=== PATIENT | female | born 1940 | race Caucasian/White ===

== ENCOUNTER 2020-09-06 11:46 | Inpatient (IN) | payer MEDICARE ==
[~2020-09-06] VITALS: Ht 165.1 cm; Wt 111.5 kg
[2020-09-06] MEDS ORDERED: diphenhydrAMINE 25 MG TAB (BENADRYL) PO PRN (12:00)
[2020-09-06] MEDS ORDERED: FLEET ENEMA ADULT 1 EA BTL PR PRN (12:00)
[2020-09-06] MEDS ORDERED: LOPERAMIDE 2 MG (IMODIUM) TABLET PO PRN (12:00)
[2020-09-06] MEDS ORDERED: ACETAMINOPHEN 325 MG TABLET PO PRN (12:00)
[2020-09-06] MEDS ORDERED: ALPRAZolam 0.25 MG (XANAX) TAB PO PRN (12:00)
[2020-09-06] MEDS ORDERED: LACTULOSE SYRUP 10GM/15ML (ENULOSE) 30ML UDC PO PRN (12:00)
[2020-09-06] MEDS ORDERED: guaiFENesin/CODEINE (ROBITUSSIN AC) 10ML UDC PO PRN (12:00)
[2020-09-06] MEDS ORDERED: BISACODYL 10 MG SUPP (DULCOLAX) PR PRN (12:00)
[2020-09-06] MEDS ORDERED: ONDANSETRON 4 MG (ZOFRAN) ORAL DISSOLVE TAB PO PRN (12:00)
[2020-09-06] MEDS ORDERED: DOCUSATE SODIUM 100 MG (COLACE) CAP PO PRN (12:00)
[2020-09-06 14:20] VITALS: BP 138/78
[2020-09-06] MEDS ORDERED: ACET-2267 PO (14:29)
[2020-09-06] MEDS ORDERED: FLEC100T PO (14:29)
[2020-09-06] MEDS ORDERED: WRF2.5T PO (14:29)
[2020-09-06] MEDS ORDERED: SPIR25TA5 PO (14:29)
[2020-09-06] MEDS ORDERED: LEVO125T6 PO (14:29)
[2020-09-06] MEDS ORDERED: PANT40TA52 PO (14:29)
[2020-09-06] MEDS ORDERED: TRAM50TA3 PO (14:29)
[2020-09-06] MEDS ORDERED: TR1C15 TP (14:29)
[2020-09-06] MEDS ORDERED: WARF-48 PO (14:29)
[2020-09-06] MEDS ORDERED: LETR2.5T6 PO (14:29)
[2020-09-06] MEDS ORDERED: OXYC-473 PO (14:29)
[2020-09-06] MEDS ORDERED: GABA300C PO (14:29)
[2020-09-06] MEDS ORDERED: LOSA50TA63 PO (14:29)
[2020-09-06] MEDS ORDERED: FURO40TA4 PO (14:29)
[2020-09-06] MEDS ORDERED: TRIAMCINOLONE 0.1% CR (KENALOG) 15 GM TUBE TP PRN (15:15)
--- NOTE | 2020-09-06 15:15 | Physical Therapy Evaluation ---
PT Evaluation-General Medical Diagnosis Admission Date Sep 06, 2020 at 14:15 Medical Diagnosis: left TKA Onset Date: Sep 04, 2020 Therapy Diagnosis Therapy Diagnosis: impaired mobility, strength, endurance, ROM Precautions Precautions/Isolations: Fall Prevention, Standard Precautions Weight Bear Status Left Lower Extremity: Left Weight Bearing/Tolerated Referral Physician: Marissa Roman DO Reason for Referral: Evaluation/Treatment Medical History Pertinent Medical History: Atrial Fib, GERD, HTN Additional Medical History CHF, HLD, DJD, obesity, sleep apnea, bilateral mastectomy, coronary stent, cardioversion x3 Reviewed History: Yes Social History Home: Single Level Current Living Status: Alone Entry Into Home: Stairs With Railing PT Steps Into Home: 3 Prior Prior Level of Function SCALE: Activities may be completed with or without assistive devices. 2-Tjvectiyyx-xvygutr completes the activity by him/herself with no assistance from a helper. 5-Set-up or Clean-up Assistance-helper sets up or cleans up; patient completes activity. [place] assists only prior to or following the activity. 4-Supervision or Touching Assistance-helper provides verbal cues and/or touching/steadying and/or contact guard assistance as patient completes activity. Assistance may be provided throughout the activity or intermittently. 3-Partial/Moderate Assistance-helper does LESS THAN HALF the effort. [place] lifts, holds or supports trunk or limbs, but provides less than half the effort. 2-Substantial/Maximal Assistance-helper does MORE THAN HALF the effort. [place] lifts or holds trunk or limbs and provides more than half the effort. 5-Gnfzfkhpl-jftwes does ALL the effort. Patient does none of the effort to complete the activity. Or, the assistance of 2 or more helpers is required for the patient to complete the activity. If activity was not attempted, code reason: 7-Patient Refused. 9-Not Applicable-not attempted and the patient did not perform the activity before the current illness, exacerbation or injury. 10-Not Attempted due to Environmental Limitations-(lack of equipment, weather restraints, etc.). 88-Not Attempted due to Medical Conditions or Safety Concerns. Bed Mobility: 6 Transfers (B,C,W/C): 6 Gait: 6 Stairs: 6 Indoor Mobility (Ambulation): Independent Stairs: Independent Prior Devices Use: Walker (4 wheeled) PT Evaluation-Current Subjective Patient in chair pre tx, agrees to PT, has 9/10 pain in left knee. Will be co- treating with OT due to poor patient mobility, strength, endurance, ROM, severe pain with activity, coordinate UE and LE with activity, safety and reduce risk of falls. Pt/Family Goals "to get my knee working better" Objective Patient Orientation: Person, Place, Situation Attachments: Polar Pack ROM/Strength ROM Lower Extremities left knee extension +10 degrees, flexion 60 degrees. Strength Lower Extremities RLE 4+/5 grossly Sensory Vision: Wears Glasses Hearing: Functional Sensation Right Lower Extremit: Intact Sensation Left Lower Extremity: Intact Transfers Roll Left & Right (QC): 3 Sit to Lying (QC): 3 Lying to Sitting/Side of Bed(Q: 3 Sit to Stand (QC): 3 Chair/Ato-lf-Lahhu Xfer(QC): 3 Toilet Transfer (QC): 3 Car Transfer (QC): 88 (Patient is not able to get her left leg into the car to complete the transfer) Patient performs bed mobility and supine <-> sit with min assist, sit <-> stand mod assist, transfers min assist. Patient is unable to complete a car transfer because she cannot bend her knee enough to get her leg in the car. Gait Does the Patient Walk?: Yes Mode of Locomotion: Walk Anticipated Mode of Locomotion: Walk Walk 10 feet (QC): 4 Walk 50 ft with 2 Turns(QC): 88 Walk 150 ft (QC): 88 Walking 10ft/uneven surface-QC: 4 Distance: 30'x2 Gait Assistive Device: FWW Comments/Gait Description Patient can ambulate 30' with a rolling walker with CGA (including 10' over an uneven surface). Gait is very antalgic, has a flexed left knee with little to no movement in the knee as she is taking steps. Wheelchair Training Does the Pt Use a Wheelchair?: Yes Distance: 30' Wheel 50 ft with 2 turns (QC): 88 Wheel 150 ft (QC): 88 Type of Wheelchair: Manual SBA Stairs #of Steps: 1 1 Step (curb) (QC): 4 4 Steps (QC): 88 12 Steps (QC): 88 Walking Assistive Device: Walker Patient can go up and down 1 step using a rolling walker with CGA and cues for foot placement. Balance Sitting Static: Normal Sitting Dynamic: Normal Standing Static: Fair Standing Dynamic: Fair Picking up an Object (QC): 88 Treatment LLE TKA protocol x15 (AP, QS, HS, SAQ, SLR). PT performed bed mobility and transfers, ambulation, stair training, LE exercise, standing and positioning during bathing and dressing, OT performed bathing, dressing, UE positioning and safety during activity. Assessment/Needs Patient has impaired mobility, strength, endurance, ROM. Rehab Potential: Fair PT Short Term Goals Short Term Goals Time Frame: Sep 13, 2020 Roll Left & Right: 6 Sit to lyin Lying to sitting on side of be: 4 Sit to stand: 3 Chair/due-qb-cjbdc transfer: 4 Walk 10 feet: 4 Walk 50 feet with two turns: 4 PT Residential Goals Residential Goals PT Residential Goals Time Frame: Sep 27, 2020 Roll Left & Right (QC): 6 Sit to Lying (QC): 6 Lying-Sitting on Side/Bed(QC): 6 Sit to Stand (QC): 4 (SBA) Chair/Vwc-nr-Qeadh Xfer(QC): 4 (SBA) Toilet Transfer (QC): 4 (SBA) Car Transfer (QC): 4 (CGA) Does the Patient Walk: Yes Walk 10 feet (QC): 4 (SA) Walk 50ft with 2 Turns (QC): 4 (SBA) Walk 150 ft (QC): 4 (BA) Walking 10ft on Uneven Surface: 4 (SBA) 1 Step (curb) (QC): 4 (SBA) 4 Steps (QC): 4 (SBA) 12 Steps (QC): 88 Picking up an Object (QC): 88 Wheel 50 feet with 2 turns (QC: 9 Wheel 150 feet: 9 PT Plan Problem List Problem List: Activity Tolerance, Functional Strength, Safety, Balance, Gait, Transfer, Bed Mobility, ROM Treatment/Plan Treatment Plan: Continue Plan of Care Treatment Plan: Bed Mobility, Education, Functional Activity Suzanne, Functional Strength, Group Therapy, Gait, Safety, Therapeutic Exercise, Transfers Treatment Duration: Sep 27, 2020 Frequency: At least 5 of 7 days/Wk (IRF) Estimated Hrs Per Day: 1.5 hours per day Patient and/or Family Agrees t: Yes Safety Risks/Education Patient Education: Gait Training, Transfer Techniques, Steps, Correct Positioning, W/C Management, Safety Issues Teaching Recipient: Patient Teaching Methods: Demonstration, Discussion Response to Teaching: Reinforcement Needed Discharge Recommendations Plan Patient will perform bed mobility and transfer training, balance and endurance training, functional strengthening, stair training, gait training, and education, to improve functional mobility and independence at home. Therapy Discharge Recommendati: Scheduled Assistance, Home & Family, Post Acute PT Time/GCodes Time In: 1420 Time Out: 1600 Total Billed Treatment Time: 90 Total Billed Treatment 1 visit EVM 10' FA 80' PT eval from [id number], OT eval from [id number], co-treat from [id number] DAYAMI UGARTE PT Sep 06, 2020 15:15
--- NOTE | 2020-09-06 15:17 | PM&R Post Admission Assessment ---
PM&R Date of Visit: Sep 06, 2020 Time of Visit: 18:30 History of Present Illness Chief complaint: Recovery from left total knee replacement HPI: This is a 79yoWF s/p left total knee replacement on 09/04/[address] Ramirez history of hypertension, AF, renal insufficiency and obesity at 227 lbs. Prior level of functioning was independent with walker and nocturnal oxygen at 2 liters and now she needs intensive recovery in order to return back home to independent living and living alone. Patient reports not using any oxygen at home or CPAP machine. She lives at home with her puppy which her friend is taking care of. 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 Cardiology will be consulted. INR will be monitored. Past Rrpgymm-Gbdtnn-Cxtbaa Hx Past Med/Social Hx: Reviewed Nursing Past Med/Soc Hx, Reviewed and Corrections made Patient Social History Marrital Status: single Employed/Student: retired Alcohol Use: Denies Use Smoking Status: Never a Smoker Recent Foreign Travel: No Contact w/other who traveled: No Past Medical History Cardiac: Atrial Fibrillation, High Cholesterol, Hypertension Neurological: Neuropathy Musculoskeletal: Chronic Back Pain Endocrine: Hypothyroidsim Cancer: Breast Did You Recieve Any Treatments: Yes What Type of Treatment Did You: Surgical Intervention PM&R Allergy/Meds/Data Review Allergies Coded Allergies: No Allergy Information Available (Unverified , 09/06/20) Home Medications Scheduled Acetaminophen (Tylenol Extra Strength), 1,000 MG PO Q8H, (Reported) Flecainide Acetate (Flecainide Acetate), 100 MG PO DAILY, (Reported) Furosemide (Furosemide), 40 MG PO THU,,FR, (Reported) Gabapentin (Neurontin), 300 MG PO HS, (Reported) Letrozole (Letrozole), 2.5 MG PO DAILY, (Reported) Levothyroxine Sodium (Levothyroxine Sodium), 125 MCG PO DAILY, (Reported) Losartan Potassium (Losartan Potassium), 50 MG PO DAILY, (Reported) Pantoprazole Sodium (Pantoprazole Sodium), 40 MG PO DAILY, (Reported) Spironolactone (Spironolactone), 25 MG PO DAILY, (Reported) Warfarin Sodium (Warfarin Sodium), 2.5 MG PO LAZARA SHEPPARD,ARNOLDO, (Reported) Warfarin Sodium (Warfarin Sodium), 5 MG PO MO,,TH,FR, (Reported) Scheduled PRN Oxycodone HCl (Roxicodone), 5-10 MG PO EVERY 2 HOURS PRN for PAIN-SEVERE (8-10), (Reported) Tramadol HCl (Tramadol HCl), 50-100 MG PO Q6H PRN for PAIN-MODERATE (5-7), (Reported) Triamcinolone Acet (Triamcinolone Acetonide 0.1% Cream), 1 APPLIC TP BID PRN for SKIN IRRITATION, (Reported) Current Medications Current Medications Reviewed Review of Systems Constitutional: see HPI, malaise, weakness EENTM: no symptoms reported Respiratory: no symptoms reported Cardiovascular: no symptoms reported Gastrointestinal: no symptoms reported Genitourinary: no symptoms reported Musculoskeletal: back pain, joint pain Skin: no symptoms reported Psychiatric/Neurological: No Symptoms Reported All Other Systems Reviewed Negative Unless Noted: Yes Physical Exam Physical Exam Vital Signs Vital Signs - First Documented 09/06/20 14:20 Temp 36.4 Pulse 97 Resp 16 B/P (MAP) 138/78 (98) Pulse Ox 92 O2 Delivery Room Air Capillary Refill : Height, Weight, BMI Height: '" Weight: lbs. oz. kg; BMI Method: General Appearance: No Apparent Distress, WD/WN, Chronically ill, Obese Eyes: Bilateral Eye Normal Inspection, Bilateral Eye PERRL HEENT: PERRL/EOMI, Normal ENT Inspection, Pharynx Normal Neck: Full Range of Motion, Normal Inspection, Non Tender, Supple, Carotid Bruit Respiratory: Chest Non Tender, Lungs Clear, Normal Breath Sounds, No Accessory Muscle Use, No Respiratory Distress Cardiovascular: No Edema, No Gallop, No JVD, No Murmur, Normal Peripheral Pulses, Irregularly Irregular Gastrointestinal: Normal Bowel Sounds, No Organomegaly, No Pulsatile Mass, Non Tender, Soft Back: Normal Inspection, No CVA Tenderness, No Vertebral Tenderness Extremity: Normal Capillary Refill, Normal Inspection, Normal Range of Motion (except left leg), Non Tender, No Calf Tenderness, No Pedal Edema Neurologic/Psychiatric: Alert, Oriented x3, No Motor/Sensory Deficits, Normal 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, 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 Norm as Tested, Motor Weakness (leg leg weakness) Skin: Normal Color, Warm/Dry Lymphatic: No Adenopathy PM&R Medical Assessment & Plan REHAB/MEDICAL ASSESSMENT AND PLAN: REHAB IMPAIRMENT GROUP: Debility ETIOLOGIC DIAGNOSIS: Debility The comorbidities that impact the patients function and/or functional outcome by: Obesity, atrial fibrillation, lives alone REHAB PLAN: The patient is being admitted to our comprehensive inpatient rehabilitation facility and can tolerate the intensity of service consisting of at least: 180 minutes of therapy a day, 5 out of 7 days a week Rehab treatment will consist of: PT and OT will focus on regaining function of left leg in order to ambulate and increase independence in ADLs in order to return home to live alone The patient/family has a good understanding of our discharge process and will benefit from an interdisciplinary inpatient rehabilitation program. The patient has potential to make improvement and is in need of at least two of the following multidisciplinary therapies including but not limited to physical, occupational, speech, and prosthetics and orthotics. Additionally the patient will need services from respiratory, nutritional services, wound care, psychology, etc. (Customize this to each patient). Given the patients complex condition and risk of further medical complications, rehabilitation services cannot be safely or effectively provided at a lower level of care such as a long-term facility. BARRIERS TO DISCHARGE: Lives alone ESTIMATED LOS: 7 days DISPOSITION: Home RELEVANT CHANGES SINCE PREADMISSION SCREENING: I have compared the patients medical and functional status at the time of the preadmission screening and there are: no changes PROGNOSIS: Good REHABILITATION GOALS: 1. PT and OT will focus on regaining function of left leg in order to ambulate and increase independence in ADLs in order to return home to live alone All the above goals were reviewed with the patient and he/she is in agreement. By signing this document, I acknowledge that I have personally performed a full physical examination on this patient within 24 hours of admission to this inpatient rehabilitation facility and have determined the patient to be able to tolerate the above course of treatment at an intensive level for a reasonable period of time. I will be completing a detailed individualized Plan of Care for this patient by day #4 of the patients stay based upon the Preadmission Screen, the Post-Admission Evaluation, and the therapy evaluations. 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
[2020-09-06] MEDS: ACETAMINOPHEN 500 MG TAB (TYLENOL) PO SCH ×2 (15:43→21:15)
--- NOTE | 2020-09-06 15:56 | Occupational Therapy Eval ---
OT Evaluation-General/PLF Medical Diagnosis Admission Date Sep 06, 2020 at 14:15 Medical Diagnosis: left TKA Onset Date: Sep 04, 2020 Therapy Diagnosis Therapy Diagnosis: decreased ADL status Precautions Precautions/Isolations: Fall Prevention, Standard Precautions Referral Physician: Marissa Roman DO Referral Reason: Evaluation/Treatment Medical History Pertinent Medical History: Atrial Fib, GERD, HTN Additional Medical History CHF, HLD, DJD, obesity, sleep apnea, bilateral mastectomy, coronary stent, cardioversion x3 Current History s/p L TKA 09/04, transferred to ARU 09/06/20 for continued medication management and skilled therapy. Social History Home: Single Level Current Living Status: Alone Entry Into Home: Stairs With Railing (bilateral) Steps Into Home: 3 ADL-Prior Level of Function SCALE: Activities may be completed with or without assistive devices. 7-Bmqnsosfdb-gzkwtzj completes the activity by him/herself with no assistance from a helper. 5-Set-up or Clean-up Assistance-helper sets up or cleans up; patient completes activity. [place] assists only prior to or following the activity. 4-Supervision or Touching Assistance-helper provides verbal cues and/or touching/steadying and/or contact guard assistance as patient completes activity. Assistance may be provided throughout the activity or intermittently. 3-Partial/Moderate Assistance-helper does LESS THAN HALF the effort. [place] lifts, holds or supports trunk or limbs, but provides less than half the effort. 2-Substantial/Maximal Assistance-helper does MORE THAN HALF the effort. [place] lifts or holds trunk or limbs and provides more than half the effort. 2-Xsmuvilff-hzproy does ALL the effort. Patient does none of the effort to complete the activity. Or, the assistance of 2 or more helpers is required for the patient to complete the activity. If activity was not attempted, code reason: 7-Patient Refused. 9-Not Applicable-not attempted and the patient did not perform the activity before the current illness, exacerbation or injury. 10-Not Attempted due to Environmental Limitations-(lack of equipment, weather restraints, etc.). 88-Not Attempted due to Medical Conditions or Safety Concerns. ADL PLOF Comments Pt IND with ADLs and functional mobility at PLOF, using 4WW. Self Care: Independent Functional Cognition: Independent DME/Equipment: Bath Chair, Grab Bars, Tub/Shower DME/Equipment Comments 4WW OT Current Status Subjective Pt agreeable to OT evaluation and OT/PT cotreat. Pt reports pain 9/10 in L knee with movement. Mental Status/Objective Patient Orientation: Person, Place, Time, Situation Attachments: Polar Pack Current Glasses/Contacts: Yes Hearing Aids: No Dentures/Partials: Yes (partial) Hand Dominance: Right Upper Extremity ROM WFL, BUE shoulder flexion to approx 150 degrees Upper Extremity Coordination WFL Upper Extremity Sensation WFL Upper Extremity Strength grossly 4/5 BUEs ADL-Treatment Eating (QC): 6 (Per pt report) Oral Hygiene (QC): 5 (based on clincial judgement) Shower/Bathe Self (QC): 3 (Pt able to wash BUEs, chest/abdomen, periarea, buttocks, RLE. Assist with LLE lower leg/foot for thoroughness. Mod A sit to/from stand to wash buttocks/periarea) Upper Body Dressing (QC): 5 (set up) Lower Body Dressing (QC): 3 (Pt able to doff pants/underwear. pt threaded BLEs into underwear, min A with pant hike. Mod A sit to/from stand) On/Off Footwear (QC): 2 (Max A, pt able to doff tennis shoes. Assist doffing tedhose, assist donning tedhose and gripper socks.) Toileting Hygiene (QC): 3 (Min A with pant hike, pt able to perform pericare. Mod A sit to/from stand) Increased time with ADLs and frequent rest breaks. Other Treatments OT evaluation complete. OT/PT cotreat due to skill of 2 clinicians required which a rehabilitation tech could not perform in order to coordinate UE/LEs, decrease fall risk, and due to pt's limitations in pain, strength, activity tolerance, transfers and mobility. OT focused on ADLs, UE placement, cues for sequencing and safety, PT focused on LE placement, gross overall movement, transfers and mobility. Pt performed functional mobility and transfers, walking with FWW, 1 step, and over uneven surface, then into her room. Pt took seated rest breaks as needed. Pt declined showering today, but agreeable to sponge bath. Pt completed sponge bath, dressing, and ADLs at [facility] [address] as outlined above. She then used FWW to transfer to bed supine. Post tx, pt laying in bed, call light in reach and all needs met. Bed mobility and supine <-> sit min A, sit <-> stand mod A, transfers min A. Functional mobility 30' with a rolling walker with CGA (including 10' on uneven surface) Education OT Patient Education: Correct positioning, Modified ADL techniques, Progress toward Goal/Update tx plan, Purpose of tx/functional activities, Rehab process Teaching Recipient: Patient Teaching Methods: Discussion Response to Teaching: Verbalize Understanding OT Short Term Goals Short Term Goals Time Frame: Sep 14, 2020 Toileting hygiene: 4 Shower/bathe self: 4 Lower body dressin Putting on/taking off footwear: 4 OT Mcc Goals Mcc Goals Time Frame: Oct 05, 2020 Eating (QC): 6 Oral Hygiene (QC): 6 Toileting Hygiene (QC): 6 Shower/Bathe Self (QC): 6 Upper Body Dressing (QC): 6 Lower Body Dressing (QC): 6 On/Off Footwear (QC): 6 Additional Goals: 1-Demonstrate ADL Tasks, 2-Verbalize Understanding, 3- ImproveStrength/Suzanne 1=Demonstrate adherence to instructed precautions during ADL tasks. 2=Patient will verbalize/demonstrate understanding of assistive devices/modifications for ADL. 3=Patient will improve strength/tolerance for activity to enable patient to perform ADL's. OT Education/Plan Problem List/Assessment Assessment: Decreased Activ Tolerance, Decreased UE Strength, Impaired Funct Balance, Impaired I ADL's, Impaired Self-Care Skills Discharge Recommendations Plan/Recommendations: Continue POC Treatment Plan/Plan of Care Patient would benefit from OT for education, treatment and training to promote independence in ADL's, mobility, safety and/or upper extremity function for ADL's. Plan of Care: ADL Retraining, Functional Mobility, Group Exercise/Act as Ind, UE Funct Exercise/Act Treatment Duration: Oct 05, 2020 Frequency: At least 5 of 7 days/Wk (IRF) Estimated Hrs Per Day: 1.5 hours per day Rehab Potential: Fair Time/GCodes Start Time: 14:30 Stop Time: 16:00 Total Time Billed (hr/min): 90 Billed Treatment Time OT eval from [id number], co-treat from [id number] 1, EVM (10'), FA (20'), ADL 4 (60') SHANNAN DE LA PAZ OT Sep 06, 2020 15:56
[2020-09-06 20:00] VITALS: BP 144/70
[2020-09-06] MEDS: DOCUSATE SODIUM 100 MG (COLACE) CAP PO SCH (20:39)
[2020-09-06] MEDS: GABAPENTIN 300 MG (NEURONTIN) CAP PO SCH (20:39)
[2020-09-06] MEDS: polyethylene glycoL POWDER 17 GM (MIRALAX) PACK PO SCH (20:51)
[2020-09-06] MEDS: SENNA W/DOCUSATE (SENOKOT S) TABLET PO SCH (20:52)
[2020-09-07 05:46] LABS: BASOPHILS % (AUTO) 0 % (0-10); EOSINOPHILS # (AUTO) 0.2 10^3/uL (0.0-0.3); EOSINOPHILS % (AUTO) 3 % (0-10); HEMATOCRIT 31 % (35-52); HEMOGLOBIN 10.1 g/dL (11.5-16.0); LYMPHOCYTES # (AUTO) 0.7 10^3/uL (1.0-4.0); LYMPHOCYTES % (AUTO) 10 % (12-44); MEAN CORPUSCULAR HEMOGLOBIN 32 pg (25-34); MEAN CORPUSCULAR HGB CONC 32 g/dL (32-36); MEAN CORPUSCULAR VOLUME 100 fL (80-99); MEAN PLATELET VOLUME 11.2 fL (9.0-12.2); MONOCYTES # (AUTO) 0.8 10^3/uL (0.0-1.0); MONOCYTES % (AUTO) 12 % (0-12); NEUTROPHILS % (AUTO) 74 % (42-75); PLATELET COUNT 157 10^3/uL (130-400); WHITE BLOOD COUNT 6.8 10^3/uL (4.3-11.0)
[2020-09-07 05:54] LABS: INR 1.5 (0.8-1.4); PROTHROMBIN TIME PATIENT 18.6 SEC (12.2-14.7)
[2020-09-07 05:56] LABS: ALBUMIN 3.4 GM/DL (3.2-4.5); POTASSIUM 4.4 MMOL/L (3.6-5.0)
[2020-09-07 05:57] LABS: CALCIUM 8.5 MG/DL (8.5-10.1)
[2020-09-07 05:59] LABS: TOTAL PROTEIN 6.3 GM/DL (6.4-8.2)
[2020-09-07 06:00] LABS: BILIRUBIN,TOTAL 0.5 MG/DL (0.1-1.0)
[2020-09-07 06:02] LABS: CREATININE SERUM 0.99 MG/DL (0.60-1.30)
--- NOTE | 2020-09-07 06:52 | Individualized Plan of Care ---
Individualized Plan of Care Rehab Nursing IPOC Order Admission Date Sep 06, 2020 at 14:15 Current Orders Orders Admission Order(Inpt,Obs,Sdc) (09/06/20 11:53) Vital Signs: Per Unit Policy ( ,00 (09/06/20 11:53) Car Duffy (09/06/20 11:53) Sequential Compression Device .admit (09/06/20 11:53) Sales Support Administrator-Inpt Rehab Con (09/06/20 11:53) Rehab Nursing Orders-Ipoc (09/06/20 11:53) Physical Therapy Rehab Orders (09/06/20 11:53) Occupational Therapy Rehab Ord (09/06/20 11:53) Speech Therapy Rehab Orders (09/06/20 11:53) Cbc With Automated Diff (09/07/20 06:00) Comprehensive Metabolic Panel (09/07/20 06:00) Precautions (Aru) (09/06/20 11:53) Weekly Weight WEEK (09/06/20 11:53) Rehab-Intensity Of Therapy (09/06/20 11:53) Initiate Admission Nursing Pro .admission (09/06/20 11:53) Acetaminophen Tablet/Caplet (Tylenol T (09/06/20 12:00) Alprazolam Tablet (Xanax Tablet) (09/06/20 12:00) Calcium Carbonate Chew Tablet (Antacid C (09/06/20 12:00) Diphenhydramine Tablet (Benadryl Tablet) (09/06/20 12:00) Docusate Sodium Capsule (Colace Capsule) (09/06/20 21:00) Docusate Sodium Capsule (Colace Capsule) (09/06/20 12:00) Bisacodyl Suppository (Dulcolax Supposit (09/06/20 12:00) Lactulose Oral Solution (Enulose Oral So (09/06/20 12:00) Na Phos/Na Biphos Enema (Fleet Enema Mikhail (09/06/20 12:00) Guaifenesin/Codeine Syrup (Robitussin Ac (09/06/20 12:00) Hydrocodone/Apap 5/325 Tablet (Lortab 5 (09/06/20 12:00) Loperamide Tablet (Imodium Tablet) (09/06/20 12:00) Melatonin Tablet (Melatonin Tablet) (09/06/20 12:00) Polyethylene Glycol Powder Pkt (Miralax (09/06/20 21:00) Ondansetron Oral Dissolve Tab (Zofran (09/06/20 12:00) Senna S Tablet (Senokot S Tablet) (09/06/20 21:00) Code/Resuscitation (09/06/20 11:53) Initiate Admission Nursing Pro .admission (09/06/20 11:53) Dressing Order (Intervention) UD (09/06/20 14:43) Follow-Up Appointment D/C (09/06/20 14:43) Acetaminophen Tablet (Tylenol Tablet) (09/06/20 15:15) Flecainide Tablet (Tambocor Tablet) (09/07/20 09:00) Gabapentin Capsule/Tablet (Neurontin Cap (09/06/20 21:00) Letrozole (Non-Formulary) (Femara (Non-F (09/07/20 09:00) Levothyroxine Tablet (Synthroid Tablet) (09/07/20 09:00) Losartan Tablet (Cozaar Tablet) (09/07/20 09:00) Oxycodone Immediate Rel Tablet (Oxyir Ta (09/06/20 15:15) Pantoprazole Tablet (Protonix Tablet) (09/07/20 09:00) Spironolactone Tablet (Aldactone Tablet) (09/07/20 09:00) Triamcinolone 0.1% Cream 15 Gm (Kenalog (09/06/20 15:15) Consult Cardiology (09/06/20 15:16) Protime With Inr (09/07/20 06:00) Tramadol Tablet (Ultram Tablet) (09/06/20 15:45) General/Regular (09/06/20 Dinner) Patient Visit (09/06/20 ) Pt Eval Moderate Complexity (09/06/20 ) Functional Activities, Ea 15 (09/06/20 ) Warfarin Tablet (Coumadin Tablet) (09/07/20 09:00) Furosemide Tablet (Lasix Tablet) (09/07/20 09:00) Warfarin Tablet (Coumadin Tablet) (09/08/20 09:00) Rt Request For Service (09/06/20 18:15) Patient Visit (09/07/20 ) Exercise Therap, Ea 15 Min (09/07/20 ) Gait Training, Ea 15 Min (09/07/20 ) Functional Activities, Ea 15 (09/07/20 ) Patient Visit (09/07/20 ) Speech Sound Lang Comp (09/07/20 ) Treat. Speech/Lang/Voice (09/07/20 ) Patient Visit (09/07/20 ) Ex Neuromuscular, Ea 15 Min (09/07/20 ) Functional Activities, Ea 15 (09/07/20 ) Rehab Nursing Orders: Ongoing Assess. of Function Status, Bladder Management, Bladder Scan, Bladder Training, Bowel Management, Bowel Training, Disease Management & Educaiton, DVT Prophylaxis, Fall Prevention, Fluid/Electrolyte/Nutrition Mgmt, Infection Prevention, Medication Management & Education, Management of Risks & Complications, Management of Skin Intergrity, Nutrition Management, Pain Management, Patient/Family Support, Safety Management Intensity of Therapy to be met Patient to be seen: Min.3h per day/5 of 7d PT IPOC Problem List: Activity Tolerance, Functional Strength, Safety, Balance, Gait, Transfer, Bed Mobility, ROM Treatment Plan: Continue Plan of Care Bed Mobility, Education, Functional Activity Suzanne, Functional Strength, Group Therapy, Gait, Safety, Therapeutic Exercise, Transfers Treatment Duration: Sep 27, 2020 Frequency: At least 5 of 7 days/Wk (IRF) Estimated Hrs Per Day: 1.5 hours per day OT IPOC Problems: Decreased Activ Tolerance, Decreased UE Strength, Impaired Funct Balance, Impaired I ADL's, Impaired Self-Care Skills OT Treatment, Training and Edu: Yes Plan of Care: ADL Retraining, Functional Mobility, Group Exercise/Act as Ind, UE Funct Exercise/Act Treatment Duration: Oct 05, 2020 Frequency: At least 5 of 7 days/Wk (IRF) Estimated Hrs Per Day: 1.[address] IPOC Speech Therapy Treatment Plan: Discontinue ST Treatment Duration: Sep 07, 2020 Frequency: Modified Program (IRF) Estimated Hrs Per Day: Other Sales Support Administrator/Case Mgmt Sales Support Administrator/Case Managemen: Discharge Planning Dietitian/Metal Sander [employer] Finisher Dietitian/Metal Sander And Finisher to monitor nutritional status and make changes and/or recommendations as needed and work with speech pathology on dietary upgrades as the occur. Physician IPOC Medical Issues being managed closely and that require the 24 hour availability o f a physician: Recent knee replacement with extensive cardiac issues with polycystic kidney disease and warfarin treatment will require close monitoring of decompensation Medical Issues: Bowel/Bladder Function, DVT Prophylaxis, Falls Precautions, Fluid/Electrolyte/Nutrition Balance, Infection Protection, Pain Management, Wound Care Brief Synthesis of Preadmission Screen, Post-Admission Evaluation, and Therapy Evaluations: PT OT will focus on regaining ambulation independence along with ADL independence with fall risk and use of AD in order to return home to live alone Medical Prognosis: Good Anticipated Length of Stay: 7 days STEFF TORRES DO Sep 07, 2020 06:52
--- NOTE | 2020-09-07 06:52 | PM&R Progress Note ---
Subjective HPI/CC On Admission Date Seen by Provider: Sep 07, 2020 Time Seen by Provider: 11:30 Subjective/Events-last exam 09/07/20: No major issues currently Pain is controlled INR 1.[address] Samson No dyspnea BM+ BP taken in leg due to bilateral mastectomies Review of Systems Musculoskeletal: leg pain Objective Exam Vital Signs Vital Signs Date Time Temp Pulse Resp B/P (MAP) Pulse Ox O2 Delivery O2 Flow Rate FiO2 09/07/20 21:18 Room Air 09/07/20 20:00 36.8 75 18 129/61 (83) 92 Capillary Refill : General Appearance: No Apparent Distress, WD/WN, Chronically ill, Obese HEENT: PERRL/EOMI, Normal ENT Inspection, Pharynx Normal Neck: Full Range of Motion, Normal Inspection, Non Tender, Supple, Carotid Bruit Respiratory: Chest Non Tender, Lungs Clear, Normal Breath Sounds, No Accessory Muscle Use, No Respiratory Distress Cardiovascular: No Edema, No Gallop, No JVD, No Murmur, Normal Peripheral Pulses, Irregularly Irregular Gastrointestinal: Normal Bowel Sounds, No Organomegaly, No Pulsatile Mass, Non Tender, Soft Back: Normal Inspection, No CVA Tenderness, No Vertebral Tenderness Extremity: Normal Capillary Refill, Normal Inspection, Normal Range of Motion (except left leg), Non Tender, No Calf Tenderness, No Pedal Edema Neurologic/Psychiatric: Alert, Oriented x3, No Motor/Sensory Deficits, Normal Mood/Affect, strategic planner II-XII Norm as Tested, Motor Weakness (leg leg weakness) Skin: Normal Color, Warm/Dry Lymphatic: No Adenopathy Results/Procedures Lab Patient resulted labs reviewed. FIM Transfers Therapy Code Descriptions/Definitions Functional [place] Measure: 0=Not Assessed/NA 4=Minimal Assistance 1=Total Assistance 5=Supervision or Setup 2=Maximal Assistance 6=Modified [place] 3=Moderate Assistance 7=Complete IndependenceSCALE: Activities may be completed with or without assistive devices. 9-Tjqtgiiqjf-cgorrbc completes the activity by him/herself with no assistance from a helper. 5-Set-up or Clean-up Assistance-helper sets up or cleans up; patient completes activity. [place] assists only prior to or following the activity. 4-Supervision or Touching Assistance-helper provides verbal cues and/or touching/steadying and/or contact guard assistance as patient completes activ ity. Assistance may be provided throughout the activity or intermittently. 3-Partial/Moderate Assistance-helper does LESS THAN HALF the effort. [place] lifts, holds or supports trunk or limbs, but provides less than half the effort. 2-Substantial/Maximal Assistance-helper does MORE THAN HALF the effort. [place] lifts or holds trunk or limbs and provides more than half the effort. 1-Rhlpcmmmt-mysvmx does ALL the effort. Patient does none of the effort to complete the activity. Or, the assistance of 2 or more helpers is required for the patient to complete the activity. If activity was not attempted, code reason: 7-Patient Refused. 9-Not Applicable-not attempted and the patient did not perform the activity before the current illness, exacerbation or injury. 10-Not Attempted due to Environmental Limitations-(lack of equipment, weather restraints, etc.). 88-Not Attempted due to Medical Conditions or Safety Concerns. Roll Left to Right (QC): 3 Sit to Lying (QC): 3 Sit to Stand (QC): 3 Chair/Qlr-vy-Cvfaq Xfer(QC): 3 Car Transfer (QC): 88 (Patient is not able to get her left leg into the car to complete the transfer) Gait Training Does the Patient Walk?: Yes Walk 10 feet (QC): 4 Walk 50 ft with 2 Turns(QC): 88 Walk 150 ft (QC): 88 Walking 10ft/uneven surface-QC: 4 Gait Assistive Device: FWW Wheelchair Training Does the Pt Use a Wheelchair?: Yes Distance: 30' Wheel 50 ft with 2 turns (QC): 88 Wheel 150 ft (QC): 88 Type of Wheelchair: Manual Stair Training #of Steps: 1 1 Step (curb) (QC): 4 4 Steps (QC): 88 12 Steps (QC): 88 Balance Picking up an Object (QC): 88 ADL-Treatment Eating (QC): 6 (Per pt report) Oral Hygiene (QC): 5 (based on clincial judgement) Shower/Bathe Self (QC): 3 (Pt able to wash BUEs, chest/abdomen, periarea, buttocks, RLE. Assist with LLE lower leg/foot for thoroughness. Mod A sit to/from stand to wash buttocks/periarea) Upper Body Dressing (QC): 5 (set up) Lower Body Dressing (QC): 3 (Pt able to doff pants/underwear. pt threaded BLEs into underwear, min A with pant hike. Mod A sit to/from stand) On/Off Footwear (QC): 2 (Max A, pt able to doff tennis shoes. Assist doffing tedhose, assist donning tedhose and gripper socks.) Toileting Hygiene (QC): 3 (Min A with pant hike, pt able to perform pericare. Mod A sit to/from stand) Assessment/Plan Assessment and Plan Assess & Plan/Chief Complaint Assessment: 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 Chronic atrial fibrillation Warfarin anticoagulation for stroke prophylaxis from atrial fibrillation Hypothyroidism History of breast cancer Chronic kidney disease Hypertension Hyperlipidemia Obesity Plan: Inpatient rehab protocol Pain control Monitor INR Cardiology consult appreciated 09/07/20: Cardiology consult Monitoring of INR (1) Total knee replacement status (2) HX: breast cancer (3) Obesity (4) Hypothyroidism (5) Atrial fibrillation (6) Warfarin anticoagulation (7) GERD (gastroesophageal reflux disease) STEFF TORRES DO Sep 07, 2020 06:52
[2020-09-07] MEDS: ACETAMINOPHEN 500 MG TAB (TYLENOL) PO SCH ×3 (06:58→23:23)
[2020-09-07 08:00] VITALS: BP 173/73
[2020-09-07] MEDS: SENNA W/DOCUSATE (SENOKOT S) TABLET PO SCH ×2 (08:50→21:15)
[2020-09-07] MEDS: PANTOPRAZOLE 40 MG (PROTONIX) TAB PO SCH (08:51)
[2020-09-07] MEDS: DOCUSATE SODIUM 100 MG (COLACE) CAP PO SCH ×2 (08:51→21:15)
[2020-09-07] MEDS: LETROZOLE 2.5 MG (FEMARA) TAB PO SCH (08:51)
[2020-09-07] MEDS: LOSARTAN 50 MG (COZAAR) TAB PO SCH (08:51)
[2020-09-07] MEDS: SPIRONOLACTONE 25 MG (ALDACTONE) TAB PO SCH (08:51)
[2020-09-07] MEDS: polyethylene glycoL POWDER 17 GM (MIRALAX) PACK PO SCH ×2 (08:52→21:15)
--- NOTE | 2020-09-07 08:53 | Physical Therapy Daily Note ---
PT Daily Note-Current Subjective Pt agreeable. She says she has had some tylenol for pain. States the knee just feels like it's not connected. There's no power to it when she tells it to move. Pain Numeric Pain Scale: 5-Moderate Pain Location: Left, Lateral Location Body Site: Knee Transfers SCALE: Activities may be completed with or without assistive devices. 4-Pgczsbwscj-wtkgmim completes the activity by him/herself with no assistance from a helper. 5-Set-up or Clean-up Assistance-helper sets up or cleans up; patient completes activity. [place] assists only prior to or following the activity. 4-Supervision or Touching Assistance-helper provides verbal cues and/or touching/steadying and/or contact guard assistance as patient completes activity. Assistance may be provided throughout the activity or intermittently. 3-Partial/Moderate Assistance-helper does LESS THAN HALF the effort. [place] lifts, holds or supports trunk or limbs, but provides less than half the effort. 2-Substantial/Maximal Assistance-helper does MORE THAN HALF the effort. [place] lifts or holds trunk or limbs and provides more than half the effort. 1-Hpliszdpn-oblyln does ALL the effort. Patient does none of the effort to complete the activity. Or, the assistance of 2 or more helpers is required for the patient to complete the activity. If activity was not attempted, code reason: 7-Patient Refused. 9-Not Applicable-not attempted and the patient did not perform the activity before the current illness, exacerbation or injury. 10-Not Attempted due to Environmental Limitations-(lack of equipment, weather restraints, etc.). 88-Not Attempted due to Medical Conditions or Safety Concerns. Roll Left & Right (QC): 4 Sit to Lying (QC): 4 Lying to Sitting/Side of Bed(Q: 3 Sit to Stand (QC): 4 Chair/Oro-si-Qxtic Xfer(QC): 3 Car Transfer (QC): 1 Weight Bearing Left Lower Extremity: Left Weight Bearing/Tolerated Gait Training Walk 50 ft with 2 Turns(QC): 3 Gait Persons Needed: 1 Gait Assistive Device: FWW Ambulated 50ft with FWW x 2 trials with education to swing through on the (L) vs circumduction and also to work on full knee extension during stance. Exercises Supine Ex: Ankle pumps, Quad Set, Glut sets, Heel Slides, Knee to chest, Short Arc Quads, Straight leg raise, Hip abd/add Supine Reps: 10 Seated Therapy Exercises: Long arc quads, Hamstring Curls Seated Reps: 10 Incorporated active assist exercise, isometric exercise, and Passive end range knee flexion/extension stretching Assessment Current Status: Good Progress Pt has poor quadriceps contraction. Quad will fire intermittently with active motion but patient is not able to perform an isometric contraction. She did show increased active control post treatment. Pt will benefit from continue PT for strength and mobility training PT Short Term Goals Short Term Goals Time Frame: Sep 13, 2020 Roll Left & Right: 6 Sit to lyin Lying to sitting on side of be: 4 Sit to stand: 3 Chair/fze-vo-hnmvu transfer: 4 Walk 10 feet: 4 Walk 50 feet with two turns: 4 PT Half-Way Goals Half-Way Goals PT Needle Straightener Goals Time Frame: Sep 27, 2020 Roll Left & Right (QC): 6 Sit to Lying (QC): 6 Lying-Sitting on Side/Bed(QC): 6 Sit to Stand (QC): 4 (SBA) Chair/Ehw-ze-Duact Xfer(QC): 4 (SBA) Toilet Transfer (QC): 4 (SBA) Car Transfer (QC): 4 (CGA) Does the Patient Walk: Yes Walk 10 feet (QC): 4 (SA) Walk 50ft with 2 Turns (QC): 4 (SBA) Walk 150 ft (QC): 4 (BA) Walking 10ft on Uneven Surface: 4 (SBA) 1 Step (curb) (QC): 4 (SBA) 4 Steps (QC): 4 (SBA) 12 Steps (QC): 88 Picking up an Object (QC): 88 Wheel 50 feet with 2 turns (QC: 9 Wheel 150 feet: 9 PT Plan Treatment/Plan Treatment Plan: Continue Plan of Care, Discontinue PT Treatment Plan: Bed Mobility, Education, Functional Activity Suzanne, Functional Strength, Group Therapy, Gait, Safety, Therapeutic Exercise, Transfers Treatment Duration: Sep 27, 2020 Frequency: At least 5 of 7 days/Wk (IRF) Estimated Hrs Per Day: 1.5 hours per day Patient and/or Family Agrees t: Yes Time/GCodes Time In: 745 Time Out: 845 Total Billed Treatment Time: 60 Total Billed Treatment visit, ex 30 min, gt 15 min, FA 15 min AMIE ALEJANDRA PT Sep 07, 2020 08:53
[2020-09-07] MEDS ORDERED: FUROSEMIDE 40 MG (LASIX) TAB PO SCH (09:00)
--- NOTE | 2020-09-07 09:00 | Consultation-Cardiology ---
HPI-Cardiology Cardiology Consultation Date of Consultation 09/07/20 Date of Admission Time Seen by Provider: 08:25 Indication: PAF HPI Patient is a 79 y/o female in inpatient rehab after undergoing left total knee arthroplasty with Dr. Ramirez. Patient has a history of PAF, HTN, HLP. Primary echocardiographer is Dr. Ndiaye. Denies any chest pain, dypsnea, dizziness or lightheadedness. Reports to me that her echocardiographer had recently decreased some medications d/t bradycardia and tells me she is planning on undergoing PPM implantation in near future. Home Medications & Allergies Allergies: Coded Allergies: adhesive tape (Verified Allergy, Intermediate, BLISTERS, 09/07/20) codeine (Verified Allergy, Intermediate, "MAKES ME FEEL WEIRD", 09/07/20) Uncoded Allergies: STATINS (Allergy, Mild, "MAKES MY LEGS HURT", 09/07/20) Home Medication List Reviewed: Yes QCF-Jaxdes-Hasnws Hx Patient Social History Marital Status: single Employed/Student: retired Smoking Status: Never a Smoker Have you traveled recently?: No Alcohol Use?: Yes Past Medical History PAF, HTN, HLP Review of Systems-General Review of Systems Constitutional: see HPI, malaise, weakness EENTM: see HPI, no symptoms reported; No blurred vision, No double vision Respiratory: no symptoms reported; No dyspnea on exertion Cardiovascular: no symptoms reported; No chest pain, No Hx of Intervention, No palpitations Gastrointestinal: no symptoms reported Genitourinary: no symptoms reported Musculoskeletal: back pain, joint pain Skin: no symptoms reported Psychiatric/Neurological: No Symptoms Reported All Other Systems Reviewed Negative Unless Noted: Yes Reviewed Test Results Reviewed Test Results Lab Laboratory Tests 09/07/20 05:20: White Blood Count 6.8, Red Blood Count 3.12L, Hemoglobin 10.1L, Hematocrit 31L, Mean Corpuscular Volume 100H, Mean Corpuscular Hemoglobin 32, Mean Corpuscular Hemoglobin Concent 32, Red Cell Distribution Width 13.1, Platelet Count 157, Mean Platelet Volume 11.2, Immature Granulocyte % (Auto) 0, Neutrophils (%) (Auto) 74, Lymphocytes (%) (Auto) 10L, Monocytes (%) (Auto) 12, Eosinophils (%) (Auto) 3, Basophils (%) (Auto) 0, Neutrophils # (Auto) 5.0, Lymphocytes # (Auto) 0.7L, Monocytes # (Auto) 0.8, Eosinophils # (Auto) 0.2, Basophils # (Auto) 0.0, Immature Granulocyte # (Auto) 0.0, Prothrombin Time 18.6H, INR Comment 1.5H, Sodium Level 136, Potassium Level 4.4, Chloride Level 102, Carbon Dioxide Level 24, Anion Gap 10, Blood Urea Nitrogen 22H, Creatinine 0.99, Estimat Glomerular Filtration Rate 54, BUN/Creatinine Ratio 22, Glucose Level 84, Calcium Level 8.5, Corrected Calcium 9.0, Total Bilirubin 0.5, Aspartate Amino Transf (AST/SGOT) 33, Alanine Aminotransferase (ALT/SGPT) 14, Alkaline Phosphatase 49, Total Protein 6.3L, Albumin 3.4 Physical Exam Physical Exam Vital Signs Vital Signs - First Documented 09/06/20 14:20 Temp 36.4 Pulse 97 Resp 16 B/P (MAP) 138/78 (98) Pulse Ox 92 O2 Delivery Room Air Capillary Refill : Height, Weight, BMI Height: '" Weight: lbs. oz. kg; 39.65 BMI Method: General Appearance: No Apparent Distress, WD/WN, Chronically ill, Obese Eyes: Bilateral Eye Normal Inspection, Bilateral Eye PERRL HEENT: PERRL/EOMI, Normal ENT Inspection, Pharynx Normal Neck: Full Range of Motion, Normal Inspection, Non Tender, Supple, Carotid Bruit Respiratory: Chest Non Tender, Lungs Clear, Normal Breath Sounds, No Accessory Muscle Use, No Respiratory Distress Cardiovascular: No Edema, No Gallop, No JVD, No Murmur, Normal Peripheral P ulses, Irregularly Irregular Gastrointestinal: Normal Bowel Sounds, No Organomegaly, No Pulsatile Mass, Non Tender, Soft Back: Normal Inspection, No CVA Tenderness, No Vertebral Tenderness Extremity: Normal Capillary Refill, Normal Inspection, Normal Range of Motion (except left leg), Non Tender, No Calf Tenderness, No Pedal Edema Neurologic/Psychiatric: Alert, Oriented x3, No Motor/Sensory Deficits, Normal Mood/Affect, software support specialist II-XII Norm as Tested, Motor Weakness (leg leg weakness) Skin: Normal Color, Warm/Dry Lymphatic: No Adenopathy A/P-Cardiology Admission Diagnosis L TKA PAF HTN HLP Assessment/Plan S/P left total knee arthroplasty with Dr. Ramirez, slowly recovering. Continue with PT/OT. SSS/PAF, maintained on Flecainide 100mg daily, Coumadin. Reports unknown medication recently d/c'd by primary echocardiographer d/t bradycardia and is planning for PPM in near future. Coumadin restarted today. Continue to monitor daily PT/INR. HTN- controlled, continue to monitor HLP, reports statin intolerance, continue to monitor as outpatient CRI, monitor renal function Obesity Thank you for allowing us to participate in the management of Ms. Hinkle. This is Violetta Pennington PA-C, as a scribe for Dr. Samson. Patient was seen and evaluated with Violetta, I interviewed the patient and performed physical examination, patient is a 79-year-old lady with history of paroxysmal atrial fibrillation, hypertension, hyperlipidemia, chronic renal insufficiency, underwent TKA. She is maintained on flecainide 100 mg 1 mg once daily per her primary echocardiographer recommendation, Dr. Owen,. I will continue on the current dose and monitor her closely History of sinus node dysfunction with episodes of bradycardia, patient was planning to get permanent pacemaker as an outpatient in the future. Currently not requiring a pacemaker History of hypertension, monitor blood pressure VIOLETTA SAUCEDO Sep 07, 2020 8:59 am ROWAN SAMSON MD Sep 07, 2020 1:34 pm
[2020-09-07] MEDS: LEVOTHYROXINE 125 MCG (LEVOTHROID) TABLET PO SCH (09:18)
[2020-09-07] MEDS: warFARin 5 MG (COUMADIN) TAB PO SCH (09:18)
[2020-09-07] MEDS: FLECAINIDE 100 MG (TAMBOCOR) TAB PO SCH (09:18)
--- NOTE | 2020-09-07 10:03 | Occupational Ther Daily Note ---
OT Current Status-Daily Note Subjective Pt laying in bed, agreeable to OT tx. Mental Status/Objective Patient Orientation: Normal For Age ADL-Treatment Therapy Code Descriptions/Definitions Functional [place] Measure: 0=Not Assessed/NA 4=Minimal Assistance 1=Total Assistance 5=Supervision or Setup 2=Maximal Assistance 6=Modified [place] 3=Moderate Assistance 7=Complete IndependenceSCALE: Activities may be completed with or without assistive devices. 9-Bqwbzkybpi-othnctn completes the activity by him/herself with no assistance from a helper. 5-Set-up or Clean-up Assistance-helper sets up or cleans up; patient completes activity. [place] assists only prior to or following the activity. 4-Supervision or Touching Assistance-helper provides verbal cues and/or touching/steadying and/or contact guard assistance as patient completes activity. Assistance may be provided throughout the activity or intermittently. 3-Partial/Moderate Assistance-helper does LESS THAN HALF the effort. [place] lifts, holds or supports trunk or limbs, but provides less than half the effort. 2-Substantial/Maximal Assistance-helper does MORE THAN HALF the effort. [place] lifts or holds trunk or limbs and provides more than half the effort. 2-Dlmcnlcnu-hxoeiy does ALL the effort. Patient does none of the effort to complete the activity. Or, the assistance of 2 or more helpers is required for the patient to complete the activity. If activity was not attempted, code reason: 7-Patient Refused. 9-Not Applicable-not attempted and the patient did not perform the activity before the current illness, exacerbation or injury. 10-Not Attempted due to Environmental Limitations-(lack of equipment, weather restraints, etc.). 88-Not Attempted due to Medical Conditions or Safety Concerns. Oral Hygiene (QC): 6 (IND seated at sink.) Shower/Bathe Self (QC): 3 (Min A with washing/drying L foot.) Upper Body Dressing (QC): 5 (set up assist) Lower Body Dressing (QC): 3 (Pt required assistance threding BLEs into pants, able to manage up to her knees and then pant hike.) On/Off Footwear: 2 (Pt required assistance doffing tedhose and gripper socks, assist donnig LLE tedhose and gripper sock. Pt able to don RLE gripper sock (declined tedhose)) Toileting Hygiene (QC): 4 (CGA, pt able to perform pant hike and hygiene.) Toilet Transfer (QC): 4 (CGA on/off BSC over toilet.) Other Treatment Pt laying in bed, transferred supine to sit EOB (assist LLE). Pt used FWW to ambulate into bathroom and onto toilet, CGA. Pt completed toileting, then transferred to w/c. Pt completed sponge bath, dressing, and oral care seated at sink, requiring frequent rest breaks. OT educated pt on using LH sponge to wash lower legs/feet, but still required assistance washing/drying L foot for thoroughness. Pt stood at FWW, CGA, and returned to bed. Pt required assist with LLE into bed to transfer supine. OT placed polar pack on LLE. Post tx, pt laying in bed, call light in reach and all needs met. Education OT Patient Education: Correct positioning, Energy conservation, Exercise program, Modified ADL techniques, Progress toward Goal/Update tx plan, Purpose of tx/functional activities, Rehab process, Use of adapted equipment Teaching Recipient: Patient Teaching Methods: Discussion Response to Teaching: Verbalize Understanding OT Short Term Goals Short Term Goals Time Frame: Sep 14, 2020 Toileting hygiene: 4 Shower/bathe self: 4 Lower body dressin Putting on/taking off footwear: 4 OT Assisted Goals Assisted Goals Time Frame: Oct 05, 2020 Eating (QC): 6 Oral Hygiene (QC): 6 Toileting Hygiene (QC): 6 Shower/Bathe Self (QC): 6 Upper Body Dressing (QC): 6 Lower Body Dressing (QC): 6 On/Off Footwear (QC): 6 Additional Goals: 1-Demonstrate ADL Tasks, 2-Verbalize Understanding, 3-ImproveStrength/Suzanne 1=Demonstrate adherence to instructed precautions during ADL tasks. 2=Patient will verbalize/demonstrate understanding of assistive devices/modifications for ADL. 3=Patient will improve strength/tolerance for activity to enable patient to perform ADL's. OT Education/Plan Problem List/Assessment Assessment: Decreased Activ Tolerance, Decreased UE Strength, Impaired Funct Balance, Impaired I ADL's, Impaired Self-Care Skills, Restricted Funct UE ROM Discharge Recommendations Plan/Recommendations: Continue POC Treatment Plan/Plan of Care Patient would benefit from OT for education, treatment and training to promote independence in ADL's, mobility, safety and/or upper extremity function for ADL's. Plan of Care: ADL Retraining, Functional Mobility, Group Exercise/Act as Ind, UE Funct Exercise/Act Treatment Duration: Oct 05, 2020 Frequency: At least 5 of 7 days/Wk (IRF) Estimated Hrs Per Day: 1.5 hours per day Rehab Potential: Fair Time/GCodes Start Time: 09:00 Stop Time: 10:00 Total Time Billed (hr/min): 60 Billed Treatment Time 1, ADL 4 SHANNAN DE LA PAZ OT Sep 07, 2020 10:03
--- NOTE | 2020-09-07 10:57 | ST Cognitive Linguistic Eval ---
Speech Evaluation-General Medical Diagnosis left TKA Onset Date: Sep 04, 2020 Therapy Diagnosis Therapy Diagnosis: Cognitive-communication Referral Referring Physician: Dr. Roman Medical History Pertinent Medical History: Atrial Fib, GERD, HTN Reviewed History: Yes Social History Current Living Status: Alone Speech PLF-Current Status Prior Level of Function Patient lives home alone where she is independent for her daily needs. Subjective Patient was pleasant and cooperative with the cognitive assessment. Language Eval: Auditory Comprehends Simple Yes/No Ques: Functional Indent/Objects Multiple Thomas: Functional Ident/Pics in Multiple Thomas: Functional Follows 1-Step Commands: Functional Follows Complex Directions: Functional Follows General Conversations: Functional Language Eval: Verbal Language Completes Spontaneous Greeting: Functional Produces Auto, Serial Info: Functional Imitates Simple Words/Phrases: Functional Word Finding: Functional Requests Basic Needs: Functional States Basic Personal Info: Functional Expresses Complex Ideas: Functional Objective Cognitive Domain Attention: WNL Memory: WNL Problem Solving: Functional Executive Functions: WNL Visuospatial Skills: WNL Composite Severity Rating: WNL Clock Drawing Severity Rating: WNL Objective Formal/Standardized Tests [facility] Status ([facility]) Results 28/30, within normal range of function Oral Motor/Speech Production Within Normal Limits Impression Patient is a 79 y/o female who was admitted to the ARU s/p left knee replacement. Patient was given the UMS at bedside with a score of 28/30 obtained. This score is within normal range of function. No further ST services are indicated at this time. Speech Patient Assess Expression of Ideas/Wants: Expression (4) Understanding Verbal Content: Understands (4) Brief Interview-Mental Status: Yes Repetition of Three Words: Three (3) Temporal Orientation: Year: Correct (3) Temporal Orientation: Month: Accurate within 5 days(2) Temporal Orientation: Day: Correct (1) Recall : Wear to say "Sock": Yes,after cueing (1) Recall : Color: Yes, no cue required (2) Recall : Bed: Yes,after cueing (1) Memory/Recall Ability: Current season, Location of own room, That he or she is in a hsp/hsp unit Speech-Plan Patient/Family Goals Patient/Family Goals: Patient plans on returning to her home with friends support for assist. Treatment Plan Speech Therapy Treatment Plan: Discontinue ST Treatment Duration: Sep 07, 2020 Frequency: 1 time per week Estimated Hrs Per Day: .5 hour per day Rehab Potential: Fair Barriers to Learning: Patient's age, recent health changes Pt/Family Agrees to Plan: Yes Safety Risks/Education Teaching Recipient: Patient Teaching Methods: Discussion Response to Teaching: Verbalize Understanding Education Topics Provided: Safety within her room, communication of wants/needs Time Speech Therapy Time In: 10:30 Speech Therapy Time Out: 11:00 Total Billed Time: 30 Billed Treatment Time 1, CASSANDRA PARRA [facility] ST Sep 07, 2020 10:57
--- NOTE | 2020-09-07 13:56 | Occupational Ther Daily Note ---
OT Current Status-Daily Note Subjective Pt laying in bed, agreeable to OT Tx. Mental Status/Objective Patient Orientation: Normal For Age Attachments: Polar Pack ADL-Treatment Therapy Code Descriptions/Definitions Functional [place] Measure: 0=Not Assessed/NA 4=Minimal Assistance 1=Total Assistance 5=Supervision or Setup 2=Maximal Assistance 6=Modified [place] 3=Moderate Assistance 7=Complete IndependenceSCALE: Activities may be completed with or without assistive devices. 7-Awsfnuuuom-pbkcxch completes the activity by him/herself with no assistance f rom a helper. 5-Set-up or Clean-up Assistance-helper sets up or cleans up; patient completes activity. [place] assists only prior to or following the activity. 4-Supervision or Touching Assistance-helper provides verbal cues and/or touching/steadying and/or contact guard assistance as patient completes activity. Assistance may be provided throughout the activity or intermittently. 3-Partial/Moderate Assistance-helper does LESS THAN HALF the effort. [place] lifts, holds or supports trunk or limbs, but provides less than half the effort. 2-Substantial/Maximal Assistance-helper does MORE THAN HALF the effort. [place] lifts or holds trunk or limbs and provides more than half the effort. 7-Hpaojhjyc-ybdixc does ALL the effort. Patient does none of the effort to complete the activity. Or, the assistance of 2 or more helpers is required for the patient to complete the activity. If activity was not attempted, code reason: 7-Patient Refused. 9-Not Applicable-not attempted and the patient did not perform the activity before the current illness, exacerbation or injury. 10-Not Attempted due to Environmental Limitations-(lack of equipment, weather restraints, etc.). 88-Not Attempted due to Medical Conditions or Safety Concerns. Other Treatment OT/PT cotreat due to skill of 2 clinicians required which a rehab consultant could not perform in order to coordinate UE/LEs, decrease fall risk and due to pt's limitations in pain, mobility, activity tolerance and transfers. OT focused on UE placement, cues for sequencing and safety, PT focused on LE placement, gross overall movement, and transfers/mobility. Pt laying in bed, transferred supine to sit EOB (assist LLE). Pt transferred to w/c, then taken into therapy gym. Pt stood in parallel bars, encouraged to weight bear through LLE. Pt completed UE reaching task x3 trials with rest break between. Pt able to let go of parallel bars with UEs in order to hit balloon back and forth with OT, PT assisted with balance as needed. Pt taken back to room, transferring back to bed (assist LLE). Post tx, pt laying in bed, call light in reach and all needs met. Education OT Patient Education: Correct positioning, Energy conservation, Exercise program, Modified ADL techniques, Progress toward Goal/Update tx plan, Purpose of tx/functional activities, Rehab process Teaching Recipient: Patient Teaching Methods: Discussion Response to Teaching: Verbalize Understanding OT Short Term Goals Short Term Goals Time Frame: Sep 14, 2020 Toileting hygiene: 4 Shower/bathe self: 4 Lower body dressin Putting on/taking off footwear: 4 OT Technical Operations Vice President Goals [facility] Goals Time Frame: Oct 05, 2020 Eating (QC): 6 Oral Hygiene (QC): 6 Toileting Hygiene (QC): 6 Shower/Bathe Self (QC): 6 Upper Body Dressing (QC): 6 Lower Body Dressing (QC): 6 On/Off Footwear (QC): 6 Additional Goals: 1-Demonstrate ADL Tasks, 2-Verbalize Understanding, 3- ImproveStrength/Suzanne 1=Demonstrate adherence to instructed precautions during ADL tasks. 2=Patient will verbalize/demonstrate understanding of assistive devices/modifications for ADL. 3=Patient will improve strength/tolerance for activity to enable patient to perform ADL's. OT Education/Plan Problem List/Assessment Assessment: Decreased Activ Tolerance, Decreased UE Strength, Impaired Funct Balance, Impaired I ADL's, Impaired Self-Care Skills Discharge Recommendations Plan/Recommendations: Continue POC Treatment Plan/Plan of Care Patient would benefit from OT for education, treatment and training to promote independence in ADL's, mobility, safety and/or upper extremity function for ADL's. Plan of Care: ADL Retraining, Functional Mobility, Group Exercise/Act as Ind, UE Funct Exercise/Act Treatment Duration: Oct 05, 2020 Frequency: At least 5 of 7 days/Wk (IRF) Estimated Hrs Per Day: 1.5 hours per day Rehab Potential: Fair Time/GCodes Start Time: 13:00 Stop Time: 13:30 Total Time Billed (hr/min): 30 Billed Treatment Time cotreat x30' 1, FA 2 SHANNAN DE LA PAZ OT Sep 07, 2020 13:56
--- NOTE | 2020-09-07 14:00 | Physical Therapy Daily Note ---
PT Daily Note-Current Subjective Patient in bed pre tx, agrees to PT, has 7-8/10 pain in left knee, will be co- treating with OT due to poor patient mobility, strength, endurance, severe pain with activity, coordinate UE and LE during activity, safety and reduce risk of falls. Appearance Patient in bed post tx with nurse call, phone, tray, all needs met. Mental Status Patient Orientation: Normal For Age Attachments: Polar Pack Transfers SCALE: Activities may be completed with or without assistive devices. 5-Pwggsgyfcg-djhulag completes the activity by him/herself with no assistance from a helper. 5-Set-up or Clean-up Assistance-helper sets up or cleans up; patient completes activity. [place] assists only prior to or following the activity. 4-Supervision or Touching Assistance-helper provides verbal cues and/or touching/steadying and/or contact guard assistance as patient completes activity. Assistance may be provided throughout the activity or intermittently. 3-Partial/Moderate Assistance-helper does LESS THAN HALF the effort. [place] lifts, holds or supports trunk or limbs, but provides less than half the effort. 2-Substantial/Maximal Assistance-helper does MORE THAN HALF the effort. [place] lifts or holds trunk or limbs and provides more than half the effort. 5-Nqskocvdz-giwbkc does ALL the effort. Patient does none of the effort to complete the activity. Or, the assistance of 2 or more helpers is required for the patient to complete the activity. If activity was not attempted, code reason: 7-Patient Refused. 9-Not Applicable-not attempted and the patient did not perform the activity before the current illness, exacerbation or injury. 10-Not Attempted due to Environmental Limitations-(lack of equipment, weather restraints, etc.). 88-Not Attempted due to Medical Conditions or Safety Concerns. Roll Left & Right (QC): 6 Sit to Lying (QC): 3 Lying to Sitting/Side of Bed(Q: 3 Sit to Stand (QC): 4 Chair/Dar-rq-Jlyhf Xfer(QC): 4 Weight Bearing Left Lower Extremity: Left Weight Bearing/Tolerated Wheelchair Training Does the Pt Use a Wheelchair?: Yes Wheel 50 ft with 2 turns (QC): 4 Type of Wheelchair: Manual 120'x2 Exercises standing in parallel bars x3 working on BUE reaching and hitting balloon to promote more weight bearing on left knee and for balance. Treatments PT performed bed mobility and transfers, WC mobility, standing during balance activity, OT worked on balance activity, UE positioning and safety during activity. Assessment Current Status: Poor Progress Patient is very reluctant to bend her left knee PT Short Term Goals Short Term Goals Time Frame: Sep 13, 2020 Roll Left & Right: 6 Sit to lyin Lying to sitting on side of be: 4 Sit to stand: 3 Chair/uyl-km-rcgkp transfer: 4 Walk 10 feet: 4 Walk 50 feet with two turns: 4 PT Prison Goals Oncology Radiation Physician Goals PT Oncology Radiation Physician Goals Time Frame: Sep 27, 2020 Roll Left & Right (QC): 6 Sit to Lying (QC): 6 Lying-Sitting on Side/Bed(QC): 6 Sit to Stand (QC): 4 (SBA) Chair/Tim-uf-Oxvxi Xfer(QC): 4 (SBA) Toilet Transfer (QC): 4 (SBA) Car Transfer (QC): 4 (CGA) Does the Patient Walk: Yes Walk 10 feet (QC): 4 (SA) Walk 50ft with 2 Turns (QC): 4 (SBA) Walk 150 ft (QC): 4 (BA) Walking 10ft on Uneven Surface: 4 (SBA) 1 Step (curb) (QC): 4 (SBA) 4 Steps (QC): 4 (SBA) 12 Steps (QC): 88 Picking up an Object (QC): 88 Wheel 50 feet with 2 turns (QC: 9 Wheel 150 feet: 9 PT Plan Problem List Problem List: Activity Tolerance, Functional Strength, Safety, Balance, Gait, Transfer, Bed Mobility, ROM Treatment/Plan Treatment Plan: Continue Plan of Care Treatment Plan: Bed Mobility, Education, Functional Activity Suzanne, Functional Strength, Group Therapy, Gait, Safety, Therapeutic Exercise, Transfers Treatment Duration: Sep 27, 2020 Frequency: At least 5 of 7 days/Wk (IRF) Estimated Hrs Per Day: 1.5 hours per day Patient and/or Family Agrees t: Yes Safety Risks/Education Patient Education: Transfer Techniques, Correct Positioning, W/C Management, Safety Issues Teaching Recipient: Patient Teaching Methods: Demonstration, Discussion Response to Teaching: Reinforcement Needed Time/GCodes Time In: 1300 Time Out: 1330 Total Billed Treatment Time: 30 Total Billed Treatment 1 visit NM 15' FA 15' co-treated for 30' KRTEK,DAYAMI PT Sep 07, 2020 14:00
[2020-09-07] MEDS: HYDROcodone/APAP 5 MG/325 MG (LORTAB) TAB PO PRN ×2 (15:46→20:50)
[2020-09-07 20:00] VITALS: BP 129/61
[2020-09-07] MEDS: MELATONIN 3 MG TABLET PO PRN (20:50)
[2020-09-07] MEDS: GABAPENTIN 300 MG (NEURONTIN) CAP PO SCH (20:50)
[2020-09-08] MEDS: HYDROcodone/APAP 5 MG/325 MG (LORTAB) TAB PO PRN ×3 (04:53→21:02)
[2020-09-08] MEDS: ACETAMINOPHEN 500 MG TAB (TYLENOL) PO SCH ×3 (07:10→23:15)
[2020-09-08 07:30] VITALS: BP 111/65
--- NOTE | 2020-09-08 08:59 | Physical Therapy Daily Note ---
PT Daily Note-Current Subjective States that her knee isn't working. Transfers SCALE: Activities may be completed with or without assistive devices. 4-Sppjbbmtij-ezcirym completes the activity by him/herself with no assistance from a helper. 5-Set-up or Clean-up Assistance-helper sets up or cleans up; patient completes activity. [place] assists only prior to or following the activity. 4-Supervision or Touching Assistance-helper provides verbal cues and/or touching/steadying and/or contact guard assistance as patient completes activity. Assistance may be provided throughout the activity or intermittently. 3-Partial/Moderate Assistance-helper does LESS THAN HALF the effort. [place] l ifts, holds or supports trunk or limbs, but provides less than half the effort. 2-Substantial/Maximal Assistance-helper does MORE THAN HALF the effort. [place] lifts or holds trunk or limbs and provides more than half the effort. 3-Myyxsclfc-ttloey does ALL the effort. Patient does none of the effort to complete the activity. Or, the assistance of 2 or more helpers is required for t he patient to complete the activity. If activity was not attempted, code reason: 7-Patient Refused. 9-Not Applicable-not attempted and the patient did not perform the activity before the current illness, exacerbation or injury. 10-Not Attempted due to Environmental Limitations-(lack of equipment, weather restraints, etc.). 88-Not Attempted due to Medical Conditions or Safety Concerns. Sit to Lying (QC): 4 Lying to Sitting/Side of Bed(Q: 4 Weight Bearing Left Lower Extremity: Left Weight Bearing/Tolerated Exercises Supine Ex: LE Protocol Supine Reps: 20 Seated Therapy Exercises: Long arc quads Seated Reps: 20 Assessment Current Status: Fair Progress Patient has very poor knee ROM and difficulty firing quad. PT Short Term Goals Short Term Goals Time Frame: Sep 13, 2020 Roll Left & Right: 6 Sit to lyin Lying to sitting on side of be: 4 Sit to stand: 3 Chair/irv-cd-qgzaf transfer: 4 Walk 10 feet: 4 Walk 50 feet with two turns: 4 PT Retirement Goals Retirement Goals PT Retirement Goals Time Frame: Sep 27, 2020 Roll Left & Right (QC): 6 Sit to Lying (QC): 6 Lying-Sitting on Side/Bed(QC): 6 Sit to Stand (QC): 4 (SBA) Chair/Rah-ku-Oipar Xfer(QC): 4 (SBA) Toilet Transfer (QC): 4 (SBA) Car Transfer (QC): 4 (CGA) Does the Patient Walk: Yes Walk 10 feet (QC): 4 (SA) Walk 50ft with 2 Turns (QC): 4 (SBA) Walk 150 ft (QC): 4 (BA) Walking 10ft on Uneven Surface: 4 (SBA) 1 Step (curb) (QC): 4 (SBA) 4 Steps (QC): 4 (SBA) 12 Steps (QC): 88 Picking up an Object (QC): 88 Wheel 50 feet with 2 turns (QC: 9 Wheel 150 feet: 9 PT Plan Treatment/Plan Treatment Plan: Continue Plan of Care Treatment Plan: Bed Mobility, Education, Functional Activity Suzanne, Functional Strength, Group Therapy, Gait, Safety, Therapeutic Exercise, Transfers Treatment Duration: Sep 27, 2020 Frequency: At least 5 of 7 days/Wk (IRF) Estimated Hrs Per Day: 1.5 hours per day Patient and/or Family Agrees t: Yes Time/GCodes Time In: 832 Time Out: 58 Total Billed Treatment Time: 25 Total Billed Treatment 1, EX x 25' LEONIDES LOJA PT Sep 08, 2020 08:59
[2020-09-08] MEDS: PANTOPRAZOLE 40 MG (PROTONIX) TAB PO SCH (09:59)
[2020-09-08] MEDS: LEVOTHYROXINE 125 MCG (LEVOTHROID) TABLET PO SCH (09:59)
[2020-09-08] MEDS: LOSARTAN 50 MG (COZAAR) TAB PO SCH (09:59)
[2020-09-08] MEDS: SPIRONOLACTONE 25 MG (ALDACTONE) TAB PO SCH (09:59)
[2020-09-08] MEDS: FLECAINIDE 100 MG (TAMBOCOR) TAB PO SCH (10:00)
[2020-09-08] MEDS: LETROZOLE 2.5 MG (FEMARA) TAB PO SCH (10:00)
[2020-09-08] MEDS: polyethylene glycoL POWDER 17 GM (MIRALAX) PACK PO SCH ×2 (10:24→21:03)
[2020-09-08] MEDS: DOCUSATE SODIUM 100 MG (COLACE) CAP PO SCH ×2 (10:24→21:03)
[2020-09-08] MEDS: SENNA W/DOCUSATE (SENOKOT S) TABLET PO SCH ×2 (10:24→21:02)
[2020-09-08] MEDS: warFARin 2.5 MG (COUMADIN) TAB PO SCH (10:40)
--- NOTE | 2020-09-08 12:22 | PM&R Progress Note ---
Subjective HPI/CC On Admission Date Seen by Provider: Sep 08, 2020 Time Seen by Provider: 12:00 Subjective/Events-last exam 09/08/2020: Patient feels pretty good Pain is well controlled Talked about dysphagia from esophageal spasms No concerns 09/07/20: No major issues currently Pain is controlled INR 1.[address] Samson No dyspnea BM+ BP taken in leg due to bilateral mastectomies Review of Systems General: Fatigue, Malaise HEENT: Dysphasia Musculoskeletal: leg pain Objective Exam Vital Signs Vital Signs Date Time Temp Pulse Resp B/P (MAP) Pulse Ox O2 Delivery O2 Flow Rate FiO2 09/08/20 19:45 36.6 86 18 130/70 (90) 96 09/08/20 08:52 Room Air Capillary Refill : General Appearance: No Apparent Distress, WD/WN, Chronically ill, Obese HEENT: PERRL/EOMI, Normal ENT Inspection, Pharynx Normal Neck: Full Range of Motion, Normal Inspection, Non Tender, Supple, Carotid Bruit Respiratory: Chest Non Tender, Lungs Clear, Normal Breath Sounds, No Accessory Muscle Use, No Respiratory Distress Cardiovascular: No Edema, No Gallop, No JVD, No Murmur, Normal Peripheral Pulses, Irregularly Irregular Gastrointestinal: Normal Bowel Sounds, No Organomegaly, No Pulsatile Mass, Non Tender, Soft Back: Normal Inspection, No CVA Tenderness, No Vertebral Tenderness Extremity: Normal Capillary Refill, Normal Inspection, Normal Range of Motion (except left leg), Non Tender, No Calf Tenderness, No Pedal Edema Neurologic/Psychiatric: Alert, Oriented x3, No Motor/Sensory Deficits, Normal Mood/Affect, crib pad maker II-XII Norm as Tested, Motor Weakness (leg leg weakness) Skin: Normal Color, Warm/Dry Lymphatic: No Adenopathy Results/Procedures Lab Patient resulted labs reviewed. FIM Transfers Therapy Code Descriptions/Definitions Functional [place] Measure: 0=Not Assessed/NA 4=Minimal Assistance 1=Total Assistance 5=Supervision or Setup 2=Maximal Assistance 6=Modified [place] 3=Moderate Assistance 7=Complete IndependenceSCALE: Activities may be completed with or without assistive devices. 8-Vogtfqxsve-ckudpep completes the activity by him/herself with no assistance from a helper. 5-Set-up or Clean-up Assistance-helper sets up or cleans up; patient completes activity. [place] assists only prior to or following the activity. 4-Supervision or Touching Assistance-helper provides verbal cues and/or touching/steadying and/or contact guard assistance as patient completes activity. Assistance may be provided throughout the activity or intermittently. 3-Partial/Moderate Assistance-helper does LESS THAN HALF the effort. [place] lifts, holds or supports trunk or limbs, but provides less than half the effort. 2-Substantial/Maximal Assistance-helper does MORE THAN HALF the effort. [place] lifts or holds trunk or limbs and provides more than half the effort. 6-Oadoltwwj-hflkct does ALL the effort. Patient does none of the effort to complete the activity. Or, the assistance of 2 or more helpers is required for the patient to complete the activity. If activity was not attempted, code reason: 7-Patient Refused. 9-Not Applicable-not attempted and the patient did not perform the activity before the current illness, exacerbation or injury. 10-Not Attempted due to Environmental Limitations-(lack of equipment, weather restraints, etc.). 88-Not Attempted due to Medical Conditions or Safety Concerns. Roll Left to Right (QC): 6 Sit to Lying (QC): 4 Sit to Stand (QC): 4 Chair/Joi-pe-Oneka Xfer(QC): 4 Car Transfer (QC): 1 Gait Training Does the Patient Walk?: Yes Walk 10 feet (QC): 4 Walk 50 ft with 2 Turns(QC): 3 Walk 150 ft (QC): 88 Walking 10ft/uneven surface-QC: 4 Gait Persons Needed: 1 Gait Assistive Device: FWW Wheelchair Training Does the Pt Use a Wheelchair?: Yes Distance: 30' Wheel 50 ft with 2 turns (QC): 4 Wheel 150 ft (QC): 88 Type of Wheelchair: Manual Stair Training #of Steps: 1 1 Step (curb) (QC): 4 4 Steps (QC): 88 12 Steps (QC): 88 Balance Picking up an Object (QC): 88 ADL-Treatment Eating (QC): 6 (Per pt report) Oral Hygiene (QC): 6 (IND seated at sink.) Shower/Bathe Self (QC): 3 (Min A with washing/drying L foot.) Upper Body Dressing (QC): 5 (set up assist) Lower Body Dressing (QC): 3 (Pt required assistance threding BLEs into pants, able to manage up to her knees and then pant hike.) On/Off Footwear (QC): 2 (Pt required assistance doffing tedhose and gripper so cks, assist donnig LLE tedhose and gripper sock. 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 Chronic atrial fibrillation Warfarin anticoagulation for stroke prophylaxis from atrial fibrillation Hypothyroidism History of breast cancer Chronic kidney disease Hypertension Hyperlipidemia Obesity Esophageal spasms chronic Plan: Inpatient rehab protocol Pain control Monitor INR Cardiology consult appreciated 09/07/20: Cardiology consult Monitoring of INR 09/08/2020: Monitor dysphagia Pain control (1) Total knee replacement status (2) HX: breast cancer (3) Obesity (4) Hypothyroidism (5) Atrial fibrillation (6) Warfarin anticoagulation (7) GERD (gastroesophageal reflux disease) STEFF TORRES DO Sep 08, 2020 12:22
--- NOTE | 2020-09-08 13:37 | Cardiology Progress Note ---
Subjective Date Seen by Provider: Sep 08, 2020 Time Seen by Provider: 13:36 Subjective/Events-last exam Patient was seen at bedside, laying down comfortably, reporting some shortness of breath and productive cough Review of Systems General: No Chills, No Night Sweats, No Fatigue, No Malaise, No Appetite, No Other HEENT: No Head Aches, No Visual Changes, No Eye Pain, No Ear Pain, No Dysphasia, No Sinus Congestion, No Post Nasal Drip, No Sore Throat, No Other Pulmonary: Dyspnea; No Cough, No Pleuritic Chest Pain, No Other Cardiovascular: No: Chest Pain, Palpitations, Orthopnea, Paroxysmal Noc. Dyspnea, Edema, Lt Headedness, Other Objective-Cardiology Exam Last Set of Vital Signs Vital Signs 09/08/20 07:30 Temp 37.0 Pulse 79 Resp 16 B/P (MAP) 111/65 (80) Pulse Ox 95 O2 Delivery Room Air General: Alert, Oriented X3, Cooperative HEENT: Atraumatic, PERRLA Neck: Supple, No JVD, No Thyromegaly Lungs: Clear to Auscultation, Normal Air Movement Heart: Regular Rate, Normal S1, Normal S2, No Murmurs Abdomen: Normal Bowel Sounds, Soft, No Tenderness, No Hepatosplenomegaly, No Masses Extremities: No Clubbing, No Cyanosis, No Edema, Normal Pulses, No Tenderness/Swelling Skin: No Rashes, No Breakdown, No Significant Lesion Neuro: Normal Gait, Normal Speech, Strength at 5/5 X4 Ext, Normal Tone, Sensation Intact Psych/Mental Status: Mental Status NL, Mood NL A/P-Cardiology Admission Diagnosis L TKA PAF HTN HLP Assessment/Plan S/P left total knee arthroplasty with Dr. Ramirez, slowly recovering. Continue with PT/OT. SSS/PAF, maintained on Flecainide 100mg daily, Coumadin. Reports unknown medication recently d/c'd by primary wash tank tender d/t bradycardia and is planning for PPM in near future. Coumadin was restarted on September 07, 2020, continue to monitor daily INR HTN- controlled, continue to monitor HLP, reports statin intolerance, continue to monitor as outpatient CRI, monitor renal function Obesity ROWAN HARDING MD Sep 08, 2020 13:37
[2020-09-08 19:45] VITALS: BP 130/70
[2020-09-08] MEDS: GABAPENTIN 300 MG (NEURONTIN) CAP PO SCH (21:01)
[2020-09-08] MEDS: MELATONIN 3 MG TABLET PO PRN (21:02)
[2020-09-09] MEDS: ACETAMINOPHEN 500 MG TAB (TYLENOL) PO SCH ×3 (06:51→21:25)
--- NOTE | 2020-09-09 07:01 | PM&R Progress Note ---
Subjective HPI/CC On Admission Date Seen by Provider: Sep 09, 2020 Time Seen by Provider: 11:45 Subjective/Events-last exam 09/09/2020: Patient doing pretty well No more dysphagia [birth year] 80th Oxygen had been unhooked from the wall that was noted after she complained of dyspnea Decreasing pain medication Ultram is handling the pain 09/08/2020: Patient feels pretty good Pain is well controlled Talked about dysphagia from esophageal spasms No concerns 09/07/20: No major issues currently Pain is controlled INR 1.[address] Samson No dyspnea BM+ BP taken in leg due to bilateral mastectomies Review of Systems General: Fatigue, Malaise Neurological: Weakness Objective Exam Vital Signs Vital Signs Date Time Temp Pulse Resp B/P (MAP) Pulse Ox O2 Delivery O2 Flow Rate FiO2 09/09/20 08:56 Room Air 09/09/20 07:30 36.9 72 20 165/73 (103) 99 Capillary Refill : General Appearance: No Apparent Distress, WD/WN, Chronically ill, Obese HEENT: PERRL/EOMI, Normal ENT Inspection, Pharynx Normal Neck: Full Range of Motion, Normal Inspection, Non Tender, Supple, Carotid Bruit Respiratory: Chest Non Tender, Lungs Clear, Normal Breath Sounds, No Accessory Muscle Use, No Respiratory Distress Cardiovascular: No Edema, No Gallop, No JVD, No Murmur, Normal Peripheral Pulses, Irregularly Irregular Gastrointestinal: Normal Bowel Sounds, No Organomegaly, No Pulsatile Mass, Non Tender, Soft Back: Normal Inspection, No CVA Tenderness, No Vertebral Tenderness Extremity: Normal Capillary Refill, Normal Inspection, Normal Range of Motion (except left leg), Non Tender, No Calf Tenderness, No Pedal Edema Neurologic/Psychiatric: Alert, Oriented x3, No Motor/Sensory Deficits, Normal Mood/Affect, medical assisting program director II-XII Norm as Tested, Motor Weakness (leg leg weakness) Skin: Normal Color, Warm/Dry Lymphatic: No Adenopathy Results/Procedures Lab Patient resulted labs reviewed. FIM Transfers Therapy Code Descriptions/Definitions Functional [place] Measure: 0=Not Assessed/NA 4=Minimal Assistance 1=Total Assistance 5=Supervision or Setup 2=Maximal Assistance 6=Modified [place] 3=Moderate Assistance 7=Complete IndependenceSCALE: Activities may be completed with or without assistive devices. 2-Lffgpbwkor-prgxucc completes the activity by him/herself with no assistance from a helper. 5-Set-up or Clean-up Assistance-helper sets up or cleans up; patient completes activity. [place] assists only prior to or following the activity. 4-Supervision or Touching Assistance-helper provides verbal cues and/or touching/steadying and/or contact guard assistance as patient completes activity. Assistance may be provided throughout the activity or intermittently. 3-Partial/Moderate Assistance-helper does LESS THAN HALF the effort. [place] lifts, holds or supports trunk or limbs, but provides less than half the effort. 2-Substantial/Maximal Assistance-helper does MORE THAN HALF the effort. [place] lifts or holds trunk or limbs and provides more than half the effort. 8-Cynblugmi-tgprhj does ALL the effort. Patient does none of the effort to complete the activity. Or, the assistance of 2 or more helpers is required for the patient to complete the activity. If activity was not attempted, code reason: 7-Patient Refused. 9-Not Applicable-not attempted and the patient did not perform the activity before the current illness, exacerbation or injury. 10-Not Attempted due to Environmental Limitations-(lack of equipment, weather restraints, etc.). 88-Not Attempted due to Medical Conditions or Safety Concerns. Roll Left to Right (QC): 6 Sit to Lying (QC): 4 Sit to Stand (QC): 4 Chair/Kyj-ng-Upxli Xfer(QC): 4 Car Transfer (QC): 1 Gait Training Does the Patient Walk?: Yes Walk 10 feet (QC): 4 Walk 50 ft with 2 Turns(QC): 3 Walk 150 ft (QC): 88 Walking 10ft/uneven surface-QC: 4 Gait Persons Needed: 1 Gait Assistive Device: FWW Wheelchair Training Does the Pt Use a Wheelchair?: Yes Distance: 30' Wheel 50 ft with 2 turns (QC): 4 Wheel 150 ft (QC): 88 Type of Wheelchair: Manual Stair Training #of Steps: 1 1 Step (curb) (QC): 4 4 Steps (QC): 88 12 Steps (QC): 88 Balance Picking up an Object (QC): 88 ADL-Treatment Eating (QC): 6 (Per pt report) Oral Hygiene (QC): 6 (IND seated at sink.) Shower/Bathe Self (QC): 3 (Min A with washing/drying L foot.) Upper Body Dressing (QC): 5 (set up assist) Lower Body Dressing (QC): 3 (Pt required assistance threding BLEs into pants, able to manage up to her knees and then pant hike.) On/Off Footwear (QC): 2 (Pt required assistance doffing tedhose and gripper socks, assist donnig LLE tedhose and gripper sock. 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 Chronic atrial fibrillation Warfarin anticoagulation for stroke prophylaxis from atrial fibrillation Hypothyroidism History of breast cancer Chronic kidney disease Hypertension Hyperlipidemia Obesity Esophageal spasms chronic Plan: Inpatient rehab protocol Pain control Monitor INR Cardiology consult appreciated 09/07/20: Cardiology consult Monitoring of INR 09/08/2020: Monitor dysphagia Pain control 09/09/2020: Maintain pain meds Aggressive therapy Monitor for dysphagia Monitor oxygen (1) Total knee replacement status (2) HX: breast cancer (3) Obesity (4) Hypothyroidism (5) Atrial fibrillation (6) Warfarin anticoagulation (7) GERD (gastroesophageal reflux disease) STEFF TORRES DO Sep 09, 2020 07:01
[2020-09-09 07:30] VITALS: BP 165/73
[2020-09-09] MEDS: LOSARTAN 50 MG (COZAAR) TAB PO SCH (09:06)
[2020-09-09] MEDS: FLECAINIDE 100 MG (TAMBOCOR) TAB PO SCH (09:07)
[2020-09-09] MEDS: SPIRONOLACTONE 25 MG (ALDACTONE) TAB PO SCH (09:07)
[2020-09-09] MEDS: PANTOPRAZOLE 40 MG (PROTONIX) TAB PO SCH (09:07)
[2020-09-09] MEDS: LEVOTHYROXINE 125 MCG (LEVOTHROID) TABLET PO SCH (09:07)
[2020-09-09] MEDS: DOCUSATE SODIUM 100 MG (COLACE) CAP PO SCH ×2 (09:12→21:07)
[2020-09-09] MEDS: polyethylene glycoL POWDER 17 GM (MIRALAX) PACK PO SCH ×2 (09:12→21:07)
[2020-09-09] MEDS: SENNA W/DOCUSATE (SENOKOT S) TABLET PO SCH ×2 (09:13→21:06)
[2020-09-09] MEDS: warFARin 2.5 MG (COUMADIN) TAB PO SCH (09:24)
[2020-09-09] MEDS: LETROZOLE 2.5 MG (FEMARA) TAB PO SCH (09:32)
--- NOTE | 2020-09-09 10:57 | Cardiology Progress Note ---
Subjective Date Seen by Provider: Sep 09, 2020 Time Seen by Provider: 10:56 Subjective/Events-last exam Patient was seen at bedside, sitting comfortably, no new complaint. Review of Systems General: No Chills, No Night Sweats, No Fatigue, No Malaise, No Appetite, No Other HEENT: No Head Aches, No Visual Changes, No Eye Pain, No Ear Pain, No Dysphasia, No Sinus Congestion, No Post Nasal Drip, No Sore Throat, No Other Pulmonary: No Dyspnea, No Cough, No Pleuritic Chest Pain, No Other Cardiovascular: No: Chest Pain, Palpitations, Orthopnea, Paroxysmal Noc. Dyspnea, Edema, Lt Headedness, Other Objective-Cardiology Exam Last Set of Vital Signs Vital Signs 09/09/20 07:30 Temp 36.9 Pulse 72 Resp 20 B/P (MAP) 165/73 (103) Pulse Ox 99 O2 Delivery Room Air General: Alert, Oriented X3, Cooperative HEENT: Atraumatic, PERRLA Neck: Supple, No JVD, No Thyromegaly Lungs: Clear to Auscultation, Normal Air Movement Heart: Regular Rate, Normal S1, Normal S2, No Murmurs Abdomen: Normal Bowel Sounds, Soft, No Tenderness, No Hepatosplenomegaly, No Masses Extremities: No Clubbing, No Cyanosis, No Edema, Normal Pulses, No Tendern ess/Swelling Skin: No Rashes, No Breakdown, No Significant Lesion Neuro: Normal Gait, Normal Speech, Strength at 5/5 X4 Ext, Normal Tone, Sensation Intact Psych/Mental Status: Mental Status NL, Mood NL A/P-Cardiology Admission Diagnosis L TKA PAF HTN HLP Assessment/Plan S/P left total knee arthroplasty with Dr. Ramirez, slowly recovering. Continue with PT/OT. SSS/PAF, maintained on Flecainide 100mg daily, Coumadin. Reports unknown medication recently d/c'd by primary geophysical computer d/t bradycardia and is planning for PPM in near future. Coumadin was restarted on September 07, 2020, continue to monitor daily INR Hypertension, poor control, increase losartan to 100 mg daily and monitor blood pressure HLP, reports statin intolerance, continue to monitor as outpatient CRI, monitor renal function Obesity ROWAN HARDING MD Sep 09, 2020 10:57
[2020-09-09] MEDS ORDERED: LOSARTAN 50 MG (COZAAR) TAB PO NR (11:00)
[2020-09-09 21:00] VITALS: BP 143/72
[2020-09-09] MEDS: GABAPENTIN 300 MG (NEURONTIN) CAP PO SCH (21:05)
[2020-09-09] MEDS: HYDROcodone/APAP 5 MG/325 MG (LORTAB) TAB PO PRN (21:08)
[2020-09-09] MEDS: MELATONIN 3 MG TABLET PO PRN (21:25)
[2020-09-10] MEDS: ACETAMINOPHEN 500 MG TAB (TYLENOL) PO SCH ×3 (06:23→23:35)
[2020-09-10 06:48] LABS: BASOPHILS # (AUTO) 0.1 10^3/uL (0.0-0.1); BASOPHILS % (AUTO) 1 % (0-10); EOSINOPHILS # (AUTO) 0.3 10^3/uL (0.0-0.3); EOSINOPHILS % (AUTO) 4 % (0-10); HEMATOCRIT 34 % (35-52); HEMOGLOBIN 10.7 g/dL (11.5-16.0); LYMPHOCYTES # (AUTO) 0.9 10^3/uL (1.0-4.0); LYMPHOCYTES % (AUTO) 14 % (12-44); MEAN CORPUSCULAR HEMOGLOBIN 32 pg (25-34); MEAN CORPUSCULAR HGB CONC 32 g/dL (32-36); MEAN CORPUSCULAR VOLUME 102 fL (80-99); MEAN PLATELET VOLUME 10.6 fL (9.0-12.2); MONOCYTES # (AUTO) 0.9 10^3/uL (0.0-1.0); MONOCYTES % (AUTO) 14 % (0-12); NEUTROPHILS # (AUTO) 4.5 10^3/uL (1.8-7.8); NEUTROPHILS % (AUTO) 67 % (42-75); PLATELET COUNT 241 10^3/uL (130-400); WHITE BLOOD COUNT 6.8 10^3/uL (4.3-11.0)
[2020-09-10 06:59] LABS: INR 1.7 (0.8-1.4); PROTHROMBIN TIME PATIENT 20.8 SEC (12.2-14.7)
[2020-09-10 07:10] LABS: ALBUMIN 3.3 GM/DL (3.2-4.5); BILIRUBIN,TOTAL 0.4 MG/DL (0.1-1.0); CALCIUM 8.6 MG/DL (8.5-10.1); CREATININE SERUM 1.12 MG/DL (0.60-1.30); POTASSIUM 4.5 MMOL/L (3.6-5.0); TOTAL PROTEIN 6.4 GM/DL (6.4-8.2)
[2020-09-10 07:40] VITALS: BP 145/71
--- NOTE | 2020-09-10 08:57 | Physical Therapy Daily Note ---
PT Daily Note-Current Subjective Patient in bed pre tx, agrees to PT, has unrated left knee pain. Patient needs dressed and needs assist getting her pants on her legs but she can pull it up herself after standing. Appearance Patient in bed post tx with nurse call, phone, tray, polar care on, all needs met. Mental Status Patient Orientation: Person, Place, Situation Attachments: Polar Pack Transfers SCALE: Activities may be completed with or without assistive devices. 4-Pibbvowtcq-rhiixbq completes the activity by him/herself with no assistance from a helper. 5-Set-up or Clean-up Assistance-helper sets up or cleans up; patient completes activity. [place] assists only prior to or following the activity. 4-Supervision or Touching Assistance-helper provides verbal cues and/or touching/steadying and/or contact guard assistance as patient completes activity. Assistance may be provided throughout the activity or intermittently. 3-Partial/Moderate Assistance-helper does LESS THAN HALF the effort. [place] lifts, holds or supports trunk or limbs, but provides less than half the effort. 2-Substantial/Maximal Assistance-helper does MORE THAN HALF the effort. [place] lifts or holds trunk or limbs and provides more than half the effort. 1-Pdhxpdkda-olpjlv does ALL the effort. Patient does none of the effort to complete the activity. Or, the assistance of 2 or more helpers is required for the patient to complete the activity. If activity was not attempted, code reason: 7-Patient Refused. 9-Not Applicable-not attempted and the patient did not perform the activity before the current illness, exacerbation or injury. 10-Not Attempted due to Environmental Limitations-(lack of equipment, weather restraints, etc.). 88-Not Attempted due to Medical Conditions or Safety Concerns. Roll Left & Right (QC): 6 Sit to Lying (QC): 3 Lying to Sitting/Side of Bed(Q: 4 Sit to Stand (QC): 4 Chair/Lvq-bg-Pamks Xfer(QC): 4 Weight Bearing Left Lower Extremity: Left Weight Bearing/Tolerated Gait Training Distance: 120'x2 Walk 10 feet (QC): 4 Walk 50 ft with 2 Turns(QC): 4 Gait Persons Needed: 1 Gait Assistive Device: FWW SBA, slow but steady ambulaiton, keeps an extended left knee. Exercises Standing: Heel/toe raises, Mini squats, Step-ups (10) Standing Reps: 15 NuStep Minutes: 15 NuStep Workload: 4 Treatments bed mobility and transfers, ambulation, knee ROM and strengthening Assessment Current Status: Poor Progress Patient's pain limits her improvement. Poor knee ROM. Patient educated to try to work through the pain. PT Short Term Goals Short Term Goals Time Frame: Sep 13, 2020 Roll Left & Right: 6 Sit to lyin Lying to sitting on side of be: 4 Sit to stand: 3 Chair/tkm-qs-bqexo transfer: 4 Walk 10 feet: 4 Walk 50 feet with two turns: 4 PT Spud Driller Goals Spud Driller Goals PT Shelter Goals Time Frame: Sep 27, 2020 Roll Left & Right (QC): 6 Sit to Lying (QC): 6 Lying-Sitting on Side/Bed(QC): 6 Sit to Stand (QC): 4 (SBA) Chair/Tcy-hc-Rfouk Xfer(QC): 4 (SBA) Toilet Transfer (QC): 4 (SBA) Car Transfer (QC): 4 (CGA) Does the Patient Walk: Yes Walk 10 feet (QC): 4 (SA) Walk 50ft with 2 Turns (QC): 4 (SBA) Walk 150 ft (QC): 4 (BA) Walking 10ft on Uneven Surface: 4 (SBA) 1 Step (curb) (QC): 4 (SBA) 4 Steps (QC): 4 (SBA) 12 Steps (QC): 88 Picking up an Object (QC): 88 Wheel 50 feet with 2 turns (QC: 9 Wheel 150 feet: 9 PT Plan Problem List Problem List: Activity Tolerance, Functional Strength, Safety, Balance, Gait, Transfer, Bed Mobility, ROM Treatment/Plan Treatment Plan: Continue Plan of Care Treatment Plan: Bed Mobility, Education, Functional Activity Suzanne, Functional Strength, Group Therapy, Gait, Safety, Therapeutic Exercise, Transfers Treatment Duration: Sep 27, 2020 Frequency: At least 5 of 7 days/Wk (IRF) Estimated Hrs Per Day: 1.5 hours per day Patient and/or Family Agrees t: Yes Safety Risks/Education Patient Education: Gait Training, Transfer Techniques, Correct Positioning, Safety Issues Teaching Recipient: Patient Teaching Methods: Demonstration, Discussion Response to Teaching: Reinforcement Needed Time/GCodes Time In: 0800 Time Out: 0900 Total Billed Treatment Time: 60 Total Billed Treatment 1 visit EX 45' FA 15' DAYAMI UGARTE PT Sep 10, 2020 08:57
--- NOTE | 2020-09-10 10:01 | Occupational Ther Daily Note ---
OT Current Status-Daily Note Subjective Pt laying in bed, agreeable to OT tx. Rates pain 5/10 in L knee during tx. Nurse notified of pt's request for "the strongest pain pill" Mental Status/Objective Patient Orientation: Normal For Age ADL-Treatment Therapy Code Descriptions/Definitions Functional [place] Measure: 0=Not Assessed/NA 4=Minimal Assistance 1=Total Assistance 5=Supervision or Setup 2=Maximal Assistance 6=Modified [place] 3=Moderate Assistance 7=Complete IndependenceSCALE: Activities may be completed with or without assistive devices. 9-Aaerrackis-lubrpuf completes the activity by him/herself with no assistance from a helper. 5-Set-up or Clean-up Assistance-helper sets up or cleans up; patient completes activity. [place] assists only prior to or following the activity. 4-Supervision or Touching Assistance-helper provides verbal cues and/or touching/steadying and/or contact guard assistance as patient completes activity. Assistance may be provided throughout the activity or intermittently. 3-Partial/Moderate Assistance-helper does LESS THAN HALF the effort. [place] lifts, holds or supports trunk or limbs, but provides less than half the effort. 2-Substantial/Maximal Assistance-helper does MORE THAN HALF the effort. [place] lifts or holds trunk or limbs and provides more than half the effort. 2-Gsmcqyhdh-snuril does ALL the effort. Patient does none of the effort to complete the activity. Or, the assistance of 2 or more helpers is required for the patient to complete the activity. If activity was not attempted, code reason: 7-Patient Refused. 9-Not Applicable-not attempted and the patient did not perform the activity before the current illness, exacerbation or injury. 10-Not Attempted due to Environmental Limitations-(lack of equipment, weather restraints, etc.). 88-Not Attempted due to Medical Conditions or Safety Concerns. Other Treatment Pt laying in bed, transferred supine to sit EOB with SBA. Pt able to use RLE to move LLE to EOB. Pt used FWW to transfer to w/c using FWW with CGA from elevated surface. Pt states increased pain in LLE, OT donned TEDhose on LLE for pt. Pt combed hair, min A with tangles in back of hair. Pt propelled w/c to therapy gym. In order to increase activity tolerance and BUE strength, pt completed arm bike x15 mins, minimal resistance (15-20 Linda). Pt able to complete 1-2 minutes at a time, then required a rest break. Pt taken back to room, sit to stand CGA, then transferred EOB and supine (Assist LLE). Polar pack placed on LLE. Post tx, pt laying in bed, call light in reach and all needs met. Education OT Patient Education: Correct positioning, Energy conservation, Exercise program, Modified ADL techniques, Progress toward Goal/Update tx plan, Purpose of tx/functional activities, Rehab process Teaching Recipient: Patient Teaching Methods: Discussion Response to Teaching: Verbalize Understanding OT Short Term Goals Short Term Goals Time Frame: Sep 14, 2020 Toileting hygiene: 4 Shower/bathe self: 4 Lower body dressin Putting on/taking off footwear: 4 OT Senior Care Goals Mechanics Handyman Goals Time Frame: Oct 05, 2020 Eating (QC): 6 Oral Hygiene (QC): 6 Toileting Hygiene (QC): 6 Shower/Bathe Self (QC): 6 Upper Body Dressing (QC): 6 Lower Body Dressing (QC): 6 On/Off Footwear (QC): 6 Additional Goals: 1-Demonstrate ADL Tasks, 2-Verbalize Understanding, 3- ImproveStrength/Suzanne 1=Demonstrate adherence to instructed precautions during ADL tasks. 2=Patient will verbalize/demonstrate understanding of assistive devices/modifications for ADL. 3=Patient will improve strength/tolerance for activity to enable patient to perform ADL's. OT Education/Plan Problem List/Assessment Assessment: Decreased Activ Tolerance, Decreased UE Strength, Impaired Funct Balance, Impaired I ADL's, Impaired Self-Care Skills Discharge Recommendations Plan/Recommendations: Continue POC Treatment Plan/Plan of Care Patient would benefit from OT for education, treatment and training to promote independence in ADL's, mobility, safety and/or upper extremity function for ADL's. Plan of Care: ADL Retraining, Functional Mobility, Group Exercise/Act as Ind, UE Funct Exercise/Act Treatment Duration: Oct 05, 2020 Frequency: At least 5 of 7 days/Wk (IRF) Estimated Hrs Per Day: 1.5 hours per day Rehab Potential: Fair Time/GCodes Start Time: 09:30 Stop Time: 10:30 Total Time Billed (hr/min): 60 Billed Treatment Time 1, ADL (15'), FA (20'), EX 2 (25') SHANNAN DE LA PAZ OT Sep 10, 2020 10:01
[2020-09-10] MEDS: HYDROcodone/APAP 5 MG/325 MG (LORTAB) TAB PO PRN ×2 (10:08→18:23)
[2020-09-10] MEDS: LEVOTHYROXINE 125 MCG (LEVOTHROID) TABLET PO SCH (10:09)
[2020-09-10] MEDS: FLECAINIDE 100 MG (TAMBOCOR) TAB PO SCH (10:09)
[2020-09-10] MEDS: warFARin 5 MG (COUMADIN) TAB PO SCH (10:09)
[2020-09-10] MEDS: SPIRONOLACTONE 25 MG (ALDACTONE) TAB PO SCH (10:09)
[2020-09-10] MEDS: PANTOPRAZOLE 40 MG (PROTONIX) TAB PO SCH (10:09)
[2020-09-10] MEDS: FUROSEMIDE 40 MG (LASIX) TAB PO SCH (10:10)
[2020-09-10] MEDS: LETROZOLE 2.5 MG (FEMARA) TAB PO SCH (10:10)
[2020-09-10] MEDS: LOSARTAN 100 MG (COZAAR) TABLET PO SCH (10:10)
[2020-09-10] MEDS: DOCUSATE SODIUM 100 MG (COLACE) CAP PO SCH ×2 (10:10→21:09)
[2020-09-10] MEDS: SENNA W/DOCUSATE (SENOKOT S) TABLET PO SCH ×2 (10:11→21:09)
[2020-09-10] MEDS: polyethylene glycoL POWDER 17 GM (MIRALAX) PACK PO SCH ×2 (10:11→21:10)
--- NOTE | 2020-09-10 10:59 | PM&R Progress Note ---
Subjective HPI/CC On Admission Date Seen by Provider: Sep 10, 2020 Time Seen by Provider: 11:15 Subjective/Events-last exam 09/10/2020: Patient feels good today INR 1.7 Hemoglobin 10.7 Bowels moved yesterday Continue aggressive therapy 09/09/2020: Patient doing pretty well No more dysphagia Tomorrow is her [birth year] 80th Oxygen had been unhooked from the wall that was noted after she complained of dyspnea Decreasing pain medication Ultram is handling the pain 09/08/2020: Patient feels pretty good Pain is well controlled Talked about dysphagia from esophageal spasms No concerns 09/07/20: No major issues currently Pain is controlled INR 1.[address] Samson No dyspnea BM+ BP taken in leg due to bilateral mastectomies Review of Systems General: Fatigue, Malaise Musculoskeletal: leg pain Objective Exam Vital Signs Vital Signs Date Time Temp Pulse Resp B/P (MAP) Pulse Ox O2 Delivery O2 Flow Rate FiO2 09/10/20 20:00 97 Nasal Cannula 2.00 09/10/20 19:59 36.4 67 14 143/63 (89) Capillary Refill : General Appearance: No Apparent Distress, WD/WN, Chronically ill, Obese HEENT: PERRL/EOMI, Normal ENT Inspection, Pharynx Normal Neck: Full Range of Motion, Normal Inspection, Non Tender, Supple, Carotid Bruit Respiratory: Chest Non Tender, Lungs Clear, Normal Breath Sounds, No Accessory Muscle Use, No Respiratory Distress Cardiovascular: No Edema, No Gallop, No JVD, No Murmur, Normal Peripheral Pulses, Irregularly Irregular Gastrointestinal: Normal Bowel Sounds, No Organomegaly, No Pulsatile Mass, Non Tender, Soft Back: Normal Inspection, No CVA Tenderness, No Vertebral Tenderness Extremity: Normal Capillary Refill, Normal Inspection, Normal Range of Motion (except left leg), Non Tender, No Calf Tenderness, No Pedal Edema Neurologic/Psychiatric: Alert, Oriented x3, No Motor/Sensory Deficits, Normal Mood/Affect, pbx repairer II-XII Norm as Tested, Motor Weakness (leg leg weakness) Skin: Normal Color, Warm/Dry Lymphatic: No Adenopathy Results/Procedures Lab Laboratory Tests 09/10/20 06:20 Patient resulted labs reviewed. FIM Transfers Therapy Code Descriptions/Definitions Functional [place] Measure: 0=Not Assessed/NA 4=Minimal Assistance 1=Total Assistance 5=Supervision or Setup 2=Maximal Assistance 6=Modified [place] 3=Moderate Assistance 7=Complete IndependenceSCALE: Activities may be completed with or without assistive devices. 7-Iejkgdmxwp-sodajbn completes the activity by him/herself with no assistance from a helper. 5-Set-up or Clean-up Assistance-helper sets up or cleans up; patient completes activity. [place] assists only prior to or following the activity. 4-Supervision or Touching Assistance-helper provides verbal cues and/or touching/steadying and/or contact guard assistance as patient completes activity. Assistance may be provided throughout the activity or intermittently. 3-Partial/Moderate Assistance-helper does LESS THAN HALF the effort. [place] lifts, holds or supports trunk or limbs, but provides less than half the effort. 2-Substantial/Maximal Assistance-helper does MORE THAN HALF the effort. [place] lifts or holds trunk or limbs and provides more than half the effort. 6-Vadymgolg-mkwalc does ALL the effort. Patient does none of the effort to complete the activity. Or, the assistance of 2 or more helpers is required for the patient to complete the activity. If activity was not attempted, code reason: 7-Patient Refused. 9-Not Applicable-not attempted and the patient did not perform the activity before the current illness, exacerbation or injury. 10-Not Attempted due to Environmental Limitations-(lack of equipment, weather restraints, etc.). 88-Not Attempted due to Medical Conditions or Safety Concerns. Roll Left to Right (QC): 6 Sit to Lying (QC): 3 Sit to Stand (QC): 4 Chair/Iia-ae-Cxpmq Xfer(QC): 4 Car Transfer (QC): 1 Gait Training Does the Patient Walk?: Yes Distance: 120'x2 Walk 10 feet (QC): 4 Walk 50 ft with 2 Turns(QC): 4 Walk 150 ft (QC): 88 Walking 10ft/uneven surface-QC: 4 Gait Persons Needed: 1 Gait Assistive Device: FWW Wheelchair Training Does the Pt Use a Wheelchair?: Yes Distance: 30' Wheel 50 ft with 2 turns (QC): 4 Wheel 150 ft (QC): 88 Type of Wheelchair: Manual Stair Training #of Steps: 1 1 Step (curb) (QC): 4 4 Steps (QC): 88 12 Steps (QC): 88 Balance Picking up an Object (QC): 88 ADL-Treatment Eating (QC): 6 (Per pt report) Oral Hygiene (QC): 6 (IND seated at sink.) Shower/Bathe Self (QC): 3 (Min A with washing/drying L foot.) Upper Body Dressing (QC): 5 (set up assist) Lower Body Dressing (QC): 3 (Pt required assistance threding BLEs into pants, able to manage up to her knees and then pant hike.) On/Off Footwear (QC): 2 (Pt required assistance doffing tedhose and gripper socks, assist donnig LLE tedhose and gripper sock. 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 Chronic atrial fibrillation Warfarin anticoagulation for stroke prophylaxis from atrial fibrillation Hypothyroidism History of breast cancer Chronic kidney disease Hypertension Hyperlipidemia Obesity Esophageal spasms chronic Plan: Inpatient rehab protocol Pain control Monitor INR Cardiology consult appreciated 09/07/20: Cardiology consult Monitoring of INR 09/08/2020: Monitor dysphagia Pain control 09/09/2020: Maintain pain meds Aggressive therapy Monitor for dysphagia Monitor oxygen 09/10/2020: Continue aggressive therapy Pain control Monitor INR (1) Total knee replacement status (2) HX: breast cancer (3) Obesity (4) Hypothyroidism (5) Atrial fibrillation (6) Warfarin anticoagulation (7) GERD (gastroesophageal reflux disease) STEFF TORRES DO Sep 10, 2020 10:59
--- NOTE | 2020-09-10 13:37 | Occupational Ther Daily Note ---
OT Current Status-Daily Note Subjective Pt laying in bed, agreeable to OT tx. 7/10 pain in L knee, nurse notified of pt's request for pain med ADL-Treatment Therapy Code Descriptions/Definitions Functional [place] Measure: 0=Not Assessed/NA 4=Minimal Assistance 1=Total Assistance 5=Supervision or Setup 2=Maximal Assistance 6=Modified [place] 3=Moderate Assistance 7=Complete IndependenceSCALE: Activities may be completed with or without assistive devices. 9-Aeyrjsrfvh-ehyxjua completes the activity by him/herself with no assistance from a helper. 5-Set-up or Clean-up Assistance-helper sets up or cleans up; patient completes activity. [place] assists only prior to or following the activity. 4-Supervision or Touching Assistance-helper provides verbal cues and/or touching/steadying and/or contact guard assistance as patient completes activity. Assistance may be provided throughout the activity or intermittently. 3-Partial/Moderate Assistance-helper does LESS THAN HALF the effort. [place] lifts, holds or supports trunk or limbs, but provides less than half the effort. 2-Substantial/Maximal Assistance-helper does MORE THAN HALF the effort. [place] lifts or holds trunk or limbs and provides more than half the effort. 8-Fmizxvjjo-retjja does ALL the effort. Patient does none of the effort to complete the activity. Or, the assistance of 2 or more helpers is required for the patient to complete the activity. If activity was not attempted, code reason: 7-Patient Refused. 9-Not Applicable-not attempted and the patient did not perform the activity before the current illness, exacerbation or injury. 10-Not Attempted due to Environmental Limitations-(lack of equipment, weather restraints, etc.). 88-Not Attempted due to Medical Conditions or Safety Concerns. Other Treatment OT/PT cotreat due to skill of 2 clinicians required which a director of pediatric rehabilitation could not perform in order to coordinate UE/LEs, decrease fall risk, and due to pt's limitations in strength, activity tolerance, pain level, and standing balance. OT focused on UE placement, reaching, and cues for sequencing/safety, PT focused on LE placement, gross overall movement, and dynamic standing balance. Pt transferred supine to sit EOB, then used FWW to perform functional mobility to therapy gym. Pt stood in parallel bars, hitting balloon back and forth with OT in all planes, PT focused on standing balance. Pt completed task x2 trials with seated rest break in between. This was complete in order to increase higher le dorothy dynamic standing balance and UE reaching in various planes. Pt returned to room using FWW, transferring to bed. Post tx, pt laying in bed, call light in reach and all needs met. Education OT Patient Education: Correct positioning, Modified ADL techniques, Progress toward Goal/Update tx plan, Purpose of tx/functional activities, Rehab process Teaching Recipient: Patient Teaching Methods: Discussion Response to Teaching: Verbalize Understanding OT Short Term Goals Short Term Goals Time Frame: Sep 14, 2020 Toileting hygiene: 4 Shower/bathe self: 4 Lower body dressin Putting on/taking off footwear: 4 OT Substation Operator Goals Substation Operator Goals Time Frame: Oct 05, 2020 Eating (QC): 6 Oral Hygiene (QC): 6 Toileting Hygiene (QC): 6 Shower/Bathe Self (QC): 6 Upper Body Dressing (QC): 6 Lower Body Dressing (QC): 6 On/Off Footwear (QC): 6 Additional Goals: 1-Demonstrate ADL Tasks, 2-Verbalize Understanding, 3- ImproveStrength/Suzanne 1=Demonstrate adherence to instructed precautions during ADL tasks. 2=Patient will verbalize/demonstrate understanding of assistive devices/modific ations for ADL. 3=Patient will improve strength/tolerance for activity to enable patient to perform ADL's. OT Education/Plan Problem List/Assessment Assessment: Decreased Activ Tolerance, Decreased UE Strength, Impaired Funct Balance, Impaired I ADL's, Impaired Self-Care Skills Discharge Recommendations Plan/Recommendations: Continue POC Treatment Plan/Plan of Care Patient would benefit from OT for education, treatment and training to promote independence in ADL's, mobility, safety and/or upper extremity function for ADL's. Plan of Care: ADL Retraining, Functional Mobility, Group Exercise/Act as Ind, UE Funct Exercise/Act Treatment Duration: Oct 05, 2020 Frequency: At least 5 of 7 days/Wk (IRF) Estimated Hrs Per Day: 1.5 hours per day Rehab Potential: Fair Time/GCodes Start Time: 13:00 Stop Time: 13:30 Total Time Billed (hr/min): 30 Billed Treatment Time cotreat x30' 1, FA 2 SHANNAN DE LA PAZ OT Sep 10, 2020 13:37
--- NOTE | 2020-09-10 13:53 | Physical Therapy Daily Note ---
PT Daily Note-Current Subjective Patient in bed pre tx, agrees to PT, has 7/10 left knee pain, nurse notified. Will be co-treating with OT due to poor patient mobility, strength, endurance, severe pain with activity, coordinate UE and LE during activity, safety and reduce risk of falls. Appearance Patient in bed post tx with nurse call, phone, tray, all needs met. Mental Status Patient Orientation: Person, Place, Situation Attachments: [place] Transfers SCALE: Activities may be completed with or without assistive devices. 1-Afjltuqawc-ejdgdcy completes the activity by him/herself with no assistance from a helper. 5-Set-up or Clean-up Assistance-helper sets up or cleans up; patient completes activity. [place] assists only prior to or following the activity. 4-Supervision or Touching Assistance-helper provides verbal cues and/or touching/steadying and/or contact guard assistance as patient completes activity. Assistance may be provided throughout the activity or intermittently. 3-Partial/Moderate Assistance-helper does LESS THAN HALF the effort. [place] lifts, holds or supports trunk or limbs, but provides less than half the effort. 2-Substantial/Maximal Assistance-helper does MORE THAN HALF the effort. [place] lifts or holds trunk or limbs and provides more than half the effort. 3-Yxkjzvqth-vmhcam does ALL the effort. Patient does none of the effort to com plete the activity. Or, the assistance of 2 or more helpers is required for the patient to complete the activity. If activity was not attempted, code reason: 7-Patient Refused. 9-Not Applicable-not attempted and the patient did not perform the activity before the current illness, exacerbation or injury. 10-Not Attempted due to Environmental Limitations-(lack of equipment, weather restraints, etc.). 88-Not Attempted due to Medical Conditions or Safety Concerns. Roll Left & Right (QC): 6 Sit to Lying (QC): 3 Lying to Sitting/Side of Bed(Q: 4 Sit to Stand (QC): 4 Chair/Hue-qu-Fzhvs Xfer(QC): 4 Weight Bearing Left Lower Extremity: Left Weight Bearing/Tolerated Gait Training Distance: 120'x2 Walk 10 feet (QC): 4 Walk 50 ft with 2 Turns(QC): 4 Gait Assistive Device: FWW slow, antalgic, good step through though Exercises Standing in parallel bars hitting balloon with both hands, for balance training and weight shifting Treatments PT performed bed mobility and transfer training, balance and endurance training, OT worked on UE positioning and safety during activity, balance training Assessment Current Status: Fair Progress Improving ambulation but patient has persistent pain and very poor ROM. At one point during ambulation her knee almost buckled and she said if felt like her knee hyperextended painfully for a moment. PT Short Term Goals Short Term Goals Time Frame: Sep 13, 2020 Roll Left & Right: 6 Sit to lyin Lying to sitting on side of be: 4 Sit to stand: 3 Chair/dlx-xk-qqnci transfer: 4 Walk 10 feet: 4 Walk 50 feet with two turns: 4 PT Art Display Maker Goals Art Display Maker Goals PT Art Display Maker Goals Time Frame: Sep 27, 2020 Roll Left & Right (QC): 6 Sit to Lying (QC): 6 Lying-Sitting on Side/Bed(QC): 6 Sit to Stand (QC): 4 (SBA) Chair/Lyj-ls-Vbxwr Xfer(QC): 4 (SBA) Toilet Transfer (QC): 4 (SBA) Car Transfer (QC): 4 (CGA) Does the Patient Walk: Yes Walk 10 feet (QC): 4 (SA) Walk 50ft with 2 Turns (QC): 4 (SBA) Walk 150 ft (QC): 4 (BA) Walking 10ft on Uneven Surface: 4 (SBA) 1 Step (curb) (QC): 4 (SBA) 4 Steps (QC): 4 (SBA) 12 Steps (QC): 88 Picking up an Object (QC): 88 Wheel 50 feet with 2 turns (QC: 9 Wheel 150 feet: 9 PT Plan Problem List Problem List: Activity Tolerance, Functional Strength, Safety, Balance, Gait, Transfer, Bed Mobility, ROM Treatment/Plan Treatment Plan: Continue Plan of Care Treatment Plan: Bed Mobility, Education, Functional Activity Suzanne, Functional Strength, Group Therapy, Gait, Safety, Therapeutic Exercise, Transfers Treatment Duration: Sep 27, 2020 Frequency: At least 5 of 7 days/Wk (IRF) Estimated Hrs Per Day: 1.5 hours per day Patient and/or Family Agrees t: Yes Safety Risks/Education Patient Education: Gait Training, Transfer Techniques, Correct Positioning, Safety Issues Teaching Recipient: Patient Teaching Methods: Demonstration, Discussion Response to Teaching: Reinforcement Needed Time/GCodes Time In: 1300 Time Out: 1330 Total Billed Treatment Time: 30 Total Billed Treatment 1 visit NM 15' GT 15' DAYAMI UGARTE PT Sep 10, 2020 13:52
--- NOTE | 2020-09-10 14:30 | Cardiology Progress Note ---
Subjective Date Seen by Provider: Sep 10, 2020 Time Seen by Provider: 14:29 Subjective/Events-last exam Patient was seen at bedside, laying down comfortably, having generalized body ache and leg pain Review of Systems General: No Chills, No Night Sweats, No Fatigue, No Malaise, No Appetite, No Other HEENT: No Head Aches, No Visual Changes, No Eye Pain, No Ear Pain, No Dysphasia, No Sinus Congestion, No Post Nasal Drip, No Sore Throat, No Other Pulmonary: No Dyspnea, No Cough, No Pleuritic Chest Pain, No Other Cardiovascular: No: Chest Pain, Palpitations, Orthopnea, Paroxysmal Noc. Dyspnea, Edema, Lt Headedness, Other Objective-Cardiology Exam Last Set of Vital Signs Vital Signs 09/10/20 09/10/20 07:40 09:00 Temp 36.3 Pulse 69 Resp 16 B/P (MAP) 145/71 (95) Pulse Ox 98 O2 Delivery Nasal Cannula O2 Flow Rate 2.00 General: Alert, Oriented X3, Cooperative HEENT: Atraumatic, PERRLA Neck: Supple, No JVD, No Thyromegaly Lungs: Clear to Auscultation, Normal Air Movement Heart: Regular Rate, Normal S1, Normal S2, No Murmurs Abdomen: Normal Bowel Sounds, Soft, No Tenderness, No Hepatosplenomegaly, No Masses Extremities: No Clubbing, No Cyanosis, No Edema, Normal Pulses, No Tenderness/Swelling Skin: No Rashes, No Breakdown, No Significant Lesion Neuro: Normal Gait, Normal Speech, Strength at 5/5 X4 Ext, Normal Tone, Sensation Intact Psych/Mental Status: Mental Status NL, Mood NL Results Lab Laboratory Tests 09/10/20 06:20 A/P-Cardiology Admission Diagnosis L TKA PAF HTN HLP Assessment/Plan S/P left total knee arthroplasty with Dr. Ramirez, slowly recovering. Continue with PT/OT. SSS/PAF, maintained on Flecainide 100mg daily, Coumadin. Reports unknown medication recently d/c'd by primary product promoter sales person d/t bradycardia and is planning for PPM in near future. Coumadin was restarted on September 07, 2020, continue to monitor daily INR Hypertension, poor control, increase losartan to 100 mg daily and monitor blood pressure HLP, reports statin intolerance, continue to monitor as outpatient CRI, monitor renal function Obesity ROWAN HARDING MD Sep 10, 2020 14:30
[2020-09-10 19:59] VITALS: BP 143/63
[2020-09-10] MEDS: GABAPENTIN 300 MG (NEURONTIN) CAP PO SCH (21:09)
[2020-09-10] MEDS: MELATONIN 3 MG TABLET PO PRN (21:09)
[2020-09-11] MEDS: ACETAMINOPHEN 500 MG TAB (TYLENOL) PO SCH ×5 (00:11→22:41)
[2020-09-11] MEDS: HYDROcodone/APAP 5 MG/325 MG (LORTAB) TAB PO PRN ×3 (05:58→18:18)
--- NOTE | 2020-09-11 06:34 | PM&R Progress Note ---
Subjective HPI/CC On Admission Date Seen by Provider: Sep 11, 2020 Time Seen by Provider: 09:30 Subjective/Events-last exam 09/11/2020: Patient doing really well No issues Pain is an issue but no major changes Bowels moved on 09/09/2020 09/10/2020: Patient feels good today INR 1.7 Hemoglobin 10.7 Bowels moved yesterday Continue aggressive therapy 09/09/2020: Patient doing pretty well No more dysphagia Tomorrow is her [birth year] 80th Oxygen had been unhooked from the wall that was noted after she complained of dyspnea Decreasing pain medication Ultram is handling the pain 09/08/2020: Patient feels pretty good Pain is well controlled Talked about dysphagia from esophageal spasms No concerns 09/07/20: No major issues currently Pain is controlled INR 1.[address] Samson No dyspnea BM+ BP taken in leg due to bilateral mastectomies Review of Systems Musculoskeletal: leg pain Objective Exam Vital Signs Vital Signs Date Time Temp Pulse Resp B/P (MAP) Pulse Ox O2 Delivery O2 Flow Rate FiO2 09/11/20 20:29 99 Nasal Cannula 2.00 09/11/20 20:28 36.6 66 18 138/74 (95) Capillary Refill : General Appearance: No Apparent Distress, WD/WN, Chronically ill, Obese HEENT: PERRL/EOMI, Normal ENT Inspection, Pharynx Normal Neck: Full Range of Motion, Normal Inspection, Non Tender, Supple, Carotid Bruit Respiratory: Chest Non Tender, Lungs Clear, Normal Breath Sounds, No Accessory Muscle Use, No Respiratory Distress Cardiovascular: No Edema, No Gallop, No JVD, No Murmur, Normal Peripheral Pu lses, Irregularly Irregular Gastrointestinal: Normal Bowel Sounds, No Organomegaly, No Pulsatile Mass, Non Tender, Soft Back: Normal Inspection, No CVA Tenderness, No Vertebral Tenderness Extremity: Normal Capillary Refill, Normal Inspection, Normal Range of Motion (except left leg), Non Tender, No Calf Tenderness, No Pedal Edema Neurologic/Psychiatric: Alert, Oriented x3, No Motor/Sensory Deficits, Normal Mood/Affect, slab polisher II-XII Norm as Tested, Motor Weakness (leg leg weakness) Skin: Normal Color, Warm/Dry Lymphatic: No Adenopathy Results/Procedures Lab Patient resulted labs reviewed. FIM Transfers Therapy Code Descriptions/Definitions Functional [place] Measure: 0=Not Assessed/NA 4=Minimal Assistance 1=Total Assistance 5=Supervision or Setup 2=Maximal Assistance 6=Modified [place] 3=Moderate Assistance 7=Complete IndependenceSCALE: Activities may be completed with or without assistive devices. 8-Xlorcgfmwz-mvscyym completes the activity by him/herself with no assistance from a helper. 5-Set-up or Clean-up Assistance-helper sets up or cleans up; patient completes activity. [place] assists only prior to or following the activity. 4-Supervision or Touching Assistance-helper provides verbal cues and/or touching/steadying and/or contact guard assistance as patient completes activity. Assistance may be provided throughout the activity or intermittently. 3-Partial/Moderate Assistance-helper does LESS THAN HALF the effort. [place] lifts, holds or supports trunk or limbs, but provides less than half the effort. 2-Substantial/Maximal Assistance-helper does MORE THAN HALF the effort. [place] lifts or holds trunk or limbs and provides more than half the effort. 5-Mltcxndcn-enizpm does ALL the effort. Patient does none of the effort to complete the activity. Or, the assistance of 2 or more helpers is required for the patient to complete the activity. If activity was not attempted, code reason: 7-Patient Refused. 9-Not Applicable-not attempted and the patient did not perform the activity before the current illness, exacerbation or injury. 10-Not Attempted due to Environmental Limitations-(lack of equipment, weather restraints, etc.). 88-Not Attempted due to Medical Conditions or Safety Concerns. Roll Left to Right (QC): 6 Sit to Lying (QC): 3 Sit to Stand (QC): 4 Chair/Gzt-yd-Jwjmc Xfer(QC): 4 Car Transfer (QC): 1 Gait Training Does the Patient Walk?: Yes Distance: 120'x2 Walk 10 feet (QC): 4 Walk 50 ft with 2 Turns(QC): 4 Walk 150 ft (QC): 88 Walking 10ft/uneven surface-QC: 4 Gait Persons Needed: 1 Gait Assistive Device: FWW Wheelchair Training Does the Pt Use a Wheelchair?: Yes Distance: 30' Wheel 50 ft with 2 turns (QC): 4 Wheel 150 ft (QC): 88 Type of Wheelchair: Manual Stair Training #of Steps: 1 1 Step (curb) (QC): 4 4 Steps (QC): 88 12 Steps (QC): 88 Balance Picking up an Object (QC): 88 ADL-Treatment Eating (QC): 6 (Per pt report) Oral Hygiene (QC): 6 (IND seated at sink.) Shower/Bathe Self (QC): 3 (Min A with washing/drying L foot.) Upper Body Dressing (QC): 5 (set up assist) Lower Body Dressing (QC): 3 (Pt required assistance threding BLEs into pants, able to manage up to her knees and then pant hike.) On/Off Footwear (QC): 2 (Pt required assistance doffing tedhose and gripper socks, assist donnig LLE tedhose and gripper sock. 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 Chronic atrial fibrillation Warfarin anticoagulation for stroke prophylaxis from atrial fibrillation Hypothyroidism History of breast cancer Chronic kidney disease Hypertension Hyperlipidemia Obesity Esophageal spasms chronic Plan: Inpatient rehab protocol Pain control Monitor INR Cardiology consult appreciated 09/07/20: Cardiology consult Monitoring of INR 09/08/2020: Monitor dysphagia Pain control 09/09/2020: Maintain pain meds Aggressive therapy Monitor for dysphagia Monitor oxygen 09/10/2020: Continue aggressive therapy Pain control Monitor INR 09/11/2020: Pain control Aggressive therapy (1) Total knee replacement status (2) HX: breast cancer (3) Obesity (4) Hypothyroidism (5) Atrial fibrillation (6) Warfarin anticoagulation (7) GERD (gastroesophageal reflux disease) STEFF TORRES DO Sep 11, 2020 06:34
[2020-09-11 07:18] VITALS: BP 148/72
[2020-09-11] MEDS: LOSARTAN 100 MG (COZAAR) TABLET PO SCH (07:56)
[2020-09-11] MEDS: LETROZOLE 2.5 MG (FEMARA) TAB PO SCH (07:56)
[2020-09-11] MEDS: SPIRONOLACTONE 25 MG (ALDACTONE) TAB PO SCH (07:56)
[2020-09-11] MEDS: DOCUSATE SODIUM 100 MG (COLACE) CAP PO SCH ×2 (07:56→20:09)
[2020-09-11] MEDS: SENNA W/DOCUSATE (SENOKOT S) TABLET PO SCH ×2 (07:56→20:09)
[2020-09-11] MEDS: FLECAINIDE 100 MG (TAMBOCOR) TAB PO SCH (07:56)
[2020-09-11] MEDS: PANTOPRAZOLE 40 MG (PROTONIX) TAB PO SCH (07:56)
[2020-09-11] MEDS: LEVOTHYROXINE 125 MCG (LEVOTHROID) TABLET PO SCH (07:56)
[2020-09-11] MEDS: polyethylene glycoL POWDER 17 GM (MIRALAX) PACK PO SCH ×2 (07:57→19:13)
[2020-09-11] MEDS: warFARin 2.5 MG (COUMADIN) TAB PO SCH (07:58)
--- NOTE | 2020-09-11 08:21 | Cardiology Progress Note ---
Subjective Date Seen by Provider: Sep 11, 2020 Time Seen by Provider: 08:18 Subjective/Events-last exam Sitting up at bedside with PT. Denies any chest pain or palpitations. Objective-Cardiology Exam Last Set of Vital Signs Vital Signs 09/11/20 09/11/20 07:18 08:32 Temp 36.4 Pulse 60 Resp 16 B/P (MAP) 148/72 (97) Pulse Ox 100 O2 Delivery Nasal Cannula O2 Flow Rate 2.00 General: Alert, Oriented X3, Cooperative HEENT: Atraumatic, PERRLA Neck: Supple, No JVD, No Thyromegaly Lungs: Clear to Auscultation, Normal Air Movement Heart: Regular Rate, Normal S1, Normal S2, No Murmurs Abdomen: Normal Bowel Sounds, Soft, No Tenderness, No Hepatosplenomegaly, No Masses Extremities: No Clubbing, No Cyanosis, No Edema, Normal Pulses, No Tenderness/Swelling Skin: No Rashes, No Breakdown, No Significant Lesion Neuro: Normal Gait, Normal Speech, Strength at 5/5 X4 Ext, Normal Tone, Sensation Intact Psych/Mental Status: Mental Status NL, Mood NL A/P-Cardiology Admission Diagnosis L TKA PAF HTN HLP Assessment/Plan S/P left total knee arthroplasty with Dr. Ramirez, slowly recovering. Continue with PT/OT. SSS/PAF, maintained on Flecainide 100mg daily, Coumadin. Reports unknown medication recently discontinued by primary test bore helper d/t bradycardia and is planning for PPM in near future. Coumadin was restarted on September 07, 2020, continue to monitor daily INR Hypertension, losartan increased to 100 mg daily. Continue to monitor blood pressure HLP, reports statin intolerance, continue to monitor as outpatient CRI, monitor renal function Obesity Patient was seen at bedside, laying down comfortably, seen and evaluated with Violetta Blood pressure is better controlled Heart rate is well controlled Continue to monitor blood pressure and lipids Supervisory-Addendum Brief Supervisory Addendum Participated in pt care: history, MDM, physical Personally performed: exam, history, MDM Care discussed with: VIOLETTA CHOUDHARY Sep 11, 2020 8:21 am ROWAN HARDING MD Sep 11, 2020 4:27 pm
--- NOTE | 2020-09-11 08:54 | Physical Therapy Daily Note ---
PT Daily Note-Current Subjective Patient in bed pre tx, agrees to PT after encouragement, has 7/10 pain in left knee. Appearance Patient in bed post tx with nurse call, phone, tray, all needs met, polar care on, O2 on. Mental Status Patient Orientation: Person, Place, Situation Attachments: Oxygen (patient wears O2 when in bed) Transfers SCALE: Activities may be completed with or without assistive devices. 9-Gmkwduvcrf-jpgepvo completes the activity by him/herself with no assistance from a helper. 5-Set-up or Clean-up Assistance-helper sets up or cleans up; patient completes activity. [place] assists only prior to or following the activity. 4-Supervision or Touching Assistance-helper provides verbal cues and/or touching/steadying and/or contact guard assistance as patient completes activity. Assistance may be provided throughout the activity or intermittently. 3-Partial/Moderate Assistance-helper does LESS THAN HALF the effort. [place] lifts, holds or supports trunk or limbs, but provides less than half the effort. 2-Substantial/Maximal Assistance-helper does MORE THAN HALF the effort. [place] lifts or holds trunk or limbs and provides more than half the effort. 2-Kxqdrdmqm-neodry does ALL the effort. Patient does none of the effort to complete the activity. Or, the assistance of 2 or more helpers is required for the patient to complete the activity. If activity was not attempted, code reason: 7-Patient Refused. 9-Not Applicable-not attempted and the patient did not perform the activity before the current illness, exacerbation or injury. 10-Not Attempted due to Environmental Limitations-(lack of equipment, weather restraints, etc.). 88-Not Attempted due to Medical Conditions or Safety Concerns. Roll Left & Right (QC): 6 Sit to Lying (QC): 6 Lying to Sitting/Side of Bed(Q: 4 Sit to Stand (QC): 4 Chair/Bfb-ue-Jgbku Xfer(QC): 4 Weight Bearing Left Lower Extremity: Left Weight Bearing/Tolerated Gait Training Distance: 120'x2 Walk 10 feet (QC): 4 Walk 50 ft with 2 Turns(QC): 4 Gait Persons Needed: 1 Gait Assistive Device: FWW SBA, slow, antalgic, good step through but patient keeps an extended left knee Exercises Supine Ex: Ankle pumps, Quad Set, Heel Slides, Short Arc Quads, Straight leg raise Patient's left knee extension is +5 degrees, flexion 75 degrees NuStep Minutes: 15 NuStep Workload: 4 Treatments bed mobility and transfers, ambulation, left knee strengthening and ROM. Patient also needed dressed at the beginning of tx, needed max assist to get her pants on but was able to get her shirt on herself. Assessment Current Status: Poor Progress Patient had pretty poor motivation today, tried to postpone therapy for several reasons, patient had a lot of issues with pain, explained she needs to work through the pain and she understands that but seems unable to deal with it. PT Short Term Goals Short Term Goals Time Frame: Sep 13, 2020 Roll Left & Right: 6 Sit to lyin Lying to sitting on side of be: 4 Sit to stand: 3 Chair/cnr-zy-gakvi transfer: 4 Walk 10 feet: 4 Walk 50 feet with two turns: 4 PT Expressive Art Therapist Goals Residential Goals PT Residential Goals Time Frame: Sep 27, 2020 Roll Left & Right (QC): 6 Sit to Lying (QC): 6 Lying-Sitting on Side/Bed(QC): 6 Sit to Stand (QC): 4 (SBA) Chair/Npw-hr-Kwpto Xfer(QC): 4 (SBA) Toilet Transfer (QC): 4 (SBA) Car Transfer (QC): 4 (CGA) Does the Patient Walk: Yes Walk 10 feet (QC): 4 (SA) Walk 50ft with 2 Turns (QC): 4 (SBA) Walk 150 ft (QC): 4 (BA) Walking 10ft on Uneven Surface: 4 (SBA) 1 Step (curb) (QC): 4 (SBA) 4 Steps (QC): 4 (SBA) 12 Steps (QC): 88 Picking up an Object (QC): 88 Wheel 50 feet with 2 turns (QC: 9 Wheel 150 feet: 9 PT Plan Problem List Problem List: Activity Tolerance, Functional Strength, Safety, Balance, Gait, Transfer, Bed Mobility, ROM Treatment/Plan Treatment Plan: Continue Plan of Care Treatment Plan: Bed Mobility, Education, Functional Activity Suzanne, Functional Strength, Group Therapy, Gait, Safety, Therapeutic Exercise, Transfers Treatment Duration: Sep 27, 2020 Frequency: At least 5 of 7 days/Wk (IRF) Estimated Hrs Per Day: 1.5 hours per day Patient and/or Family Agrees t: Yes Safety Risks/Education Patient Education: Gait Training, Transfer Techniques, Correct Positioning, Safety Issues Teaching Recipient: Patient Teaching Methods: Demonstration, Discussion Response to Teaching: Reinforcement Needed Time/GCodes Time In: 0800 Time Out: 0900 Total Billed Treatment Time: 60 Total Billed Treatment 1 visit EX 30' FA 30' DAYAMI UGARTE PT Sep 11, 2020 08:54
--- NOTE | 2020-09-11 11:00 | Occupational Ther Daily Note ---
OT Current Status-Daily Note Subjective Pt laying in bed, agreeable to OT tx. Mental Status/Objective Patient Orientation: Normal For Age Attachments: Polar Pack ADL-Treatment Therapy Code Descriptions/Definitions Functional [place] Measure: 0=Not Assessed/NA 4=Minimal Assistance 1=Total Assistance 5=Supervision or Setup 2=Maximal Assistance 6=Modified [place] 3=Moderate Assistance 7=Complete IndependenceSCALE: Activities may be completed with or without assistive devices. 6-Flvfmnhbtf-aaovzir completes the activity by him/herself with no assistance f rom a helper. 5-Set-up or Clean-up Assistance-helper sets up or cleans up; patient completes activity. [place] assists only prior to or following the activity. 4-Supervision or Touching Assistance-helper provides verbal cues and/or touching/steadying and/or contact guard assistance as patient completes activity. Assistance may be provided throughout the activity or intermittently. 3-Partial/Moderate Assistance-helper does LESS THAN HALF the effort. [place] lifts, holds or supports trunk or limbs, but provides less than half the effort. 2-Substantial/Maximal Assistance-helper does MORE THAN HALF the effort. [place] lifts or holds trunk or limbs and provides more than half the effort. 7-Pjalyrokv-ljuimz does ALL the effort. Patient does none of the effort to complete the activity. Or, the assistance of 2 or more helpers is required for the patient to complete the activity. If activity was not attempted, code reason: 7-Patient Refused. 9-Not Applicable-not attempted and the patient did not perform the activity before the current illness, exacerbation or injury. 10-Not Attempted due to Environmental Limitations-(lack of equipment, weather restraints, etc.). 88-Not Attempted due to Medical Conditions or Safety Concerns. Eating (QC): 6 Oral Hygiene (QC): 7 Shower/Bathe Self (QC): 4 (SBA, pt able to wash/dry all parts seated on SC, using LH sponge as needed.) Upper Body Dressing (QC): 5 (set up) Lower Body Dressing (QC): 4 (SBA) On/Off Footwear: 4 (SBA with gripper socks.) Toileting Hygiene (QC): 4 (SBA) Toilet Transfer (QC): 4 (SBA) Other Treatment Pt laying in bed, transferred supine to sit EOB with SBA. Pt then used FWW to ambulate into bathroom and onto [facility] over toilet. She completed toileting, doffed clothes, then transferred to WA. Pt completed shower, then transferred to w/c to get dressed. Pt reports increased pain in LLE, asking to perform functional mobility in order to decrease pain. Pt stood at FWW, then performed functional mobility around [facility] common area, taking seated rest breaks as needed. Pt completed functional kitchen task, opening/closing upper and lower cabinets, SBA. Pt also able to locate cup and get a drink of water. Pt returned to her room, transferring to bed. OT donned TEDhose for pt, and placed polar pack on LLE. Pt states her pain is better, but requests pain pill, nurse notified. Post tx, pt laying in bed, call light in reach and all needs met. Education OT Patient Education: Correct positioning, Energy conservation, Exercise program, Modified ADL techniques, Progress toward Goal/Update tx plan, Purpose of tx/functional activities, Rehab process Teaching Recipient: Patient Teaching Methods: Discussion Response to Teaching: Verbalize Understanding OT Short Term Goals Short Term Goals Time Frame: Sep 14, 2020 Toileting hygiene: 4 Shower/bathe self: 4 Lower body dressin Putting on/taking off footwear: 4 OT Usp Goals Programmer Or Analyst Goals Time Frame: Oct 05, 2020 Eating (QC): 6 Oral Hygiene (QC): 6 Toileting Hygiene (QC): 6 Shower/Bathe Self (QC): 6 Upper Body Dressing (QC): 6 Lower Body Dressing (QC): 6 On/Off Footwear (QC): 6 Additional Goals: 1-Demonstrate ADL Tasks, 2-Verbalize Understanding, 3- ImproveStrength/Suzanne 1=Demonstrate adherence to instructed precautions during ADL tasks. 2=Patient will verbalize/demonstrate understanding of assistive devices/modifications for ADL. 3=Patient will improve strength/tolerance for activity to enable patient to perform ADL's. OT Education/Plan Problem List/Assessment Assessment: Decreased Activ Tolerance, Decreased UE Strength, Impaired Funct Balance, Impaired I ADL's, Impaired Self-Care Skills, Restricted Funct UE ROM Discharge Recommendations Plan/Recommendations: Continue POC Treatment Plan/Plan of Care Patient would benefit from OT for education, treatment and training to promote independence in ADL's, mobility, safety and/or upper extremity function for ADL's. Plan of Care: ADL Retraining, Functional Mobility, Group Exercise/Act as Ind, UE Funct Exercise/Act Treatment Duration: Oct 05, 2020 Frequency: At least 5 of 7 days/Wk (IRF) Estimated Hrs Per Day: 1.5 hours per day Rehab Potential: Fair Time/GCodes Start Time: 09:30 Stop Time: 11:00 Total Time Billed (hr/min): 90 Billed Treatment Time 1, ADL 5 (75'), FA (15') SHANNAN DE LA PAZ OT Sep 11, 2020 11:00
--- NOTE | 2020-09-11 13:29 | Physical Therapy Daily Note ---
PT Daily Note-Current Subjective Patient in bed pre tx, agrees to PT, has unrated left knee pain. Appearance Patient in bed post tx with nurse call, phone, tray, all needs met. Mental Status Patient Orientation: Person, Place, Situation Attachments: Polar Pack Transfers SCALE: Activities may be completed with or without assistive devices. 7-Kzbpfwlibx-rrmywrc completes the activity by him/herself with no assistance from a helper. 5-Set-up or Clean-up Assistance-helper sets up or cleans up; patient completes activity. [place] assists only prior to or following the activity. 4-Supervision or Touching Assistance-helper provides verbal cues and/or touching/steadying and/or contact guard assistance as patient completes activity. Assistance may be provided throughout the activity or intermittently. 3-Partial/Moderate Assistance-helper does LESS THAN HALF the effort. [place] lifts, holds or supports trunk or limbs, but provides less than half the effort. 2-Substantial/Maximal Assistance-helper does MORE THAN HALF the effort. [place] lifts or holds trunk or limbs and provides more than half the effort. 7-Jvwyrmzto-zrdcry does ALL the effort. Patient does none of the effort to complete the activity. Or, the assistance of 2 or more helpers is required for the patient to complete the activity. If activity was not attempted, code reason: 7-Patient Refused. 9-Not Applicable-not attempted and the patient did not perform the activity before the current illness, exacerbation or injury. 10-Not Attempted due to Environmental Limitations-(lack of equipment, weather restraints, etc.). 88-Not Attempted due to Medical Conditions or Safety Concerns. Roll Left & Right (QC): 6 Sit to Lying (QC): 3 Lying to Sitting/Side of Bed(Q: 4 Sit to Stand (QC): 4 Chair/Kom-de-Hllat Xfer(QC): 4 Patient still needs assist getting her left leg into bed (Tommy) Weight Bearing Left Lower Extremity: Left Weight Bearing/Tolerated Gait Training Distance: 150', 120' Walk 10 feet (QC): 4 Walk 50 ft with 2 Turns(QC): 4 Walk 150 ft (QC): 4 Gait Persons Needed: 1 Gait Assistive Device: FWW slow, antalgic, keeps an extended left knee, patient complaints of arm fatigue, encouraged her to bear more weight on her legs and less through her arms Exercises sit to stand 3 sets of 5, patient has a tendency to slide her left leg forward after sitting to relieve the flexion stretch, also performed seated knee extension/flexion with AAROM x20 Treatments bed mobility and transfers, ambulation, LE ROM and strengthening Assessment Current Status: Fair Progress slow progress with functional mobility, still poor ROM PT Short Term Goals Short Term Goals Time Frame: Sep 13, 2020 Roll Left & Right: 6 Sit to lyin Lying to sitting on side of be: 4 Sit to stand: 3 Chair/qsq-yg-asxkh transfer: 4 Walk 10 feet: 4 Walk 50 feet with two turns: 4 PT Medical Office Receptionist Assistant Goals Skilled Nursing Goals PT Medical Office Receptionist Assistant Goals Time Frame: Sep 27, 2020 Roll Left & Right (QC): 6 Sit to Lying (QC): 6 Lying-Sitting on Side/Bed(QC): 6 Sit to Stand (QC): 4 (SBA) Chair/Chf-qo-Khrvg Xfer(QC): 4 (SBA) Toilet Transfer (QC): 4 (SBA) Car Transfer (QC): 4 (CGA) Does the Patient Walk: Yes Walk 10 feet (QC): 4 (SA) Walk 50ft with 2 Turns (QC): 4 (SBA) Walk 150 ft (QC): 4 (BA) Walking 10ft on Uneven Surface: 4 (SBA) 1 Step (curb) (QC): 4 (SBA) 4 Steps (QC): 4 (SBA) 12 Steps (QC): 88 Picking up an Object (QC): 88 Wheel 50 feet with 2 turns (QC: 9 Wheel 150 feet: 9 PT Plan Problem List Problem List: Activity Tolerance, Functional Strength, Safety, Balance, Gait, Transfer, Bed Mobility, ROM Treatment/Plan Treatment Plan: Continue Plan of Care Treatment Plan: Bed Mobility, Education, Functional Activity Suzanne, Functional Strength, Group Therapy, Gait, Safety, Therapeutic Exercise, Transfers Treatment Duration: Sep 27, 2020 Frequency: At least 5 of 7 days/Wk (IRF) Estimated Hrs Per Day: 1.5 hours per day Patient and/or Family Agrees t: Yes Safety Risks/Education Patient Education: Gait Training, Transfer Techniques, Correct Positioning, Safety Issues Teaching Recipient: Patient Teaching Methods: Demonstration, Discussion Response to Teaching: Reinforcement Needed Time/GCodes Time In: 1300 Time Out: 1330 Total Billed Treatment Time: 30 Total Billed Treatment 1 visit EX 15' GT 15' DAYAMI UGARTE PT Sep 11, 2020 13:29
[2020-09-11] MEDS: GABAPENTIN 300 MG (NEURONTIN) CAP PO SCH (20:09)
[2020-09-11 20:28] VITALS: BP 138/74
[2020-09-12 08:05] VITALS: BP 148/67
[2020-09-12] MEDS: LEVOTHYROXINE 125 MCG (LEVOTHROID) TABLET PO SCH (08:24)
[2020-09-12] MEDS: LOSARTAN 100 MG (COZAAR) TABLET PO SCH (08:24)
[2020-09-12] MEDS: polyethylene glycoL POWDER 17 GM (MIRALAX) PACK PO SCH ×2 (08:29→21:01)
[2020-09-12] MEDS: SENNA W/DOCUSATE (SENOKOT S) TABLET PO SCH ×2 (09:34→21:01)
[2020-09-12] MEDS: SPIRONOLACTONE 25 MG (ALDACTONE) TAB PO SCH (09:35)
[2020-09-12] MEDS: DOCUSATE SODIUM 100 MG (COLACE) CAP PO SCH ×2 (09:35→21:01)
[2020-09-12] MEDS: FLECAINIDE 100 MG (TAMBOCOR) TAB PO SCH (09:35)
[2020-09-12] MEDS: LETROZOLE 2.5 MG (FEMARA) TAB PO SCH (09:35)
[2020-09-12] MEDS: PANTOPRAZOLE 40 MG (PROTONIX) TAB PO SCH (09:35)
[2020-09-12] MEDS: ACETAMINOPHEN 500 MG TAB (TYLENOL) PO SCH ×2 (09:39→23:52)
--- NOTE | 2020-09-12 09:49 | Occupational Ther Daily Note ---
OT Current Status-Daily Note Subjective Pt agreeable to OT tx, rates pain 7/10 after shower. Nurse notified and pain medicine provided. Mental Status/Objective Patient Orientation: Normal For Age ADL-Treatment Therapy Code Descriptions/Definitions Functional [place] Measure: 0=Not Assessed/NA 4=Minimal Assistance 1=Total Assistance 5=Supervision or Setup 2=Maximal Assistance 6=Modified [place] 3=Moderate Assistance 7=Complete IndependenceSCALE: Activities may be completed with or without assistive devices. 9-Bnmpesgjep-mpepgyo completes the activity by him/herself with no assistance from a helper. 5-Set-up or Clean-up Assistance-helper sets up or cleans up; patient completes activity. [place] assists only prior to or following the activity. 4-Supervision or Touching Assistance-helper provides verbal cues and/or touchin g/steadying and/or contact guard assistance as patient completes activity. Assistance may be provided throughout the activity or intermittently. 3-Partial/Moderate Assistance-helper does LESS THAN HALF the effort. [place] lifts, holds or supports trunk or limbs, but provides less than half the effort. 2-Substantial/Maximal Assistance-helper does MORE THAN HALF the effort. [place] lifts or holds trunk or limbs and provides more than half the effort. 6-Zidwqupoa-ujdicg does ALL the effort. Patient does none of the effort to complete the activity. Or, the assistance of 2 or more helpers is required for the patient to complete the activity. If activity was not attempted, code reason: 7-Patient Refused. 9-Not Applicable-not attempted and the patient did not perform the activity before the current illness, exacerbation or injury. 10-Not Attempted due to Environmental Limitations-(lack of equipment, weather restraints, etc.). 88-Not Attempted due to Medical Conditions or Safety Concerns. Eating (QC): 6 Oral Hygiene (QC): 7 Shower/Bathe Self (QC): 5 (set up assist) Upper Body Dressing (QC): 6 (IND, pt able to doff/don focus puller shirt.) Lower Body Dressing (QC): 4 (SBA, pt able to thread LEs and perform pant hike.) On/Off Footwear: 6 (IND donning/doffing gripper socks) Other Treatment Pt laying in bed, agreeable to OT tx.Pt transferred supine to sit EOB, SBA, then used FWW to ambulate into bathroom and onto SC. Pt doffed clothes, completed shower, then transferred to w/c in order to get dressed. Pt used FWW to perform functional mobility to therapy gym. Pt completed arm bike 2:30 mins, 1 rest break. Pt stopped arm bike stating her LLE hurt too bad and she had to get up and walk on it. Pt used FWW to perform functional mobility to kitchen area. Pt completed functional kitchen task, locating x10 cones throughout cabinets and drawers, SBA. She then used remote encoding operations supervisor to parts picker perdomo bags from floor, SBA. Pt returned to her room, transferring to bed, assist with LLE. OT placed polar pack onto LLE and assisted pt with positioning to comfort. Post tx, pt laying in bed, call light in reach and all needs met. Education OT Patient Education: Correct positioning, Modified ADL techniques, Progress toward Goal/Update tx plan, Purpose of tx/functional activities, Rehab process Teaching Recipient: Patient Teaching Methods: Discussion Response to Teaching: Verbalize Understanding OT Short Term Goals Short Term Goals Time Frame: Sep 14, 2020 Toileting hygiene: 4 Shower/bathe self: 4 Lower body dressin Putting on/taking off footwear: 4 OT Milieu Therapist Goals Snf Goals Time Frame: Oct 05, 2020 Eating (QC): 6 Oral Hygiene (QC): 6 Toileting Hygiene (QC): 6 Shower/Bathe Self (QC): 6 Upper Body Dressing (QC): 6 Lower Body Dressing (QC): 6 On/Off Footwear (QC): 6 Additional Goals: 1-Demonstrate ADL Tasks, 2-Verbalize Understanding, 3- ImproveStrength/Suzanne 1=Demonstrate adherence to instructed precautions during ADL tasks. 2=Patient will verbalize/demonstrate understanding of assistive devices/modifications for ADL. 3=Patient will improve strength/tolerance for activity to enable patient to perform ADL's. OT Education/Plan Problem List/Assessment Assessment: Decreased Activ Tolerance, Decreased UE Strength, Impaired Funct Balance, Impaired I ADL's, Impaired Self-Care Skills Discharge Recommendations Plan/Recommendations: Continue POC Treatment Plan/Plan of Care Patient would benefit from OT for education, treatment and training to promote independence in ADL's, mobility, safety and/or upper extremity function for ADL's. Plan of Care: ADL Retraining, Functional Mobility, Group Exercise/Act as Ind, UE Funct Exercise/Act Treatment Duration: Oct 05, 2020 Frequency: At least 5 of 7 days/Wk (IRF) Estimated Hrs Per Day: 1.5 hours per day Rehab Potential: Fair Time/GCodes Start Time: 09:00 Stop Time: 10:30 Total Time Billed (hr/min): 90 Billed Treatment Time 1, ADL 4 (60'), FA 2 (30') SHANNAN DE LA PAZ OT Sep 12, 2020 09:49
--- NOTE | 2020-09-12 10:00 | Physical Therapy Daily Note ---
PT Daily Note-Current Subjective Pt is laying in bed upon arrival. Pt agrees to PT but asks for pain med and to get dressed first. Pain Numeric Pain Scale: 8 Location: Left Location Body Site: Knee Pain Description: Ache, Tightness Mental Status Patient Orientation: Person, Place, Time, Situation Attachments: Polar Pack Transfers SCALE: Activities may be completed with or without assistive devices. 9-Kqhdvqawxc-gsatkvf completes the activity by him/herself with no assistance from a helper. 5-Set-up or Clean-up Assistance-helper sets up or cleans up; patient completes activity. [place] assists only prior to or following the activity. 4-Supervision or Touching Assistance-helper provides verbal cues and/or touching/steadying and/or contact guard assistance as patient completes activity. Assistance may be provided throughout the activity or intermittently. 3-Partial/Moderate Assistance-helper does LESS THAN HALF the effort. [place] lifts, holds or supports trunk or limbs, but provides less than half the effort. 2-Substantial/Maximal Assistance-helper does MORE THAN HALF the effort. [place] lifts or holds trunk or limbs and provides more than half the effort. 9-Tpgibqnyz-xlimnm does ALL the effort. Patient does none of the effort to complete the activity. Or, the assistance of 2 or more helpers is required for the patient to complete the activity. If activity was not attempted, code reason: 7-Patient Refused. 9-Not Applicable-not attempted and the patient did not perform the activity before the current illness, exacerbation or injury. 10-Not Attempted due to Environmental Limitations-(lack of equipment, weather restraints, etc.). 88-Not Attempted due to Medical Conditions or Safety Concerns. Sit to Lying (QC): 5 Lying to Sitting/Side of Bed(Q: 5 Sit to Stand (QC): 5 Toilet Transfer (QC): 5 Weight Bearing Left Lower Extremity: Left Weight Bearing/Tolerated Gait Training Does the Patient Walk?: Yes Distance: 150' x2 Walk 10 feet (QC): 5 Walk 50 ft with 2 Turns(QC): 5 Walk 150 ft (QC): 5 Gait Persons Needed: 1 Gait Assistive Device: FWW Pt needs RB during amb. due to fatigue. Wheelchair Training Does the Pt Use a Wheelchair?: No Exercises Supine Ex: Quad Set, Heel Slides, Straight leg raise, Hip abd/add Supine Reps: 15 NuStep Minutes: 10 NuStep Workload: 4 Treatments 800-900: Pt sits at EOB to dress. Pt then uses BR before amb. in hallway. Pt uses NuStep before completing Supine EX on therapy mat. Pt takes short RB before amb. in hallway. Pt returns to room to rest in bed before OT arrives. All needs met, call light in hand. [id number]: Pt transfers to standing and uses BR. Pt amb. in hallway, taking RB as needed. Pt returns to room to rest at EOB and visit with company. All needs met, call light in hand. Assessment Current Status: Fair Progress Pt self limits due to fatigue and pain in L knee. PT Short Term Goals Short Term Goals Time Frame: Sep 13, 2020 Roll Left & Right: 6 Sit to lyin Lying to sitting on side of be: 4 Sit to stand: 3 Chair/wtb-pg-bztfl transfer: 4 Walk 10 feet: 4 Walk 50 feet with two turns: 4 PT Retail Merchandising Specialist Goals Prison Goals PT Prison Goals Time Frame: Sep 27, 2020 Roll Left & Right (QC): 6 Sit to Lying (QC): 6 Lying-Sitting on Side/Bed(QC): 6 Sit to Stand (QC): 4 (SBA) Chair/Brh-sg-Uzmgc Xfer(QC): 4 (SBA) Toilet Transfer (QC): 4 (SBA) Car Transfer (QC): 4 (CGA) Does the Patient Walk: Yes Walk 10 feet (QC): 4 (SA) Walk 50ft with 2 Turns (QC): 4 (SBA) Walk 150 ft (QC): 4 (BA) Walking 10ft on Uneven Surface: 4 (SBA) 1 Step (curb) (QC): 4 (SBA) 4 Steps (QC): 4 (SBA) 12 Steps (QC): 88 Picking up an Object (QC): 88 Wheel 50 feet with 2 turns (QC: 9 Wheel 150 feet: 9 PT Plan Problem List Problem List: Activity Tolerance, Functional Strength, ROM Treatment/Plan Treatment Plan: Continue Plan of Care Treatment Plan: Bed Mobility, Education, Functional Activity Suzanne, Functional Strength, Group Therapy, Gait, Safety, Therapeutic Exercise, Transfers Treatment Duration: Sep 27, 2020 Frequency: At least 5 of 7 days/Wk (IRF) Estimated Hrs Per Day: 1.5 hours per day Patient and/or Family Agrees t: Yes Safety Risks/Education Patient Education: Gait Training, Correct Positioning Teaching Recipient: Patient Teaching Methods: Discussion Response to Teaching: Verbalize Understanding Time/GCodes Time In: 800 Time Out: 900 Total Billed Treatment Time: 60 Total Billed Treatment 800-900: 1, FA (15m), GT (15m) & EX x2 (30m) 2883-8662: 1, FA (10m) & GT (20m) FRIDA BOLDEN MANAGER TRADE MARKETING Sep 12, 2020 10:00
[2020-09-12 10:34] LABS: INR 2.3 (0.8-1.4); PROTHROMBIN TIME PATIENT 25.8 SEC (12.2-14.7)
--- NOTE | 2020-09-12 10:37 | Cardiology Progress Note ---
Subjective Date Seen by Provider: Sep 12, 2020 Time Seen by Provider: 10:30 Subjective/Events-last exam Patient is sitting up at bedside, no new complaints. Review of Systems General: No Chills, No Night Sweats, No Fatigue, No Malaise, No Appetite, No Other HEENT: No Head Aches, No Visual Changes, No Eye Pain, No Ear Pain, No Dysphasia, No Sinus Congestion, No Post Nasal Drip, No Sore Throat, No Other Pulmonary: No Dyspnea, No Cough, No Pleuritic Chest Pain, No Other Cardiovascular: No: Chest Pain, Palpitations, Orthopnea, Paroxysmal Noc. Dyspnea, Edema, Lt Headedness, Other Objective-Cardiology Exam Last Set of Vital Signs Vital Signs 09/12/20 09/12/20 08:05 09:00 Temp 36.6 Pulse 72 Resp 16 B/P (MAP) 148/67 (94) Pulse Ox 96 O2 Delivery Nasal Cannula O2 Flow Rate 2.00 General: Alert, Oriented X3, Cooperative HEENT: Atraumatic, PERRLA Neck: Supple, No JVD, No Thyromegaly Lungs: Clear to Auscultation, Normal Air Movement Heart: Regular Rate, Normal S1, Normal S2, No Murmurs Abdomen: Normal Bowel Sounds, Soft, No Tenderness, No Hepatosplenomegaly, No Masses Extremities: No Clubbing, No Cyanosis, No Edema, Normal Pulses, No Tenderness/Swelling Skin: No Rashes, No Breakdown, No Significant Lesion Neuro: Normal Gait, Normal Speech, Strength at 5/5 X4 Ext, Normal Tone, Sensation Intact Psych/Mental Status: Mental Status NL, Mood NL A/P-Cardiology Admission Diagnosis L TKA PAF HTN HLP Assessment/Plan S/P left total knee arthroplasty with Dr. Ramirez, slowly recovering. Continue with PT/OT. SSS/PAF, maintained on Flecainide 100mg daily, Coumadin. Reports unknown medication recently discontinued by primary peoplesoft functional analyst d/t bradycardia and is planning for PPM in near future. Coumadin was restarted on September 07, 2020, continue to monitor daily INR Hypertension, losartan was increased to 100 mg daily. Continue to monitor blood pressure HLP, reports statin intolerance, continue to monitor as outpatient CRI, monitor renal function Obesity Patient was seen in bed, no new complaint BP is well controlled, in Sinus rhythm continue to monitor blood pressure no changes recommended Supervisory-Addendum Brief Supervisory Addendum Participated in pt care: history, MDM, physical Personally performed: exam, history, MDM Care discussed with: PA Results interpretation: Verified all documentation SUSAN SAUCEDO Sep 12, 2020 10:37 ROWAN HARDING MD Sep 12, 2020 18:25
[2020-09-12] MEDS: FUROSEMIDE 40 MG (LASIX) TAB PO SCH (10:38)
[2020-09-12] MEDS: warFARin 5 MG (COUMADIN) TAB PO SCH (10:51)
[2020-09-12 20:00] VITALS: BP 162/78
[2020-09-12] MEDS: GABAPENTIN 300 MG (NEURONTIN) CAP PO SCH (20:45)
[2020-09-13] MEDS: ACETAMINOPHEN 500 MG TAB (TYLENOL) PO SCH ×3 (06:29→23:17)
[2020-09-13 07:42] VITALS: BP 144/83
--- NOTE | 2020-09-13 08:33 | Cardiology Progress Note ---
Subjective Date Seen by Provider: Sep 13, 2020 Time Seen by Provider: 08:33 Subjective/Events-last exam Patient is sitting up in chair, c/o left knee pain, denies any chest pain Review of Systems General: No Chills, No Night Sweats, No Fatigue, No Malaise, No Appetite, No Ot her HEENT: No Head Aches, No Visual Changes, No Eye Pain, No Ear Pain, No Dysphasia, No Sinus Congestion, No Post Nasal Drip, No Sore Throat, No Other Pulmonary: No Dyspnea, No Cough, No Pleuritic Chest Pain, No Other Cardiovascular: No: Chest Pain, Palpitations, Orthopnea, Paroxysmal Noc. Dyspnea, Edema, Lt Headedness, Other Objective-Cardiology Exam Last Set of Vital Signs Vital Signs 09/15/20 09/15/20 07:30 09:21 Temp 36.4 Pulse 70 Resp 22 B/P (MAP) 133/63 (86) Pulse Ox 98 O2 Delivery Nasal Cannula O2 Flow Rate 2.00 General: Alert, Oriented X3, Cooperative HEENT: Atraumatic, PERRLA Neck: Supple, No JVD, No Thyromegaly Lungs: Clear to Auscultation, Normal Air Movement Heart: Regular Rate, Normal S1, Normal S2, No Murmurs Abdomen: Normal Bowel Sounds, Soft, No Tenderness, No Hepatosplenomegaly, No Masses Extremities: No Clubbing, No Cyanosis, No Edema, Normal Pulses, No Tenderness/Swelling Skin: No Rashes, No Breakdown, No Significant Lesion Neuro: Normal Gait, Normal Speech, Strength at 5/5 X4 Ext, Normal Tone, Sensation Intact Psych/Mental Status: Mental Status NL, Mood NL A/P-Cardiology Admission Diagnosis L TKA PAF HTN HLP Assessment/Plan S/P left total knee arthroplasty with Dr. Ramirez, slowly recovering. Continue with PT/OT. SSS/PAF, maintained on Flecainide 100mg daily, Coumadin. Reports unknown medication recently discontinued by primary watch and clock maker and repairer d/t bradycardia and is planning for PPM in near future. Coumadin was restarted on September 07, 2020, jaz nue to monitor daily INR Hypertension, losartan was increased to 100 mg daily. Continue to monitor blood pressure HLP, reports statin intolerance, continue to monitor as outpatient CRI, monitor renal function Obesity This is a late entry, patient was seen and evaluated, having no new complaint Continue on current medication, no changes were recommended Monitor heart rate and blood pressure Supervisory-Addendum Brief Supervisory Addendum Participated in pt care: history, MDM, physical Personally performed: exam, history, MDM Care discussed with: PA Results interpretation: Verified all documentation SUSAN SAUCEDO Sep 13, 2020 8:33 am ROWAN HARDING MD Sep 15, 2020 11:23 am
--- NOTE | 2020-09-13 08:59 | Occupational Ther Daily Note ---
OT Current Status-Daily Note Subjective Pt laying in bed, states she got some sleep last night and feels pretty well. Rates pain 5/10 in LLE during PM tx. Mental Status/Objective Patient Orientation: Normal For Age Attachments: Oxygen (2L supine in bed), Polar Pack ADL-Treatment Therapy Code Descriptions/Definitions Functional [place] Measure: 0=Not Assessed/NA 4=Minimal Assistance 1=Total Assistance 5=Supervision or Setup 2=Maximal Assistance 6=Modified Runnels 3=Moderate Assistance 7=Complete IndependenceSCALE: Activities may be completed with or without assistive devices. 4-Polpxymsse-caooldf completes the activity by him/herself with no assistance from a helper. 5-Set-up or Clean-up Assistance-helper sets up or cleans up; patient completes activity. [place] assists only prior to or following the activity. 4-Supervision or Touching Assistance-helper provides verbal cues and/or touching/steadying and/or contact guard assistance as patient completes activity. Assistance may be provided throughout the activity or intermittently. 3-Partial/Moderate Assistance-helper does LESS THAN HALF the effort. [place] lifts, holds or supports trunk or limbs, but provides less than half the effort. 2-Substantial/Maximal Assistance-helper does MORE THAN HALF the effort. [place] lifts or holds trunk or limbs and provides more than half the effort. 6-Apgkxbosn-vvoxvg does ALL the effort. Patient does none of the effort to complete the activity. Or, the assistance of 2 or more helpers is required for the patient to complete the activity. If activity was not attempted, code reason: 7-Patient Refused. 9-Not Applicable-not attempted and the patient did not perform the activity before the current illness, exacerbation or injury. 10-Not Attempted due to Environmental Limitations-(lack of equipment, weather restraints, etc.). 88-Not Attempted due to Medical Conditions or Safety Concerns. Eating (QC): 6 Oral Hygiene (QC): 6 (standing at sink.) Shower/Bathe Self (QC): 7 Upper Body Dressing (QC): 5 (set up) Lower Body Dressing (QC): 5 (set up) On/Off Footwear: 5 (set up) Toileting Hygiene (QC): 6 (IND with clothing management and hygiene.) Toilet Transfer (QC): 6 (IND on/off BSC over toilet.) Other Treatment [id number] Pt laying in bed, transferred supine to sit EOB, SBA. Pt used FWW to ambulate into bathroom where she completed toileting, then returned to recliner. Pt donned clothes at recliner with set up assistance, then used FWW to stand at sink to complete oral care and hair brushing IND. Pt used FWW to head towards the gym, SBA with functional mobility. 1 seated rest break on the way. OT tx with focus on increasing BUE Strength and activity tolerance, pt placed x100 pegs into foam pegboard, alternating hands, with 1lb wrist cuff BUEs. Pt used FWW to return to room, SBA, then transferred from EOB to supine SBA. OT placed polar pack on pt's L knee. Pt placed 2L O2 NC while laying in bed. Post tx, pt laying in bed, call light in reach and all needs met. [id number] Pt laying in bed, transferred supine to sit EOB IND. Pt used FWW to perform functional mobility to therapy gym, SBA. In order to increase BUE strength and activity tolerance, pt completed arm bike x15 mins, rest breaks as needed. With task, pt transferred between sitting and standing to complete task, as sitting for extended periods of time increases knee pain. Pt used FWW to return to her room, requests to return to bed. Pt transferred supine with SBA, encouragement to complete task herself as she wanted this therapist to assist with LLE. Post tx, pt laying in bed, call light in reach and all needs met, 2L O2 NC on while supine, polar pack on. Education OT Patient Education: Correct positioning, Modified ADL techniques, Progress toward Goal/Update tx plan, Purpose of tx/functional activities, Rehab process Teaching Recipient: Patient Teaching Methods: Discussion Response to Teaching: Verbalize Understanding OT Short Term Goals Short Term Goals Time Frame: Sep 14, 2020 Toileting hygiene: 4 Shower/bathe self: 4 Lower body dressin Putting on/taking off footwear: 4 OT Fuel Cell Technician Goals Senior Care Goals Time Frame: Oct 05, 2020 Eating (QC): 6 Oral Hygiene (QC): 6 Toileting Hygiene (QC): 6 Shower/Bathe Self (QC): 6 Upper Body Dressing (QC): 6 Lower Body Dressing (QC): 6 On/Off Footwear (QC): 6 Additional Goals: 1-Demonstrate ADL Tasks, 2-Verbalize Understanding, 3- ImproveStrength/Suzanne 1=Demonstrate adherence to instructed precautions during ADL tasks. 2=Patient will verbalize/demonstrate understanding of assistive devices/modifications for ADL. 3=Patient will improve strength/tolerance for activity to enable patient to perform ADL's. OT Education/Plan Problem List/Assessment Assessment: Decreased Activ Tolerance, Decreased UE Strength, Impaired I ADL's, Impaired Self-Care Skills Discharge Recommendations Plan/Recommendations: Continue POC Treatment Plan/Plan of Care Patient would benefit from OT for education, treatment and training to promote independence in ADL's, mobility, safety and/or upper extremity function for ADL's. Plan of Care: ADL Retraining, Functional Mobility, Group Exercise/Act as Ind, UE Funct Exercise/Act Treatment Duration: Oct 05, 2020 Frequency: At least 5 of 7 days/Wk (IRF) Estimated Hrs Per Day: 1.5 hours per day Rehab Potential: Fair Time/GCodes Start Time: 08:00 ([id number]) Stop Time: 13:30 ([id number]) Total Time Billed (hr/min): 90 Billed Treatment Time 8418-1917 1, ADL 2 (35'), FA 2 (25') 5214-3945 1, EX (15'), FA (15') SHANNAN DE LA PAZ OT Sep 13, 2020 08:59
[2020-09-13] MEDS: PANTOPRAZOLE 40 MG (PROTONIX) TAB PO SCH ×2 (09:12→20:27)
[2020-09-13] MEDS: SPIRONOLACTONE 25 MG (ALDACTONE) TAB PO SCH (09:12)
[2020-09-13] MEDS: LETROZOLE 2.5 MG (FEMARA) TAB PO SCH (09:12)
[2020-09-13] MEDS: LOSARTAN 100 MG (COZAAR) TABLET PO SCH (09:12)
[2020-09-13] MEDS: LEVOTHYROXINE 125 MCG (LEVOTHROID) TABLET PO SCH (09:12)
[2020-09-13] MEDS: FLECAINIDE 100 MG (TAMBOCOR) TAB PO SCH (09:12)
[2020-09-13] MEDS: polyethylene glycoL POWDER 17 GM (MIRALAX) PACK PO SCH ×2 (09:14→21:15)
[2020-09-13] MEDS: SENNA W/DOCUSATE (SENOKOT S) TABLET PO SCH ×2 (09:16→20:27)
[2020-09-13] MEDS: warFARin 5 MG (COUMADIN) TAB PO SCH (09:17)
[2020-09-13] MEDS: DOCUSATE SODIUM 100 MG (COLACE) CAP PO SCH ×2 (09:17→20:26)
--- NOTE | 2020-09-13 12:02 | Physical Therapy Daily Note ---
PT Daily Note-Current Subjective Pt laying in bed upon arrival. Pt agrees to PT. Pain Numeric Pain Scale: 6 Location: Left Location Body Site: Knee Pain Description: Ache, Tightness Mental Status Patient Orientation: Person, Place, Time, Situation Attachments: Polar Pack Transfers SCALE: Activities may be completed with or without assistive devices. 8-Llnkqubkjy-sufifno completes the activity by him/herself with no assistance from a helper. 5-Set-up or Clean-up Assistance-helper sets up or cleans up; patient completes activity. [place] assists only prior to or following the activity. 4-Supervision or Touching Assistance-helper provides verbal cues and/or touching/steadying and/or contact guard assistance as patient completes activity. Assistance may be provided throughout the activity or intermittently. 3-Partial/Moderate Assistance-helper does LESS THAN HALF the effort. [place] li fts, holds or supports trunk or limbs, but provides less than half the effort. 2-Substantial/Maximal Assistance-helper does MORE THAN HALF the effort. [place] lifts or holds trunk or limbs and provides more than half the effort. 4-Xncrwccmq-hethnd does ALL the effort. Patient does none of the effort to complete the activity. Or, the assistance of 2 or more helpers is required for the patient to complete the activity. If activity was not attempted, code reason: 7-Patient Refused. 9-Not Applicable-not attempted and the patient did not perform the activity before the current illness, exacerbation or injury. 10-Not Attempted due to Environmental Limitations-(lack of equipment, weather restraints, etc.). 88-Not Attempted due to Medical Conditions or Safety Concerns. Lying to Sitting/Side of Bed(Q: 5 Sit to Stand (QC): 5 Toilet Transfer (QC): 5 Weight Bearing Left Lower Extremity: Left Weight Bearing/Tolerated Gait Training Does the Patient Walk?: Yes Distance: 75' x2, 150' Walk 10 feet (QC): 5 Walk 50 ft with 2 Turns(QC): 5 Walk 150 ft (QC): 5 Gait Persons Needed: 1 Gait Assistive Device: FWW Wheelchair Training Does the Pt Use a Wheelchair?: No Exercises Supine Ex: Ankle pumps, Quad Set, Glut sets, Heel Slides, Hip abd/add Supine Reps: 15 NuStep Minutes: 15 NuStep Workload: 4 Treatments [id number]: TF to standing and uses BR. Pt amb. in hallway. Pt uses NuStep for 15m at WL 4 followed by Supine EX. Pt amb. in hallway and returns to room to rest. Pt sitting in recliner at end of tx, all needs met & call light in hand. [id number]: Pt reports nausea and reported to Nurse. Pt declines trying bed m obility including transferring to L side of bed due to nausea. CAPTAIN FISHING VESSEL advises need to continue to wor with Therapy for improved ROM and strength. Pt and CAPTAIN FISHING VESSEL discussed possible need for bed cane and FWW vs 4WW. SW is notified. Pt resting at end of tx. All needs met, call light in hand. Assessment Current Status: Fair Progress Pt self limits at times due to pain and fatigue. PT Short Term Goals Short Term Goals Time Frame: Sep 13, 2020 Roll Left & Right: 6 Sit to lyin Lying to sitting on side of be: 4 Sit to stand: 3 Chair/wkt-nm-ioegq transfer: 4 Walk 10 feet: 4 Walk 50 feet with two turns: 4 PT Crude Oil Driver Goals Crude Oil Driver Goals PT Crude Oil Driver Goals Time Frame: Sep 27, 2020 Roll Left & Right (QC): 6 Sit to Lying (QC): 6 Lying-Sitting on Side/Bed(QC): 6 Sit to Stand (QC): 4 (SBA) Chair/Nmy-az-Nmufw Xfer(QC): 4 (SBA) Toilet Transfer (QC): 4 (SBA) Car Transfer (QC): 4 (CGA) Does the Patient Walk: Yes Walk 10 feet (QC): 4 (SA) Walk 50ft with 2 Turns (QC): 4 (SBA) Walk 150 ft (QC): 4 (BA) Walking 10ft on Uneven Surface: 4 (SBA) 1 Step (curb) (QC): 4 (SBA) 4 Steps (QC): 4 (SBA) 12 Steps (QC): 88 Picking up an Object (QC): 88 Wheel 50 feet with 2 turns (QC: 9 Wheel 150 feet: 9 PT Plan Problem List Problem List: Activity Tolerance Treatment/Plan Treatment Plan: Continue Plan of Care Treatment Plan: Bed Mobility, Education, Functional Activity Suzanne, Functional Strength, Group Therapy, Gait, Safety, Therapeutic Exercise, Transfers Treatment Duration: Sep 27, 2020 Frequency: At least 5 of 7 days/Wk (IRF) Estimated Hrs Per Day: 1.5 hours per day Patient and/or Family Agrees t: Yes Safety Risks/Education Patient Education: Gait Training, Transfer Techniques, Correct Positioning, Safety Issues Teaching Recipient: Patient Teaching Methods: Discussion Response to Teaching: Verbalize Understanding Time/GCodes Time In: 1100 Time Out: 1200 Total Billed Treatment Time: 60 Total Billed Treatment 6031-9133: 1, GT (20m), EX x2 (25m) & FA (15m) 6716-2945: 1, FA x2 (30m) FRIDA BOLDEN CAPTAIN FISHING VESSEL Sep 13, 2020 12:02
[2020-09-13] MEDS: CALCIUM CARBONATE 500 MG (TUMS) TAB.CHEW PO PRN ×2 (13:33→17:42)
[2020-09-13] MEDS: SUCRALFATE 1 GM (CARAFATE) TAB PO SCH ×3 (15:02→20:26)
[2020-09-13] MEDS ORDERED: LOSA100T57 PO (15:41)
[2020-09-13] MEDS ORDERED: NABU500T8 PO (15:41)
[2020-09-13] MEDS ORDERED: DICL100G27 TP (15:41)
[2020-09-13] MEDS ORDERED: CITA40TA19 PO (15:41)
--- NOTE | 2020-09-13 18:26 | PM&R Progress Note ---
Subjective HPI/CC On Admission Date Seen by Provider: Sep 13, 2020 Time Seen by Provider: 15:00 Subjective/Events-last exam 09/13/2020: This visit is via video chat due to Covid related restriction for this provider Patient having a pretty good day Having a lot of GERD symptoms Proton pump inhibitor started at [facility] once daily so changed that to twice daily and added Carafate Discharge is planned for 09/1709/11/2020: Patient doing really well No issues Pain is an issue but no major changes Bowels moved on 09/09/2020 09/10/2020: Patient feels good today INR 1.7 Hemoglobin 10.7 Bowels moved yesterday Continue aggressive therapy 09/09/2020: Patient doing pretty well No more dysphagia Tomorrow [birth year] her birthday 80 Oxygen had been unhooked from the wall that was noted after she complained of dyspnea Decreasing pain medication Ultram is handling the pain 09/08/2020: Patient feels pretty good Pain is well controlled Talked about dysphagia from esophageal spasms No concerns 09/07/20: No major issues currently Pain is controlled INR 1.[address] Samson No dyspnea BM+ BP taken in leg due to bilateral mastectomies Review of Systems Gastrointestinal: Nausea Objective Exam Vital Signs Vital Signs Date Time Temp Pulse Resp B/P (MAP) Pulse Ox O2 Delivery O2 Flow Rate FiO2 09/13/20 09:18 Nasal Cannula 2.00 09/13/20 07:42 36.6 71 16 144/83 (103) 97 Capillary Refill : General Appearance: No Apparent Distress, WD/WN, Chronically ill, Obese HEENT: PERRL/EOMI, Normal ENT Inspection, Pharynx Normal Neck: Full Range of Motion, Normal Inspection, Non Tender, Supple, Carotid Bruit Respiratory: Chest Non Tender, Lungs Clear, Normal Breath Sounds, No Accessory Muscle Use, No Respiratory Distress Cardiovascular: No Edema, No Gallop, No JVD, No Murmur, Normal Peripheral Pulses, Irregularly Irregular Gastrointestinal: Normal Bowel Sounds, No Organomegaly, No Pulsatile Mass, Non Tender, Soft Back: Normal Inspection, No CVA Tenderness, No Vertebral Tenderness Extremity: Normal Capillary Refill, Normal Inspection, Normal Range of Motion (except left leg), Non Tender, No Calf Tenderness, No Pedal Edema Neurologic/Psychiatric: Alert, Oriented x3, No Motor/Sensory Deficits, Normal 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 FIM Transfers Therapy Code Descriptions/Definitions Functional [place] Measure: 0=Not Assessed/NA 4=Minimal Assistance 1=Total Assistance 5=Supervision or Setup 2=Maximal Assistance 6=Modified [place] 3=Moderate Assistance 7=Complete IndependenceSCALE: Activities may be completed with or without assistive devices. 7-Anyikenlzo-qbqwlyr completes the activity by him/herself with no assistance from a helper. 5-Set-up or Clean-up Assistance-helper sets up or cleans up; patient completes activity. [place] assists only prior to or following the activity. 4-Supervision or Touching Assistance-helper provides verbal cues and/or touching/steadying and/or contact guard assistance as patient completes activity. Assistance may be provided throughout the activity or intermittently. 3-Partial/Moderate Assistance-helper does LESS THAN HALF the effort. [place] lifts, holds or supports trunk or limbs, but provides less than half the effort. 2-Substantial/Maximal Assistance-helper does MORE THAN HALF the effort. [place] lifts or holds trunk or limbs and provides more than half the effort. 4-Cfkgutwjn-ippwqw does ALL the effort. Patient does none of the effort to complete the activity. Or, the assistance of 2 or more helpers is required for the patient to complete the activity. If activity was not attempted, code reason: 7-Patient Refused. 9-Not Applicable-not attempted and the patient did not perform the activity before the current illness, exacerbation or injury. 10-Not Attempted due to Environmental Limitations-(lack of equipment, weather restraints, etc.). 88-Not Attempted due to Medical Conditions or Safety Concerns. Roll Left to Right (QC): 6 Sit to Lying (QC): 5 Sit to Stand (QC): 5 Chair/Kla-rz-Jbhty Xfer(QC): 4 Car Transfer (QC): 1 Gait Training Does the Patient Walk?: Yes Distance: 75' x2, 150' Walk 10 feet (QC): 5 Walk 50 ft with 2 Turns(QC): 5 Walk 150 ft (QC): 5 Walking 10ft/uneven surface-QC: 4 Gait Persons Needed: 1 Gait Assistive Device: FWW Wheelchair Training Does the Pt Use a Wheelchair?: No Distance: 30' Wheel 50 ft with 2 turns (QC): 4 Wheel 150 ft (QC): 88 Type of Wheelchair: Manual Stair Training #of Steps: 1 1 Step (curb) (QC): 4 4 Steps (QC): 88 12 Steps (QC): 88 Balance Picking up an Object (QC): 88 ADL-Treatment Eating (QC): 6 Oral Hygiene (QC): 6 (standing at sink.) Shower/Bathe Self (QC): 7 Upper Body Dressing (QC): 5 (set up) Lower Body Dressing (QC): 5 (set up) On/Off Footwear (QC): 5 (set up) Toileting Hygiene (QC): 6 (IND with clothing management and hygiene.) Toilet Transfer (QC): 6 (IND on/off BSC over toilet.) Assessment/Plan Assessment and Plan Assess & Plan/Chief Complaint Assessment: 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 Chronic atrial fibrillation Warfarin anticoagulation for stroke prophylaxis from atrial fibrillation Hypothyroidism History of breast cancer Chronic kidney disease Hypertension Hyperlipidemia Obesity Esophageal spasms chronic GERD Plan: Inpatient rehab protocol Pain control Monitor INR Cardiology consult appreciated 09/07/20: Cardiology consult Monitoring of INR 09/08/2020: Monitor dysphagia Pain control 09/09/2020: Maintain pain meds Aggressive therapy Monitor for dysphagia Monitor oxygen 09/10/2020: Continue aggressive therapy Pain control Monitor INR 09/11/2020: Pain control Aggressive therapy 09/13/2020: GERD treatment Pain control (1) Total knee replacement status (2) HX: breast cancer (3) Obesity (4) Hypothyroidism (5) Atrial fibrillation (6) Warfarin anticoagulation (7) GERD (gastroesophageal reflux disease) STEFF TORRES DO Sep 13, 2020 18:26
[2020-09-13 20:15] VITALS: BP 141/59
[2020-09-13] MEDS: GABAPENTIN 300 MG (NEURONTIN) CAP PO SCH (20:26)
[2020-09-13] MEDS: MELATONIN 3 MG TABLET PO PRN (20:27)
[2020-09-14] MEDS: SUCRALFATE 1 GM (CARAFATE) TAB PO SCH ×4 (06:51→21:16)
[2020-09-14] MEDS: CALCIUM CARBONATE 500 MG (TUMS) TAB.CHEW PO PRN (07:36)
[2020-09-14] MEDS: SENNA W/DOCUSATE (SENOKOT S) TABLET PO SCH ×2 (07:37→19:36)
[2020-09-14] MEDS: FLECAINIDE 100 MG (TAMBOCOR) TAB PO SCH (07:37)
[2020-09-14] MEDS: DOCUSATE SODIUM 100 MG (COLACE) CAP PO SCH ×2 (07:37→19:36)
[2020-09-14] MEDS: LOSARTAN 100 MG (COZAAR) TABLET PO SCH (07:37)
[2020-09-14] MEDS: SPIRONOLACTONE 25 MG (ALDACTONE) TAB PO SCH (07:37)
[2020-09-14] MEDS: PANTOPRAZOLE 40 MG (PROTONIX) TAB PO SCH ×2 (07:37→21:16)
[2020-09-14] MEDS: LETROZOLE 2.5 MG (FEMARA) TAB PO SCH (07:38)
[2020-09-14] MEDS: LEVOTHYROXINE 125 MCG (LEVOTHROID) TABLET PO SCH (07:43)
[2020-09-14] MEDS: FUROSEMIDE 40 MG (LASIX) TAB PO SCH (07:44)
[2020-09-14] MEDS: warFARin 5 MG (COUMADIN) TAB PO SCH (07:44)
[2020-09-14] MEDS: polyethylene glycoL POWDER 17 GM (MIRALAX) PACK PO SCH ×2 (07:45→19:36)
--- NOTE | 2020-09-14 07:48 | PM&R Progress Note ---
Subjective HPI/CC On Admission Date Seen by Provider: Sep 14, 2020 Time Seen by Provider: 12:45 Subjective/Events-last exam 09/14/2020: This visit is via video chat due to Covid related restriction for this provider Patient doing very well Oxygen on all the time so we will begin to wean since she does not wear oxygen during the day only at night at home Dietary consult for stomach issues denied already change the Protonix to twice daily and added Carafate so we talked some more and she is now willing to see someone for an EGD Bowels moved yesterday Updated Dr. Richardson and he will see her 09/13/2020: This visit is via video chat due to Covid related restriction for this provider Patient having a pretty good day Having a lot of GERD symptoms Proton pump inhibitor started at [facility] once daily so changed that to twice daily and added Carafate Discharge is planned for 09/1709/11/2020: Patient doing really well No issues Pain is an issue but no major changes Bowels moved on 09/09/2020 09/10/2020: Patient feels good today INR 1.7 Hemoglobin 10.7 Bowels moved yesterday Continue aggressive therapy 09/09/2020: Patient doing pretty well No more dysphagia Tomorrow is her [birth year] 80th Oxygen had been unhooked from the wall that was noted after she complained of dyspnea Decreasing pain medication Ultram is handling the pain 09/08/2020: Patient feels pretty good Pain is well controlled Talked about dysphagia from esophageal spasms No concerns 09/07/20: No major issues currently Pain is controlled INR 1.[address] Samson No dyspnea BM+ BP taken in leg due to bilateral mastectomies Review of Systems General: Fatigue, Malaise Objective Exam Vital Signs Vital Signs Date Time Temp Pulse Resp B/P (MAP) Pulse Ox O2 Delivery O2 Flow Rate FiO2 09/14/20 09:00 Nasal Cannula 2.00 09/14/20 07:55 36.4 72 14 146/66 (92) 93 Capillary Refill : General Appearance: No Apparent Distress, WD/WN, Chronically ill, Obese HEENT: PERRL/EOMI, Normal ENT Inspection, Pharynx Normal Neck: Full Range of Motion, Normal Inspection, Non Tender, Supple, Carotid Bruit Respiratory: Chest Non Tender, Lungs Clear, Normal Breath Sounds, No Accessory Muscle Use, No Respiratory Distress Cardiovascular: No Edema, No Gallop, No JVD, No Murmur, Normal Peripheral Pulses, Irregularly Irregular Gastrointestinal: Normal Bowel Sounds, No Organomegaly, No Pulsatile Mass, Non Tender, Soft Back: Normal Inspection, No CVA Tenderness, No Vertebral Tenderness Extremity: Normal Capillary Refill, Normal Inspection, Normal Range of Motion (except left leg), Non Tender, No Calf Tenderness, No Pedal Edema Neurologic/Psychiatric: Alert, Oriented x3, No Motor/Sensory Deficits, Normal 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 FIM Transfers Therapy Code Descriptions/Definitions Functional [place] Measure: 0=Not Assessed/NA 4=Minimal Assistance 1=Total Assistance 5=Supervision or Setup 2=Maximal Assistance 6=Modified [place] 3=Moderate Assistance 7=Complete IndependenceSCALE: Activities may be completed with or without assistive devices. 4-Uujnggwobg-gojfwxb completes the activity by him/herself with no assistance from a helper. 5-Set-up or Clean-up Assistance-helper sets up or cleans up; patient completes activity. [place] assists only prior to or following the activity. 4-Supervision or Touching Assistance-helper provides verbal cues and/or touching/steadying and/or contact guard assistance as patient completes activity. Assistance may be provided throughout the activity or intermittently. 3-Partial/Moderate Assistance-helper does LESS THAN HALF the effort. [place] lifts, holds or supports trunk or limbs, but provides less than half the effort. 2-Substantial/Maximal Assistance-helper does MORE THAN HALF the effort. [place] lifts or holds trunk or limbs and provides more than half the effort. 2-Kagztdyfv-aljzrx does ALL the effort. Patient does none of the effort to complete the activity. Or, the assistance of 2 or more helpers is required for the patient to complete the activity. If activity was not attempted, code reason: 7-Patient Refused. 9-Not Applicable-not attempted and the patient did not perform the activity before the current illness, exacerbation or injury. 10-Not Attempted due to Environmental Limitations-(lack of equipment, weather restraints, etc.). 88-Not Attempted due to Medical Conditions or Safety Concerns. Roll Left to Right (QC): 6 Sit to Lying (QC): 5 Sit to Stand (QC): 5 Chair/Opv-ot-Cyoqy Xfer(QC): 4 Car Transfer (QC): 1 Gait Training Does the Patient Walk?: Yes Distance: 75' x2, 150' Walk 10 feet (QC): 5 Walk 50 ft with 2 Turns(QC): 5 Walk 150 ft (QC): 5 Walking 10ft/uneven surface-QC: 4 Gait Persons Needed: 1 Gait Assistive Device: FWW Wheelchair Training Does the Pt Use a Wheelchair?: No Distance: 30' Wheel 50 ft with 2 turns (QC): 4 Wheel 150 ft (QC): 88 Type of Wheelchair: Manual Stair Training #of Steps: 1 1 Step (curb) (QC): 4 4 Steps (QC): 88 12 Steps (QC): 88 Balance Picking up an Object (QC): 88 ADL-Treatment Eating (QC): 6 Oral Hygiene (QC): 6 (standing at sink.) Shower/Bathe Self (QC): 7 Upper Body Dressing (QC): 5 (set up) Lower Body Dressing (QC): 5 (set up) On/Off Footwear (QC): 5 (set up) Toileting Hygiene (QC): 6 (IND with clothing management and hygiene.) Toilet Transfer (QC): 6 (IND on/off BSC over toilet.) Assessment/Plan Assessment and Plan Assess & Plan/Chief Complaint Assessment: 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 Chronic atrial fibrillation Warfarin anticoagulation for stroke prophylaxis from atrial fibrillation Hypothyroidism History of breast cancer Chronic kidney disease Hypertension Hyperlipidemia Obesity Esophageal spasms chronic GERD Plan: Inpatient rehab protocol Pain control Monitor INR Cardiology consult appreciated 09/07/20: Cardiology consult Monitoring of INR 09/08/2020: Monitor dysphagia Pain control 09/09/2020: Maintain pain meds Aggressive therapy Monitor for dysphagia Monitor oxygen 09/10/2020: Continue aggressive therapy Pain control Monitor INR 09/11/2020: Pain control Aggressive therapy 09/13/2020: GERD treatment Pain control 09/14/2020: Oxygen weaning Dr. Richardson for EGD (1) Total knee replacement status (2) HX: breast cancer (3) Obesity (4) Hypothyroidism (5) Atrial fibrillation (6) Warfarin anticoagulation (7) GERD (gastroesophageal reflux disease) STEFF TORRES 9, 2021 07:48
[2020-09-14 07:55] VITALS: BP 146/66
[2020-09-14] MEDS: ACETAMINOPHEN 500 MG TAB (TYLENOL) PO SCH ×3 (08:41→19:37)
--- NOTE | 2020-09-14 08:51 | Occupational Ther Daily Note ---
OT Current Status-Daily Note Subjective Pt laying in bed, agreeable to OT tx with focus on ADLs. Mental Status/Objective Patient Orientation: Normal For Age Attachments: Oxygen (2L in supine post tx), Polar Pack ADL-Treatment Therapy Code Descriptions/Definitions Functional [place] Measure: 0=Not Assessed/NA 4=Minimal Assistance 1=Total Assistance 5=Supervision or Setup 2=Maximal Assistance 6=Modified [place] 3=Moderate Assistance 7=Complete IndependenceSCALE: Activities may be completed with or without assistive devices. 3-Qiadenfpzm-ibttygg completes the activity by him/herself with no assistance from a helper. 5-Set-up or Clean-up Assistance-helper sets up or cleans up; patient completes activity. [place] assists only prior to or following the activity. 4-Supervision or Touching Assistance-helper provides verbal cues and/or touching/steadying and/or contact guard assistance as patient completes activity. Assistance may be provided throughout the activity or intermittently. 3-Partial/Moderate Assistance-helper does LESS THAN HALF the effort. [place] lifts, holds or supports trunk or limbs, but provides less than half the effort. 2-Substantial/Maximal Assistance-helper does MORE THAN HALF the effort. [place] lifts or holds trunk or limbs and provides more than half the effort. 7-Jcocuwnjf-mvndwe does ALL the effort. Patient does none of the effort to complete the activity. Or, the assistance of 2 or more helpers is required for the patient to complete the activity. If activity was not attempted, code reason: 7-Patient Refused. 9-Not Applicable-not attempted and the patient did not perform the activity before the current illness, exacerbation or injury. 10-Not Attempted due to Environmental Limitations-(lack of equipment, weather restraints, etc.). 88-Not Attempted due to Medical Conditions or Safety Concerns. Eating (QC): 6 Oral Hygiene (QC): 7 Shower/Bathe Self (QC): 5 Upper Body Dressing (QC): 6 Lower Body Dressing (QC): 6 On/Off Footwear: 6 Other Treatment Pt laying in bed, transferred supine to sit EOB IND. Pt used FWW to perform functional mobility around room, gathering clothing items. She went into bathroom, transferring to FL. Pt completed shower, then transferred to chair with arm rests to don clothes. Pt took seated rest break, states she would like to lay down. OT educated pt on purpose and benefit of OT, encouraging pt to complete laundry task, or go to therapy gym to focus on UEs. Pt states she would like to work on her legs. OT again educated pt on purpose of OT, she agreed to completing functional mobility and functional laundry task. Pt used FWW to perform functional mobility around room, locating dirty clothes and placing into laundry basket. Pt used FWW to ambulate to laundry room, OT assisted pt with carrying laundry basket. Pt able to place clothing into washer, and start washer with instruction due to pt being unfamiliar with machine. Pt returned to her room, transferring to bed. Post tx, pt laying in bed, call light in reach and all needs met. Polar pack on LLE Education OT Patient Education: Correct positioning, Exercise program, Modified ADL techniques, Progress toward Goal/Update tx plan, Purpose of tx/functional activities, Safety issues, Transfer techniques Teaching Recipient: Patient Teaching Methods: Discussion Response to Teaching: Verbalize Understanding OT Short Term Goals Short Term Goals Time Frame: Sep 14, 2020 Toileting hygiene: 4 Shower/bathe self: 4 Lower body dressin Putting on/taking off footwear: 4 OT Custodial Goals Asw/Asuw Tactical Air Controller Goals Time Frame: Oct 05, 2020 Eating (QC): 6 Oral Hygiene (QC): 6 Toileting Hygiene (QC): 6 Shower/Bathe Self (QC): 6 Upper Body Dressing (QC): 6 Lower Body Dressing (QC): 6 On/Off Footwear (QC): 6 Additional Goals: 1-Demonstrate ADL Tasks, 2-Verbalize Understanding, 3- ImproveStrength/Suzanne 1=Demonstrate adherence to instructed precautions during ADL tasks. 2=Patient will verbalize/demonstrate understanding of assistive devices/modifications for ADL. 3=Patient will improve strength/tolerance for activity to enable patient to perform ADL's. OT Education/Plan Problem List/Assessment Assessment: Decreased Activ Tolerance, Decreased UE Strength, Impaired I ADL's Discharge Recommendations Plan/Recommendations: Continue POC Treatment Plan/Plan of Care Patient would benefit from OT for education, treatment and training to promote independence in ADL's, mobility, safety and/or upper extremity function for ADL's. Plan of Care: ADL Retraining, Functional Mobility, Group Exercise/Act as Ind, UE Funct Exercise/Act Treatment Duration: Oct 05, 2020 Frequency: At least 5 of 7 days/Wk (IRF) Estimated Hrs Per Day: 1.5 hours per day Rehab Potential: Fair Time/GCodes Start Time: 07:50 Stop Time: 08:50 Total Time Billed (hr/min): 60 Billed Treatment Time 1, ADL 4 SHANNAN DE LA PAZ OT Sep 14, 2020 08:51
--- NOTE | 2020-09-14 09:53 | Physical Therapy Daily Note ---
PT Daily Note-Current Subjective Patient in restroom pre tx, agrees to PT, has no complaints of pain. Appearance Patient in bed post tx with nurse call, phone, tray, all needs met, [facility] on. Mental Status Patient Orientation: Person, Place, Situation Attachments: Polar Pack Transfers SCALE: Activities may be completed with or without assistive devices. 1-Rejbrcvoiz-uvmixtl completes the activity by him/herself with no assistance from a helper. 5-Set-up or Clean-up Assistance-helper sets up or cleans up; patient completes activity. [place] assists only prior to or following the activity. 4-Supervision or Touching Assistance-helper provides verbal cues and/or touching/steadying and/or contact guard assistance as patient completes act ivity. Assistance may be provided throughout the activity or intermittently. 3-Partial/Moderate Assistance-helper does LESS THAN HALF the effort. [place] lifts, holds or supports trunk or limbs, but provides less than half the effort. 2-Substantial/Maximal Assistance-helper does MORE THAN HALF the effort. [place] lifts or holds trunk or limbs and provides more than half the effort. 9-Mtqxxamkp-nclscv does ALL the effort. Patient does none of the effort to complete the activity. Or, the assistance of 2 or more helpers is required for the patient to complete the activity. If activity was not attempted, code reason: 7-Patient Refused. 9-Not Applicable-not attempted and the patient did not perform the activity before the current illness, exacerbation or injury. 10-Not Attempted due to Environmental Limitations-(lack of equipment, weather restraints, etc.). 88-Not Attempted due to Medical Conditions or Safety Concerns. Roll Left & Right (QC): 6 Sit to Lying (QC): 5 Lying to Sitting/Side of Bed(Q: 3 Sit to Stand (QC): 4 Chair/Jmx-sy-Nncew Xfer(QC): 4 Patient needs min assist for supine to sit, SBA for sit to stand and transfers. Patient has to go back to her room 3 times to have a BM Weight Bearing Left Lower Extremity: Left Weight Bearing/Tolerated Gait Training Distance: 150'x3 Walk 10 feet (QC): 4 Walk 50 ft with 2 Turns(QC): 4 Walk 150 ft (QC): 4 Gait Persons Needed: 1 Gait Assistive Device: FWW SBA, occasional unsteadiness but no LOB Exercises Supine Ex: Ankle pumps, Quad Set, Heel Slides, Short Arc Quads, Straight leg raise Supine Reps: 20 Treatments bed mobility and transfers, ambulation, LE strengthening, toileting Assessment Current Status: Fair Progress Left knee extension is +4 degrees, flexion 80 degrees. She has made some impr ovement with knee ROM and in turn has improved with sitting from a standing position. Patient also seems to struggle with motivation, she tried to stop physical therapy 3 times during this treatment and has several times in the past also. She continued with encouragement, she seems to not understand the required time of therapy on rehab even with explanation. PT Short Term Goals Short Term Goals Time Frame: Sep 13, 2020 Roll Left & Right: 6 Sit to lyin Lying to sitting on side of be: 4 Sit to stand: 3 Chair/wjf-ry-kahjw transfer: 4 Walk 10 feet: 4 Walk 50 feet with two turns: 4 PT Subway Guard Goals Alf Goals PT Subway Guard Goals Time Frame: Sep 27, 2020 Roll Left & Right (QC): 6 Sit to Lying (QC): 6 Lying-Sitting on Side/Bed(QC): 6 Sit to Stand (QC): 4 (SBA) Chair/Pbv-wx-Cczyp Xfer(QC): 4 (SBA) Toilet Transfer (QC): 4 (SBA) Car Transfer (QC): 4 (CGA) Does the Patient Walk: Yes Walk 10 feet (QC): 4 (SA) Walk 50ft with 2 Turns (QC): 4 (SBA) Walk 150 ft (QC): 4 (BA) Walking 10ft on Uneven Surface: 4 (SBA) 1 Step (curb) (QC): 4 (SBA) 4 Steps (QC): 4 (SBA) 12 Steps (QC): 88 Picking up an Object (QC): 88 Wheel 50 feet with 2 turns (QC: 9 Wheel 150 feet: 9 PT Plan Problem List Problem List: Activity Tolerance, Functional Strength, Safety, Balance, Gait, Transfer, Bed Mobility, ROM Treatment/Plan Treatment Plan: Continue Plan of Care Treatment Plan: Bed Mobility, Education, Functional Activity Suzanne, Functional Strength, Group Therapy, Gait, Safety, Therapeutic Exercise, Transfers Treatment Duration: Sep 27, 2020 Frequency: At least 5 of 7 days/Wk (IRF) Estimated Hrs Per Day: 1.5 hours per day Patient and/or Family Agrees t: Yes Safety Risks/Education Patient Education: Gait Training, Transfer Techniques, Correct Positioning, Safety Issues Teaching Recipient: Patient Teaching Methods: Demonstration, Discussion Response to Teaching: Reinforcement Needed Time/GCodes Time In: 0900 Time Out: 1000 Total Billed Treatment Time: 60 Total Billed Treatment 1 visit GT 20' EX 15' FA 25' DAYAMI UGARTE PT Sep 14, 2020 09:53
--- NOTE | 2020-09-14 13:10 | Cardiology Progress Note ---
Subjective Date Seen by Provider: Sep 14, 2020 Time Seen by Provider: 13:10 Subjective/Events-last exam Patient was seen at bedside, having mild dysphagia. No chest pain was reported Review of Systems General: No Chills, No Night Sweats, No Fatigue, No Malaise, No Appetite, No Other HEENT: No Head Aches, No Visual Changes, No Eye Pain, No Ear Pain, No Dysphasia, No Sinus Congestion, No Post Nasal Drip, No Sore Throat, No Other Pulmonary: No Dyspnea, No Cough, No Pleuritic Chest Pain, No Other Cardiovascular: No: Chest Pain, Palpitations, Orthopnea, Paroxysmal Noc. Dyspnea, Edema, Lt Headedness, Other Objective-Cardiology Exam Last Set of Vital Signs Vital Signs 09/14/20 07:55 Temp 36.4 Pulse 72 Resp 14 B/P (MAP) 146/66 (92) Pulse Ox 93 O2 Delivery Room Air General: Alert, Oriented X3, Cooperative HEENT: Atraumatic, PERRLA Neck: Supple, No JVD, No Thyromegaly Lungs: Clear to Auscultation, Normal Air Movement Heart: Regular Rate, Normal S1, Normal S2, No Murmurs Abdomen: Normal Bowel Sounds, Soft, No Tenderness, No Hepatosplenomegaly, No Masses Extremities: No Clubbing, No Cyanosis, No Edema, Normal Pulses, No Tenderness/Swelling Skin: No Rashes, No Breakdown, No Significant Lesion Neuro: Normal Gait, Normal Speech, Strength at 5/5 X4 Ext, Normal Tone, Sensation Intact Psych/Mental Status: Mental Status NL, Mood NL A/P-Cardiology Admission Diagnosis L TKA PAF HTN HLP Assessment/Plan S/P left total knee arthroplasty with Dr. Ramirez, slowly recovering. Continue with PT/OT. Mild dysphagia, gastroesophageal reflux disease, request speech eval and starting PPI SSS/PAF, maintained on Flecainide 100mg daily, Coumadin. Reports unknown medication recently discontinued by primary dicer operator d/t bradycardia and is planning for PPM in near future. Coumadin was restarted on September 07, 2020, continue to monitor daily INR Hypertension, losartan was increased to 100 mg daily. Continue to monitor blood pressure HLP, reports statin intolerance, continue to monitor as outpatient CRI, monitor renal function Obesity ROWAN HARDING MD Sep 14, 2020 1:10 pm
--- NOTE | 2020-09-14 14:14 | CONSULTATION REPORT ---
DATE OF SERVICE: ADMITTING PHYSICIAN: Marissa Roman DO HISTORY OF PRESENT ILLNESS: The patient is a 79-year-old female who is in the inpatient rehabilitation status post slow recovery from a left total knee replacement on 09/04/2020. She also does have a history of hypertension, atrial fibrillation, renal insufficiency as well as obesity. She also does have a history of gastroesophageal reflux disease and her reflux symptoms have worsened since her surgery and being admitted to the hospital. She is currently on Protonix 40 mg daily. She also is on anticoagulation with Coumadin for her atrial fibrillation. PAST MEDICAL HISTORY: Hypertension, peripheral neuropathy, gastroesophageal reflux disease and degenerative joint disease. PAST SURGICAL HISTORY: Left total knee arthroplasty 09/04/2020. ALLERGIES: No known drug allergies. MEDICATIONS: Flecainide 100 mg daily, furosemide 40 mg 3 days a week, gabapentin 300 mg daily, letrozole 2.5 mg daily, levothyroxine 125 mcg daily, losartan 50 mg daily, Protonix 40 mg daily, spironolactone 25 mg daily, Coumadin 2.5 mg 3 days a week, 5 mg 4 days a week. SOCIAL HISTORY: Negative smoke, negative alcohol. FAMILY HISTORY: Noncontributory. VITAL SIGNS: Temperature 36.4, blood pressure 146/66, pulse 72, respirations 14, pulse ox 93% on room air. REVIEW OF SYSTEMS: Well-nourished female currently in no acute distress. She is not experiencing any shortness of breath or difficulty breathing. No chest pain, palpitations, diaphoresis. She does have epigastric burning sensation that may occur while fasting as well as after meals. No nausea, vomiting. No hematemesis or coffee-ground emesis. No diarrhea, constipation, no red blood per rectum, no dark tarry stools. No fever, chills, no recent inadvertent weight loss. All other review of systems negative. PHYSICAL EXAMINATION: CHEST: A few scattered rales bilaterally. HEART: Regular, no murmurs. EXTREMITIES: No lower extremity edema, negative Homans sign. HEENT: No scleral icterus. NECK: No cervical lymphadenopathy. ABDOMEN: Soft, nondistended. There is mild discomfort in the epigastric region upon deep palpation. LABORATORY DATA: WBC is 6.8, hemoglobin 10.7, hematocrit 34, platelets 241. BUN 24, creatinine 1.12. INR 2.3. ASSESSMENT AND PLAN: An 80-year-old female with worsening gastroesophageal reflux disease. We will have her continue with medical therapy with Protonix; however, we will also proceed with an EGD as well as biopsies as appropriate on this admission. Job ID: [id number] DocumentID: [id number] Dictated Date: 09/14/2020 14:00:45 Neighborhood Worker Date: 09/14/2020 14:12:42 Dictated By: TRINA STANLEY MD
--- NOTE | 2020-09-14 14:18 | Therapy Group Daily Note ---
Therapy Daily Group Note Patient Education Topic Home Safety, Fall Prevention, Exercises Exercises LE Seated Exercise, ROM, Stretching, UE Exercise Session Ratio (pt:therapist): 4:1 Goal of Session: Education on ARU Expectations, Home Safety Strategies, Memory Strategies, UE/LE Strengthing Goal Met for this Session: Yes Pt Benefit of Group: Contributions to Others, F/U Use of Strategies @Home, Increased Functional Safety, Increased Functional Strength, Improved Cognition, Recognition of Peers, Socialization Other/Notes Patient ambulated to the common area of rehab and participated in group therapy with other patients. Each patient had to introduce themselves and answer a question that involved memory and critical thinking. Each patient then participated in home safety bingo and were educated on different home safety topics. Intermittently patients participated in UE and LE exercise and worked on a word finding sheet. Patient ambulated back to her room and into bed with nurse call, phone, tray, [facility] on, all needs met. Start Time: 13:00 Stop Time: 14:00 Total Billed Treatment Time: 60 Total Billed Treatment 1 visit GRP 60DAYAMI BURGOS PT Sep 14, 2020 14:18
[2020-09-14] MEDS ORDERED: SUCR1TAB PO (15:09)
[2020-09-14] MEDS ORDERED: PANT40TA52 PO (15:09)
[2020-09-14] MEDS ORDERED: TRAM50TA3 PO (15:09)
[2020-09-14] MEDS ORDERED: ACHD5005 PO (15:09)
[2020-09-14] MEDS ORDERED: OXC5T PO (15:09)
[2020-09-14] MEDS ORDERED: SENN1TAB76 PO (15:09)
--- NOTE | 2020-09-14 15:11 | D/C HH Face to Face Order ---
D/C Face to Face Orders Reconcile Patient Problems Problems Reviewed?: Yes Instructions for Patient [facility] Patient Instructions/FollowUp: PCP 1 week Physician to follow Patient: [facility] Discharge Diet for Home: No Restrictions Patient Problems: s/p knee replacement Patient Data-Allergies,Ht & Wt Patient Allergies: Coded Allergies: adhesive tape (Verified Allergy, Intermediate, BLISTERS, 09/07/20) codeine (Verified Allergy, Intermediate, "MAKES ME FEEL WEIRD", 09/07/20) Uncoded Allergies: STATINS (Allergy, Mild, "MAKES MY LEGS HURT", 09/07/20) Home Health Need/Face to Face Date of Face to Face: Sep 14, 2020 Clinical Findings: Instability, Muscle weakness, Pain with ambulation, Unsteady gait I have seen Pt [id number]: Yes Discharged To: Home Diagnosis/Conditions: knee replacement Patient is Homebound due to: Laura fall risk due to instabilty, Muscle weaknes s, Pain w/ambulation Homebound Status Due to the above stated illness, injury or surgical procedure (medical condition or diagnosis) and associated clinical findings, the patient is homebound because of his/her inability to leave home except with aid of a supportive device and/or person AND leaving the home requires a considerable and taxing effort or is medically contraindicated. Pt req the following assistanc: [facility] Nursing Orders Home Health Services Order: Nursing Services, Business Continuity Strategy Director-Evaluate & Treat, Physical Therapy-Evaluate & Treat Certify Stmt I certify that this patient is under my care and that I, a nurse practitioner or a physician; a assistant winemaker working with me, had a face to face encounter that - meets the physician face to face encounter requirements with this patient as dated. STEFF TORRES DO Sep 14, 2020 15:11
[2020-09-14 20:00] VITALS: BP 138/72
[2020-09-14] MEDS: MELATONIN 3 MG TABLET PO PRN (21:16)
[2020-09-14] MEDS: GABAPENTIN 300 MG (NEURONTIN) CAP PO SCH (21:16)
[2020-09-15] MEDS: CALCIUM CARBONATE 500 MG (TUMS) TAB.CHEW PO PRN (01:49)
[2020-09-15] MEDS: SUCRALFATE 1 GM (CARAFATE) TAB PO SCH ×4 (05:41→20:45)
[2020-09-15] MEDS: ACETAMINOPHEN 500 MG TAB (TYLENOL) PO SCH ×3 (07:15→23:15)
[2020-09-15 07:30] VITALS: BP 133/63
[2020-09-15] MEDS: LOSARTAN 100 MG (COZAAR) TABLET PO SCH (08:02)
[2020-09-15] MEDS: FLECAINIDE 100 MG (TAMBOCOR) TAB PO SCH (08:02)
[2020-09-15] MEDS: PANTOPRAZOLE 40 MG (PROTONIX) TAB PO SCH ×2 (08:02→20:13)
[2020-09-15] MEDS: LEVOTHYROXINE 125 MCG (LEVOTHROID) TABLET PO SCH (08:02)
[2020-09-15] MEDS: SPIRONOLACTONE 25 MG (ALDACTONE) TAB PO SCH (08:02)
--- NOTE | 2020-09-15 08:02 | PM&R Progress Note ---
Subjective HPI/CC On Admission Date Seen by Provider: Sep 15, 2020 Time Seen by Provider: 12:45 Subjective/Events-last exam 09/15/2020: This visit is via video chat due to Covid related restriction for this provider Patient doing pretty well No more stomach issues Checking labs in the morning with INR Refused EGD by Dr. Richardson after originally approving Bowels are moving a little bit too loosely Oxycodone is used 09/14/2020: This visit is via video chat due to Covid related restriction for this provider Patient doing very well Oxygen on all the time so we will begin to wean since she does not wear oxygen during the day only at night at home Dietary consult for stomach issues denied already change the Protonix to twice daily and added Carafate so we talked some more and she is now willing to see someone for an EGD Bowels moved yesterday Updated Dr. Richardson and he will see her 09/13/2020: This visit is via video chat due to Covid related restriction for this provider Patient having a pretty good day Having a lot of GERD symptoms Proton pump inhibitor started at [place] once daily so changed that to twice daily and added Carafate Discharge is planned for 09/1709/11/2020: Patient doing really well No issues Pain is an issue but no major changes Bowels moved on 09/09/2020 09/10/2020: Patient feels good today INR 1.7 Hemoglobin 10.7 Bowels moved yesterday Continue aggressive therapy 09/09/2020: Patient doing pretty well No more dysphagia Tomorrow is her [birth year] 80th Oxygen had been unhooked from the wall that was noted after she complained of dyspnea Decreasing pain medication Ultram is handling the pain 09/08/2020: Patient feels pretty good Pain is well controlled Talked about dysphagia from esophageal spasms No concerns 09/07/20: No major issues currently Pain is controlled INR 1.[address] Samson No dyspnea BM+ BP taken in leg due to bilateral mastectomies Review of Systems Musculoskeletal: leg pain Objective Exam Vital Signs Vital Signs Date Time Temp Pulse Resp B/P (MAP) Pulse Ox O2 Delivery O2 Flow Rate FiO2 09/15/20 09:21 Nasal Cannula 2.00 09/15/20 07:30 36.4 70 22 133/63 (86) 98 Capillary Refill : General Appearance: No Apparent Distress, WD/WN, Chronically ill, Obese HEENT: PERRL/EOMI, Normal ENT Inspection, Pharynx Normal Neck: Full Range of Motion, Normal Inspection, Non Tender, Supple, Carotid Bruit Respiratory: Chest Non Tender, Lungs Clear, Normal Breath Sounds, No Accessory Muscle Use, No Respiratory Distress Cardiovascular: No Edema, No Gallop, No JVD, No Murmur, Normal Peripheral Pulses, Irregularly Irregular Gastrointestinal: Normal Bowel Sounds, No Organomegaly, No Pulsatile Mass, Non Tender, Soft Back: Normal Inspection, No CVA Tenderness, No Vertebral Tenderness Extremity: Normal Capillary Refill, Normal Inspection, Normal Range of Motion (except left leg), Non Tender, No Calf Tenderness, No Pedal Edema Neurologic/Psychiatric: Alert, Oriented x3, No Motor/Sensory Deficits, Normal Mood/Affect, outlet manager II-XII Norm as Tested, Motor Weakness (leg leg weakness) Skin: Normal Color, Warm/Dry Lymphatic: No Adenopathy Results/Procedures Lab Patient resulted labs reviewed. FIM Transfers Therapy Code Descriptions/Definitions Functional [place] Measure: 0=Not Assessed/NA 4=Minimal Assistance 1=Total Assistance 5=Supervision or Setup 2=Maximal Assistance 6=Modified [place] 3=Moderate Assistance 7=Complete IndependenceSCALE: Activities may be completed with or without assistive devices. 3-Jffenvxkjs-smvfvwh completes the activity by him/herself with no assistance from a helper. 5-Set-up or Clean-up Assistance-helper sets up or cleans up; patient completes activity. Freeman assists only prior to or following the activity. 4-Supervision or Touching Assistance-helper provides verbal cues and/or touching/steadying and/or contact guard assistance as patient completes activity. Assistance may be provided throughout the activity or intermittently. 3-Partial/Moderate Assistance-helper does LESS THAN HALF the effort. Freeman lifts, holds or supports trunk or limbs, but provides less than half the effort. 2-Substantial/Maximal Assistance-helper does MORE THAN HALF the effort. Freeman lifts or holds trunk or limbs and provides more than half the effort. 3-Pufeyhayj-nqlimk does ALL the effort. Patient does none of the effort to complete the activity. Or, the assistance of 2 or more helpers is required for the patient to complete the activity. If activity was not attempted, code reason: 7-Patient Refused. 9-Not Applicable-not attempted and the patient did not perform the activity before the current illness, exacerbation or injury. 10-Not Attempted due to Environmental Limitations-(lack of equipment, weather restraints, etc.). 88-Not Attempted due to Medical Conditions or Safety Concerns. Roll Left to Right (QC): 6 Sit to Lying (QC): 5 Sit to Stand (QC): 4 Chair/Uyi-xw-Fbifu Xfer(QC): 4 Car Transfer (QC): 1 Gait Training Does the Patient Walk?: Yes Distance: 150'x3 Walk 10 feet (QC): 4 Walk 50 ft with 2 Turns(QC): 4 Walk 150 ft (QC): 4 Walking 10ft/uneven surface-QC: 4 Gait Persons Needed: 1 Gait Assistive Device: FWW Wheelchair Training Does the Pt Use a Wheelchair?: No Distance: 30' Wheel 50 ft with 2 turns (QC): 4 Wheel 150 ft (QC): 88 Type of Wheelchair: Manual Stair Training #of Steps: 1 1 Step (curb) (QC): 4 4 Steps (QC): 88 12 Steps (QC): 88 Balance Picking up an Object (QC): 88 ADL-Treatment Eating (QC): 6 Oral Hygiene (QC): 7 Shower/Bathe Self (QC): 5 Upper Body Dressing (QC): 6 Lower Body Dressing (QC): 6 On/Off Footwear (QC): 6 Toileting Hygiene (QC): 6 (IND with clothing management and hygiene.) Toilet Transfer (QC): 6 (IND on/off BSC over toilet.) Assessment/Plan Assessment and Plan Assess & Plan/Chief Complaint Assessment: 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 Chronic atrial fibrillation Warfarin anticoagulation for stroke prophylaxis from atrial fibrillation Hypothyroidism History of breast cancer Chronic kidney disease Hypertension Hyperlipidemia Obesity Esophageal spasms chronic GERD Plan: Inpatient rehab protocol Pain control Monitor INR Cardiology consult appreciated 09/07/20: Cardiology consult Monitoring of INR 09/08/2020: Monitor dysphagia Pain control 09/09/2020: Maintain pain meds Aggressive therapy Monitor for dysphagia Monitor oxygen 09/10/2020: Continue aggressive therapy Pain control Monitor INR 09/11/2020: Pain control Aggressive therapy 09/13/2020: GERD treatment Pain control 09/14/2020: Oxygen weaning Dr. Kido for EGD 09/15/2020: Refuses EGD as planned tomorrow Check labs in the morning (1) Total knee replacement status (2) HX: breast cancer (3) Obesity (4) Hypothyroidism (5) Atrial fibrillation (6) Warfarin anticoagulation (7) GERD (gastroesophageal reflux disease) STEFF TORRES DO Sep 15, 2020 08:02
[2020-09-15] MEDS: warFARin 2.5 MG (COUMADIN) TAB PO SCH (08:11)
[2020-09-15] MEDS: LETROZOLE 2.5 MG (FEMARA) TAB PO SCH (08:11)
[2020-09-15] MEDS: DOCUSATE SODIUM 100 MG (COLACE) CAP PO SCH ×2 (08:16→20:45)
[2020-09-15] MEDS: polyethylene glycoL POWDER 17 GM (MIRALAX) PACK PO SCH ×2 (08:17→20:45)
[2020-09-15] MEDS: SENNA W/DOCUSATE (SENOKOT S) TABLET PO SCH ×2 (08:17→20:46)
--- NOTE | 2020-09-15 10:30 | Progress Note ---
Subjective Date Seen by a Provider: Sep 15, 2020 Time Seen by a Provider: 10:00 Subjective/Events-last exam Patient seen with Dr. Richardson. Patient lying in bed sleeping upon entering room. Patient awakens and reports that she is doing well and tolerated her breakfast without issues. Denies any heartburn or N/V. Denies any abdominal pain. Objective Exam Vital Signs Date Time Temp Pulse Resp B/P (MAP) Pulse Ox O2 Delivery O2 Flow Rate FiO2 09/15/20 09:21 Nasal Cannula 2.00 09/15/20 07:30 36.4 70 22 133/63 (86) 98 Nasal Cannula 2.00 09/14/20 22:22 Nasal Cannula 2.00 09/14/20 20:10 Nasal Cannula 2.00 09/14/20 20:00 36.2 67 20 138/72 (94) 96 Nasal Cannula 2.00 Capillary Refill : General Appearance: No Apparent Distress, WD/WN Neck: Normal Inspection, Supple Respiratory: No Accessory Muscle Use, No Respiratory Distress Cardiovascular: Regular Rate, Rhythm, No Edema Gastrointestinal: normal bowel sounds, non tender, soft Extremity: Normal Inspection, Normal Range of Motion Neurologic/Psychiatric: Alert, Oriented x3 Skin: Normal Color, Warm/Dry Assessment/Plan Assessment/Plan Assess & Plan/Chief Complaint An 80 year old female with GERD VSS Continue with medical management with Protonix daily Patient wishes to proceed with EGD once she is discharged as an outpatient She is instructed to avoid any spicy, greasy, acidic, caffeine, alcohol, tobacco products and call our office once she is ready to proceed with upper endoscopy. ULICES HEALY APRN Sep 15, 2020 10:30
--- NOTE | 2020-09-15 11:24 | Cardiology Progress Note ---
Subjective Date Seen by Provider: Sep 15, 2020 Time Seen by Provider: 11:24 Subjective/Events-last exam Patient was seen and evaluated at bedside, sitting comfortably, feeling better today. Review of Systems General: No Chills, No Night Sweats, No Fatigue, No Malaise, No Appetite, No Other HEENT: No Head Aches, No Visual Changes, No Eye Pain, No Ear Pain, No Dysphasia, No Sinus Congestion, No Post Nasal Drip, No Sore Throat, No Other Pulmonary: No Dyspnea, No Cough, No Pleuritic Chest Pain, No Other Cardiovascular: No: Chest Pain, Palpitations, Orthopnea, Paroxysmal Noc. Dyspnea, Edema, Lt Headedness, Other Objective-Cardiology Exam Last Set of Vital Signs Vital Signs 09/15/20 09/15/20 07:30 09:21 Temp 36.4 Pulse 70 Resp 22 B/P (MAP) 133/63 (86) Pulse Ox 98 O2 Delivery Nasal Cannula O2 Flow Rate 2.00 General: Alert, Oriented X3, Cooperative HEENT: Atraumatic, PERRLA Neck: Supple, No JVD, No Thyromegaly Lungs: Clear to Auscultation, Normal Air Movement Heart: Regular Rate, Normal S1, Normal S2, No Murmurs Abdomen: Normal Bowel Sounds, Soft, No Tenderness, No Hepatosplenomegaly, No Masses Extremities: No Clubbing, No Cyanosis, No Edema, Normal Pulses, No Tenderness/Swelling Skin: No Rashes, No Breakdown, No Significant Lesion Neuro: Normal Gait, Normal Speech, Strength at 5/5 X4 Ext, Normal Tone, Sensation Intact Psych/Mental Status: Mental Status NL, Mood NL A/P-Cardiology Admission Diagnosis L TKA PAF HTN HLP Assessment/Plan S/P left total knee arthroplasty with Dr. Ramirez, slowly recovering. Continue with PT/OT. SSS/PAF, maintained on Flecainide 100mg daily, Coumadin. Reports unknown medication recently discontinued by primary color matcher d/t bradycardia and is planning for PPM in near future. Coumadin was restarted on September 07, 2020, continue to monitor daily INR Hypertension, losartan was increased to 100 mg daily. Continue to monitor blood pressure HLP, reports statin intolerance, continue to monitor as outpatient CRI, monitor renal function Obesity ROWAN HARDING MD Sep 15, 2020 11:24 am
--- NOTE | 2020-09-15 12:38 | Physical Therapy Daily Note ---
PT Daily Note-Current Subjective Pt laying Supine in bed upon arrival. Pt agrees to PT. Mental Status Patient Orientation: Person, Place, Time, Situation Attachments: Polar Pack Transfers SCALE: Activities may be completed with or without assistive devices. 0-Hbidhcuijd-vctfhlr completes the activity by him/herself with no assistance from a helper. 5-Set-up or Clean-up Assistance-helper sets up or cleans up; patient completes activity. Marlow assists only prior to or following the activity. 4-Supervision or Touching Assistance-helper provides verbal cues and/or touching/steadying and/or contact guard assistance as patient completes activity. Assistance may be provided throughout the activity or intermittently. 3-Partial/Moderate Assistance-helper does LESS THAN HALF the effort. Marlow lifts, holds or supports trunk or limbs, but provides less than half the effort. 2-Substantial/Maximal Assistance-helper does MORE THAN HALF the effort. Marlow lifts or holds trunk or limbs and provides more than half the effort. 5-Jfgdbjakt-gdmhcy does ALL the effort. Patient does none of the effort to complete the activity. Or, the assistance of 2 or more helpers is required for the patient to complete the activity. If activity was not attempted, code reason: 7-Patient Refused. 9-Not Applicable-not attempted and the patient did not perform the activity before the current illness, exacerbation or injury. 10-Not Attempted due to Environmental Limitations-(lack of equipment, weather restraints, etc.). 88-Not Attempted due to Medical Conditions or Safety Concerns. Lying to Sitting/Side of Bed(Q: 5 Sit to Stand (QC): 5 Toilet Transfer (QC): 5 Weight Bearing Left Lower Extremity: Left Weight Bearing/Tolerated Gait Training Does the Patient Walk?: Yes Distance: 30' Walk 10 feet (QC): 5 Gait Persons Needed: 1 Gait Assistive Device: FWW Wheelchair Training Does the Pt Use a Wheelchair?: No Exercises Supine Ex: Ankle pumps, Quad Set, Heel Slides, Hip abd/add Supine Reps: 15 Treatments Pt completes Supine EX then TF to EOB and stands before amb. to BR. Pt returns to recliner to rest with all needs met, call light in hand. Assessment Current Status: Good Progress Pt has improved with mobility and transfers. PT Short Term Goals Short Term Goals Time Frame: Sep 13, 2020 Roll Left & Right: 6 Sit to lyin Lying to sitting on side of be: 4 Sit to stand: 3 Chair/koi-oz-hhexz transfer: 4 Walk 10 feet: 4 Walk 50 feet with two turns: 4 PT Payroll And Benefits Specialist Goals Senior Care Goals PT Senior Care Goals Time Frame: Sep 27, 2020 Roll Left & Right (QC): 6 Sit to Lying (QC): 6 Lying-Sitting on Side/Bed(QC): 6 Sit to Stand (QC): 4 (SBA) Chair/Aye-oa-Aehcd Xfer(QC): 4 (SBA) Toilet Transfer (QC): 4 (SBA) Car Transfer (QC): 4 (CGA) Does the Patient Walk: Yes Walk 10 feet (QC): 4 (SA) Walk 50ft with 2 Turns (QC): 4 (SBA) Walk 150 ft (QC): 4 (BA) Walking 10ft on Uneven Surface: 4 (SBA) 1 Step (curb) (QC): 4 (SBA) 4 Steps (QC): 4 (SBA) 12 Steps (QC): 88 Picking up an Object (QC): 88 Wheel 50 feet with 2 turns (QC: 9 Wheel 150 feet: 9 PT Plan Problem List Problem List: Activity Tolerance Treatment/Plan Treatment Plan: Continue Plan of Care Treatment Plan: Bed Mobility, Education, Functional Activity Suzanne, Functional Strength, Group Therapy, Gait, Safety, Therapeutic Exercise, Transfers Treatment Duration: Sep 27, 2020 Frequency: At least 5 of 7 days/Wk (IRF) Estimated Hrs Per Day: 1.5 hours per day Patient and/or Family Agrees t: Yes Time/GCodes Time In: 1055 Time Out: 1110 Total Billed Treatment Time: 15 Total Billed Treatment 1, FA (15m) FRIDA BOLDEN FOREIGN EXCHANGE STUDENT COORDINATOR Sep 15, 2020 12:38
[2020-09-15 20:00] VITALS: BP 147/67
[2020-09-15] MEDS: MELATONIN 3 MG TABLET PO PRN (20:13)
[2020-09-15] MEDS: GABAPENTIN 300 MG (NEURONTIN) CAP PO SCH (20:13)
[2020-09-16] MEDS: SUCRALFATE 1 GM (CARAFATE) TAB PO SCH ×4 (06:14→21:00)
[2020-09-16 06:16] LABS: BASOPHILS % (AUTO) 1 % (0-10); EOSINOPHILS # (AUTO) 0.2 10^3/uL (0.0-0.3); EOSINOPHILS % (AUTO) 3 % (0-10); HEMATOCRIT 33 % (35-52); HEMOGLOBIN 10.6 g/dL (11.5-16.0); LYMPHOCYTES # (AUTO) 0.9 10^3/uL (1.0-4.0); LYMPHOCYTES % (AUTO) 13 % (12-44); MEAN CORPUSCULAR HEMOGLOBIN 33 pg (25-34); MEAN CORPUSCULAR HGB CONC 32 g/dL (32-36); MEAN CORPUSCULAR VOLUME 103 fL (80-99); MEAN PLATELET VOLUME 10.5 fL (9.0-12.2); MONOCYTES # (AUTO) 0.7 10^3/uL (0.0-1.0); MONOCYTES % (AUTO) 10 % (0-12); NEUTROPHILS % (AUTO) 74 % (42-75); PLATELET COUNT 344 10^3/uL (130-400); WHITE BLOOD COUNT 6.8 10^3/uL (4.3-11.0)
[2020-09-16 06:23] LABS: INR 3.2 (0.8-1.4); PROTHROMBIN TIME PATIENT 32.7 SEC (12.2-14.7)
[2020-09-16 06:25] LABS: ALBUMIN 3.4 GM/DL (3.2-4.5); POTASSIUM 5.1 MMOL/L (3.6-5.0)
[2020-09-16 06:27] LABS: CALCIUM 8.8 MG/DL (8.5-10.1)
[2020-09-16 06:28] LABS: TOTAL PROTEIN 6.7 GM/DL (6.4-8.2)
[2020-09-16 06:30] LABS: BILIRUBIN,TOTAL 0.4 MG/DL (0.1-1.0)
[2020-09-16 06:31] LABS: CREATININE SERUM 1.32 MG/DL (0.60-1.30)
[2020-09-16] MEDS: ACETAMINOPHEN 500 MG TAB (TYLENOL) PO SCH ×2 (06:36→15:40)
[2020-09-16 07:30] VITALS: BP 127/58
--- NOTE | 2020-09-16 07:44 | PM&R Progress Note ---
Subjective HPI/CC On Admission Date Seen by Provider: Sep 16, 2020 Time Seen by Provider: 12:45 Subjective/Events-last exam 09/16/2020: This visit is via video chat due to Covid related restriction for this provider Patient doing pretty well Chest had some stomach spasms Refuses to have EGD here Discontinue the scheduled Tylenol Ready for discharge tomorrow 09/15/2020: This visit is via video chat due to Covid related restriction for this provider Patient doing pretty well No more stomach issues Checking labs in the morning with INR Refused EGD by Dr. Richardson after originally approving Bowels are moving a little bit too loosely Oxycodone is used 09/14/2020: This visit is via video chat due to Covid related restriction for this provider Patient doing very well Oxygen on all the time so we will begin to wean since she does not wear oxygen during the day only at night at home Dietary consult for stomach issues denied already change the Protonix to twice daily and added Carafate so we talked some more and she is now willing to see someone for an EGD Bowels moved yesterday Updated Dr. Richardson and he will see her 09/13/2020: This visit is via video chat due to Covid related restriction for this provider Patient having a pretty good day Having a lot of GERD symptoms Proton pump inhibitor started at [facility] once daily so changed that to twice daily and added Carafate Discharge is planned for 09/1709/11/2020: Patient doing really well No issues Pain is an issue but no major changes Bowels moved on 09/09/2020 09/10/2020: Patient feels good today INR 1.7 Hemoglobin 10.7 Bowels moved yesterday Continue aggressive therapy 09/09/2020: Patient doing pretty well No more dysphagia Tomorrow is her [birth year] 80th Oxygen had been unhooked from the wall that was noted after she complained of dyspnea Decreasing pain medication Ultram is handling the pain 09/08/2020: Patient feels pretty good Pain is well controlled Talked about dysphagia from esophageal spasms No concerns 09/07/20: No major issues currently Pain is controlled INR 1.[address] Samson No dyspnea BM+ BP taken in leg due to bilateral mastectomies Review of Systems General: Fatigue, Malaise Musculoskeletal: leg pain Neurological: Weakness Objective Exam Vital Signs Vital Signs Date Time Temp Pulse Resp B/P (MAP) Pulse Ox O2 Delivery O2 Flow Rate FiO2 09/16/20 09:35 Room Air 09/16/20 07:30 36.6 69 18 127/58 (81) 96 2.00 Capillary Refill : General Appearance: No Apparent Distress, WD/WN, Chronically ill, Obese HEENT: PERRL/EOMI, Normal ENT Inspection, Pharynx Normal Neck: Full Range of Motion, Normal Inspection, Non Tender, Supple, Carotid Bruit Respiratory: Chest Non Tender, Lungs Clear, Normal Breath Sounds, No Accessory Muscle Use, No Respiratory Distress Cardiovascular: No Edema, No Gallop, No JVD, No Murmur, Normal Peripheral Pulses, Irregularly Irregular Gastrointestinal: Normal Bowel Sounds, No Organomegaly, No Pulsatile Mass, Non Tender, Soft Back: Normal Inspection, No CVA Tenderness, No Vertebral Tenderness Extremity: Normal Capillary Refill, Normal Inspection, Normal Range of Motion ( except left leg), Non Tender, No Calf Tenderness, No Pedal Edema Neurologic/Psychiatric: Alert, Oriented x3, No Motor/Sensory Deficits, Normal Mood/Affect, joint creaser II-XII Norm as Tested, Motor Weakness (leg leg weakness) Skin: Normal Color, Warm/Dry Lymphatic: No Adenopathy Results/Procedures Lab Laboratory Tests 09/16/20 05:25 Patient resulted labs reviewed. FIM Transfers Therapy Code Descriptions/Definitions Functional [place] Measure: 0=Not Assessed/NA 4=Minimal Assistance 1=Total Assistance 5=Supervision or Setup 2=Maximal Assistance 6=Modified [place] 3=Moderate Assistance 7=Complete IndependenceSCALE: Activities may be completed with or without assistive devices. 9-Fgphyuizfl-tmnogbk completes the activity by him/herself with no assistance from a helper. 5-Set-up or Clean-up Assistance-helper sets up or cleans up; patient completes activity. [place] assists only prior to or following the activity. 4-Supervision or Touching Assistance-helper provides verbal cues and/or touching/steadying and/or contact guard assistance as patient completes ac tivity. Assistance may be provided throughout the activity or intermittently. 3-Partial/Moderate Assistance-helper does LESS THAN HALF the effort. [place] lifts, holds or supports trunk or limbs, but provides less than half the effort. 2-Substantial/Maximal Assistance-helper does MORE THAN HALF the effort. [place] lifts or holds trunk or limbs and provides more than half the effort. 9-Nsrjedefk-iqvdyl does ALL the effort. Patient does none of the effort to complete the activity. Or, the assistance of 2 or more helpers is required for the patient to complete the activity. If activity was not attempted, code reason: 7-Patient Refused. 9-Not Applicable-not attempted and the patient did not perform the activity before the current illness, exacerbation or injury. 10-Not Attempted due to Environmental Limitations-(lack of equipment, weather restraints, etc.). 88-Not Attempted due to Medical Conditions or Safety Concerns. Roll Left to Right (QC): 6 Sit to Lying (QC): 5 Sit to Stand (QC): 5 Chair/Stv-he-Kgqcm Xfer(QC): 4 Car Transfer (QC): 1 Gait Training Does the Patient Walk?: Yes Distance: 30' Walk 10 feet (QC): 5 Walk 50 ft with 2 Turns(QC): 4 Walk 150 ft (QC): 4 Walking 10ft/uneven surface-QC: 4 Gait Persons Needed: 1 Gait Assistive Device: FWW Wheelchair Training Does the Pt Use a Wheelchair?: No Distance: 30' Wheel 50 ft with 2 turns (QC): 4 Wheel 150 ft (QC): 88 Type of Wheelchair: Manual Stair Training #of Steps: 1 1 Step (curb) (QC): 4 4 Steps (QC): 88 12 Steps (QC): 88 Balance Picking up an Object (QC): 88 ADL-Treatment Eating (QC): 6 Oral Hygiene (QC): 7 Shower/Bathe Self (QC): 5 Upper Body Dressing (QC): 6 Lower Body Dressing (QC): 6 On/Off Footwear (QC): 6 Toileting Hygiene (QC): 6 (IND with clothing management and hygiene.) Toilet Transfer (QC): 6 (IND on/off BSC over toilet.) Assessment/Plan Assessment and Plan Assess & Plan/Chief Complaint Assessment: 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 Chronic atrial fibrillation Warfarin anticoagulation for stroke prophylaxis from atrial fibrillation Hypothyroidism History of breast cancer Chronic kidney disease Hypertension Hyperlipidemia Obesity Esophageal spasms chronic GERD Plan: Inpatient rehab protocol Pain control Monitor INR Cardiology consult appreciated 09/07/20: Cardiology consult Monitoring of INR 09/08/2020: Monitor dysphagia Pain control 09/09/2020: Maintain pain meds Aggressive therapy Monitor for dysphagia Monitor oxygen 09/10/2020: Continue aggressive therapy Pain control Monitor INR 09/11/2020: Pain control Aggressive therapy 09/13/2020: GERD treatment Pain control 09/14/2020: Oxygen weaning Dr. Richardson for EGD 09/15/2020: Refuses EGD as planned tomorrow Check labs in the morning 09/16/2020: Discharge plan for tomorrow Home physical therapy set up (1) Total knee replacement status (2) HX: breast cancer (3) Obesity (4) Hypothyroidism (5) Atrial fibrillation (6) Warfarin anticoagulation (7) GERD (gastroesophageal reflux disease) STEFF TORRES DO Sep 16, 2020 07:44
[2020-09-16] MEDS: LOSARTAN 100 MG (COZAAR) TABLET PO SCH (08:12)
[2020-09-16] MEDS: FLECAINIDE 100 MG (TAMBOCOR) TAB PO SCH (08:12)
[2020-09-16] MEDS: LEVOTHYROXINE 125 MCG (LEVOTHROID) TABLET PO SCH (08:12)
[2020-09-16] MEDS: SPIRONOLACTONE 25 MG (ALDACTONE) TAB PO SCH (08:12)
[2020-09-16] MEDS: PANTOPRAZOLE 40 MG (PROTONIX) TAB PO SCH ×2 (08:12→20:51)
[2020-09-16] MEDS: LETROZOLE 2.5 MG (FEMARA) TAB PO SCH (08:13)
[2020-09-16] MEDS: DOCUSATE SODIUM 100 MG (COLACE) CAP PO SCH ×2 (09:33→21:00)
[2020-09-16] MEDS: SENNA W/DOCUSATE (SENOKOT S) TABLET PO SCH ×2 (09:34→21:00)
[2020-09-16] MEDS: polyethylene glycoL POWDER 17 GM (MIRALAX) PACK PO SCH ×2 (09:34→21:00)
--- NOTE | 2020-09-16 11:44 | Cardiology Progress Note ---
Subjective Date Seen by Provider: Sep 16, 2020 Time Seen by Provider: 11:39 Subjective/Events-last exam Patient was seen at bedside, laying down comfortably, no new complaint Review of Systems General: No Chills, No Night Sweats, No Fatigue, No Malaise, No Appetite, No Other HEENT: No Head Aches, No Visual Changes, No Eye Pain, No Ear Pain, No Dysphasia, No Sinus Congestion, No Post Nasal Drip, No Sore Throat, No Other Pulmonary: No Dyspnea, No Cough, No Pleuritic Chest Pain, No Other Cardiovascular: No: Chest Pain, Palpitations, Orthopnea, Paroxysmal Noc. Dyspnea, Edema, Lt Headedness, Other Objective-Cardiology Exam Last Set of Vital Signs Vital Signs 09/16/20 09/16/20 07:30 09:35 Temp 36.6 Pulse 69 Resp 18 B/P (MAP) 127/58 (81) Pulse Ox 96 O2 Delivery Room Air O2 Flow Rate 2.00 General: Alert, Oriented X3, Cooperative HEENT: Atraumatic, PERRLA Neck: Supple, No JVD, No Thyromegaly Lungs: Clear to Auscultation, Normal Air Movement Heart: Regular Rate, Normal S1, Normal S2, No Murmurs Abdomen: Normal Bowel Sounds, Soft, No Tenderness, No Hepatosplenomegaly, No Masses Extremities: No Clubbing, No Cyanosis, No Edema, Normal Pulses, No Tenderness/Swelling Skin: No Rashes, No Breakdown, No Significant Lesion Neuro: Normal Gait, Normal Speech, Strength at 5/5 X4 Ext, Normal Tone, Sensation Intact Psych/Mental Status: Mental Status NL, Mood NL Results Lab Laboratory Tests 09/16/20 05:25 A/P-Cardiology Admission Diagnosis L TKA PAF HTN HLP Assessment/Plan S/P left total knee arthroplasty with Dr. Ramirez, slowly recovering. Continue with PT/OT. Hyperkalemia, I will discontinue spironolactone and continue to monitor electrolytes INR 3.2, Coumadin was changed to 2.5 mg 4 days a week and 5 mg 3 days a week, continue to monitor INR SSS/PAF, maintained on Flecainide 100mg daily, Coumadin. 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 Coumadin was restarted on September 07, 2020, continue to monitor daily INR Hypertension, well controlled on current medication, continue to monitor HLP, reports statin intolerance, continue to monitor as outpatient CRI, monitor renal function Obesity ROWAN HARDING MD Sep 16, 2020 11:44
[2020-09-16] MEDS ORDERED: warFARin 2.5 MG (COUMADIN) TAB PO SCH (18:00)
[2020-09-16 20:00] VITALS: BP 148/69
[2020-09-16] MEDS: GABAPENTIN 300 MG (NEURONTIN) CAP PO SCH (20:51)
[2020-09-17] MEDS: HYDROcodone/APAP 5 MG/325 MG (LORTAB) TAB PO PRN (04:15)
[2020-09-17] MEDS: SUCRALFATE 1 GM (CARAFATE) TAB PO SCH ×3 (05:40→15:35)
--- NOTE | 2020-09-17 07:00 | Discharge Summary ---
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 Chronic atrial fibrillation Warfarin anticoagulation for stroke prophylaxis from atrial fibrillation Hypothyroidism History of breast cancer Chronic kidney disease Hypertension Hyperlipidemia Obesity Esophageal spasms chronic GERD Plan: Inpatient rehab protocol Pain control Monitor INR Cardiology consult appreciated 09/07/20: Cardiology consult Monitoring of INR 09/08/2020: Monitor dysphagia Pain control 09/09/2020: Maintain pain meds Aggressive therapy Monitor for dysphagia Monitor oxygen 09/10/2020: Continue aggressive therapy Pain control Monitor INR 09/11/2020: Pain control Aggressive therapy 09/13/2020: GERD treatment Pain control 09/14/2020: Oxygen weaning Dr. Richardson for EGD 09/15/2020: Refuses EGD as planned tomorrow Check labs in the morning 09/16/2020: Discharge plan for tomorrow Home physical therapy set up (1) Total knee replacement status (2) HX: breast cancer (3) Obesity (4) Hypothyroidism (5) Atrial fibrillation (6) Warfarin anticoagulation (7) GERD (gastroesophageal reflux disease) Discharge Summary Discharge Physical Examination Allergies: Coded Allergies: adhesive tape (Verified Allergy, Intermediate, BLISTERS, 09/07/20) codeine (Verified Allergy, Intermediate, "MAKES ME FEEL WEIRD", 09/07/20) Uncoded Allergies: STATINS (Allergy, Mild, "MAKES MY LEGS HURT", 09/07/20) Vitals & I&Os Vital Signs Date Time Temp Pulse Resp B/P (MAP) Pulse Ox O2 Delivery O2 Flow Rate FiO2 09/17/20 19:56 36.8 62 20 138/68 Room Air 09/17/20 07:50 98 2.00 General Appearance: Alert, Oriented X3, Cooperative Respiratory: Clear to Auscultation Cardiovascular: Regular Rate, Other (Irregular irregular) Neuro: Normal Gait, Normal Speech, Strength at 5/5 X4 Ext Psych/Mental Status: Mental Status NL Hospital Course Was the Problem List Reviewed?: Yes Patient had an uneventful hospital course after she was admitted from [facility] Dr. Ramirez uncomplicated knee replacement with slow recovery. INR was monitored by cardiology. EKG showed chronic atrial fibrillation. Labs remained stable. Patient did have esophageal spasms and some mild dysphagia and EGD was arranged but then she canceled. Home care was all set up she wanted all her medications sent to her family doctor at the [facility] and he will manage refills. Labs (last 24 hrs) Laboratory Tests 09/07/20 05:20: White Blood Count 6.8, Red Blood Count 3.12L, Hemoglobin 10.1L, Hematocrit 31L, Mean Corpuscular Volume 100H, Mean Corpuscular Hemoglobin 32, Mean Corpuscular Hemoglobin Concent 32, Red Cell Distribution Width 13.1, Platelet Count 157, Mean Platelet Volume 11.2, Immature Granulocyte % (Auto) 0, Neutrophils (%) (Auto) 74, Lymphocytes (%) (Auto) 10L, Monocytes (%) (Auto) 12, Eosinophils (%) (Auto) 3, Basophils (%) (Auto) 0, Neutrophils # (Auto) 5.0, Lymphocytes # (Auto) 0.7L, Monocytes # (Auto) 0.8, Eosinophils # (Auto) 0.2, Basophils # (Auto) 0.0, Immature Granulocyte # (Auto) 0.0, Prothrombin Time 18.6H, INR Comment 1.5H, Sodium Level 136, Potassium Level 4.4, Chloride Level 102, Carbon Dioxide Level 24, Anion Gap 10, Blood Urea Nitrogen 22H, Creatinine 0.99, Estimat Glomerular Filtration Rate 54, BUN/Creatinine Ratio 22, Glucose Level 84, Calcium Level 8.5 , Corrected Calcium 9.0, Total Bilirubin 0.5, Aspartate Amino Transf (AST/SGOT) 33, Alanine Aminotransferase (ALT/SGPT) 14, Alkaline Phosphatase 49, Total Protein 6.3L, Albumin 3.4 09/10/20 06:20: White Blood Count 6.8, Red Blood Count 3.32L, Hemoglobin 10.7L, Hematocrit 34L, Mean Corpuscular Volume 102H, Mean Corpuscular Hemoglobin 32, Mean Corpuscular Hemoglobin Concent 32, Red Cell Distribution Width 13.4, Platelet Count 241, Mean Platelet Volume 10.6, Immature Granulocyte % (Auto) 1, Neutrophils (%) (Auto) 67, Lymphocytes (%) (Auto) 14, Monocytes (%) (Auto) 14H, Eosinophils (%) (Auto) 4, Basophils (%) (Auto) 1, Neutrophils # (Auto) 4.5, Lymphocytes # (Auto) 0.9L, Monocytes # (Auto) 0.9, Eosinophils # (Auto) 0.3, Basophils # (Auto) 0.1, Immature Granulocyte # (Auto) 0.0, Prothrombin Time 20.8H, INR Comment 1.7H, Sodium Level 138, Potassium Level 4.5, Chloride Level 103, Carbon Dioxide Level 26, Anion Gap 9, Blood Urea Nitrogen 24H, Creatinine 1.12, Estimat Glomerular Filtration Rate 47, BUN/Creatinine Ratio 21, Glucose Level 98, Calcium Level 8.6, Corrected Calcium 9.2, Total Bilirubin 0.4, Aspartate Amino Transf (AST/SGOT) 22, Alanine Aminotransferase (ALT/SGPT) 18, Alkaline Phosphatase 51, Total Protein 6.4, Albumin 3.3 09/12/20 10:05: Prothrombin Time 25.8H, INR Comment 2.3H 09/16/20 05:25: White Blood Count 6.8, Red Blood Count 3.25L, Hemoglobin 10.6L, Hematocrit 33L, Mean Corpuscular Volume 103H, Mean Corpuscular Hemoglobin 33, Mean Corpuscular Hemoglobin Concent 32, Red Cell Distribution Width 13.5, Platelet Count 344, Mean Platelet Volume 10.5, Immature Granulocyte % (Auto) 0, Neutrophils (%) (Auto) 74, Lymphocytes (%) (Auto) 13, Monocytes (%) (Auto) 10, Eosinophils (%) (Auto) 3, Basophils (%) (Auto) 1, Neutrophils # (Auto) 5.0, Lymphocytes # (Auto) 0.9L, Monocytes # (Auto) 0.7, Eosinophils # (Auto) 0.2, Basophils # (Auto) 0.0, Immature Granulocyte # (Auto) 0.0, Prothrombin Time 32.7H, INR Comment 3.2H, Sodium Level 136, Potassium Level 5.1H, Chloride Level 101, Carbon Dioxide Level 24, Anion Gap 11, Blood Urea Nitrogen 26H, Creatinine 1.32H, Estimat Glomerular Filtration Rate 39, BUN/Creatinine Ratio 20, Glucose Level 95, Calcium Level 8.8, Corrected Calcium 9.3, Total Bilirubin 0.4, Aspartate Amino Transf (AST/SGOT) 24, Alanine Aminotransferase (ALT/SGPT) 18, Alkaline Phosphatase 52, Total Protein 6.7, Albumin 3.4 Pending Labs Laboratory Tests 09/07/20 05:20: White Blood Count 6.8, Red Blood Count 3.12, Hemoglobin 10.1, Hematocrit 31, Mean Corpuscular Volume 100, Mean Corpuscular Hemoglobin 32, Mean Corpuscular Hemoglobin Concent 32, Red Cell Distribution Width 13.1, Platelet Count 157, Mean Platelet Volume 11.2, Immature Granulocyte % (Auto) 0, Neutrophils (%) (Auto) 74, Lymphocytes (%) (Auto) 10, Monocytes (%) (Auto) 12, Eosinophils (%) (Auto) 3, Basophils (%) (Auto) 0, Neutrophils # (Auto) 5.0, Lymphocytes # (Auto) 0.7, Monocytes # (Auto) 0.8, Eosinophils # (Auto) 0.2, Basophils # (Auto) 0.0, Immature Granulocyte # (Auto) 0.0, Prothrombin Time 18.6, INR Comment 1.5, Sodium Level 136, Potassium Level 4.4, Chloride Level 102, Carbon Dioxide Level 24, Anion Gap 10, Blood Urea Nitrogen 22, Creatinine 0.99, Estimat Glomerular Filtration Rate 54, BUN/Creatinine Ratio 22, Glucose Level 84, Calcium Level 8.5, Corrected Calcium 9.0, Total Bilirubin 0.5, Aspartate Amino Transf (AST/SGOT) 33, Alanine Aminotransferase (ALT/SGPT) 14, Alkaline Phosphatase 49, Total Protein 6.3, Albumin 3.4 09/10/20 06:20: White Blood Count 6.8, Red Blood Count 3.32, Hemoglobin 10.7, Hematocrit 34, Mean Corpuscular Volume 102, Mean Corpuscular Hemoglobin 32, Mean Corpuscular Hemoglobin Concent 32, Red Cell Distribution Width 13.4, Platelet Count 241, Mean Platelet Volume 10.6, Immature Granulocyte % (Auto) 1, Neutrophils (%) (Auto) 67, Lymphocytes (%) (Auto) 14, Monocytes (%) (Auto) 14, Eosinophils (%) (Auto) 4, Basophils (%) (Auto) 1, Neutrophils # (Auto) 4.5, Lymphocytes # (Auto) 0.9, Monocytes # (Auto) 0.9, Eosinophils # (Auto) 0.3, Basophils # (Auto) 0.1, Immature Granulocyte # (Auto) 0.0, Prothrombin Time 20.8, INR Comment 1.7, Sodium Level 138, Potassium Level 4.5, Chloride Level 103, Carbon Dioxide Level 26, Anion Gap 9, Blood Urea Nitrogen 24, Creatinine 1.12, Estimat Glomerular Filtration Rate 47, BUN/Creatinine Ratio 21, Glucose Level 98, Calcium Level 8.6, Corrected Calcium 9.2, Total Bilirubin 0.4, Aspartate Amino Transf (AST/SGOT) 22, Alanine Aminotransferase (ALT/SGPT) 18, Alkaline Phosphatase 51, Total Protein 6.4, Albumin 3.3 09/12/20 10:05: Prothrombin Time 25.8, INR Comment 2.3 09/16/20 05:25: White Blood Count 6.8, Red Blood Count 3.25, Hemoglobin 10.6, Hematocrit 33, Mean Corpuscular Volume 103, Mean Corpuscular Hemoglobin 33, Mean Corpuscular Hemoglobin Concent 32, Red Cell Distribution Width 13.5, Platelet Count 344, Mean Platelet Volume 10.5, Immature Granulocyte % (Auto) 0, Neutrophils (%) (Auto) 74, Lymphocytes (%) (Auto) 13, Monocytes (%) (Auto) 10, Eosinophils (%) (Auto) 3, Basophils (%) (Auto) 1, Neutrophils # (Auto) 5.0, Lymphocytes # (Auto) 0.9, Monocytes # (Auto) 0.7, Eosinophils # (Auto) 0.2, Basophils # (Auto) 0.0, Immature Granulocyte # (Auto) 0.0, Prothrombin Time 32.7, INR Comment 3.2, Sodium Level 136, Potassium Level 5.1, Chloride Level 101, Carbon Dioxide Level 24, Anion Gap 11, Blood Urea Nitrogen 26, Creatinine 1.32, Estimat Glomerular Filtration Rate 39, BUN/Creatinine Ratio 20, Glucose Level 95, Calcium Level 8.8, Corrected Calcium 9.3, Total Bilirubin 0.4, Aspartate Amino Transf (AST/SGOT) 24, Alanine Aminotransferase (ALT/SGPT) 18, Alkaline Phosphatase 52, Total Protein 6.7, Albumin 3.4 Discharge Home Medications: Active Scripts Active Pantoprazole Sodium 40 Mg Tablet.dr 40 Mg PO BID Sucralfate 1 Gm Tablet 1 Gm PO ACHS Stool Softener-Laxative Tablet (Sennosides/Docusate Sodium) 1 Each Tablet 1 Ea PO BID Oxyir Tablet (Oxycodone HCl) 5 Mg Tab 5-10 Mg PO Q2HR PRN HYDROcodone/APAP 5 MG/325 MG TAB (Acetaminophen/Hydrocodone Bitart) 1 Tab Tab 1 Ea PO Q4H PRN Tramadol HCl 50 Mg Tablet 50 Mg PO Q8H PRN Reported Celexa (Citalopram Hydrobromide) 40 Mg Tablet 40 Mg PO DAILY Diclofenac Sodium 100 Gm Gel..gram. 1 Applic TP QID PRN APPLY TO ONE OR BOTH KNEES NEEDED Losartan Potassium 100 Mg Tablet 100 Mg PO DAILY Warfarin Sodium 5 Mg Tablet 5 Mg PO ,,,FR Levothyroxine Sodium 125 Mcg Tablet 125 Mcg PO DAILY Triamcinolone Acetonide 0.1% Cream (Triamcinolone Acet) 15 Gm Cr 1 Applic TP BID PRN Warfarin Sodium 2.5 Mg Tablet 2.5 Mg PO THU,THU,THU Flecainide Acetate 100 Mg Tablet 100 Mg PO DAILY Letrozole 2.5 Mg Tablet 2.5 Mg PO DAILY Furosemide 40 Mg Tablet 40 Mg PO THU,,FR Spironolactone 25 Mg Tablet 25 Mg PO DAILY Neurontin (Gabapentin) 300 Mg Capsule 300 Mg PO HS Instructions to patient/family Please see electronic discharge instructions given to patient. Diagnosis/Problems Diagnosis/Problems (1) Total knee replacement status (2) HX: breast cancer (3) Obesity (4) Hypothyroidism (5) Atrial fibrillation (6) Warfarin anticoagulation (7) GERD (gastroesophageal reflux disease) STEFF TORRES DO Sep 17, 2020 07:00
[2020-09-17 07:50] VITALS: BP 149/70
--- NOTE | 2020-09-17 08:26 | Occupational Ther Daily Note ---
OT Current Status-Daily Note Subjective Pt laying in bed, agreeable to OT tx. Pt reports knee pain while showering, requests pain pill. OT notified pt's nurse. Pt did not verbalize pain rating. Mental Status/Objective Patient Orientation: Person, Place, Time, Situation Attachments: Oxygen (2L supine in bed.) ADL-Treatment Therapy Code Descriptions/Definitions Functional [place] Measure: 0=Not Assessed/NA 4=Minimal Assistance 1=Total Assistance 5=Supervision or Setup 2=Maximal Assistance 6=Modified [place] 3=Moderate Assistance 7=Complete IndependenceSCALE: Activities may be completed with or without assistive devices. 4-Hsldwlideq-obzatdd completes the activity by him/herself with no assistance from a helper. 5-Set-up or Clean-up Assistance-helper sets up or cleans up; patient completes activity. [place] assists only prior to or following the activity. 4-Supervision or Touching Assistance-helper provides verbal cues and/or touching/steadying and/or contact guard assistance as patient completes activity. Assistance may be provided throughout the activity or intermittently. 3-Partial/Moderate Assistance-helper does LESS THAN HALF the effort. [place] lifts, holds or supports trunk or limbs, but provides less than half the effort. 2-Substantial/Maximal Assistance-helper does MORE THAN HALF the effort. [place] lifts or holds trunk or limbs and provides more than half the effort. 8-Mjgepwpwc-wxuyus does ALL the effort. Patient does none of the effort to complete the activity. Or, the assistance of 2 or more helpers is required for the patient to complete the activity. If activity was not attempted, code reason: 7-Patient Refused. 9-Not Applicable-not attempted and the patient did not perform the activity before the current illness, exacerbation or injury. 10-Not Attempted due to Environmental Limitations-(lack of equipment, weather restraints, etc.). 88-Not Attempted due to Medical Conditions or Safety Concerns. Eating (QC): 6 (IND with breakfast.) Oral Hygiene (QC): 6 (IND standing at sink.) Shower/Bathe Self (QC): 6 (Pt able to wash/dry all parts.) Upper Body Dressing (QC): 6 (IND with breast puller shirt.) Lower Body Dressing (QC): 6 (IND with underwear and pants.) On/Off Footwear: 6 (IND with gripper socks.) Toileting Hygiene (QC): 6 (IND with clothing management and hygiene.) Toilet Transfer (QC): 6 (IND on/off BSC over toilet.) Other Treatment Pt laying in bed, transferred supine to sit EOB IND. Pt used FWW to perform functional mobility around room, gathering clothing items, then into bathroom. Pt completed toileting, stood at sink for oral care, then transferred to [place]. Pt completed showering, then transferred to chair with arm rests to don clothes. Pt used FWW to return to bed, transferring supine IND. Post tx, pt laying in bed, call light in reach and all needs met, O2 on 2L in supine. Education OT Patient Education: Correct positioning, Modified ADL techniques, Progress toward Goal/Update tx plan, Purpose of tx/functional activities, Rehab process Teaching Recipient: Patient Teaching Methods: Discussion Response to Teaching: Verbalize Understanding OT Short Term Goals Short Term Goals Time Frame: Sep 14, 2020 Toileting hygiene: 4 Shower/bathe self: 4 Lower body dressin Putting on/taking off footwear: 4 OT Fpc Goals Fpc Goals Time Frame: Oct 05, 2020 Eating (QC): 6 (met) Oral Hygiene (QC): 6 (met) Toileting Hygiene (QC): 6 (met) Shower/Bathe Self (QC): 6 (met) Upper Body Dressing (QC): 6 (met) Lower Body Dressing (QC): 6 (met) On/Off Footwear (QC): 6 (met) Additional Goals: 1-Demonstrate ADL Tasks, 2-Verbalize Understanding, 3- ImproveStrength/Suzanne 1=Demonstrate adherence to instructed precautions during ADL tasks. 2=Patient will verbalize/demonstrate understanding of assistive devices/modifications for ADL. 3=Patient will improve strength/tolerance for activity to enable patient to perform ADL's. OT Education/Plan Problem List/Assessment Assessment: Decreased Activ Tolerance, Impaired I ADL's Discharge Recommendations Plan/Recommendations: Continue POC Treatment Plan/Plan of Care Patient would benefit from OT for education, treatment and training to promote independence in ADL's, mobility, safety and/or upper extremity function for ADL's. Plan of Care: ADL Retraining, Functional Mobility, Group Exercise/Act as Ind, UE Funct Exercise/Act Treatment Duration: Oct 05, 2020 Frequency: At least 5 of 7 days/Wk (IRF) Estimated Hrs Per Day: 1.5 hours per day Rehab Potential: Fair Time/GCodes Start Time: 07:50 Stop Time: 08:20 Total Time Billed (hr/min): 30 Billed Treatment Time 1, ADL 2 SHANNAN DE LA PAZ OT Sep 17, 2020 08:26
--- NOTE | 2020-09-17 08:29 | Therapy Team Discharge Summary ---
Therapy Discharge Summary Discharge Recommendations Date of Discharge Occupational Therapy Pt admitted to ARU, s/p L TKA. At OF, pt was IND with all ADLS and functional mobility using 4WW. Upon initial evaluation, pt was independent with eating, required set up assist oral care, mod A showering, set up upper body dressing, min A lower body dressing, max A footwear and min A toileting. OT tx focused on increasing safety and independence with ADLs and functional mobility, education on AE, and increasing BUE Strength and activity tolerance. At discharge, pt was independent with all ADLs, meeting all LTGs. OT recommends a instrument technologist for pt. Pt to discharge from facility, d/c from OT at this time. Decreased Activ Tolerance, Impaired I ADL's PT Longterm Goals Logging Shovel Operator Goals PT Longterm Goals Time Frame: Sep 27, 2020 Roll Left to Right (QC): 6 Sit to Lying (QC): 6 Lying-Sitting on Side/Bed(QC): 6 Sit to Stand (QC): 4 (SBA) Chair/Llv-nk-Zagkw Xfer(QC): 4 (SBA) Car Transfer (QC): 4 (CGA) Does the Patient Walk: Yes Walk 10 feet (QC): 4 (SA) Walk 10ft-Uneven Surface(QC): 4 (SBA) Walk 50ft with 2 Turns (QC): 4 (SBA) Walk 150 ft (QC): 4 (BA) Wheel 50 feet with 2 turns (QC: 9 1 Step (curb) (QC): 4 (SBA) 4 Steps (QC): 4 (SBA) 12 Steps (QC): 88 Picking up an Object (QC): 88 OT Longterm Goals Longterm Goals Time Frame: Oct 05, 2020 Eating (QC): 6 (met) Oral Hygiene (QC): 6 (met) Shower/Bathe Self (QC): 6 (met) Upper Body Dressing (QC): 6 (met) Lower Body Dressing (QC): 6 (met) On/Off Footwear (QC): 6 (met) Toileting Hygiene (QC): 6 (met) Toilet/Commode Transfer (QC): 4 (SBA) Additional Goals: 1-Demonstrate ADL Tasks, 2-Verbalize Understanding, 3- ImproveStrength/Suzanne 1=Demonstrate adherence to instructed precautions during ADL tasks. 2=Patient will verbalize/demonstrate understanding of assistive devices/modifications for ADL. 3=Patient will improve strength/tolerance for activity to enable patient to perform ADL's. SHANNAN DE LA PAZ OT Sep 17, 2020 08:29
--- NOTE | 2020-09-17 08:42 | Cardiology Progress Note ---
Subjective Date Seen by Provider: Sep 17, 2020 Time Seen by Provider: 08:15 Subjective/Events-last exam Patient is sitting up in bed, denies any chest pain or dyspnea. Review of Systems General: No Chills, No Night Sweats, No Fatigue, No Malaise, No Appetite, No Other HEENT: No Head Aches, No Visual Changes, No Eye Pain, No Ear Pain, No Dysphasia, No Sinus Congestion, No Post Nasal Drip, No Sore Throat, No Other Pulmonary: No Dyspnea, No Cough, No Pleuritic Chest Pain, No Other Cardiovascular: No: Chest Pain, Palpitations, Orthopnea, Paroxysmal Noc. Dyspnea, Edema, Lt Headedness, Other Objective-Cardiology Exam Last Set of Vital Signs Vital Signs 09/17/20 07:50 Temp 36.6 Pulse 67 Resp 18 B/P (MAP) 149/70 (96) Pulse Ox 98 O2 Delivery Nasal Cannula O2 Flow Rate 2.00 General: Alert, Oriented X3, Cooperative HEENT: Atraumatic, PERRLA Neck: Supple, No JVD, No Thyromegaly Lungs: Clear to Auscultation, Normal Air Movement Heart: Normal S1, Normal S2, No Murmurs, Other (atrial fibrillation) Abdomen: Normal Bowel Sounds, Soft, No Tenderness, No Hepatosplenomegaly, No Masses Extremities: No Clubbing, No Cyanosis, No Edema, Normal Pulses, No Tenderness/Swelling Skin: No Rashes, No Breakdown, No Significant Lesion Neuro: Normal Gait, Normal Speech, Strength at 5/5 X4 Ext, Normal Tone, Sensation Intact Psych/Mental Status: Mental Status NL, Mood NL A/P-Cardiology Admission Diagnosis L TKA PAF HTN HLP Assessment/Plan S/P left total knee arthroplasty with Dr. Ramirez, slowly recovering. Continue with PT/OT. Hyperkalemia, I discontinued spironolactone and continue to monitor electrolytes INR 3.2, Coumadin was changed to 2.5 mg 4 days a week and 5 mg 3 days a week, continue to monitor INR SSS/PAF, maintained on Flecainide 100mg daily, Coumadin. EKG today showing rate controlled Afib. Recommended increasing Flecainide to 100mg BID, patient refused, would like to discuss with her primary centrifuge separator tender as outpatient. Reports unknown medication recently discontinued by primary centrifuge separator tender d/t bradycardia and is planning for PPM in near future. Coumadin was restarted on September 07, 2020, INR therapeutic. Patient appears to be in atrial fibrillation today, twelve-lead EKG was done which showed atrial fibrillation, I recommended increasing flecainide 200 mg twice daily, patient has refused and expressed that she is going to discuss it with her own centrifuge separator tender after she leaves today. She is scheduled to follow-up with her centrifuge separator tender. Hypertension, well controlled on current medication, continue to monitor HLP, reports statin intolerance, continue to monitor as outpatient CRI, monitor renal function Obesity Patient was seen and evaluated with Violetta, examination performed, management plan was discussed, agree with the current scribed note, I made few changes to the note using Italic font Supervisory-Addendum Brief Supervisory Addendum Participated in pt care: history, MDM, physical Personally performed: exam, history, MDM Care discussed with: RUSH Results interpretation: Verified all documentation VIOLETTA SAUCEDO Sep 17, 2020 8:42 am ROWAN HARDING MD Sep 17, 2020 10:08 am
[2020-09-17] MEDS: LETROZOLE 2.5 MG (FEMARA) TAB PO SCH (08:46)
[2020-09-17] MEDS: FLECAINIDE 100 MG (TAMBOCOR) TAB PO SCH (08:46)
[2020-09-17] MEDS: LOSARTAN 100 MG (COZAAR) TABLET PO SCH (08:46)
[2020-09-17] MEDS: PANTOPRAZOLE 40 MG (PROTONIX) TAB PO SCH (08:46)
[2020-09-17] MEDS: LEVOTHYROXINE 125 MCG (LEVOTHROID) TABLET PO SCH (08:46)
[2020-09-17] MEDS: FUROSEMIDE 40 MG (LASIX) TAB PO SCH (08:50)
[2020-09-17] MEDS: DOCUSATE SODIUM 100 MG (COLACE) CAP PO SCH (08:52)
[2020-09-17] MEDS: SENNA W/DOCUSATE (SENOKOT S) TABLET PO SCH (08:52)
[2020-09-17] MEDS: polyethylene glycoL POWDER 17 GM (MIRALAX) PACK PO SCH (08:52)
--- NOTE | 2020-09-17 10:44 | Physical Therapy Daily Note ---
PT Daily Note-Current Subjective Pt leaving restroom upon arrival. Pt agrees to PT. Pain Numeric Pain Scale: 5-Moderate Pain Location: Left Location Body Site: Knee Pain Description: Ache Mental Status Patient Orientation: Person, Place, Time, Situation Attachments: Polar Pack Transfers SCALE: Activities may be completed with or without assistive devices. 4-Grleoetmay-nygzpjj completes the activity by him/herself with no assistance from a helper. 5-Set-up or Clean-up Assistance-helper sets up or cleans up; patient completes activity. [place] assists only prior to or following the activity. 4-Supervision or Touching Assistance-helper provides verbal cues and/or touching/steadying and/or contact guard assistance as patient completes activity. Assistance may be provided throughout the activity or intermittently. 3-Partial/Moderate Assistance-helper does LESS THAN HALF the effort. [place] lifts, holds or supports trunk or limbs, but provides less than half the effort. 2-Substantial/Maximal Assistance-helper does MORE THAN HALF the effort. [place] lifts or holds trunk or limbs and provides more than half the effort. 0-Rectseofu-nblxyx does ALL the effort. Patient does none of the effort to complete the activity. Or, the assistance of 2 or more helpers is required for the patient to complete the activity. If activity was not attempted, code reason: 7-Patient Refused. 9-Not Applicable-not attempted and the patient did not perform the activity before the current illness, exacerbation or injury. 10-Not Attempted due to Environmental Limitations-(lack of equipment, weather restraints, etc.). 88-Not Attempted due to Medical Conditions or Safety Concerns. Roll Left & Right (QC): 6 Sit to Lying (QC): 6 Lying to Sitting/Side of Bed(Q: 6 Sit to Stand (QC): 6 Chair/Szo-ob-Knood Xfer(QC): 6 Toilet Transfer (QC): 6 Car Transfer (QC): 6 Weight Bearing Left Lower Extremity: Left Weight Bearing/Tolerated Gait Training Does the Patient Walk?: Yes Distance: 150' Walk 10 feet (QC): 6 Walk 50 ft with 2 Turns(QC): 6 Walk 150 ft (QC): 6 Walking 10ft/uneven surface-QC: 6 Gait Persons Needed: 0 Gait Assistive Device: FWW Wheelchair Training Does the Pt Use a Wheelchair?: No Stair Training Stair Training: Handrails/: 2 handrails #of Steps: 4 1 Step (curb) (QC): 5 4 Steps (QC): 5 12 Steps (QC): 7 Stairs: Pattern: Step to Balance Picking up an Object (QC): 7 Special Test Comments Pt will have a computer lab assistant at home. Treatments Pt completes QC scoring items listed above. Pt returns to room to rest in bed with all needs met, call light in hand. Assessment Current Status: Good Progress Pt has gained strength and mobility during ARU session. PT Short Term Goals Short Term Goals Time Frame: Sep 13, 2020 Roll Left & Right: 6 Sit to lyin Lying to sitting on side of be: 4 Sit to stand: 3 Chair/qrj-ie-rpyru transfer: 4 Walk 10 feet: 4 Walk 50 feet with two turns: 4 PT Able Bodied Watchman Goals Able Bodied Watchman Goals PT Mcfp Goals Time Frame: Sep 27, 2020 Roll Left & Right (QC): 6 Sit to Lying (QC): 6 Lying-Sitting on Side/Bed(QC): 6 Sit to Stand (QC): 4 (SBA) Chair/Sjw-dl-Ukxbw Xfer(QC): 4 (SBA) Toilet Transfer (QC): 4 (SBA) Car Transfer (QC): 4 (CGA) Does the Patient Walk: Yes Walk 10 feet (QC): 4 (SA) Walk 50ft with 2 Turns (QC): 4 (SBA) Walk 150 ft (QC): 4 (BA) Walking 10ft on Uneven Surface: 4 (SBA) 1 Step (curb) (QC): 4 (SBA) 4 Steps (QC): 4 (SBA) 12 Steps (QC): 88 Picking up an Object (QC): 88 Wheel 50 feet with 2 turns (QC: 9 Wheel 150 feet: 9 PT Plan Treatment/Plan Treatment Plan: Continue Plan of Care Treatment Plan: Bed Mobility, Education, Functional Activity Suzanne, Functional Strength, Group Therapy, Gait, Safety, Therapeutic Exercise, Transfers Treatment Duration: Sep 27, 2020 Frequency: At least 5 of 7 days/Wk (IRF) Estimated Hrs Per Day: 1.5 hours per day Patient and/or Family Agrees t: Yes Time/GCodes Time In: 1025 Time Out: 1040 Total Billed Treatment Time: 15 Total Billed Treatment 1, FA (15m) TREIBER,FRIDA TRANSPORTATION SECURITY SCREENER Sep 17, 2020 10:44
--- NOTE | 2020-09-17 14:39 | Therapy Team Discharge Summary ---
Therapy Discharge Summary Discharge Recommendations Date of Discharge 09/17/2020 Therapy D/C Recommendations: Physical Therapy Home Care Physical Therapy This patient admitted to ARU post elective left TKR. Prior to surgery, she was indep with all mobility. Upon admission to this unit, she was min assist with bed mobility and transfers and able to to walk 30 ft with difficulty with FWW with CGA. Treatment has focused on functional strength, ROM , functional activity tolerance progression all to improve indep gait and transfers. She has made excellent progress and is mod indep with all mobility at this time. She has achieved all goals. she is to discharge home with follow up [facility] PT to follow. DC PT from this facility at this time. Occupational Therapy Decreased Activ Tolerance, Impaired I ADL's PT Mcfp Goals Manager Action Goals PT Manager Action Goals Time Frame: Sep 27, 2020 Roll Left to Right (QC): 6 (met) Sit to Lying (QC): 6 (met) Lying-Sitting on Side/Bed(QC): 6 (met) Sit to Stand (QC): 4 (SBA) Chair/Six-rt-Uvbqj Xfer(QC): 4 (SBA) Car Transfer (QC): 4 (CGA) Does the Patient Walk: Yes Walk 10 feet (QC): 4 (SA) Walk 10ft-Uneven Surface(QC): 4 (SBA) Walk 50ft with 2 Turns (QC): 4 (SBA) Walk 150 ft (QC): 4 (BA) Wheel 50 feet with 2 turns (QC: 9 1 Step (curb) (QC): 4 (SBA) 4 Steps (QC): 4 (SBA) 12 Steps (QC): 88 Picking up an Object (QC): 88 OT Manager Action Goals Manager Action Goals Time Frame: Oct 05, 2020 Eating (QC): 6 (met) Oral Hygiene (QC): 6 (met) Shower/Bathe Self (QC): 6 (met) Upper Body Dressing (QC): 6 (met) Lower Body Dressing (QC): 6 (met) On/Off Footwear (QC): 6 (met) Toileting Hygiene (QC): 6 (met) Toilet/Commode Transfer (QC): 4 (SBA) Additional Goals: 1-Demonstrate ADL Tasks, 2-Verbalize Understanding, 3- ImproveStrength/Suzanne 1=Demonstrate adherence to instructed precautions during ADL tasks. 2=Patient will verbalize/demonstrate understanding of assistive devices/modifications for ADL. 3=Patient will improve strength/tolerance for activity to enable patient to perform ADL's. MICHELLE HEARN PT Sep 17, 2020 14:39
[2020-09-17] MEDS ORDERED: warFARin 5 MG (COUMADIN) TAB PO SCH (18:00)
[2020-09-17 19:56] VITALS: BP 138/68
--- NOTE | 2020-09-19 11:17 | Physician Query Clarification ---
PQ-Intro New Diagnosis Admission/Discharge Admission Date: Sep 06, 2020 at 14:15 Discharge Date: Sep 17, 2020 at 15:50 Dr. Roman, The medical record reflects the following clinical scenario: History/Risk Factors: DJD, HTN, CKD, PAF, SSS. OBESITY Clinical Findings: S/P LT TKR Treatment: IP Rehab Question: What condition best reflects the above clinical scenario? Please document a response in the Progress Noter or Discharge Summary. 1. DJD LT KNEE 2. Condition for which Lt TKR unknown 3. Other, with explanation of the clinical findings. 4. Clinically undetermined, no explanation for the clinical findings. PHYSICIAN RESPONSE What condition reflects above: 1 Please remember a lack of response to the above will prompt a phone page by CDI/ Coding staff. In responding to this query, please exercise your independent professional judgment. The purpose of this communication is to more accurately reflect the complexity of your patients condition. The fact that a question is asked does not imply that any particular answer is desired or expected. Thank you for your timely response to this clarification. Requestors name: Rodolfo THIS PHYSICIAN QUERY FORM IS A PERMANENT PART OF THE MEDICAL RECORD RODOLFO ALEJANDRA Sep 19, 2020 11:17 STEFF ROMAN DO Sep 19, 2020 20:26
== END 2020-09-17 15:50 | disposition home health service (06) | DRG 560 ==
PROVIDERS: ADMIT Internal Medicine; ATTEND Internal Medicine
DX: Z47.1 Aftercare following joint replacement surgery (principal); Z68.41 Body mass index [BMI] 40.0-44.9, adult; Z96.652 Presence of left artificial knee joint; I12.9 Hypertensive chronic kidney disease with stage 1 through stage 4 chronic kidney disease, or unspecified chronic kidney disease; N18.9 Chronic kidney disease, unspecified; I48.0 Paroxysmal atrial fibrillation; I49.5 Sick sinus syndrome; E66.9 Obesity, unspecified; E78.00 Pure hypercholesterolemia, unspecified; E78.5 Hyperlipidemia, unspecified; G62.9 Polyneuropathy, unspecified; M54.9 Dorsalgia, unspecified; E03.9 Hypothyroidism, unspecified; K21.9 Gastro-esophageal reflux disease without esophagitis; K22.4 Dyskinesia of esophagus; R13.10 Dysphagia, unspecified; E87.5 Hyperkalemia; Z85.3 Personal history of malignant neoplasm of breast; Z90.13 Acquired absence of bilateral breasts and nipples; Z79.01 Long term (current) use of anticoagulants
CPT/HCPCS: 36415; 80053; 85025; 85610; 93005; 94760

== ENCOUNTER 2021-04-17 11:47 | Inpatient (IN) | payer MEDICARE ==
[~2021-04-17] VITALS: Ht 165.1 cm; Wt 106.3 kg
[~2021-04-17 11:47] MED LIST: ACET-2267 PO; ACHD5005 PO; CITA40TA19 PO; DICL100G27 TP; FLEC100T PO; FURO40TA4 PO; GABA300C PO; LETR2.5T6 PO; LEVO125T6 PO; LOSA100T57 PO; LOSA50TA63 PO; NABU500T8 PO; OXC5T PO; OXYC-473 PO; PANT40TA52 PO; SENN1TAB76 PO; SPIR25TA5 PO; SUCR1TAB PO; TR1C15 TP; TRAM50TA3 PO; WARF-48 PO; WRF2.5T PO
[2021-04-17] MEDS ORDERED: ACETAMINOPHEN 325 MG TABLET PO PRN (12:00)
[2021-04-17] MEDS ORDERED: BISACODYL 10 MG SUPP (DULCOLAX) PR PRN (12:00)
[2021-04-17] MEDS ORDERED: LOPERAMIDE 2 MG (IMODIUM) TABLET PO PRN (12:00)
[2021-04-17] MEDS ORDERED: FLEET ENEMA ADULT 1 EA BTL PR PRN (12:00)
[2021-04-17] MEDS ORDERED: DOCUSATE SODIUM 100 MG (COLACE) CAP PO PRN (12:00)
[2021-04-17] MEDS ORDERED: ONDANSETRON 4 MG (ZOFRAN) ORAL DISSOLVE TAB PO PRN (12:00)
[2021-04-17] MEDS ORDERED: guaiFENesin/CODEINE (ROBITUSSIN AC) 10ML UDC PO PRN (12:00)
[2021-04-17] MEDS ORDERED: diphenhydrAMINE 25 MG TAB (BENADRYL) PO PRN (12:00)
[2021-04-17] MEDS ORDERED: LACTULOSE SYRUP 10GM/15ML (ENULOSE) 30ML UDC PO PRN (12:00)
[2021-04-17] MEDS ORDERED: OXC5T PO (13:53)
[2021-04-17] MEDS ORDERED: LOSA50TA63 PO (13:53)
[2021-04-17] MEDS ORDERED: TRAM50TA3 PO (13:53)
[2021-04-17] MEDS ORDERED: ACET-2267 PO (13:53)
[2021-04-17] MEDS ORDERED: PANT40TA52 PO (13:53)
[2021-04-17] MEDS ORDERED: CARV12.52 PO (13:53)
[2021-04-17] MEDS ORDERED: DICY10CA12 PO (13:53)
--- NOTE | 2021-04-17 14:40 | PM&R Post Admission Assessment ---
PM&R Date of Visit: Apr 17, 2021 Time of Visit: 16:00 History of Present Illness CC: Right total knee arthroplasty HPI: 80 yr old WF who presents to inpatient rehab following right total knee replacement at [facility]. She came to in-patient rehab with us last summer for the left total knee replacement. She lives at home alone and is currently needing a short term stay for in-patient rehab in order to go home and regain independent function. Past Baokzta-Qzskfn-Ugqyas Hx Past Med/Social Hx: Reviewed Nursing Past Med/Soc Hx, Reviewed and Corrections made Patient Social History Marrital Status: single Employed/Student: retired Alcohol Use: Denies Use Smoking Status: Never a Smoker Past Medical History Cardiac: Atrial Fibrillation, High Cholesterol, Hypertension Neurological: Neuropathy Musculoskeletal: Chronic Back Pain Endocrine: Hypothyroidsim Cancer: Breast Did You Recieve Any Treatments: Yes What Type of Treatment Did You: Surgical Intervention PM&R Allergy/Meds/Data Review Allergies Coded Allergies: adhesive tape (Verified Allergy, Intermediate, BLISTERS, 09/07/20) codeine (Verified Allergy, Intermediate, "MAKES ME FEEL WEIRD", 09/07/20) Uncoded Allergies: STATINS (Allergy, Mild, "MAKES MY LEGS HURT", 09/07/20) Home Medications Scheduled Acetaminophen (Tylenol Extra Strength), 1,000 MG PO Q8H, (Reported) Carvedilol (Coreg), 12.5 MG PO BID, (Reported) Furosemide (Furosemide), 40 MG PO THU,,, (Reported) Gabapentin (Neurontin), 300 MG PO HS, (Reported) Letrozole (Letrozole), 2.5 MG PO DAILY, (Reported) Levothyroxine Sodium (Levothyroxine Sodium), 125 MCG PO DAILY, (Reported) Losartan Potassium (Losartan Potassium), 50 MG PO BID, (Reported) Pantoprazole Sodium (Pantoprazole Sodium), 40 MG PO DAILY, (Reported) Spironolactone (Spironolactone), 25 MG PO DAILY, (Reported) Warfarin Sodium (Warfarin Sodium), 2.5 MG PO THU,E,SAT, (Reported) Warfarin Sodium (Warfarin Sodium), 5 MG PO ,,,FR, (Reported) Scheduled PRN Dicyclomine HCl (Dicyclomine HCl), 10 MG PO QID PRN for STOMACH CRAMPS, (Reported) Oxycodone Hcl (Oxyir Tablet), 5-10 MG PO EVERY 2 HOURS PRN for PAIN-SEVERE (8- 10), (Reported) Tramadol HCl (Tramadol HCl), 50-100 MG PO Q6H PRN for PAIN-MODERATE (5-7), (Reported) Discontinued Medications Citalopram Hydrobromide (Celexa), 40 MG PO DAILY, (Reported) Discontinued Reason: No Longer Taking Diclofenac Sodium (Diclofenac Sodium), 1 APPLIC TP QID PRN for PAIN- BREAKTHROUGH, (Reported) Discontinued Reason: No Longer Taking Flecainide Acetate (Flecainide Acetate), 100 MG PO DAILY, (Reported) Discontinued Reason: No Longer Taking Hydrocodone Bit/Acetaminophen (HYDROcodone/APAP 5 MG/325 MG TAB), 1 EA PO Q4H PRN for PAIN-SEVERE (8-10) Discontinued Reason: No Longer Taking Losartan Potassium (Losartan Potassium), 100 MG PO DAILY, (Reported) Discontinued Reason: No Longer Taking Oxycodone Hcl (Oxyir Tablet), 5-10 MG PO Q2HR PRN for PAIN-SEVERE (8-10) Discontinued Reason: No Longer Taking Pantoprazole Sodium (Pantoprazole Sodium), 40 MG PO BID Discontinued Reason: No Longer Taking Sennosides/Docusate Sodium (Stool Softener-Laxative Tablet), 1 EA PO BID Discontinued Reason: No Longer Taking Sucralfate (Sucralfate), 1 GM PO ACHS Discontinued Reason: No Longer Taking Tramadol HCl (Tramadol HCl), 50 MG PO Q8H PRN for PAIN-MODERATE (5-7) Discontinued Reason: No Longer Taking Triamcinolone Acet (Triamcinolone Acetonide 0.1% Cream), 1 APPLIC TP BID PRN for SKIN IRRITATION, (Reported) Discontinued Reason: No Longer Taking Current Medications Current Medications Reviewed Review of Systems Constitutional: see HPI, malaise, weakness EENTM: no symptoms reported Respiratory: no symptoms reported Cardiovascular: no symptoms reported Gastrointestinal: constipation Genitourinary: no symptoms reported Musculoskeletal: joint pain Skin: no symptoms reported Psychiatric/Neurological: No Symptoms Reported All Other Systems Reviewed Negative Unless Noted: Yes Physical Exam Physical Exam Vital Signs Capillary Refill : Height, Weight, BMI Height: '" Weight: lbs. oz. kg; 39.65 BMI Method: General Appearance: No Apparent Distress, WD/WN, Chronically ill Eyes: Bilateral Eye Normal Inspection, Bilateral Eye PERRL HEENT: PERRL/EOMI, Normal ENT Inspection, Pharynx Normal Neck: Full Range of Motion, Normal Inspection, Non Tender, Supple, Carotid Bruit Respiratory: Chest Non Tender, Lungs Clear, Normal Breath Sounds, No Accessory Muscle Use, No Respiratory Distress Cardiovascular: Regular Rate, Rhythm, No Edema, No Gallop, No JVD, No Murmur, Normal Peripheral Pulses Gastrointestinal: Normal Bowel Sounds, No Organomegaly, No Pulsatile Mass, Non Tender, Soft Back: Normal Inspection, No CVA Tenderness, No Vertebral Tenderness Extremity: Normal Capillary Refill, Normal Inspection, Normal Range of Motion (except right leg), Non Tender, No Calf Tenderness, No Pedal Edema Neurologic/Psychiatric: Alert, Oriented x3, No Motor/Sensory Deficits, Normal Mood/Affect Skin: Normal Color, Warm/Dry Lymphatic: No Adenopathy PM&R Medical Assessment & Plan REHAB/MEDICAL ASSESSMENT AND PLAN: REHAB IMPAIRMENT GROUP: Right knee replacement ETIOLOGIC DIAGNOSIS: Right knee replacement The comorbidities that impact the patients function and/or functional outcome by: Obesity, lives alone REHAB PLAN: The patient is being admitted to our comprehensive inpatient rehabilitation facility and can tolerate the intensity of service consisting of at least: 180 minutes of therapy a day, 5 out of 7 days a week Rehab treatment will consist of: PT and OT will focus on regaining function with use of assistive devices in order to regain function to live independently alone The patient/family has a good understanding of our discharge process and will benefit from an interdisciplinary inpatient rehabilitation program. The patient has potential to make improvement and is in need of at least two of the following multidisciplinary therapies including but not limited to physical, occupational, speech, and prosthetics and orthotics. Additionally the patient will need services from respiratory, nutritional services, wound care, psychology, etc. (Customize this to each patient). Given the patients complex condition and risk of further medical complications, rehabilitation services cannot be safely or effectively provided at a lower level of care such as a group home facility. BARRIERS TO DISCHARGE: Lives alone ESTIMATED LOS: 5 days DISPOSITION: Home RELEVANT CHANGES SINCE PREADMISSION SCREENING: I have compared the patients medical and functional status at the time of the preadmission screening and there are: No changes PROGNOSIS: Good REHABILITATION GOALS: 1. PT and OT will focus on regaining function with use of assistive devices in order to regain function to live independently alone All the above goals were reviewed with the patient and he/she is in agreement. By signing this document, I acknowledge that I have personally performed a full physical examination on this patient within 24 hours of admission to this inpatient rehabilitation facility and have determined the patient to be able to tolerate the above course of treatment at an intensive level for a reasonable period of time. I will be completing a detailed individualized Plan of Care for this patient by day #4 of the patients stay based upon the Preadmission Screen, the Post-Admission Evaluation, and the therapy evaluations. Admission Dx/Comorbidities: (1) Total knee replacement status ICD Codes: Z96.659 - Presence of unspecified artificial knee joint (2) Obesity ICD Codes: E66.9 - Obesity, unspecified (3) GERD (gastroesophageal reflux disease) ICD Codes: K21.9 - Gastro-esophageal reflux disease without esophagitis (4) Hypothyroidism ICD Codes: E03.9 - Hypothyroidism, unspecified (5) Atrial fibrillation ICD Codes: I48.91 - Unspecified atrial fibrillation (6) HX: breast cancer ICD Codes: Z85.3 - Personal history of malignant neoplasm of breast (7) Warfarin anticoagulation ICD Codes: Z79.01 - educational resource coordinator (current) use of anticoagulants Assessment/Plan Assessment and Plan Assess & Plan/Chief Complaint Assessment: 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 Chronic atrial fibrillation Warfarin anticoagulation for stroke prophylaxis from atrial fibrillation Hypothyroidism History of breast cancer Chronic kidney disease Hypertension Hyperlipidemia Obesity Esophageal spasms chronic GERD Postop constipation Plan: Aggressive rehab Supportive care Pain control Bowel regimen STEFF TORRES DO Apr 17, 2021 14:40
--- NOTE | 2021-04-17 15:11 | Progress Note ---
ASHLEYALEX 04/17/21 1511: Progress Note CC: Inpatient Rehab s/p R TKA by Dr. Ramirez at [facility] in [place], [place] on 04/15/21 HPI: Colleen Hinkle is an 80yoF with PMHx of AFib, CKD, LINETTE, hypothyroidism, and history of breast cancer who presents to inpatient rehab s/p right TKA by Dr. Ramirez at [facility] in [place], [place] on 04/15/21. Colleen has been a patient in inpatient rehab before following her prior left TKA approximately one year ago. Upon arrival to the unit, her only complaint is right knee pain. Patient endorses the use of home oxygen at night and while lying supine (2 L via NC). Endorses LINETTE but states she cannot tolerate a CPAP mask. She is currently being evaluated and treated by physical therapy during the interview. She is pleasant and looking forward to working to get dismissed from inpatient rehab. She would like to discharge to home by herself to [place], [place], following completion of inpatient rehab. I discussed the goals of inpatient rehab with the patient and illicit and answered all questions. Patient was in agreement with overall plan. PMHx: Paroxysmal Atrial Fibrillation Chronic Kidney Disease Obstructive Sleep Apnea Hypothyroidism Hypertension Hyperlipidemia Obesity Hx of Breast CA PSHx: Bilateral mastectomy 2/2 breast CA Orthopedic - L4/5 Orthopedic - L TKA Cholecystectomy Appendectomy MEDS: Acetaminophen 1,000mg PO Q8H Oxycodone 5-10mg PO Q2H PRN Tramadol 50-100mg PO Q6H PRN Gabapentin 300mg PO QHS Pantoprazole 40mg PO daily HOME MEDS: Nabumetone 500mg PO PRN Spironolactone 25mg PO daily Furosemide 40mg PO MWF Losartan 50mg PO BID Letrozole 2.5mg PO daily Levothyroxine 125mcg PO daily Dicyclomine 10mg PO QID PRN Tramadol 50mg PO TID PRN Carvedilol 12.5mg PO BID Warfarin PO 2.5mg T/SAT/SUN 5mg MWTHF ALL: Statins Codeine Adhesive Tape FH: Non-contributory SH: Lives at home by herself in [place], [place] States she has some support from family in the area as well as the local [place] Endorses one glass of wine approximately every month Endorses a prior history of smoking for "40 years" and "quit about 40 years ago" Wears 2L oxygen via NC at night and while supine ROS: General: denies fevers, chills, body aches HEENT: no symptoms reported, no headaches or changes in vision CARD: no symptoms reported, no palpitations, no chest pain PULM: no symptoms reported, no wheezing, no shortness of breath ABD: no symptoms reported, no nausea, no vomiting, no diarrhea, no constipation NEURO: no symptoms reported, no numbness, no tingling EXT: right knee pain s/p TKA SKIN: no symptoms reported EXAM: General: obese, well-appearing female in no acute distress, seated in wheelchair with BOOM compressive hose over right knee HEENT: PERRL/EOMI NECK: normal inspection, normal ROM, supple CARD: RRR, no murmur, rub, or gallop, normal S1/S2 PULM: clear to auscultation bilaterally, normal breath sounds, no accessory muscle use ABD: soft, non-tender, non-distended, no palpable masses NEURO: AOx3, CN II-XII intact upon exam PSYCH: appropriate mood and affect, pleasant EXT: BOOM hose covering right knee, no pedal edema, appropriate ROM in all extremities, limited ROM in R leg s/p surgery SKIN: warm, dry, no bruises or skin breakdown, no rashes Asessment: R TKA by Dr. Ramirez on 04/15/21 Paroxysmal Atrial Fibrillation Chronic Kidney Disease Obstructive Sleep Apnea Hypothyroidism Hypertension Hyperlipidemia Obesity Hx of Breast Cancer Plan: Inpatient rehabilitation with PT/OT/Speech/SS Continue home meds Pain regimen Bowel regimen CBC/CMP/TSH/VIT D MARISSA TORRES DO 04/18/21 0546: Supervisory-Addendum Brief Verification & Attestation Participated in pt care: history, MDM, physical Personally performed: exam, history, MDM, supervision of care Care discussed with: Medical Student Procedures: n/a Results interpretation: Verified all documentation Verification and Attestation of Medical Student E/M Service A medical student performed and documented this service in my presence. I reviewed and verified all information documented by the medical student and made modifications to such information, when appropriate. I personally performed the physical exam and medical decision making. Marissa Torres, Apr 18, 2021,05:46 ALEX RAMIREZ Apr 17, 2021 15:11 MARISSA TORRES DO Apr 18, 2021 05:46
--- NOTE | 2021-04-17 15:18 | Physical Therapy Evaluation ---
PT Evaluation-General Medical Diagnosis Admission Date Medical Diagnosis: right TKA Onset Date: Apr 15, 2021 Therapy Diagnosis Therapy Diagnosis: impaired mobility, strength, endurance Precautions Precautions/Isolations: Fall Prevention, Standard Precautions Weight Bear Status Right Lower Extremity: Right Weight Bearing/Tolerated Referral Physician: Marissa Roman DO Reason for Referral: Evaluation/Treatment Medical History Pertinent Medical History: Atrial Fib, GERD, HTN Additional Medical History Past Medical History Cardiac: Atrial Fibrillation, High Cholesterol, Hypertension Neurological: Neuropathy Musculoskeletal: Chronic Back Pain Endocrine: Hypothyroidsim Cancer: Breast Reviewed History: Yes Social History Home: Single Level Current Living Status: Alone Entry Into Home: Stairs With Railing PT Steps Into Home: 7 Prior Prior Level of Function SCALE: Activities may be completed with or without assistive devices. 0-Atdoktsyue-aazfonw completes the activity by him/herself with no assistance from a helper. 5-Set-up or Clean-up Assistance-helper sets up or cleans up; patient completes activity. [place] assists only prior to or following the activity. 4-Supervision or Touching Assistance-helper provides verbal cues and/or touching/steadying and/or contact guard assistance as patient completes activity. Assistance may be provided throughout the activity or intermittently. 3-Partial/Moderate Assistance-helper does LESS THAN HALF the effort. [place] [facility] lifts, holds or supports trunk or limbs, but provides less than half the effort. 2-Substantial/Maximal Assistance-helper does MORE THAN HALF the effort. [facility] [place] lifts or holds trunk or limbs and provides more than half the effort. 1-Uhlprzhks-ctciql does ALL the effort. Patient does none of the effort to complete the activity. Or, the assistance of 2 or more helpers is required for the patient to complete the activity. If activity was not attempted, code reason: 7-Patient Refused. 9-Not Applicable-not attempted and the patient did not perform the activity before the current illness, exacerbation or injury. 10-Not Attempted due to Environmental Limitations-(lack of equipment, weather restraints, etc.). 88-Not Attempted due to Medical Conditions or Safety Concerns. Bed Mobility: 6 Transfers (B,C,W/C): 6 Gait: 6 Stairs: 6 Indoor Mobility (Ambulation): Independent Stairs: Independent Patient had been using a rolling walker after her last TKA during the summer but says just before this surgery she was walking without an assistive device PT Evaluation-Current Subjective Patient in WC pre tx, agrees to PT, has 10/10 pain in right knee, nurse notified. Will be co-treating with OT for part of tx due to poor patient mobility, strength, endurance, severe pain with activity, coordinate UE and LE during activity, safety and reduce risk of falls. Pt/Family Goals to be independent at home Objective Patient Orientation: Person, Place, Situation ROM/Strength ROM Lower Extremities right knee flexion 70 degrees, extension +30 degrees Strength Lower Extremities RLE (hip flexion 2/5, dorsiflexion 5/5, knee not tested due to pain), LLE (hip flexion 3+/5, knee flexion 4+/5, knee extension 4+/5, dorsiflexion 5/5) Sensory Vision: Wears Glasses Hearing: Functional Sensation Right Lower Extremit: Intact Sensation Left Lower Extremity: Intact Transfers Roll Left & Right (QC): 6 Sit to Lying (QC): 3 Lying to Sitting/Side of Bed(Q: 3 Sit to Stand (QC): 3 Chair/Gmp-qj-Zyetp Xfer(QC): 4 Toilet Transfer (QC): 4 Car Transfer (QC): 88 Patient performs rolling independently, supine to sit mod assist, sit to supine min assist, sit <-> stand min assist, transfers CGA, patient was not able to complete a car transfer due to right knee pain. Patient needs occasional cues for positioning and safety. Patient also stood in the parallel bars x2 working on weight shifting and bearing more weight on right leg, stood for about 1 min each time. Gait Does the Patient Walk?: Yes Mode of Locomotion: Walk Anticipated Mode of Locomotion: Walk Walk 10 feet (QC): 88 Walk 50 ft with 2 Turns(QC): 88 Walk 150 ft (QC): 88 Walking 10ft/uneven surface-QC: 88 Distance: 2' Gait Assistive Device: FWW Comments/Gait Description Patient can ambulate 2' with a rolling walker with CGA, patient has a lot of pa in right now and cannot bear weight on her right leg Wheelchair Training Does the Pt Use a Wheelchair?: Yes Distance: 120'x3 Wheel 50 ft with 2 turns (QC): 4 Wheel 150 ft (QC): 88 Type of Wheelchair: Manual Patient can propel a manual WC 120' with SBA, slow but no rest breaks Stairs 1 Step (curb) (QC): 88 4 Steps (QC): 88 12 Steps (QC): 88 Balance Sitting Static: Normal Sitting Dynamic: Normal Standing Static: Fair Standing Dynamic: Fair Picking up an Object (QC): 4 (using redipper) Treatment PT performed bed mobility and transfers, ambulation, WC mobility, standing in parallel bars and during transfers for dressing and bathing, OT performed dressing, bathing, UE positioning and safety during activity Assessment/Needs Patient has impaired mobility, strength, endurance. She has very limited right knee ROM. Patient in bed post tx with nurse call, phone, tray, all needs met. Rehab Potential: Fair PT Short Term Goals Short Term Goals Time Frame: Apr 24, 2021 Roll Left & Right: 6 Sit to lyin Lying to sitting on side of be: 3 Sit to stand: 4 Chair/ktn-nj-geixn transfer: 4 Walk 10 feet: 4 Walk 50 feet with two turns: 4 PT Senior Care Goals Senior Care Goals PT Senior Care Goals Time Frame: May 08, 2021 Roll Left & Right (QC): 6 Sit to Lying (QC): 6 Lying-Sitting on Side/Bed(QC): 6 Sit to Stand (QC): 5 Chair/Jdb-xa-Wqlbx Xfer(QC): 5 Toilet Transfer (QC): 5 Car Transfer (QC): 5 Does the Patient Walk: Yes Walk 10 feet (QC): 5 Walk 50ft with 2 Turns (QC): 5 Walk 150 ft (QC): 5 Walking 10ft on Uneven Surface: 4 1 Step (curb) (QC): 4 4 Steps (QC): 4 12 Steps (QC): 88 Picking up an Object (QC): 5 Wheel 50 feet with 2 turns (QC: 6 Wheel 150 feet: 6 PT Plan Problem List Problem List: Activity Tolerance, Functional Strength, Safety, Balance, Gait, Transfer, Bed Mobility, ROM Treatment/Plan Treatment Plan: Continue Plan of Care Treatment Plan: Bed Mobility, Education, Functional Activity Suzanne, Functional Strength, Group Therapy, Gait, Safety, Therapeutic Exercise, Transfers Treatment Duration: May 08, 2021 Frequency: At least 5 of 7 days/Wk (IRF) Estimated Hrs Per Day: 1.5 hours per day Patient and/or Family Agrees t: Yes Safety Risks/Education Patient Education: Gait Training, Transfer Techniques, Correct Positioning, W/C Management, Safety Issues Teaching Recipient: Patient Teaching Methods: Demonstration, Discussion Response to Teaching: Reinforcement Needed Discharge Recommendations Plan Patient will perform bed mobility and transfer training, balance and endurance training, functional strengthening, stair training, gait training, and education, to improve functional mobility and independence at home. Therapy Discharge Recommendati: Home & Family, Post Acute PT Time/GCodes Time In: 1425 Time Out: 1605 Total Billed Treatment Time: 90 Total Billed Treatment 1 visit EVM 10' FA 80' PT eval from [id number], OT eval from [id number], co-treat from [id number] DAYAMI UGARTE PT Apr 17, 2021 15:18
[2021-04-17 15:59] VITALS: BP 151/71
--- NOTE | 2021-04-17 15:59 | Occupational Therapy Eval ---
OT Evaluation-General/PLF Medical Diagnosis Admission Date Apr 17, 2021 at 14:25 Medical Diagnosis: right TKA Onset Date: Apr 15, 2021 Therapy Diagnosis Therapy Diagnosis: Reduced adl status, impaired balance Precautions Precautions/Isolations: Fall Prevention, Standard Precautions Weight Bear Status Weight Bearing Restriction: Weight Bearing/Tolerated Location Restriction: R LE Referral Physician: Marissa Roman DO Referral Reason: Evaluation/Treatment Medical History Pertinent Medical History: Atrial Fib, GERD, HTN Current History POD #2, R TKA Pt reports living alone in a single story home. Indep with adls and iadls (except cleaning which she has corrugator helper ~3-4/month). Pt was not using any AD prior to admission. Still drives. Social History Home: Single Level Current Living Status: Alone Entry Into Home: Stairs With Railing Steps Into Home: 7 ADL-Prior Level of Function SCALE: Activities may be completed with or without assistive devices. 3-Pghqxlrmag-rlihwre completes the activity by him/herself with no assistance from a helper. 5-Set-up or Clean-up Assistance-helper sets up or cleans up; patient completes activity. [place] assists only prior to or following the activity. 4-Supervision or Touching Assistance-helper provides verbal cues and/or touching/steadying and/or contact guard assistance as patient completes activity. Assistance may be provided throughout the activity or intermittently. 3-Partial/Moderate Assistance-helper does LESS THAN HALF the effort. [place] lifts, holds or supports trunk or limbs, but provides less than half the effort. 2-Substantial/Maximal Assistance-helper does MORE THAN HALF the effort. [place] lifts or holds trunk or limbs and provides more than half the effort. 1-Qzlynamjl-kypfaq does ALL the effort. Patient does none of the effort to complete the activity. Or, the assistance of 2 or more helpers is required for the patient to complete the activity. If activity was not attempted, code reason: 7-Patient Refused. 9-Not Applicable-not attempted and the patient did not perform the activity before the current illness, exacerbation or injury. 10-Not Attempted due to Environmental Limitations-(lack of equipment, weather restraints, etc.). 88-Not Attempted due to Medical Conditions or Safety Concerns. Self Care: Independent Functional Cognition: Independent DME/Equipment: Bath Chair, Grab Bars, Tall Toilet, Tub/Shower Drive Self: Yes OT Current Status Subjective Pt reports greater than 10/10 pain in R knee. She states she had not received pain meds since early in the morning. RN notified and meds given during session. Co-treat with PT for part of session ([id number])due to severe pain, high fall risk, and poor activity tolerance. Appearance Pt left supine in bed, all needs within reach, RN notified at therapy departure. Mental Status/Objective Patient Orientation: Person, Place, Situation Current Glasses/Contacts: Yes Hearing Aids: No Dentures/Partials: No Hand Dominance: Right Upper Extremity ROM WNL Upper Extremity Strength 3+/5 throughout. Good etl developer strength ADL-Treatment Eating (QC): 6 Oral Hygiene (QC): 3 Shower/Bathe Self (QC): 3 Upper Body Dressing (QC): 3 Lower Body Dressing (QC): 3 On/Off Footwear (QC): 1 Toileting Hygiene (QC): 3 Pt transferring back to w/c from toilet at therapy arrival. She reports that she "hurt" her knee when she was transferring to the toilet. Shower performed; 100% completed in sitting. Pt able to perform lateral pelvic leans in order to reach/wash buttocks. She declined standing for more thorough cleaning. Pt able to wash upper body and down to ankles. Assistance needed to wash feet due to increased pain in R knee when bending. Stand pivot from shower bench to w/c with mod a. Cues to ensure surface is behind her before attempting to sit. Pt sat to thread BLE's into underwear. Extra time but no assistance required. She stood at grab bar, min a for balance and min a to manage fully over hips. Dependent to don socks due to increased pain. She sat in w/c to complete grooming tasks, anticipate steadying assist will be needed if performed in standing. New gown donned with min a. Other Treatments Pt participated in standing activity in parallel bars. Goal to increased weight bearing on RLE through weight shifting and functional reaching. Min A for balance once upright. Education OT Patient Education: Correct positioning, Energy conservation, Modified ADL techniques, Progress toward Goal/Update tx plan, Purpose of tx/functional activities, Reviewed precautions, Rehab process, Safety issues, Transfer techniques, W/C management Teaching Recipient: Patient Teaching Methods: Discussion Response to Teaching: Verbalize Understanding, Return Demonstration, Reinforcement Needed OT Short Term Goals Short Term Goals Time Frame: Apr 24, 2021 Eatin Oral hygiene: 5 Toileting hygiene: 4 Shower/bathe self: 4 Upper body dressin Lower body dressin Putting on/taking off footwear: 4 OT Alf Goals Order Processing Specialist Goals Time Frame: May 01, 2021 Eating (QC): 6 Oral Hygiene (QC): 6 Toileting Hygiene (QC): 6 Shower/Bathe Self (QC): 5 Upper Body Dressing (QC): 6 Lower Body Dressing (QC): 6 On/Off Footwear (QC): 5 1=Demonstrate adherence to instructed precautions during ADL tasks. 2=Patient will verbalize/demonstrate understanding of assistive devices/modifications for ADL. 3=Patient will improve strength/tolerance for activity to enable patient to perform ADL's. OT Education/Plan Problem List/Assessment Assessment: Decreased Activ Tolerance, Decreased UE Strength, Impaired Bed Mobility, Impaired Funct Balance, Impaired I ADL's, Impaired Self-Care Skills Discharge Recommendations Plan/Recommendations: Continue POC Therapy Discharge Recommendati: Homemaker Support, Home & Family, Post Acute OT (home health) Target Placement home with home health Treatment Plan/Plan of Care Treatment,Training & Education: Yes Patient would benefit from OT for education, treatment and training to promote independence in ADL's, mobility, safety and/or upper extremity function for ADL's. Plan of Care: ADL Retraining, Functional Mobility, Group Exercise/Act as Ind, UE Funct Exercise/Act, W/C Management Training Treatment Duration: May 01, 2021 Frequency: At least 5 of 7 days/Wk (IRF) Estimated Hrs Per Day: 1.5 hours per day Agreement: Yes Rehab Potential: Fair Time/GCodes Start Time: 14:35 Stop Time: 16:05 Total Time Billed (hr/min): 90 Billed Treatment Time 1 visit EVM (10 min) ADL x4 (60 min) FA (20 min) Heavenly Rcie OT Apr 17, 2021 15:59
[2021-04-17] MEDS: warFARin 5 MG (COUMADIN) TAB PO SCH (17:18)
[2021-04-17] MEDS ORDERED: FLU QUAD HIGH DOSE 240 MCG/0.7 ML 2021-22 (FLUZONE) IM ONE (19:00)
[2021-04-17] MEDS: GABAPENTIN 300 MG (NEURONTIN) CAP PO SCH (19:04)
[2021-04-17 20:00] VITALS: BP 153/68
[2021-04-17] MEDS ORDERED: GABAPENTIN 300 MG (NEURONTIN) CAP PO SCH (21:00)
[2021-04-17] MEDS: SENNA W/DOCUSATE (SENOKOT S) TABLET PO SCH (21:12)
[2021-04-17] MEDS: DOCUSATE SODIUM 100 MG (COLACE) CAP PO SCH (21:12)
[2021-04-17] MEDS: LOSARTAN 50 MG (COZAAR) TAB PO SCH (21:20)
[2021-04-17] MEDS: polyethylene glycoL POWDER 17 GM (MIRALAX) PACK PO SCH (21:20)
[2021-04-18] MEDS: CALCIUM CARBONATE 500 MG (TUMS) TAB.CHEW PO PRN ×3 (02:49→12:24)
[2021-04-18 05:47] LABS: BASOPHILS % (AUTO) 1 % (0-10); EOSINOPHILS # (AUTO) 0.1 10^3/uL (0.0-0.3); EOSINOPHILS % (AUTO) 2 % (0-10); HEMATOCRIT 30 % (35-52); LYMPHOCYTES # (AUTO) 0.9 10^3/uL (1.0-4.0); LYMPHOCYTES % (AUTO) 12 % (12-44); MEAN CORPUSCULAR HEMOGLOBIN 32 pg (25-34); MEAN CORPUSCULAR HGB CONC 33 g/dL (32-36); MEAN CORPUSCULAR VOLUME 98 fL (80-99); MEAN PLATELET VOLUME 11.3 fL (9.0-12.2); MONOCYTES # (AUTO) 0.9 10^3/uL (0.0-1.0); MONOCYTES % (AUTO) 12 % (0-12); NEUTROPHILS # (AUTO) 5.5 10^3/uL (1.8-7.8); NEUTROPHILS % (AUTO) 73 % (42-75); PLATELET COUNT 158 10^3/uL (130-400); WHITE BLOOD COUNT 7.5 10^3/uL (4.3-11.0)
[2021-04-18 05:55] LABS: INR 1.4 (0.8-1.4)
[2021-04-18 05:56] LABS: ALBUMIN 3.6 GM/DL (3.2-4.5); CHLORIDE 100 MMOL/L (98-107); POTASSIUM 4.6 MMOL/L (3.6-5.0); SODIUM 133 MMOL/L (135-145)
[2021-04-18 05:57] LABS: CALCIUM 8.6 MG/DL (8.5-10.1)
[2021-04-18 05:58] LABS: GLUCOSE 111 MG/DL (70-105); TOTAL PROTEIN 6.6 GM/DL (6.4-8.2)
[2021-04-18 05:59] LABS: CARBON DIOXIDE 21 MMOL/L (21-32)
[2021-04-18 06:00] LABS: BILIRUBIN,TOTAL 0.5 MG/DL (0.1-1.0)
[2021-04-18 06:02] LABS: ALKALINE PHOSPHATASE 51 U/L (40-136); CREATININE SERUM 1.37 MG/DL (0.60-1.30); GFR ESTIMATED 39
[2021-04-18 06:03] LABS: BUN/CREATININE RATIO 23
[2021-04-18 06:05] LABS: ALANINE AMINOTRANSFERASE < 6 U/L (0-55)
[2021-04-18] MEDS: LEVOTHYROXINE 125 MCG (LEVOTHROID) TABLET PO SCH (06:44)
[2021-04-18 07:12] VITALS: BP 138/65
[2021-04-18] MEDS: SENNA W/DOCUSATE (SENOKOT S) TABLET PO SCH ×2 (07:54→20:09)
[2021-04-18] MEDS: PANTOPRAZOLE 40 MG (PROTONIX) TAB PO SCH (07:54)
[2021-04-18] MEDS: DOCUSATE SODIUM 100 MG (COLACE) CAP PO SCH ×2 (07:54→20:09)
[2021-04-18] MEDS: LETROZOLE 2.5 MG (FEMARA) TAB PO SCH (07:54)
[2021-04-18] MEDS: SPIRONOLACTONE 25 MG (ALDACTONE) TAB PO SCH (07:54)
[2021-04-18] MEDS: polyethylene glycoL POWDER 17 GM (MIRALAX) PACK PO SCH ×2 (07:54→20:10)
--- NOTE | 2021-04-18 08:09 | Occupational Ther Daily Note ---
OT Current Status-Daily Note Subjective Pt denies pain at rest. Slight increase after initial mobility/transfer. RN in to give meds towards end of session. Appearance Pt left sitting in recliner, all needs within reach, RN in room. Mental Status/Objective Patient Orientation: Person, Place, Time, Situation Attachments: Oxygen Pt on 2L oxygen. She reports this is baseline when she sleeps. Oxygen removed when awake. ADL-Treatment Therapy Code Descriptions/Definitions Functional [place] Measure: 0=Not Assessed/NA 4=Minimal Assistance 1=Total Assistance 5=Supervision or Setup 2=Maximal Assistance 6=Modified [place] 3=Moderate Assistance 7=Complete IndependenceSCALE: Activities may be completed with or without assistive devices. 8-Hyslbmslth-hkycjyo completes the activity by him/herself with no assistance from a helper. 5-Set-up or Clean-up Assistance-helper sets up or cleans up; patient completes activity. [place] assists only prior to or following the activity. 4-Supervision or Touching Assistance-helper provides verbal cues and/or touching/steadying and/or contact guard assistance as patient completes activity. Assistance may be provided throughout the activity or intermittently. 3-Partial/Moderate Assistance-helper does LESS THAN HALF the effort. [place] lifts, holds or supports trunk or limbs, but provides less than half the effort. 2-Substantial/Maximal Assistance-helper does MORE THAN HALF the effort. [place] lifts or holds trunk or limbs and provides more than half the effort. 5-Dvjmyauhs-emqjzx does ALL the effort. Patient does none of the effort to complete the activity. Or, the assistance of 2 or more helpers is required for the patient to complete the activity. If activity was not attempted, code reason: 7-Patient Refused. 9-Not Applicable-not attempted and the patient did not perform the activity before the current illness, exacerbation or injury. 10-Not Attempted due to Environmental Limitations-(lack of equipment, weather restraints, etc.). 88-Not Attempted due to Medical Conditions or Safety Concerns. Eating (QC): 5 Upper Body Dressing (QC): 5 Lower Body Dressing (QC): 4 Toileting Hygiene (QC): 4 Toilet Transfer (QC): 4 Supine>sit: Min a to transition RLE. Dressing tasks performed sitting EOB, good sitting balance. Extra time to thread RLE into pants, but no physical assistance required. Min-mod a for initial boost to stand. Once standing, pt able to manage clothing up to waist with steadying assist. Due to urgency, pt requests to use commode vs walking to toilet. Sharmaine care and clothing management performed in standing with CGA for safety. She ambulated ~5 feet to recliner, difficulty lifting RLE. Cues to extend leg when lowering to sit. Pt left sitting in recliner, breakfast tray and grooming supplies (hair brush) set up by OT. Education OT Patient Education: Correct positioning, Modified ADL techniques, Purpose of tx/functional activities, Safety issues, Transfer techniques Teaching Recipient: Patient Teaching Methods: Discussion Response to Teaching: Verbalize Understanding, Reinforcement Needed OT Short Term Goals Short Term Goals Time Frame: Apr 24, 2021 Eatin Oral hygiene: 5 Toileting hygiene: 4 Shower/bathe self: 4 Upper body dressin Lower body dressin Putting on/taking off footwear: 4 OT Senior Living Goals Corsage Maker Goals Time Frame: May 01, 2021 Eating (QC): 6 Oral Hygiene (QC): 6 Toileting Hygiene (QC): 6 Shower/Bathe Self (QC): 5 Upper Body Dressing (QC): 6 Lower Body Dressing (QC): 6 On/Off Footwear (QC): 5 1=Demonstrate adherence to instructed precautions during ADL tasks. 2=Patient will verbalize/demonstrate understanding of assistive devices/modifications for ADL. 3=Patient will improve strength/tolerance for activity to enable patient to perform ADL's. OT Education/Plan Problem List/Assessment Assessment: Decreased Activ Tolerance, Decreased UE Strength, Impaired Funct Balance, Impaired I ADL's, Impaired Self-Care Skills Discharge Recommendations Plan/Recommendations: Continue POC Treatment Plan/Plan of Care Treatment,Training & Education: Yes Patient would benefit from OT for education, treatment and training to promote independence in ADL's, mobility, safety and/or upper extremity function for ADL's. Plan of Care: ADL Retraining, Functional Mobility, Group Exercise/Act as Ind, UE Funct Exercise/Act, W/C Management Training Treatment Duration: May 01, 2021 Frequency: At least 5 of 7 days/Wk (IRF) Estimated Hrs Per Day: 1.5 hours per day Agreement: Yes Rehab Potential: Fair Time/GCodes Start Time: 07:37 Stop Time: 08:00 Total Time Billed (hr/min): 23 Billed Treatment Time 1 visit ADL x2 Heavenly Rice OT Apr 18, 2021 08:09
[2021-04-18] MEDS: LOSARTAN 50 MG (COZAAR) TAB PO SCH (08:42)
--- NOTE | 2021-04-18 09:04 | Physical Therapy Daily Note ---
PT Daily Note-Current Subjective Pt. sitting up for brkfst. C/o wheezing and worried about her kidneys etc. Pt. c/o pain in rigt knee at 9/10 during TRFs and some ex but no pain with rest and states it all begins to feel better as she moves more. Pain Numeric Pain Scale: 9 Location: Right Location Body Site: Knee Pain Description: Burning Mental Status Patient Orientation: Normal For Age Transfers SCALE: Activities may be completed with or without assistive devices. 0-Ejlfinqmib-chjhlok completes the activity by him/herself with no assistance from a helper. 5-Set-up or Clean-up Assistance-helper sets up or cleans up; patient completes activity. [place] assists only prior to or following the activity. 4-Supervision or Touching Assistance-helper provides verbal cues and/or touching/steadying and/or contact guard assistance as patient completes activity. Assistance may be provided throughout the activity or intermittently. 3-Partial/Moderate Assistance-helper does LESS THAN HALF the effort. [place] lifts, holds or supports trunk or limbs, but provides less than half the effort. 2-Substantial/Maximal Assistance-helper does MORE THAN HALF the effort. [place] lifts or holds trunk or limbs and provides more than half the effort. 3-Yoiwydnbf-bfotob does ALL the effort. Patient does none of the effort to complete the activity. Or, the assistance of 2 or more helpers is required for the patient to complete the activity. If activity was not attempted, code reason: 7-Patient Refused. 9-Not Applicable-not attempted and the patient did not perform the activity before the current illness, exacerbation or injury. 10-Not Attempted due to Environmental Limitations-(lack of equipment, weather restraints, etc.). 88-Not Attempted due to Medical Conditions or Safety Concerns. Roll Left & Right (QC): 6 Sit to Lying (QC): 3 Lying to Sitting/Side of Bed(Q: 4 Sit to Stand (QC): 5 Chair/Pby-wa-Uchsj Xfer(QC): 5 emphasis on sit to sup and sup to sit, pt. requires assist to left RLE but improved with Tx and instruction Weight Bearing Right Lower Extremity: Right Weight Bearing/Tolerated Gait Training Does the Patient Walk?: Yes Walk 10 feet (QC): 4 Walk 50 ft with 2 Turns(QC): 4 Gait Persons Needed: 1 Gait Assistive Device: FWW 50ft x 2 100ft x 1, 30 ft x 1 FWW slow, heavy wt bearing on FWW, flexed at right knee and PWB Exercises Supine Ex: Ankle pumps, Quad Set, Heel Slides, Short Arc Quads, Scooting, Straight leg raise Supine Reps: 15 Seated Therapy Exercises: Ankle pumps, Sit to stand, Long arc quads Seated Reps: 15 Treatments TRFs, gait, therex, ROM , in bed afer Tx with polar pack insitu as well as O2 Assessment Current Status: Fair Progress audible wheezing during Tx, nursing to assess. PT Short Term Goals Short Term Goals Time Frame: Apr 24, 2021 Roll Left & Right: 6 Sit to lyin Lying to sitting on side of be: 3 Sit to stand: 4 Chair/oeq-ba-xlwbb transfer: 4 Walk 10 feet: 4 Walk 50 feet with two turns: 4 PT Jail Goals Jail Goals PT Reservations Agent Goals Time Frame: May 08, 2021 Roll Left & Right (QC): 6 Sit to Lying (QC): 6 Lying-Sitting on Side/Bed(QC): 6 Sit to Stand (QC): 5 Chair/Fci-qq-Dzybk Xfer(QC): 5 Toilet Transfer (QC): 5 Car Transfer (QC): 5 Does the Patient Walk: Yes Walk 10 feet (QC): 5 Walk 50ft with 2 Turns (QC): 5 Walk 150 ft (QC): 5 Walking 10ft on Uneven Surface: 4 1 Step (curb) (QC): 4 4 Steps (QC): 4 12 Steps (QC): 88 Picking up an Object (QC): 5 Wheel 50 feet with 2 turns (QC: 6 Wheel 150 feet: 6 PT Plan Treatment/Plan Treatment Plan: Continue Plan of Care Treatment Plan: Bed Mobility, Education, Functional Activity Suzanne, Functional Strength, Group Therapy, Gait, Safety, Therapeutic Exercise, Transfers Treatment Duration: May 08, 2021 Frequency: At least 5 of 7 days/Wk (IRF) Estimated Hrs Per Day: 1.5 hours per day Patient and/or Family Agrees t: Yes Safety Risks/Education Patient Education: Gait Training, Transfer Techniques, Correct Positioning, Disease Process, Safety Issues Teaching Recipient: Patient Teaching Methods: Demonstration, Discussion Response to Teaching: Verbalize Understanding, Return Demonstration, Reinforcement Needed Time/GCodes Time In: 800 Time Out: 900 Total Billed Treatment Time: 60 Total Billed Treatment 1,FA15m,GT15m,EX30m ELENA BRYAN MOLD OPERATOR Apr 18, 2021 09:04
--- NOTE | 2021-04-18 10:18 | Individualized Plan of Care ---
Individualized Plan of Care Rehab Nursing IPOC Order Admission Date Apr 17, 2021 at 14:25 Current Orders Orders Admission Order(Inpt,Obs,Sdc) (04/17/21 12:00) Vital Signs: Per Unit Policy ( 08,16,00 (04/17/21 12:00) Car Duffy (04/17/21 12:00) Sequential Compression Device (04/17/21 12:00) Petrophysical Engineer-Inpt Rehab Con (04/17/21 12:00) Rehab Nursing Orders-Ipoc (04/17/21 12:00) Physical Therapy Rehab Orders (04/17/21 12:00) Occupational Therapy Rehab Ord (04/17/21 12:00) Speech Therapy Rehab Orders (04/17/21 12:00) Cbc With Automated Diff (04/18/21 06:00) Comprehensive Metabolic Panel (04/18/21 06:00) Precautions (Aru) (04/17/21 12:00) Weekly Weight WEEK (04/17/21 12:00) Rehab-Intensity Of Therapy (04/17/21 12:00) Initiate Admission Nursing Pro .admission (04/17/21 12:00) Alprazolam Tablet (Xanax Tablet) (04/17/21 12:00) Calcium Carbonate Chew Tablet (Antacid C (04/17/21 12:00) Diphenhydramine Tablet (Benadryl Tablet) (04/17/21 12:00) Docusate Sodium Capsule (Colace Capsule) (04/17/21 21:00) Docusate Sodium Capsule (Colace Capsule) (04/17/21 12:00) Bisacodyl Suppository (Dulcolax Supposit (04/17/21 12:00) Lactulose Oral Solution (Enulose Oral So (04/17/21 12:00) Na Phos/Na Biphos Enema (Fleet Enema Mikhail (04/17/21 12:00) Guaifenesin/Codeine Syrup (Robitussin Ac (04/17/21 12:00) Loperamide Tablet (Imodium Tablet) (04/17/21 12:00) Melatonin Tablet (Melatonin Tablet) (04/17/21 12:00) Polyethylene Glycol Powder Pkt (Miralax (04/17/21 21:00) Ondansetron Oral Dissolve Tab (Zofran (04/17/21 12:00) Senna S Tablet (Senokot S Tablet) (04/17/21 21:00) Acetaminophen Tablet/Caplet (Tylenol T (04/17/21 12:00) Code/Resuscitation (04/17/21 12:00) Sequential Compression Device ONCE (04/17/21 12:00) Initiate Admission Nursing Pro .admission (04/17/21 12:00) Nursing Communication (Order) (04/17/21 13:10) Follow-Up Appointment (04/17/21 13:16) Fluid Restriction (04/17/21 14:25) Carvedilol Tablet (Coreg Tablet) (04/17/21 21:00) Dicyclomine Capsule (Bentyl Capsule) (04/17/21 14:45) Gabapentin Capsule/Tablet (Neurontin Cap (04/17/21 21:00) Letrozole Tablet (Femara Tablet) (04/18/21 09:00) Levothyroxine Tablet (Synthroid Tablet) (04/18/21 06:30) Losartan Tablet (Cozaar Tablet) (04/17/21 21:00) Oxycodone Immediate Rel Tablet (Oxyir Ta (04/17/21 14:45) Pantoprazole Tablet (Protonix Tablet) (04/18/21 09:00) Spironolactone Tablet (Aldactone Tablet) (04/18/21 09:00) Warfarin Tablet (Coumadin Tablet) (04/17/21 18:00) Protime With Inr (04/18/21 06:00) Admission Arrival Bed Request (04/17/21 14:45) Tramadol Tablet (Ultram Tablet) (04/17/21 15:45) Furosemide Tablet (Lasix Tablet) (04/19/21 09:00) Warfarin Tablet (Coumadin Tablet) (04/20/21 18:00) General/Regular (04/17/21 Dinner) Flu Quad High Dose [id number] (Fluzone Hi (04/17/21 19:00) Gabapentin Capsule/Tablet (Neurontin Cap (04/17/21 19:00) Patient Visit (04/17/21 ) Pt Eval Moderate Complexity (04/17/21 ) Functional Activities, Ea 15 (04/17/21 ) Famotidine Tablet (Pepcid Tablet) (04/18/21 10:15) Albuterol Pre-Mix Nebs (Rt) (Proventil (04/18/21 10:15) Svn Small Volume Nebulizer (04/18/21 10:15) Patient Visit (04/18/21 ) Functional Activities, Ea 15 (04/18/21 ) Exercise Therap, Ea 15 Min (04/18/21 ) Gait Training, Ea 15 Min (04/18/21 ) Rehab Nursing Orders: Ongoing Assess. of Cognitive Status, Ongoing Assess. of Function Status, Bladder Management, Bladder Scan, Bladder Training, Bowel Management, Bowel Training, Disease Management & Educaiton, DVT Prophylaxis, Fall Prevention, Fluid/Electrolyte/Nutrition Mgmt, Infection Prevention, Medication Management & Education, Management of Risks & Complications, Management of Skin Intergrity, Nutrition Management, Pain Management, Patient/Family Support, Safety Management Intensity of Therapy to be met Patient to be seen: Min.3h per day/5 of 7d PT IPOC Problem List: Activity Tolerance, Functional Strength, Safety, Balance, Gait, Transfer, Bed Mobility, ROM Treatment Plan: Continue Plan of Care Bed Mobility, Education, Functional Activity Suzanne, Functional Strength, Group Therapy, Gait, Safety, Therapeutic Exercise, Transfers Treatment Duration: May 08, 2021 Frequency: At least 5 of 7 days/Wk (IRF) Estimated Hrs Per Day: 1.5 hours per day OT IPOC Problems: Decreased Activ Tolerance, Decreased UE Strength, Impaired Funct Balance, Impaired I ADL's, Impaired Self-Care Skills OT Treatment, Training and Edu: Yes Plan of Care: ADL Retraining, Functional Mobility, Group Exercise/Act as Ind, UE Funct Exercise/Act, W/C Management Training Treatment Duration: May 01, 2021 Frequency: At least 5 of 7 days/Wk (IRF) Estimated Hrs Per Day: 1.[address] IPOC Speech Therapy Treatment Plan: Discontinue ST Treatment Duration: Apr 18, 2021 Frequency: Modified Program (IRF) Estimated Hrs Per Day: Other Petrophysical Engineer/Case Mgmt Petrophysical Engineer/Case Managemen: Discharge Planning Dietitian/Estate Conservator Dietitian/Estate Conservator to monitor nutritional status and make changes and/or recommendations as needed and work with speech pathology on dietary upgrades as the occur. Physician IPOC Medical Issues being managed closely and that require the 24 hour availability of a physician: Recent knee replacement with history of pacemaker, atrial fibrillation, Coumadin anticoagulation who lives alone will require close monitoring for any decompensation Medical Issues: Bowel/Bladder Function, DVT Prophylaxis, Falls Precautions, Fluid/Electrolyte/Nutrition Balance, Infection Protection, Pain Management, Wound Care Brief Synthesis of Preadmission Screen, Post-Admission Evaluation, and Therapy Evaluations: PT and OT will focus on use of assistive devices in order to regain enough function to return back to independent living Medical Prognosis: Good Anticipated Length of Stay: 6 days STEFF TORRES DO Apr 18, 2021 10:18
--- NOTE | 2021-04-18 10:18 | PM&R Progress Note ---
Subjective HPI/CC On Admission Date Seen by Provider: Apr 18, 2021 Time Seen by Provider: 10:00 Subjective/Events-last exam 04/18/2021: Pt is doing pretty well Feels like she is wheezing so she would like breathing treatments. I didn't see that on her home medication list so I will restart those Took Tramadol then Percocet for the pain Has a lot of acid indigestion so I did order a Pepcid QID Discontinue the Losartan since she doesn't take that Review of Systems General: Fatigue, Malaise Pulmonary: Dyspnea Objective Exam Vital Signs Vital Signs Date Time Temp Pulse Resp B/P (MAP) Pulse Ox O2 Delivery O2 Flow Rate FiO2 04/18/21 20:25 98 Nasal Cannula 2.00 04/18/21 20:00 36.9 63 16 127/58 (81) Capillary Refill : General Appearance: No Apparent Distress, WD/WN, Chronically ill HEENT: PERRL/EOMI, Normal ENT Inspection, Pharynx Normal Neck: Full Range of Motion, Normal Inspection, Non Tender, Supple, Carotid Bruit Respiratory: Chest Non Tender, Lungs Clear, Normal Breath Sounds, No Accessory Muscle Use, No Respiratory Distress Cardiovascular: Regular Rate, Rhythm, No Edema, No Gallop, No JVD, No Murmur, Normal Peripheral Pulses Gastrointestinal: Normal Bowel Sounds, No Organomegaly, No Pulsatile Mass, Non Tender, Soft Back: Normal Inspection, No CVA Tenderness, No Vertebral Tenderness Extremity: Normal Capillary Refill, Normal Inspection, Normal Range of Motion (except right leg), Non Tender, No Calf Tenderness, No Pedal Edema Neurologic/Psychiatric: Alert, Oriented x3, No Motor/Sensory Deficits, Normal Mood/Affect Skin: Normal Color, Warm/Dry Lymphatic: No Adenopathy Results/Procedures Lab Laboratory Tests 04/18/21 05:32 Patient resulted labs reviewed. FIM Transfers Therapy Code Descriptions/Definitions Functional [place] Measure: 0=Not Assessed/NA 4=Minimal Assistance 1=Total Assistance 5=Supervision or Setup 2=Maximal Assistance 6=Modified [place] 3=Moderate Assistance 7=Complete IndependenceSCALE: Activities may be completed with or without assistive devices. 5-Nsyvopqcqd-pgibchw completes the activity by him/herself with no assistance from a helper. 5-Set-up or Clean-up Assistance-helper sets up or cleans up; patient completes activity. [place] assists only prior to or following the activity. 4-Supervision or Touching Assistance-helper provides verbal cues and/or touching/steadying and/or contact guard assistance as patient completes activity. Assistance may be provided throughout the activity or intermittently. 3-Partial/Moderate Assistance-helper does LESS THAN HALF the effort. [place] lifts, holds or supports trunk or limbs, but provides less than half the effort. 2-Substantial/Maximal Assistance-helper does MORE THAN HALF the effort. [place] lifts or holds trunk or limbs and provides more than half the effort. 9-Cojdqckkt-xvvdzj does ALL the effort. Patient does none of the effort to complete the activity. Or, the assistance of 2 or more helpers is required for the patient to complete the activity. If activity was not attempted, code reason: 7-Patient Refused. 9-Not Applicable-not attempted and the patient did not perform the activity before the current illness, exacerbation or injury. 10-Not Attempted due to Environmental Limitations-(lack of equipment, weather restraints, etc.). 88-Not Attempted due to Medical Conditions or Safety Concerns. Roll Left to Right (QC): 6 Sit to Lying (QC): 3 Sit to Stand (QC): 5 Chair/Ypq-ap-Gcbfj Xfer(QC): 5 Car Transfer (QC): 88 Gait Training Does the Patient Walk?: Yes Walk 10 feet (QC): 4 Walk 50 ft with 2 Turns(QC): 4 Walk 150 ft (QC): 88 Walking 10ft/uneven surface-QC: 88 Gait Persons Needed: 1 Gait Assistive Device: FWW Wheelchair Training Does the Pt Use a Wheelchair?: Yes Distance: 120'x3 Wheel 50 ft with 2 turns (QC): 4 Wheel 150 ft (QC): 88 Type of Wheelchair: Manual Stair Training 1 Step (curb) (QC): 88 4 Steps (QC): 88 12 Steps (QC): 88 Balance Picking up an Object (QC): 4 (using screening nurse) ADL-Treatment Eating (QC): 5 Oral Hygiene (QC): 3 Shower/Bathe Self (QC): 3 Upper Body Dressing (QC): 5 Lower Body Dressing (QC): 4 On/Off Footwear (QC): 1 Toileting Hygiene (QC): 4 Toilet Transfer (QC): 4 Assessment/Plan Assessment and Plan Assess & Plan/Chief Complaint Assessment: 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 Chronic atrial fibrillation Warfarin anticoagulation for stroke prophylaxis from atrial fibrillation Hypothyroidism History of breast cancer History of pacemaker Chronic kidney disease Hypertension Hyperlipidemia Obesity Esophageal spasms chronic GERD Postop constipation Wheezing Plan: Aggressive rehab Supportive care Pain control Bowel regimen 04/18/2021: Nebulizer treatments Supportive care (1) Total knee replacement status (2) Obesity (3) GERD (gastroesophageal reflux disease) (4) Hypothyroidism (5) Atrial fibrillation (6) HX: breast cancer (7) Warfarin anticoagulation STEFF TORRES DO Apr 18, 2021 10:18
[2021-04-18] MEDS: FAMOTIDINE 20 MG (PEPCID) TABLET PO SCH (10:34)
--- NOTE | 2021-04-18 11:00 | Occupational Ther Daily Note ---
OT Current Status-Daily Note Subjective Pt reports R knee pain as 6/10. RN aware, pain meds given earlier in morning. Ice applied at end of treatment. Pt wheezing throughout, especially with exertion. RN and physician notified. Appearance Pt requested to return to bed, all needs within reach, ice applied, RN informed. ADL-Treatment Therapy Code Descriptions/Definitions Functional [place] Measure: 0=Not Assessed/NA 4=Minimal Assistance 1=Total Assistance 5=Supervision or Setup 2=Maximal Assistance 6=Modified [place] 3=Moderate Assistance 7=Complete IndependenceSCALE: Activities may be completed with or without assistive devices. 4-Bnnyogmeus-ekrtrhc completes the activity by him/herself with no assistance from a helper. 5-Set-up or Clean-up Assistance-helper sets up or cleans up; patient completes activity. [place] assists only prior to or following the activity. 4-Supervision or Touching Assistance-helper provides verbal cues and/or touching/steadying and/or contact guard assistance as patient completes activity. Assistance may be provided throughout the activity or intermittently. 3-Partial/Moderate Assistance-helper does LESS THAN HALF the effort. [place] lifts, holds or supports trunk or limbs, but provides less than half the effort. 2-Substantial/Maximal Assistance-helper does MORE THAN HALF the effort. [place] lifts or holds trunk or limbs and provides more than half the effort. 1-Dqheflaul-xhmggq does ALL the effort. Patient does none of the effort to complete the activity. Or, the assistance of 2 or more helpers is required for the patient to complete the activity. If activity was not attempted, code reason: 7-Patient Refused. 9-Not Applicable-not attempted and the patient did not perform the activity before the current illness, exacerbation or injury. 10-Not Attempted due to Environmental Limitations-(lack of equipment, weather restraints, etc.). 88-Not Attempted due to Medical Conditions or Safety Concerns. Toileting Hygiene (QC): 4 Toilet Transfer (QC): 3 (mod a for initial boost from low toilet) Other Treatment Pt ambulated ~20 feet x3 with use of walker and min A. Extra time to transition RLE. Does not appear to extend fully. Post demonstration and instruction, pt completed tub transfer x4. Due to impaired RLE ROM and strength, pt unable to stand and step over tub at this time. Pt does have a shower chair at home. OT instructed her on sit method with chair. Pt initially required mod-max a but improves to min-mod a. At this time, Pt is unable to lift RLE with use of UE's or assist of LLE, thus assist to lift RLE over side of tub is required. Pt able to stand/sit from chair with use of grab bars and CGA for safety. Continued p ractice will be needed Education OT Patient Education: Correct positioning, Energy conservation, Modified ADL techniques, Progress toward Goal/Update tx plan, Purpose of tx/functional activities, Reviewed precautions, Safety issues, Transfer techniques Teaching Recipient: Patient Teaching Methods: Demonstration, Discussion Response to Teaching: Verbalize Understanding, Return Demonstration, Reinforcement Needed OT Short Term Goals Short Term Goals Time Frame: Apr 24, 2021 Eatin Oral hygiene: 5 Toileting hygiene: 4 Shower/bathe self: 4 Upper body dressin Lower body dressin Putting on/taking off footwear: 4 OT [place]ble Mechanic Helper Goals [place] Mechanic Helper Goals Time Frame: May 01, 2021 Eating (QC): 6 Oral Hygiene (QC): 6 Toileting Hygiene (QC): 6 Shower/Bathe Self (QC): 5 Upper Body Dressing (QC): 6 Lower Body Dressing (QC): 6 On/Off Footwear (QC): 5 1=Demonstrate adherence to instructed precautions during ADL tasks. 2=Patient will verbalize/demonstrate understanding of assistive devices/modifications for ADL. 3=Patient will improve strength/tolerance for activity to enable patient to perform ADL's. OT Education/Plan Problem List/Assessment Assessment: Decreased Activ Tolerance, Decreased UE Strength, Impaired Bed Mobility, Impaired Funct Balance, Impaired I ADL's, Impaired Self-Care Skills Discharge Recommendations Plan/Recommendations: Continue POC Treatment Plan/Plan of Care Treatment,Training & Education: Yes Patient would benefit from OT for education, treatment and training to promote independence in ADL's, mobility, safety and/or upper extremity function for ADL's. Plan of Care: ADL Retraining, Functional Mobility, Group Exercise/Act as Ind, U E Funct Exercise/Act, W/C Management Training Treatment Duration: May 01, 2021 Frequency: At least 5 of 7 days/Wk (IRF) Estimated Hrs Per Day: 1.5 hours per day Agreement: Yes Rehab Potential: Fair Time/GCodes Start Time: 09:35 Stop Time: 10:30 Total Time Billed (hr/min): 55 Billed Treatment Time 1 visit ADL x4 Heavenly Rice OT Apr 18, 2021 11:00
--- NOTE | 2021-04-18 11:11 | ST Cognitive Linguistic Eval ---
Speech Evaluation-General Medical Diagnosis right TKA Onset Date: Apr 15, 2021 Therapy Diagnosis Therapy Diagnosis: Cognitive Linguistic Skills WNL Precautions Precautions: Fall Precautions/Isolations: Standard Precautions Referral Referring Physician: Dr. Marissa Roman Reason for Referral: Evaluation/Treatment Medical History Pertinent Medical History: Atrial Fib, GERD, HTN Current History The patient is an 80 year old female with a past medical history of AFib, CKD, LINETTE, hypothyroidism, and breast cancer who presents to inpatient rehab s/p right TKA by Dr. Ramirez at [facility] in [place], [place] on 04/15/21. Reviewed History: Yes Social History Current Living Status: Alone Speech PLF-Current Status Prior Level of Function The patient reported independence with ADL's prior to hospitalization. Additionally, the patient stated she feels her cognition and language may have declined over the previous two years due to isolation associated with COVID changes however does not report an acute change secondary to her recent knee procedure. Subjective The patient was lying in bed, awake and alert upon entrance to the room. The patient greeted the clinician appropriately and was agreeable to participation in the cognitive linguistic treatment session. The art conservator recently visited with the patient and encouraged the clinician to continue conversations regarding the details of the "swallowing difficulty" she reported to him (the art conservator). The clinician followed up with the patient, who stated she experiences a globus sensation following the swallow ("mostly with grilled steak") which she was able to localize to the proximal esophageal region. Per patient, "it feels like it won't go down and I can't belch it up." The patient stated the globus sensation has occurred four times "in my lifet andrew." The patient denied s/s of suspected aspiration during or involving the globus events (coughing, choking, throat clearing, shortness of air) and does report a prior medical history significant for GERD. The clinician visited with the patient regarding safe swallowing options which included small bites and sips, moist food items, additional sauces and gravies to dry solid consi stencies, and alternating solid and liquid consistencies. Language Eval: Auditory Comprehends Simple Yes/No Ques: Functional Indent/Objects Multiple Thomas: Functional Ident/Pics in Multiple Thomas: Functional Follows 1-Step Commands: Functional Follows Complex Directions: Functional Follows General Conversations: Functional Language Eval: Verbal Language Completes Spontaneous Greeting: Functional Produces Auto, Serial Info: Functional Imitates Simple Words/Phrases: Functional Word Finding: Functional Requests Basic Needs: Functional States Basic Personal Info: Functional Expresses Complex Ideas: Functional Language Evaluation: Reading Follows Simple Written Direct: Functional Language Evaluation: Writing Writes to Simple Dictation: Functional Cognitive Patient Orientation The patient was independently oriented to self, location, month, day of week, date, and year. Objective Cognitive Domain Attention: WNL Memory: WNL Problem Solving: Functional Executive Functions: WNL Composite Severity Rating: WNL Clock Drawing Severity Rating: WNL Objective Formal/Standardized Tests [facility] Status [facility] Results The patient demonstrated a result of +27/30 on the UMS correlating to scores within normal limits. Oral Motor/Speech Production Dysarthria or apraxia of speech were not appreciated throughout the evaluation. The patient is 100% intelligible in known and unknown contexts. Impression The patient presented with cognitive linguistic skills within normal limits. The patient displayed three errors throughout the UMS assessment which included: the ability to recall four of five single items and the ability to recall three for four details from a recently read paragraph aloud. Speech Patient Assess Expression of Ideas/Wants: Expression (4) Understanding Verbal Content: Understands (4) Brief Interview-Mental Status: Yes Repetition of Three Words: Three (3) Temporal Orientation: Year: Correct (3) Temporal Orientation: Month: Accurate within 5 days(2) Temporal Orientation: Day: Correct (1) Recall : Wear to say "Sock": Yes, no cue required (2) Recall : Color: Yes, no cue required (2) Recall : Bed: Yes,after cueing (1) Memory/Recall Ability: Current season, That he or she is in a hsp/hsp unit Speech-Plan Patient/Family Goals Patient/Family Goals: The patient wishes to return home, independently. Treatment Plan Speech Therapy Treatment Plan: Discontinue ST Frequency: 1 time per week Estimated Hrs Per Day: .5 hour per day Rehab Potential: Fair Safety Risks/Education Teaching Recipient: Patient Teaching Methods: Discussion Response to Teaching: Verbalize Understanding Education Topics Provided: Plan of Care, Process of Rehabilitation Time Speech Therapy Time In: 10:30 Speech Therapy Time Out: 11:00 Total Billed Time: 30 Billed Treatment Time 1, CASSANDRA PARRA ELIZABETH ST Apr 18, 2021 11:11
--- NOTE | 2021-04-18 11:57 | Physical Therapy Daily Note ---
PT Daily Note-Current Subjective Pt. in bed. Expresses sensitivity at incision sight with even a brush of the clothing near her leg. No c/o pain otherwise. Pt. found with polar pack on and RLE hip externally rotated and knee flexed to approx 30 deg. Pt. agrees to explore the "knee meghan" she brought in with her to possibly alleviate this. Pt. shares that she lives in a community that has a [place] [facility] and she loves it but it has been closed down since the pandemic began. Pain Location: No Pain Reported Mental Status Patient Orientation: Normal For Age Transfers SCALE: Activities may be completed with or without assistive devices. 8-Mdxztpnxcm-ubkgiah completes the activity by him/herself with no assistance from a helper. 5-Set-up or Clean-up Assistance-helper sets up or cleans up; patient completes activity. [place] assists only prior to or following the activity. 4-Supervision or Touching Assistance-helper provides verbal cues and/or touching/steadying and/or contact guard assistance as patient completes activity. Assistance may be provided throughout the activity or intermittently. 3-Partial/Moderate Assistance-helper does LESS THAN HALF the effort. [place] lifts, holds or supports trunk or limbs, but provides less than half the effort. 2-Substantial/Maximal Assistance-helper does MORE THAN HALF the effort. [place] lifts or holds trunk or limbs and provides more than half the effort. 0-Ismvqyuxk-ihxppf does ALL the effort. Patient does none of the effort to c omplete the activity. Or, the assistance of 2 or more helpers is required for the patient to complete the activity. If activity was not attempted, code reason: 7-Patient Refused. 9-Not Applicable-not attempted and the patient did not perform the activity before the current illness, exacerbation or injury. 10-Not Attempted due to Environmental Limitations-(lack of equipment, weather restraints, etc.). 88-Not Attempted due to Medical Conditions or Safety Concerns. Roll Left & Right (QC): 6 pt. demonstrated ability to scoot up in bed indep . Weight Bearing Right Lower Extremity: Right Weight Bearing/Tolerated Exercises Supine Ex: Ankle pumps (HC stretches 4 x 20 s), Quad Set, Rolling, Heel Slides (to approx 70 deg with assist), Short Arc Quads, Straight leg raise (assisted but imporved) Supine Reps: 15 Treatments bed mob, knee therex, stretching, and instruction in use of knee meghan, better positioning to promote knee extension and prudent use of polar pack, also reviewed exercises to be done when she is alone. Pt was shown the knee meghan to be used for knee extension instead of the full meghan which likely leaves he knee bent slightly but does elevate it a bit Assessment Current Status: Good Progress progress noted in ext, flexion as well as SLR strength PT Short Term Goals Short Term Goals Time Frame: Apr 24, 2021 Roll Left & Right: 6 Sit to lyin Lying to sitting on side of be: 3 Sit to stand: 4 Chair/vem-lg-ncstb transfer: 4 Walk 10 feet: 4 Walk 50 feet with two turns: 4 PT Usp Goals Cut Out Worker Goals PT Cut Out Worker Goals Time Frame: May 08, 2021 Roll Left & Right (QC): 6 Sit to Lying (QC): 6 Lying-Sitting on Side/Bed(QC): 6 Sit to Stand (QC): 5 Chair/Asd-ao-Wgcuh Xfer(QC): 5 Toilet Transfer (QC): 5 Car Transfer (QC): 5 Does the Patient Walk: Yes Walk 10 feet (QC): 5 Walk 50ft with 2 Turns (QC): 5 Walk 150 ft (QC): 5 Walking 10ft on Uneven Surface: 4 1 Step (curb) (QC): 4 4 Steps (QC): 4 12 Steps (QC): 88 Picking up an Object (QC): 5 Wheel 50 feet with 2 turns (QC: 6 Wheel 150 feet: 6 PT Plan Treatment/Plan Treatment Plan: Continue Plan of Care Treatment Plan: Bed Mobility, Education, Functional Activity Suzanne, Functional Strength, Group Therapy, Gait, Safety, Therapeutic Exercise, Transfers Treatment Duration: May 08, 2021 Frequency: At least 5 of 7 days/Wk (IRF) Estimated Hrs Per Day: 1.5 hours per day Patient and/or Family Agrees t: Yes Safety Risks/Education Patient Education: Reviewed Precautions (regarding knee ext), Correct Positioning Time/GCodes Time In: 1100 Time Out: 1130 Total Billed Treatment Time: 30 Total Billed Treatment 1,EX30m ELENA BRYAN TUNGSTEN REFINER Apr 18, 2021 11:57
[2021-04-18] MEDS: DICYCLOMINE 10 MG (BENTYL) CAP PO PRN ×2 (12:27→17:16)
[2021-04-18] MEDS: RT-ALBUTEROL SULF 2.5 MG/3 ML PRE-MIX VIAL INH SCH ×2 (15:13→20:04)
[2021-04-18] MEDS: GABAPENTIN 300 MG (NEURONTIN) CAP PO SCH (17:16)
[2021-04-18] MEDS: ALPRAZolam 0.25 MG (XANAX) TAB PO PRN (17:43)
[2021-04-18] MEDS: warFARin 5 MG (COUMADIN) TAB PO SCH (18:10)
[2021-04-18 20:00] VITALS: BP 127/58
--- NOTE | 2021-04-19 06:19 | PM&R Progress Note ---
Subjective HPI/CC On Admission Date Seen by Provider: Apr 19, 2021 Time Seen by Provider: 09:00 Subjective/Events-last exam 04/19/2021: Patient doing very well Ambulating around really well with rehab protocol Supportive care continues Breathing treatments will be every 4 hours as needed No other changes needed 04/18/2021: Pt is doing pretty well Feels like she is wheezing so she would like breathing treatments. I didn't see that on her home medication list so I will restart those Took Tramadol then Percocet for the pain Has a lot of acid indigestion so I did order a Pepcid QID Discontinue the Losartan since she doesn't take that Review of Systems General: Fatigue Musculoskeletal: leg pain Objective Exam Vital Signs Vital Signs Date Time Temp Pulse Resp B/P (MAP) Pulse Ox O2 Delivery O2 Flow Rate FiO2 04/20/21 03:54 97 Nasal Cannula 2.00 04/19/21 20:00 36.8 68 16 131/59 (83) Capillary Refill : General Appearance: No Apparent Distress, WD/WN, Chronically ill HEENT: PERRL/EOMI, Normal ENT Inspection, Pharynx Normal Neck: Full Range of Motion, Normal Inspection, Non Tender, Supple, Carotid Bruit Respiratory: Chest Non Tender, Lungs Clear, Normal Breath Sounds, No Accessory Muscle Use, No Respiratory Distress Cardiovascular: Regular Rate, Rhythm, No Edema, No Gallop, No JVD, No Murmur, Normal Peripheral Pulses Gastrointestinal: Normal Bowel Sounds, No Organomegaly, No Pulsatile Mass, Non Tender, Soft Back: Normal Inspection, No CVA Tenderness, No Vertebral Tenderness Extremity: Normal Capillary Refill, Normal Inspection, Normal Range of Motion (except right leg), Non Tender, No Calf Tenderness, No Pedal Edema Neurologic/Psychiatric: Alert, Oriented x3, No Motor/Sensory Deficits, Normal Mood/Affect Skin: Normal Color, Warm/Dry Lymphatic: No Adenopathy Results/Procedures Lab Patient resulted labs reviewed. FIM Transfers Therapy Code Descriptions/Definitions Functional [place] Measure: 0=Not Assessed/NA 4=Minimal Assistance 1=Total Assistance 5=Supervision or Setup 2=Maximal Assistance 6=Modified [place] 3=Moderate Assistance 7=Complete IndependenceSCALE: Activities may be completed with or without assistive devices. 1-Fqxtnqrdyn-ppozljn completes the activity by him/herself with no assistance from a helper. 5-Set-up or Clean-up Assistance-helper sets up or cleans up; patient completes activity. [place] assists only prior to or following the activity. 4-Supervision or Touching Assistance-helper provides verbal cues and/or touching/steadying and/or contact guard assistance as patient completes activity. Assistance may be provided throughout the activity or intermittently. 3-Partial/Moderate Assistance-helper does LESS THAN HALF the effort. [place] lifts, holds or supports trunk or limbs, but provides less than half the effort. 2-Substantial/Maximal Assistance-helper does MORE THAN HALF the effort. [place] lifts or holds trunk or limbs and provides more than half the effort. 9-Qohtwfrds-rflehc does ALL the effort. Patient does none of the effort to complete the activity. Or, the assistance of 2 or more helpers is required for the patient to complete the activity. If activity was not attempted, code reason: 7-Patient Refused. 9-Not Applicable-not attempted and the patient did not perform the activity before the current illness, exacerbation or injury. 10-Not Attempted due to Environmental Limitations-(lack of equipment, weather restraints, etc.). 88-Not Attempted due to Medical Conditions or Safety Concerns. Roll Left to Right (QC): 6 Sit to Lying (QC): 3 Sit to Stand (QC): 5 Chair/Ahv-gy-Fbsaj Xfer(QC): 5 Car Transfer (QC): 88 Gait Training Does the Patient Walk?: Yes Walk 10 feet (QC): 4 Walk 50 ft with 2 Turns(QC): 4 Walk 150 ft (QC): 88 Walking 10ft/uneven surface-QC: 88 Gait Persons Needed: 1 Gait Assistive Device: FWW Wheelchair Training Does the Pt Use a Wheelchair?: Yes Distance: 120'x3 Wheel 50 ft with 2 turns (QC): 4 Wheel 150 ft (QC): 88 Type of Wheelchair: Manual Stair Training 1 Step (curb) (QC): 88 4 Steps (QC): 88 12 Steps (QC): 88 Balance Picking up an Object (QC): 4 (using heel builder machine) ADL-Treatment Eating (QC): 5 Oral Hygiene (QC): 3 Shower/Bathe Self (QC): 3 Upper Body Dressing (QC): 5 Lower Body Dressing (QC): 4 On/Off Footwear (QC): 1 Toileting Hygiene (QC): 4 Toilet Transfer (QC): 3 (mod a for initial boost from low toilet) Assessment/Plan Assessment and Plan Assess & Plan/Chief Complaint Assessment: 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 Chronic atrial fibrillation Warfarin anticoagulation for stroke prophylaxis from atrial fibrillation Hypothyroidism History of breast cancer History of pacemaker Chronic kidney disease Hypertension Hyperlipidemia Obesity Esophageal spasms chronic GERD Postop constipation Wheezing Plan: Aggressive rehab Supportive care Pain control Bowel regimen 04/18/2021: Nebulizer treatments Supportive care 04/19/2021: Nebulizer treatments Pain control (1) Total knee replacement status (2) Obesity (3) GERD (gastroesophageal reflux disease) (4) Hypothyroidism (5) Atrial fibrillation (6) HX: breast cancer (7) Warfarin anticoagulation STEFF TORRES DO Apr 19, 2021 06:19
[2021-04-19] MEDS: RT-ALBUTEROL SULF 2.5 MG/3 ML PRE-MIX VIAL INH SCH ×3 (06:42→20:41)
[2021-04-19] MEDS: LEVOTHYROXINE 125 MCG (LEVOTHROID) TABLET PO SCH (06:53)
[2021-04-19 07:20] VITALS: BP 192/79
--- NOTE | 2021-04-19 07:33 | Physician Query Clarification ---
PQ-Intro New Diagnosis Admission/Discharge Admission Date: Apr 17, 2021 at 14:25 Discharge Date: Dr. Roman, The medical record reflects the following clinical scenario: History/Risk Factors: HTN, CKD, PAF, s/p Rt TKR Clinical Findings: Rt TKR Treatment: Rehab Question: What condition best reflects the above clinical scenario? Please indicate the condition for which the Rt. TKR was performed for. Please document a response in the Progress Noter or Discharge Summary. 1. Primary osteoarthritis rt knee 2. Rt. TKR underlying cause unknown 3. Other, with explanation of the clinical findings. 4. Clinically undetermined, no explanation for the clinical findings. PHYSICIAN RESPONSE What condition reflects above: 1 Please remember a lack of response to the above will prompt a phone page by CDI/Coding staff. In responding to this query, please exercise your independent professional judgment. The purpose of this communication is to more accurately reflect the complexity of your patients condition. The fact that a question is asked does not imply that any particular answer is desired or expected. Thank you for your timely response to this clarification. Requestors name: Rodolfo THIS PHYSICIAN QUERY FORM IS A PERMANENT PART OF THE MEDICAL RECORD RODOLFO ALEJANDRA Apr 19, 2021 07:33 STEFF ROMAN DO Apr 19, 2021 17:13
[2021-04-19] MEDS: polyethylene glycoL POWDER 17 GM (MIRALAX) PACK PO SCH ×2 (07:52→20:11)
[2021-04-19] MEDS: SPIRONOLACTONE 25 MG (ALDACTONE) TAB PO SCH (07:52)
[2021-04-19] MEDS: SENNA W/DOCUSATE (SENOKOT S) TABLET PO SCH ×2 (07:52→20:10)
[2021-04-19] MEDS: PANTOPRAZOLE 40 MG (PROTONIX) TAB PO SCH (07:52)
[2021-04-19] MEDS: FUROSEMIDE 40 MG (LASIX) TAB PO SCH (07:52)
[2021-04-19] MEDS: LETROZOLE 2.5 MG (FEMARA) TAB PO SCH (07:52)
[2021-04-19] MEDS: FAMOTIDINE 20 MG (PEPCID) TABLET PO SCH (07:52)
[2021-04-19] MEDS: DOCUSATE SODIUM 100 MG (COLACE) CAP PO SCH ×2 (07:52→20:10)
--- NOTE | 2021-04-19 09:00 | Occupational Ther Daily Note ---
OT Current Status-Daily Note Subjective Pt reports pain in R knee as 6/10 at start of session. RN in to give meds. Appearance Pt requested to return to supine, all needs within reach, ice applied to R knee. Mental Status/Objective Patient Orientation: Person, Place, Time, Situation ADL-Treatment Therapy Code Descriptions/Definitions Functional [place] Measure: 0=Not Assessed/NA 4=Minimal Assistance 1=Total Assistance 5=Supervision or Setup 2=Maximal Assistance 6=Modified [place] 3=Moderate Assistance 7=Complete IndependenceSCALE: Activities may be completed with or without assistive devices. 3-Gxzdvphfnp-cifnilv completes the activity by him/herself with no assistance from a helper. 5-Set-up or Clean-up Assistance-helper sets up or cleans up; patient completes activity. [place] assists only prior to or following the activity. 4-Supervision or Touching Assistance-helper provides verbal cues and/or touching/steadying and/or contact guard assistance as patient completes activity. Assistance may be provided throughout the activity or intermittently. 3-Partial/Moderate Assistance-helper does LESS THAN HALF the effort. [place] lifts, holds or supports trunk or limbs, but provides less than half the effort. 2-Substantial/Maximal Assistance-helper does MORE THAN HALF the effort. [place] lifts or holds trunk or limbs and provides more than half the effort. 3-Llngnavku-lonaqo does ALL the effort. Patient does none of the effort to complete the activity. Or, the assistance of 2 or more helpers is required for the patient to complete the activity. If activity was not attempted, code reason: 7-Patient Refused. 9-Not Applicable-not attempted and the patient did not perform the activity before the current illness, exacerbation or injury. 10-Not Attempted due to Environmental Limitations-(lack of equipment, weather restraints, etc.). 88-Not Attempted due to Medical Conditions or Safety Concerns. Eating (QC): 6 Oral Hygiene (QC): 4 Shower/Bathe Self (QC): 3 Upper Body Dressing (QC): 5 Lower Body Dressing (QC): 4 On/Off Footwear: 4 Toileting Hygiene (QC): 4 Toilet Transfer (QC): 4 Shower performed; majority completed in sitting. Pt stood only briefly to wash yojana area and buttocks, supervision for safety. Single UE support on grab bar when standing. No LOB. Min a to wash R foot only due to Knee pain. Incision c/d/i post bathing task. Pt dressed seated in chair. Due to knee pain, pt unable to reach R foot to thread clothing. OT instructed pt on use of agricultural chemist and sock aid. Post demonstration, she was able to perform with min-mod verbal cues. CGA- min a to stand. Steadying assist needed as she pulled clothing up to waist. Pt encouraged to stand to brush teeth. With prolong standing, pain and fatigue worsens. Prior to finishing task, pt attempts to bring walker behind her and sit on top bar. OT immediately stops patient and educates on safety. OT brought a chair behind pt to finish remainder of grooming tasks in sitting. Education OT Patient Education: Correct positioning, Energy conservation, Modified ADL techniques, Purpose of tx/functional activities, Reviewed precautions, Safety issues, Transfer techniques, Use of adapted equipment Teaching Recipient: Patient Teaching Methods: Demonstration, Discussion Response to Teaching: Verbalize Understanding, Return Demonstration, Reinforcement Needed OT Short Term Goals Short Term Goals Time Frame: Apr 24, 2021 Eatin Oral hygiene: 5 Toileting hygiene: 4 Shower/bathe self: 4 Upper body dressin Lower body dressin Putting on/taking off footwear: 4 OT Project Development Coordinator Goals Project Development Coordinator Goals Time Frame: May 01, 2021 Eating (QC): 6 Oral Hygiene (QC): 6 Toileting Hygiene (QC): 6 Shower/Bathe Self (QC): 5 Upper Body Dressing (QC): 6 Lower Body Dressing (QC): 6 On/Off Footwear (QC): 5 1=Demonstrate adherence to instructed precautions during ADL tasks. 2=Patient will verbalize/demonstrate understanding of assistive devices/modifications for ADL. 3=Patient will improve strength/tolerance for activity to enable patient to perform ADL's. OT Education/Plan Problem List/Assessment Assessment: Decreased Activ Tolerance, Decreased Safety Aware, Decreased UE Strength, Impaired Funct Balance, Impaired I ADL's, Impaired Self-Care Skills Discharge Recommendations Plan/Recommendations: Continue POC Equpiment Recommendations-D/C: Network And Threat Support Specialist, Sock Aide Treatment Plan/Plan of Care Treatment,Training & Education: Yes Patient would benefit from OT for education, treatment and training to promote independence in ADL's, mobility, safety and/or upper extremity function for ADL's. Plan of Care: ADL Retraining, Functional Mobility, Group Exercise/Act as Ind, UE Funct Exercise/Act, W/C Management Training Treatment Duration: May 01, 2021 Frequency: At least 5 of 7 days/Wk (IRF) Estimated Hrs Per Day: 1.5 hours per day Agreement: Yes Rehab Potential: Fair Time/GCodes Start Time: 07:42 Stop Time: 08:52 Total Time Billed (hr/min): 70 Billed Treatment Time 1 visit. ADLx5 Heavenly Rice OT Apr 19, 2021 09:00
[2021-04-19] MEDS ORDERED: RT-ALBUTEROL SULF 2.5 MG/3 ML PRE-MIX VIAL INH PRN (09:30)
--- NOTE | 2021-04-19 10:08 | Physical Therapy Daily Note ---
PT Daily Note-Current Subjective Pt. in bed and states she just got finished showering. Pt. shares that she isnt very active at home and mostly sits to work on quilts. Pt. somewhat resistive of getting up to walk but admits she has only walked to the bathroom today. Educated pt. on risk factors of blood clot and pnuemonia as well as lack of ROM recovery in her right knee if regular ambulation does not occur. Pt. then agrees to Rx. Requests regular rest breaks Pain Numeric Pain Scale: 4 Location: Right Location Body Site: Knee Pain Description: Ache Mental Status Patient Orientation: Normal For Age Transfers SCALE: Activities may be completed with or without assistive devices. 8-Qlvozeueir-bvynrkk completes the activity by him/herself with no assistance from a helper. 5-Set-up or Clean-up Assistance-helper sets up or cleans up; patient completes activity. [place] assists only prior to or following the activity. 4-Supervision or Touching Assistance-helper provides verbal cues and/or touching/steadying and/or contact guard assistance as patient completes activity. Assistance may be provided throughout the activity or intermittently. 3-Partial/Moderate Assistance-helper does LESS THAN HALF the effort. [place] lifts, holds or supports trunk or limbs, but provides less than half the effort. 2-Substantial/Maximal Assistance-helper does MORE THAN HALF the effort. [place] lifts or holds trunk or limbs and provides more than half the effort. 3-Yogcqexaf-pegsew does ALL the effort. Patient does none of the effort to complete the activity. Or, the assistance of 2 or more helpers is required for the patient to complete the activity. If activity was not attempted, code reason: 7-Patient Refused. 9-Not Applicable-not attempted and the patient did not perform the activity before the current illness, exacerbation or injury. 10-Not Attempted due to Environmental Limitations-(lack of equipment, weather restraints, etc.). 88-Not Attempted due to Medical Conditions or Safety Concerns. Roll Left & Right (QC): 6 Sit to Lying (QC): 5 Lying to Sitting/Side of Bed(Q: 5 Sit to Stand (QC): 5 Chair/Woa-fr-Njeij Xfer(QC): 5 pt. demonstrated near indep in out bed on same side at approx same height her bed is at home. Therapist cuing for positioning. Weight Bearing Right Lower Extremity: Right Weight Bearing/Tolerated Gait Training Does the Patient Walk?: Yes Walk 10 feet (QC): 5 Walk 50 ft with 2 Turns(QC): 5 Gait Persons Needed: 1 Gait Assistive Device: FWW pt. ambulated approx 75ft x 3, 50 ft x 3 requesting rest breaks along the way to the gym, step to gait pattern, uneven step length, heavy wt bearing on FWW, head down posture Stair Training Stair Training: Handrails/: 2 handrails #of Steps: 4 4 Steps (QC): 4 12 Steps (QC): 88 Stairs: Pattern: Step to pt. needed some reminders of sequnce and cues to engage right quad to stabilize extension of right leg during wt bearing phase Balance Picking up an Object (QC): 88 Exercises Seated Therapy Exercises: Ankle pumps, Sit to stand, Long arc quads, Hip flexion Seated Reps: 15 NuStep Minutes: 10 NuStep Workload: 2 Treatments TRFs, gait short bouts at a time similar to home situation and pt requesting rest breaks, TRFs in out bed set up similar to pts at home, stairs, right LE TKR protocol seated and in Nustep, polar pack on after rx with pt. demonstrating indep to polly this herself Assessment Current Status: Good Progress pts. lungs and wheezing sound better today, pt. needs much encouragement to participate and press on toward goals PT Short Term Goals Short Term Goals Time Frame: Apr 24, 2021 Roll Left & Right: 6 Sit to lyin Lying to sitting on side of be: 3 Sit to stand: 4 Chair/pdo-rm-jyccx transfer: 4 Walk 10 feet: 4 Walk 50 feet with two turns: 4 PT Vendor Management Specialist Goals Senior Living Goals PT Vendor Management Specialist Goals Time Frame: May 08, 2021 Roll Left & Right (QC): 6 Sit to Lying (QC): 6 Lying-Sitting on Side/Bed(QC): 6 Sit to Stand (QC): 5 Chair/Oyx-sx-Bkwav Xfer(QC): 5 Toilet Transfer (QC): 5 Car Transfer (QC): 5 Does the Patient Walk: Yes Walk 10 feet (QC): 5 Walk 50ft with 2 Turns (QC): 5 Walk 150 ft (QC): 5 Walking 10ft on Uneven Surface: 4 1 Step (curb) (QC): 4 4 Steps (QC): 4 12 Steps (QC): 88 Picking up an Object (QC): 5 Wheel 50 feet with 2 turns (QC: 6 Wheel 150 feet: 6 PT Plan Treatment/Plan Treatment Plan: Continue Plan of Care Treatment Plan: Bed Mobility, Education, Functional Activity Suzanne, Functional Strength, Group Therapy, Gait, Safety, Therapeutic Exercise, Transfers Treatment Duration: May 08, 2021 Frequency: At least 5 of 7 days/Wk (IRF) Estimated Hrs Per Day: 1.5 hours per day Patient and/or Family Agrees t: Yes Safety Risks/Education Patient Education: Gait Training, Transfer Techniques, Steps, Correct Positioning, Disease Process, Safety Issues Teaching Recipient: Patient Teaching Methods: Demonstration, Discussion Response to Teaching: Verbalize Understanding, Return Demonstration, Reinforcement Needed Time/GCodes Time In: 900 Time Out: 1000 Total Billed Treatment Time: 60 Total Billed Treatment 1,EX30m,GT15m,FA15m ELENA BRYAN VICE PRESIDENT PLANNING Apr 19, 2021 10:08
--- NOTE | 2021-04-19 11:07 | Occupational Ther Daily Note ---
OT Current Status-Daily Note Subjective Pt reports R knee pain as 8/10. Agreeable to UE exercises Appearance Left supine in bed, all needs within reach ADL-Treatment Therapy Code Descriptions/Definitions Functional [place] Measure: 0=Not Assessed/NA 4=Minimal Assistance 1=Total Assistance 5=Supervision or Setup 2=Maximal Assistance 6=Modified [place] 3=Moderate Assistance 7=Complete IndependenceSCALE: Activities may be completed with or without assistive devices. 1-Srykplmxrd-ehnqtjf completes the activity by him/herself with no assistance from a helper. 5-Set-up or Clean-up Assistance-helper sets up or cleans up; patient completes activity. [place] assists only prior to or following the activity. 4-Supervision or Touching Assistance-helper provides verbal cues and/or touching/steadying and/or contact guard assistance as patient completes activity. Assistance may be provided throughout the activity or intermittently. 3-Partial/Moderate Assistance-helper does LESS THAN HALF the effort. [place] lifts, holds or supports trunk or limbs, but provides less than half the effort. 2-Substantial/Maximal Assistance-helper does MORE THAN HALF the effort. [place] lifts or holds trunk or limbs and provides more than half the effort. 3-Hpfhfcsel-xpccfg does ALL the effort. Patient does none of the effort to complete the activity. Or, the assistance of 2 or more helpers is required for the patient to complete the activity. If activity was not attempted, code reason: 7-Patient Refused. 9-Not Applicable-not attempted and the patient did not perform the activity before the current illness, exacerbation or injury. 10-Not Attempted due to Environmental Limitations-(lack of equipment, weather restraints, etc.). 88-Not Attempted due to Medical Conditions or Safety Concerns. Other Treatment Pt participated in UE exercises with 2# hand held weight. 3# utilized for bicep curl. Goal to improve strength and endurance needed for adls and functional transfers. Min cues for slow controlled movement and proper technique. 12x1 in all planes. Fair tolerance. Slight wheezing. Cues for proper breathing techniques. Education OT Patient Education: Correct positioning, Exercise program, Purpose of tx/functional activities, Safety issues Teaching Recipient: Patient Teaching Methods: Demonstration, Discussion Response to Teaching: Verbalize Understanding, Return Demonstration, Reinforcement Needed OT Short Term Goals Short Term Goals Time Frame: Apr 24, 2021 Eatin Oral hygiene: 5 Toileting hygiene: 4 Shower/bathe self: 4 Upper body dressin Lower body dressin Putting on/taking off footwear: 4 OT Client Application Support Specialist Goals Alf Goals Time Frame: May 01, 2021 Eating (QC): 6 Oral Hygiene (QC): 6 Toileting Hygiene (QC): 6 Shower/Bathe Self (QC): 5 Upper Body Dressing (QC): 6 Lower Body Dressing (QC): 6 On/Off Footwear (QC): 5 1=Demonstrate adherence to instructed precautions during ADL tasks. 2=Patient will verbalize/demonstrate understanding of assistive devices/modifications for ADL. 3=Patient will improve strength/tolerance for activity to enable patient to perform ADL's. OT Education/Plan Problem List/Assessment Assessment: Decreased Activ Tolerance, Decreased Safety Aware, Decreased UE Strength, Impaired Funct Balance, Impaired I ADL's, Impaired Self-Care Skills Discharge Recommendations Plan/Recommendations: Continue POC Treatment Plan/Plan of Care Treatment,Training & Education: Yes Patient would benefit from OT for education, treatment and training to promote independence in ADL's, mobility, safety and/or upper extremity function for ADL's. Plan of Care: ADL Retraining, Functional Mobility, Group Exercise/Act as Ind, UE Funct Exercise/Act, W/C Management Training Treatment Duration: May 01, 2021 Frequency: At least 5 of 7 days/Wk (IRF) Estimated Hrs Per Day: 1.5 hours per day Agreement: Yes Rehab Potential: Fair Time/GCodes Start Time: 10:14 Stop Time: 10:35 Total Time Billed (hr/min): 21 Billed Treatment Time 1, EX Heavenly Rice OT Apr 19, 2021 11:07
--- NOTE | 2021-04-19 14:38 | Physical Therapy Daily Note ---
PT Daily Note-Current Subjective Pt. with light on as this CLOTHING SUPERVISOR entered the room. Pt. states she needs to go to the bathroom and it is urgent , needs to have a BM. Pt. states she has been constipated . Pt. after in bthrm still c/o she cannot go. This CLOTHING SUPERVISOR suggested prune juice , nurse concurs. 2 small containers of prune juice were warmed and pt. drank them both in very short period of time. Pain Numeric Pain Scale: 4 Location: Right Location Body Site: Knee Pain Description: Ache Mental Status Patient Orientation: Normal For Age Transfers SCALE: Activities may be completed with or without assistive devices. 7-Kwcuhajjvz-ppmvuch completes the activity by him/herself with no assistance from a helper. 5-Set-up or Clean-up Assistance-helper sets up or cleans up; patient completes activity. [place] assists only prior to or following the activity. 4-Supervision or Touching Assistance-helper provides verbal cues and/or touching/steadying and/or contact guard assistance as patient completes activity. Assistance may be provided throughout the activity or intermittently. 3-Partial/Moderate Assistance-helper does LESS THAN HALF the effort. [place] lifts, holds or supports trunk or limbs, but provides less than half the effort. 2-Substantial/Maximal Assistance-helper does MORE THAN HALF the effort. [place] lifts or holds trunk or limbs and provides more than half the effort. 7-Fpzxwgyiw-bxtcct does ALL the effort. Patient does none of the effort to complete the activity. Or, the assistance of 2 or more helpers is required for the patient to complete the activity. If activity was not attempted, code reason: 7-Patient Refused. 9-Not Applicable-not attempted and the patient did not perform the activity before the current illness, exacerbation or injury. 10-Not Attempted due to Environmental Limitations-(lack of equipment, weather restraints, etc.). 88-Not Attempted due to Medical Conditions or Safety Concerns. in out bed min assist right leg, on off toilet min to mod as pt. requested BSC be removed as it did not feel normal for her to attempt a BM, leaving the surface lower than normal Weight Bearing Right Lower Extremity: Right Weight Bearing/Tolerated Gait Training Does the Patient Walk?: Yes Gait Assistive Device: FWW 160 ft x 2, 30 ft x 1, CGA, flexed at right knee, cues for improved extension and heel strike Exercises Seated Therapy Exercises: Ankle pumps, Long arc quads Seated Reps: 12 Treatments TRFs in out bed, on off toilet, gait, changed pants as pt. spilled prune nette on them . Pt c/o "oxy causes tremors" in her hands. in bed after Tx with polar pack on Assessment Current Status: Good Progress PT Short Term Goals Short Term Goals Time Frame: Apr 24, 2021 Roll Left & Right: 6 Sit to lyin Lying to sitting on side of be: 3 Sit to stand: 4 Chair/qqm-lz-xnjnd transfer: 4 Walk 10 feet: 4 Walk 50 feet with two turns: 4 PT Chcf Goals Chcf Goals PT Chcf Goals Time Frame: May 08, 2021 Roll Left & Right (QC): 6 Sit to Lying (QC): 6 Lying-Sitting on Side/Bed(QC): 6 Sit to Stand (QC): 5 Chair/Tbt-tf-Qkqbe Xfer(QC): 5 Toilet Transfer (QC): 5 Car Transfer (QC): 5 Does the Patient Walk: Yes Walk 10 feet (QC): 5 Walk 50ft with 2 Turns (QC): 5 Walk 150 ft (QC): 5 Walking 10ft on Uneven Surface: 4 1 Step (curb) (QC): 4 4 Steps (QC): 4 12 Steps (QC): 88 Picking up an Object (QC): 5 Wheel 50 feet with 2 turns (QC: 6 Wheel 150 feet: 6 PT Plan Treatment/Plan Treatment Plan: Continue Plan of Care Treatment Plan: Bed Mobility, Education, Functional Activity Suzanne, Functional Strength, Group Therapy, Gait, Safety, Therapeutic Exercise, Transfers Treatment Duration: May 08, 2021 Frequency: At least 5 of 7 days/Wk (IRF) Estimated Hrs Per Day: 1.5 hours per day Patient and/or Family Agrees t: Yes Safety Risks/Education Patient Education: Gait Training, Transfer Techniques, Correct Positioning, Disease Process, Safety Issues Teaching Recipient: Patient Teaching Methods: Demonstration, Discussion Response to Teaching: Verbalize Understanding, Return Demonstration, Reinf orcement Needed Time/GCodes Time In: 1400 Time Out: 1435 Total Billed Treatment Time: 35 Total Billed Treatment 1,FA20m,GT15m ELENA BRYAN CLOTHING SUPERVISOR Apr 19, 2021 14:38
[2021-04-19] MEDS: GABAPENTIN 300 MG (NEURONTIN) CAP PO SCH (18:12)
[2021-04-19] MEDS: warFARin 5 MG (COUMADIN) TAB PO SCH (18:12)
[2021-04-19 20:00] VITALS: BP 131/59
[2021-04-19] MEDS: DICYCLOMINE 10 MG (BENTYL) CAP PO PRN (20:45)
[2021-04-19] MEDS: CALCIUM CARBONATE 500 MG (TUMS) TAB.CHEW PO PRN (21:13)
[2021-04-20] MEDS: CALCIUM CARBONATE 500 MG (TUMS) TAB.CHEW PO PRN ×3 (00:35→21:48)
[2021-04-20] MEDS: LEVOTHYROXINE 125 MCG (LEVOTHROID) TABLET PO SCH (06:05)
--- NOTE | 2021-04-20 06:47 | PM&R Progress Note ---
Subjective HPI/CC On Admission Date Seen by Provider: Apr 20, 2021 Time Seen by Provider: 12:00 Subjective/Events-last exam 04/20/2021: Patient doing about the same Having difficulty swallowing and I reviewed the chart from last visit and I had arranged an EGD that day of the procedure she canceled She says she never has problems and with which I find that hard to believe she is on Protonix and Pepcid She says she is willing to have the EGD while hospitalized so will review who I consulted last time 04/19/2021: Patient doing very well Ambulating around really well with rehab protocol Supportive care continues Breathing treatments will be every 4 hours as needed No other changes needed 04/18/2021: Pt is doing pretty well Feels like she is wheezing so she would like breathing treatments. I didn't see that on her home medication list so I will restart those Took Tramadol then Percocet for the pain Has a lot of acid indigestion so I did order a Pepcid QID Discontinue the Losartan since she doesn't take that Review of Systems HEENT: Dysphasia Musculoskeletal: leg pain Objective Exam Vital Signs Vital Signs Date Time Temp Pulse Resp B/P (MAP) Pulse Ox O2 Delivery O2 Flow Rate FiO2 04/20/21 21:20 94 Room Air 04/20/21 19:34 37.2 71 18 128/72 (90) 2.00 Capillary Refill : General Appearance: No Apparent Distress, WD/WN, Chronically ill HEENT: PERRL/EOMI, Normal ENT Inspection, Pharynx Normal Neck: Full Range of Motion, Normal Inspection, Non Tender, Supple, Carotid Bruit Respiratory: Chest Non Tender, Lungs Clear, Normal Breath Sounds, No Accessory Muscle Use, No Respiratory Distress Cardiovascular: Regular Rate, Rhythm, No Edema, No Gallop, No JVD, No Murmur, Normal Peripheral Pulses Gastrointestinal: Normal Bowel Sounds, No Organomegaly, No Pulsatile Mass, Non Tender, Soft Back: Normal Inspection, No CVA Tenderness, No Vertebral Tenderness Extremity: Normal Capillary Refill, Normal Inspection, Normal Range of Motion (except right leg), Non Tender, No Calf Tenderness, No Pedal Edema Neurologic/Psychiatric: Alert, Oriented x3, No Motor/Sensory Deficits, Normal Mood/Affect Skin: Normal Color, Warm/Dry Lymphatic: No Adenopathy Results/Procedures Lab Patient resulted labs reviewed. FIM Transfers Therapy Code Descriptions/Definitions Functional [place] Measure: 0=Not Assessed/NA 4=Minimal Assistance 1=Total Assistance 5=Supervision or Setup 2=Maximal Assistance 6=Modified [place] 3=Moderate Assistance 7=Complete IndependenceSCALE: Activities may be completed with or without assistive devices. 2-Szeectyvil-ocerxpw completes the activity by him/herself with no assistance from a helper. 5-Set-up or Clean-up Assistance-helper sets up or cleans up; patient completes a ctivity. [place] assists only prior to or following the activity. 4-Supervision or Touching Assistance-helper provides verbal cues and/or touching/steadying and/or contact guard assistance as patient completes activity. Assistance may be provided throughout the activity or intermittently. 3-Partial/Moderate Assistance-helper does LESS THAN HALF the effort. [place] lifts, holds or supports trunk or limbs, but provides less than half the effort. 2-Substantial/Maximal Assistance-helper does MORE THAN HALF the effort. [place] lifts or holds trunk or limbs and provides more than half the effort. 7-Gpdfjvuie-btxbjs does ALL the effort. Patient does none of the effort to complete the activity. Or, the assistance of 2 or more helpers is required for the patient to complete the activity. If activity was not attempted, code reason: 7-Patient Refused. 9-Not Applicable-not attempted and the patient did not perform the activity before the current illness, exacerbation or injury. 10-Not Attempted due to Environmental Limitations-(lack of equipment, weather restraints, etc.). 88-Not Attempted due to Medical Conditions or Safety Concerns. Roll Left to Right (QC): 6 Sit to Lying (QC): 5 Sit to Stand (QC): 5 Chair/Xyg-os-Cpbbo Xfer(QC): 5 Car Transfer (QC): 88 Gait Training Does the Patient Walk?: Yes Walk 10 feet (QC): 5 Walk 50 ft with 2 Turns(QC): 5 Walk 150 ft (QC): 88 Walking 10ft/uneven surface-QC: 88 Gait Persons Needed: 1 Gait Assistive Device: FWW Wheelchair Training Does the Pt Use a Wheelchair?: Yes Distance: 120'x3 Wheel 50 ft with 2 turns (QC): 4 Wheel 150 ft (QC): 88 Type of Wheelchair: Manual Stair Training Stair Training: Handrails/: 2 handrails #of Steps: 4 1 Step (curb) (QC): 88 4 Steps (QC): 4 12 Steps (QC): 88 Stairs: Pattern: Step to Balance Picking up an Object (QC): 88 ADL-Treatment Eating (QC): 6 Oral Hygiene (QC): 4 Shower/Bathe Self (QC): 3 Upper Body Dressing (QC): 5 Lower Body Dressing (QC): 4 On/Off Footwear (QC): 4 Toileting Hygiene (QC): 4 Toilet Transfer (QC): 4 Assessment/Plan Assessment and Plan Assess & Plan/Chief Complaint Assessment: 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 Chronic atrial fibrillation Warfarin anticoagulation for stroke prophylaxis from atrial fibrillation Hypothyroidism History of breast cancer History of pacemaker Chronic kidney disease Hypertension Hyperlipidemia Obesity Esophageal spasms chronic but dysphagia worsened so will review last visit record to see who I consulted for EGD of which she declined GERD Postop constipation Wheezing Plan: Aggressive rehab Supportive care Pain control Bowel regimen 04/18/2021: Nebulizer treatments Supportive care 04/19/2021: Nebulizer treatments Pain control 04/20/2021: Needs EGD Supportive care (1) Total knee replacement status (2) Obesity (3) GERD (gastroesophageal reflux disease) (4) Hypothyroidism (5) Atrial fibrillation (6) HX: breast cancer (7) Warfarin anticoagulation STEFF TORRES DO Apr 20, 2021 06:47
[2021-04-20 07:21] LABS: PROTHROMBIN TIME PATIENT 23.5 SEC (12.2-14.7)
[2021-04-20 08:00] VITALS: BP 118/58
[2021-04-20] MEDS: RT-ALBUTEROL SULF 2.5 MG/3 ML PRE-MIX VIAL INH SCH ×3 (08:02→20:17)
[2021-04-20] MEDS: PANTOPRAZOLE 40 MG (PROTONIX) TAB PO SCH (08:32)
[2021-04-20] MEDS: SPIRONOLACTONE 25 MG (ALDACTONE) TAB PO SCH (08:32)
[2021-04-20] MEDS: SENNA W/DOCUSATE (SENOKOT S) TABLET PO SCH ×2 (08:32→20:37)
[2021-04-20] MEDS: FAMOTIDINE 20 MG (PEPCID) TABLET PO SCH (08:32)
[2021-04-20] MEDS: LETROZOLE 2.5 MG (FEMARA) TAB PO SCH (08:32)
[2021-04-20] MEDS: DOCUSATE SODIUM 100 MG (COLACE) CAP PO SCH ×2 (08:32→20:37)
[2021-04-20] MEDS: polyethylene glycoL POWDER 17 GM (MIRALAX) PACK PO SCH ×2 (09:54→20:41)
--- NOTE | 2021-04-20 11:22 | Physical Therapy Daily Note ---
PT Daily Note-Current Subjective Pt reports that she was really hurting last night but that he feels better to get up and walk on it. Pain Numeric Pain Scale: 6 Location: Right Location Body Site: Knee Mental Status Patient Orientation: Person, Place, Time, Normal For Age Transfers SCALE: Activities may be completed with or without assistive devices. 6-Zjnxvdlsik-sjsgbui completes the activity by him/herself with no assistance from a helper. 5-Set-up or Clean-up Assistance-helper sets up or cleans up; patient completes activity. [place] assists only prior to or following the activity. 4-Supervision or Touching Assistance-helper provides verbal cues and/or touching/steadying and/or contact guard assistance as patient completes activity. Assistance may be provided throughout the activity or intermittently. 3-Partial/Moderate Assistance-helper does LESS THAN HALF the effort. [place] lifts, holds or supports trunk or limbs, but provides less than half the effort. 2-Substantial/Maximal Assistance-helper does MORE THAN HALF the effort. [place] lifts or holds trunk or limbs and provides more than half the effort. 0-Jpmfnoulz-pittox does ALL the effort. Patient does none of the effort to complete the activity. Or, the assistance of 2 or more helpers is required for the patient to complete the activity. If activity was not attempted, code reason: 7-Patient Refused. 9-Not Applicable-not attempted and the patient did not perform the activity before the current illness, exacerbation or injury. 10-Not Attempted due to Environmental Limitations-(lack of equipment, weather restraints, etc.). 88-Not Attempted due to Medical Conditions or Safety Concerns. Sit to Lying (QC): 4 Lying to Sitting/Side of Bed(Q: 4 Sit to Stand (QC): 4 Weight Bearing Right Lower Extremity: Right Weight Bearing/Tolerated Gait Training Does the Patient Walk?: Yes Distance: 50' x 3 75' x 2 Walk 10 feet (QC): 5 Walk 50 ft with 2 Turns(QC): 4 Gait Persons Needed: 1 Gait Assistive Device: FWW slow and antalgic on RLE Exercises NuStep Minutes: 5 NuStep Workload: 1 Treatments Pt in bed upon arrival and agrees to PT. Nurse administers pain pill prior to amb. Pt amb into rendon 50' and then requires rest then 50' then rest and then 50' to gym. Pt performs nustep and then amb 75' into rendon and then 75' back to room. Tfs to bed all needs met and call light nearby. Assessment Current Status: Good Progress Pt still very antalgic on RLE during amb and presents w/ limited ROM. PT Short Term Goals Short Term Goals Time Frame: Apr 24, 2021 Roll Left & Right: 6 Sit to lyin Lying to sitting on side of be: 3 Sit to stand: 4 Chair/yni-wm-gbham transfer: 4 Walk 10 feet: 4 Walk 50 feet with two turns: 4 PT Shelter Goals Quitline Counselor Goals PT Quitline Counselor Goals Time Frame: May 08, 2021 Roll Left & Right (QC): 6 Sit to Lying (QC): 6 Lying-Sitting on Side/Bed(QC): 6 Sit to Stand (QC): 5 Chair/Pga-tf-[place] Xfer(QC): 5 Toilet Transfer (QC): 5 Car Transfer (QC): 5 Does the Patient Walk: Yes Walk 10 feet (QC): 5 Walk 50ft with 2 Turns (QC): 5 Walk 150 ft (QC): 5 Walking 10ft on Uneven Surface: 4 1 Step (curb) (QC): 4 4 Steps (QC): 4 12 Steps (QC): 88 Picking up an Object (QC): 5 Wheel 50 feet with 2 turns (QC: 6 Wheel 150 feet: 6 PT Plan Problem List Problem List: Activity Tolerance, Functional Strength, Safety, Gait Treatment/Plan Treatment Plan: Continue Plan of Care Treatment Plan: Bed Mobility, Education, Functional Activity Suzanne, Functional Strength, Group Therapy, Gait, Safety, Therapeutic Exercise, Transfers Treatment Duration: May 08, 2021 Frequency: At least 5 of 7 days/Wk (IRF) Estimated Hrs Per Day: 1.5 hours per day Patient and/or Family Agrees t: Yes Safety Risks/Education Patient Education: Gait Training, Transfer Techniques Teaching Recipient: Patient Teaching Methods: Discussion Response to Teaching: Return Demonstration Time/GCodes Time In: 825 Time Out: 855 Total Billed Treatment Time: 30 Total Billed Treatment 1, GT 20, EX 10 TONI AMEZQUITA BRACE MAKER Apr 20, 2021 11:21
[2021-04-20] MEDS: DICYCLOMINE 10 MG (BENTYL) CAP PO PRN (12:31)
[2021-04-20] MEDS: warFARin 2.5 MG (COUMADIN) TAB PO SCH (17:09)
[2021-04-20] MEDS: GABAPENTIN 300 MG (NEURONTIN) CAP PO SCH (17:09)
[2021-04-20 19:34] VITALS: BP 128/72
[2021-04-21] MEDS: ALPRAZolam 0.25 MG (XANAX) TAB PO PRN (03:24)
[2021-04-21] MEDS: LEVOTHYROXINE 125 MCG (LEVOTHROID) TABLET PO SCH (06:17)
--- NOTE | 2021-04-21 06:52 | PM&R Progress Note ---
Subjective HPI/CC On Admission Date Seen by Provider: Apr 21, 2021 Time Seen by Provider: 12:00 Subjective/Events-last exam 04/21/21: Patient doing well We will speak to Dr. STANLEY tomorrow to evaluate possible EGD Only wants to drink liquid Ensure due to dysphagia No other issues 04/20/2021: Patient doing about the same Having difficulty swallowing and I reviewed the chart from last visit and I had arranged an EGD that day of the procedure she canceled She says she never has problems and with which I find that hard to believe she is on Protonix and Pepcid She says she is willing to have the EGD while hospitalized so will review who I consulted last time 04/19/2021: Patient doing very well Ambulating around really well with rehab protocol Supportive care continues Breathing treatments will be every 4 hours as needed No other changes needed 04/18/2021: Pt is doing pretty well Feels like she is wheezing so she would like breathing treatments. I didn't see that on her home medication list so I will restart those Took Tramadol then Percocet for the pain Has a lot of acid indigestion so I did order a Pepcid QID Discontinue the Losartan since she doesn't take that Review of Systems HEENT: Dysphasia Musculoskeletal: leg pain Objective Exam Vital Signs Vital Signs Date Time Temp Pulse Resp B/P (MAP) Pulse Ox O2 Delivery O2 Flow Rate FiO2 04/21/21 21:48 98 Nasal Cannula 2.00 04/21/21 19:38 36.3 62 18 164/70 (101) Capillary Refill : General Appearance: No Apparent Distress, WD/WN, Chronically ill HEENT: PERRL/EOMI, Normal ENT Inspection, Pharynx Normal Neck: Full Range of Motion, Normal Inspection, Non Tender, Supple, Carotid Bruit Respiratory: Chest Non Tender, Lungs Clear, Normal Breath Sounds, No Accessory Muscle Use, No Respiratory Distress Cardiovascular: Regular Rate, Rhythm, No Edema, No Gallop, No JVD, No Murmur, Normal Peripheral Pulses Gastrointestinal: Normal Bowel Sounds, No Organomegaly, No Pulsatile Mass, Non Tender, Soft Back: Normal Inspection, No CVA Tenderness, No Vertebral Tenderness Extremity: Normal Capillary Refill, Normal Inspection, Normal Range of Motion (except right leg), Non Tender, No Calf Tenderness, No Pedal Edema Neurologic/Psychiatric: Alert, Oriented x3, No Motor/Sensory Deficits, Normal Mood/Affect Skin: Normal Color, Warm/Dry Lymphatic: No Adenopathy Results/Procedures Lab Patient resulted labs reviewed. FIM Transfers Therapy Code Descriptions/Definitions Functional [place] Measure: 0=Not Assessed/NA 4=Minimal Assistance 1=Total Assistance 5=Supervision or Setup 2=Maximal Assistance 6=Modified [place] 3=Moderate Assistance 7=Complete IndependenceSCALE: Activities may be completed with or without assistive devices. 5-Olueedrxow-kpxqkqj completes the activity by him/herself with no assistance from a helper. 5-Set-up or Clean-up Assistance-helper sets up or cleans up; patient completes activity. [place] assists only prior to or following the activity. 4-Supervision or Touching Assistance-helper provides verbal cues and/or touching/steadying and/or contact guard assistance as patient completes activi ty. Assistance may be provided throughout the activity or intermittently. 3-Partial/Moderate Assistance-helper does LESS THAN HALF the effort. [place] lifts, holds or supports trunk or limbs, but provides less than half the effort. 2-Substantial/Maximal Assistance-helper does MORE THAN HALF the effort. [place] lifts or holds trunk or limbs and provides more than half the effort. 0-Izalcylhc-appdtd does ALL the effort. Patient does none of the effort to complete the activity. Or, the assistance of 2 or more helpers is required for the patient to complete the activity. If activity was not attempted, code reason: 7-Patient Refused. 9-Not Applicable-not attempted and the patient did not perform the activity before the current illness, exacerbation or injury. 10-Not Attempted due to Environmental Limitations-(lack of equipment, weather restraints, etc.). 88-Not Attempted due to Medical Conditions or Safety Concerns. Roll Left to Right (QC): 6 Sit to Lying (QC): 4 Sit to Stand (QC): 4 Chair/Pcw-cn-Ahgwp Xfer(QC): 5 Car Transfer (QC): 88 Gait Training Does the Patient Walk?: Yes Distance: 50' x 3 75' x 2 Walk 10 feet (QC): 5 Walk 50 ft with 2 Turns(QC): 4 Walk 150 ft (QC): 88 Walking 10ft/uneven surface-QC: 88 Gait Persons Needed: 1 Gait Assistive Device: FWW Wheelchair Training Does the Pt Use a Wheelchair?: Yes Distance: 120'x3 Wheel 50 ft with 2 turns (QC): 4 Wheel 150 ft (QC): 88 Type of Wheelchair: Manual Stair Training Stair Training: Handrails/: 2 handrails #of Steps: 4 1 Step (curb) (QC): 88 4 Steps (QC): 4 12 Steps (QC): 88 Stairs: Pattern: Step to Balance Picking up an Object (QC): 88 ADL-Treatment Eating (QC): 6 Oral Hygiene (QC): 4 Shower/Bathe Self (QC): 3 Upper Body Dressing (QC): 5 Lower Body Dressing (QC): 4 On/Off Footwear (QC): 4 Toileting Hygiene (QC): 4 Toilet Transfer (QC): 4 Assessment/Plan Assessment and Plan Assess & Plan/Chief Complaint Assessment: 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 Chronic atrial fibrillation Warfarin anticoagulation for stroke prophylaxis from atrial fibrillation Hypothyroidism History of breast cancer History of pacemaker Chronic kidney disease Hypertension Hyperlipidemia Obesity Esophageal spasms chronic but dysphagia worsened so will review last visit record to see who I consulted for EGD of which she declined GERD Postop constipation Wheezing Plan: Aggressive rehab Supportive care Pain control Bowel regimen 04/18/2021: Nebulizer treatments Supportive care 04/19/2021: Nebulizer treatments Pain control 04/20/2021: Needs EGD Supportive care 04/21/2021: EGD by Dr. STANLEY hopefully this week (1) Total knee replacement status (2) Obesity (3) GERD (gastroesophageal reflux disease) (4) Hypothyroidism (5) Atrial fibrillation (6) HX: breast cancer (7) Warfarin anticoagulation STEFF TORRES DO Apr 21, 2021 06:52
[2021-04-21 07:28] VITALS: BP 153/69
[2021-04-21] MEDS: RT-ALBUTEROL SULF 2.5 MG/3 ML PRE-MIX VIAL INH SCH ×4 (07:44→21:48)
[2021-04-21] MEDS: DOCUSATE SODIUM 100 MG (COLACE) CAP PO SCH ×2 (08:35→20:04)
[2021-04-21] MEDS: PANTOPRAZOLE 40 MG (PROTONIX) TAB PO SCH (08:35)
[2021-04-21] MEDS: LETROZOLE 2.5 MG (FEMARA) TAB PO SCH (08:35)
[2021-04-21] MEDS: SPIRONOLACTONE 25 MG (ALDACTONE) TAB PO SCH (08:35)
[2021-04-21] MEDS: DICYCLOMINE 10 MG (BENTYL) CAP PO PRN (08:35)
[2021-04-21] MEDS: SENNA W/DOCUSATE (SENOKOT S) TABLET PO SCH ×2 (08:35→20:04)
[2021-04-21] MEDS: FAMOTIDINE 20 MG (PEPCID) TABLET PO SCH (08:35)
[2021-04-21] MEDS: polyethylene glycoL POWDER 17 GM (MIRALAX) PACK PO SCH ×2 (08:35→20:04)
[2021-04-21] MEDS: GABAPENTIN 300 MG (NEURONTIN) CAP PO SCH (18:08)
[2021-04-21] MEDS: warFARin 2.5 MG (COUMADIN) TAB PO SCH (18:08)
[2021-04-21 19:38] VITALS: BP 164/70
[2021-04-22] MEDS: LEVOTHYROXINE 125 MCG (LEVOTHROID) TABLET PO SCH (06:11)
[2021-04-22 06:44] LABS: BASOPHILS % (AUTO) 1 % (0-10); EOSINOPHILS # (AUTO) 0.2 10^3/uL (0.0-0.3); EOSINOPHILS % (AUTO) 3 % (0-10); HEMATOCRIT 30 % (35-52); HEMOGLOBIN 9.5 g/dL (11.5-16.0); LYMPHOCYTES # (AUTO) 0.6 10^3/uL (1.0-4.0); LYMPHOCYTES % (AUTO) 10 % (12-44); MEAN CORPUSCULAR HEMOGLOBIN 32 pg (25-34); MEAN CORPUSCULAR HGB CONC 32 g/dL (32-36); MEAN CORPUSCULAR VOLUME 100 fL (80-99); MEAN PLATELET VOLUME 10.6 fL (9.0-12.2); MONOCYTES # (AUTO) 0.8 10^3/uL (0.0-1.0); MONOCYTES % (AUTO) 13 % (0-12); NEUTROPHILS # (AUTO) 4.6 10^3/uL (1.8-7.8); NEUTROPHILS % (AUTO) 73 % (42-75); PLATELET COUNT 195 10^3/uL (130-400); WHITE BLOOD COUNT 6.2 10^3/uL (4.3-11.0)
[2021-04-22 06:52] LABS: ALBUMIN 3.2 GM/DL (3.2-4.5); CHLORIDE 104 MMOL/L (98-107); POTASSIUM 4.6 MMOL/L (3.6-5.0); SODIUM 137 MMOL/L (135-145)
[2021-04-22 06:53] LABS: CALCIUM 8.5 MG/DL (8.5-10.1)
[2021-04-22 06:55] LABS: GLUCOSE 123 MG/DL (70-105); TOTAL PROTEIN 6.2 GM/DL (6.4-8.2)
[2021-04-22 06:56] LABS: CARBON DIOXIDE 23 MMOL/L (21-32)
[2021-04-22 06:57] LABS: BILIRUBIN,TOTAL 0.6 MG/DL (0.1-1.0)
[2021-04-22 06:58] LABS: ALKALINE PHOSPHATASE 45 U/L (40-136); GFR ESTIMATED 57
[2021-04-22 06:59] LABS: BUN/CREATININE RATIO 27
[2021-04-22 07:01] LABS: ALANINE AMINOTRANSFERASE < 6 U/L (0-55)
[2021-04-22 07:36] VITALS: BP 163/75
--- NOTE | 2021-04-22 07:44 | PM&R Progress Note ---
Subjective HPI/CC On Admission Date Seen by Provider: Apr 22, 2021 Time Seen by Provider: 09:00 Subjective/Events-last exam 04/22/2021: Pt is doing okay Had an episode of emesis today Hemoglobin was 9.5 Had some nausea but Bentyl helped her Dr. Stanley will see her for EGD 04/21/21: Patient doing well We will speak to Dr. STANLEY tomorrow to evaluate possible EGD Only wants to drink liquid Ensure due to dysphagia No other issues 04/20/2021: Patient doing about the same Having difficulty swallowing and I reviewed the chart from last visit and I had arranged an EGD that day of the procedure she canceled She says she never has problems and with which I find that hard to believe she is on Protonix and Pepcid She says she is willing to have the EGD while hospitalized so will review who I consulted last time 04/19/2021: Patient doing very well Ambulating around really well with rehab protocol Supportive care continues Breathing treatments will be every 4 hours as needed No other changes needed 04/18/2021: Pt is doing pretty well Feels like she is wheezing so she would like breathing treatments. I didn't see that on her home medication list so I will restart those Took Tramadol then Percocet for the pain Has a lot of acid indigestion so I did order a Pepcid QID Discontinue the Losartan since she doesn't take that Review of Systems General: Fatigue, Malaise HEENT: Dysphasia Gastrointestinal: Nausea, Vomiting Objective Exam Vital Signs Vital Signs Date Time Temp Pulse Resp B/P (MAP) Pulse Ox O2 Delivery O2 Flow Rate FiO2 04/22/21 20:39 36.5 62 20 135/61 (85) 95 Room Air 04/22/21 20:20 2.00 Capillary Refill : General Appearance: No Apparent Distress, WD/WN, Chronically ill HEENT: PERRL/EOMI, Normal ENT Inspection, Pharynx Normal Neck: Full Range of Motion, Normal Inspection, Non Tender, Supple, Carotid Bruit Respiratory: Chest Non Tender, Lungs Clear, Normal Breath Sounds, No Accessory Muscle Use, No Respiratory Distress Cardiovascular: Regular Rate, Rhythm, No Edema, No Gallop, No JVD, No Murmur, Normal Peripheral Pulses Gastrointestinal: Normal Bowel Sounds, No Organomegaly, No Pulsatile Mass, Non Tender, Soft Back: Normal Inspection, No CVA Tenderness, No Vertebral Tenderness Extremity: Normal Capillary Refill, Normal Inspection, Normal Range of Motion (except right leg), Non Tender, No Calf Tenderness, No Pedal Edema Neurologic/Psychiatric: Alert, Oriented x3, No Motor/Sensory Deficits, Normal Mood/Affect Skin: Normal Color, Warm/Dry Lymphatic: No Adenopathy Results/Procedures Lab Laboratory Tests 04/22/21 06:12 Patient resulted labs reviewed. FIM Transfers Therapy Code Descriptions/Definitions Functional [place] Measure: 0=Not Assessed/NA 4=Minimal Assistance 1=Total Assistance 5=Supervision or Setup 2=Maximal Assistance 6=Modified [place] 3=Moderate Assistance 7=Complete IndependenceSCALE: Activities may be completed with or without assistive devices. 1-Oskhcmntsl-vnhmcob completes the activity by him/herself with no assistance from a helper. 5-Set-up or Clean-up Assistance-helper sets up or cleans up; patient completes activity. [place] assists only prior to or following the activity. 4-Supervision or Touching Assistance-helper provides verbal cues and/or touching/steadying and/or contact guard assistance as patient completes activity. Assistance may be provided throughout the activity or intermittently. 3-Partial/Moderate Assistance-helper does LESS THAN HALF the effort. [place] lifts, holds or supports trunk or limbs, but provides less than half the effort. 2-Substantial/Maximal Assistance-helper does MORE THAN HALF the effort. [place] lifts or holds trunk or limbs and provides more than half the effort. 0-Xsaczsdjk-ykovkh does ALL the effort. Patient does none of the effort to complete the activity. Or, the assistance of 2 or more helpers is required for the patient to complete the activity. If activity was not attempted, code reason: 7-Patient Refused. 9-Not Applicable-not attempted and the patient did not perform the activity before the current illness, exacerbation or injury. 10-Not Attempted due to Environmental Limitations-(lack of equipment, weather re straints, etc.). 88-Not Attempted due to Medical Conditions or Safety Concerns. Roll Left to Right (QC): 6 Sit to Lying (QC): 4 Sit to Stand (QC): 4 Chair/Mdq-vr-Wzjme Xfer(QC): 5 Car Transfer (QC): 88 Gait Training Does the Patient Walk?: Yes Distance: 50' x 3 75' x 2 Walk 10 feet (QC): 5 Walk 50 ft with 2 Turns(QC): 4 Walk 150 ft (QC): 88 Walking 10ft/uneven surface-QC: 88 Gait Persons Needed: 1 Gait Assistive Device: FWW Wheelchair Training Does the Pt Use a Wheelchair?: Yes Distance: 120'x3 Wheel 50 ft with 2 turns (QC): 4 Wheel 150 ft (QC): 88 Type of Wheelchair: Manual Stair Training Stair Training: Handrails/: 2 handrails #of Steps: 4 1 Step (curb) (QC): 88 4 Steps (QC): 4 12 Steps (QC): 88 Stairs: Pattern: Step to Balance Picking up an Object (QC): 88 ADL-Treatment Eating (QC): 6 Oral Hygiene (QC): 4 Shower/Bathe Self (QC): 3 Upper Body Dressing (QC): 5 Lower Body Dressing (QC): 4 On/Off Footwear (QC): 4 Toileting Hygiene (QC): 4 Toilet Transfer (QC): 4 Assessment/Plan Assessment and Plan Assess & Plan/Chief Complaint Assessment: 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 Chronic atrial fibrillation Warfarin anticoagulation for stroke prophylaxis from atrial fibrillation Hypothyroidism History of breast cancer History of pacemaker Chronic kidney disease Hypertension Hyperlipidemia Obesity Esophageal spasms chronic but dysphagia worsened so will review last visit record to see who I consulted for EGD of which she declined GERD Postop constipation Wheezing Plan: Aggressive rehab Supportive care Pain control Bowel regimen 04/18/2021: Nebulizer treatments Supportive care 04/19/2021: Nebulizer treatments Pain control 04/20/2021: Needs EGD Supportive care 04/21/2021: EGD by Dr. STANLEY hopefully this week 04/22/2021: Appreciate Dr. STANLEY Monitor nausea (1) Total knee replacement status (2) Obesity (3) GERD (gastroesophageal reflux disease) (4) Hypothyroidism (5) Atrial fibrillation (6) HX: breast cancer (7) Warfarin anticoagulation STEFF TORRES DO Apr 22, 2021 07:44
[2021-04-22] MEDS: RT-ALBUTEROL SULF 2.5 MG/3 ML PRE-MIX VIAL INH SCH ×2 (08:08→19:40)
[2021-04-22] MEDS: PANTOPRAZOLE 40 MG (PROTONIX) TAB PO SCH (08:13)
[2021-04-22] MEDS: FAMOTIDINE 20 MG (PEPCID) TABLET PO SCH (08:13)
[2021-04-22] MEDS: FUROSEMIDE 40 MG (LASIX) TAB PO SCH (08:13)
[2021-04-22] MEDS: LETROZOLE 2.5 MG (FEMARA) TAB PO SCH (08:13)
[2021-04-22] MEDS: SPIRONOLACTONE 25 MG (ALDACTONE) TAB PO SCH (08:13)
[2021-04-22] MEDS: DOCUSATE SODIUM 100 MG (COLACE) CAP PO SCH ×2 (08:37→20:35)
[2021-04-22] MEDS: SENNA W/DOCUSATE (SENOKOT S) TABLET PO SCH ×2 (08:37→20:35)
[2021-04-22] MEDS: DICYCLOMINE 10 MG (BENTYL) CAP PO PRN (08:37)
[2021-04-22] MEDS: polyethylene glycoL POWDER 17 GM (MIRALAX) PACK PO SCH ×2 (08:38→20:36)
--- NOTE | 2021-04-22 09:45 | Occupational Ther Daily Note ---
OT Current Status-Daily Note Subjective Pt reports not feeling well as she threw up her breakfast secondary to pain with swallowing. Appearance Left sitting in recliner, ice applied to knee. All needs within reach at therapy departure. Mental Status/Objective Patient Orientation: Person, Place, Situation ADL-Treatment Therapy Code Descriptions/Definitions Functional [place] Measure: 0=Not Assessed/NA 4=Minimal Assistance 1=Total Assistance 5=Supervision or Setup 2=Maximal Assistance 6=Modified [place] 3=Moderate Assistance 7=Complete IndependenceSCALE: Activities may be completed with or without assistive devices. 0-Rmcudohdze-bwhtydj completes the activity by him/herself with no assistance from a helper. 5-Set-up or Clean-up Assistance-helper sets up or cleans up; patient completes activity. [place] assists only prior to or following the activity. 4-Supervision or Touching Assistance-helper provides verbal cues and/or lorri quyen/steadying and/or contact guard assistance as patient completes activity. Assistance may be provided throughout the activity or intermittently. 3-Partial/Moderate Assistance-helper does LESS THAN HALF the effort. [place] lifts, holds or supports trunk or limbs, but provides less than half the effort. 2-Substantial/Maximal Assistance-helper does MORE THAN HALF the effort. [place] lifts or holds trunk or limbs and provides more than half the effort. 7-Lzoiekwba-uymgxu does ALL the effort. Patient does none of the effort to complete the activity. Or, the assistance of 2 or more helpers is required for the patient to complete the activity. If activity was not attempted, code reason: 7-Patient Refused. 9-Not Applicable-not attempted and the patient did not perform the activity before the current illness, exacerbation or injury. 10-Not Attempted due to Environmental Limitations-(lack of equipment, weather restraints, etc.). 88-Not Attempted due to Medical Conditions or Safety Concerns. Oral Hygiene (QC): 5 Upper Body Dressing (QC): 5 Lower Body Dressing (QC): 4 Toileting Hygiene (QC): 4 Toilet Transfer (QC): 4 Pt declines shower as she reports not feeling well this morning. She states she threw up her breakfast due to pain when swallowing. Per chart, pt scheduled for EGD possibly later today. Dressing tasks performed seated EOB. She was able to thread feet into pants without use of curator natural history museum this session. Close supervision as she stood to pull clothing up over hips. She ambulated to/from bathroom with walker and close sba-cga due to increased knee pain. She stood to wash face and comb hair and then requested to sit for oral care. Pt moves slowly through all adls this date due to increased knee pain. Other Treatment While seated, pt participated in UE exercises with 2# hand held weight. Consistent cues to keep proper form throughout set. Shoulder flexion modified to 90 degrees with 2# and full range with zero resistance secondary to weakness. 15x1 in all planes. Short rest breaks needed throughout. Education OT Patient Education: Correct positioning, Energy conservation, Exercise program, Modified ADL techniques, Progress toward Goal/Update tx plan, Purpose of tx/functional activities, Safety issues, Transfer techniques Teaching Recipient: Patient Teaching Methods: Demonstration, Discussion Response to Teaching: Verbalize Understanding, Return Demonstration, Reinforcement Needed OT Short Term Goals Short Term Goals Time Frame: Apr 24, 2021 Eatin Oral hygiene: 5 Toileting hygiene: 4 Shower/bathe self: 4 Upper body dressin Lower body dressin Putting on/taking off footwear: 4 OT Retirement Goals [employer] Machine Operator Goals Time Frame: May 01, 2021 Eating (QC): 6 Oral Hygiene (QC): 6 Toileting Hygiene (QC): 6 Shower/Bathe Self (QC): 5 Upper Body Dressing (QC): 6 Lower Body Dressing (QC): 6 On/Off Footwear (QC): 5 1=Demonstrate adherence to instructed precautions during ADL tasks. 2=Patient will verbalize/demonstrate understanding of assistive devices/modifications for ADL. 3=Patient will improve strength/tolerance for activity to enable patient to perform ADL's. OT Education/Plan Problem List/Assessment Assessment: Decreased Activ Tolerance, Decreased Safety Aware, Decreased UE Strength, Impaired Funct Balance, Impaired I ADL's, Impaired Self-Care Skills, Restricted Funct UE ROM Discharge Recommendations Plan/Recommendations: Continue POC Treatment Plan/Plan of Care Treatment,Training & Education: Yes Patient would benefit from OT for education, treatment and training to promote independence in ADL's, mobility, safety and/or upper extremity function for ADL's. Plan of Care: ADL Retraining, Functional Mobility, Group Exercise/Act as Ind, UE Funct Exercise/Act, W/C Management Training Treatment Duration: May 01, 2021 Frequency: At least 5 of 7 days/Wk (IRF) Estimated Hrs Per Day: 1.5 hours per day Agreement: Yes Rehab Potential: Fair Time/GCodes Start Time: 08:30 Stop Time: 09:36 Total Time Billed (hr/min): 66 Billed Treatment Time 1 visit ADL x3 (40 min) Ex (26 min) Heavenly Rice OT Apr 22, 2021 09:45
--- NOTE | 2021-04-22 11:03 | Physical Therapy Daily Note ---
PT Daily Note-Current Subjective Pt sitting in recliner upon arrival. Pt agrees to PT. Pain Numeric Pain Scale: 5-Moderate Pain Location: Right Location Body Site: Knee Pain Description: Ache, Tightness Mental Status Patient Orientation: Person, Place, Time, Situation Attachments: Polar Pack Transfers SCALE: Activities may be completed with or without assistive devices. 6-Cgpzplnbkg-gymxvwy completes the activity by him/herself with no assistance from a helper. 5-Set-up or Clean-up Assistance-helper sets up or cleans up; patient completes activity. [place] assists only prior to or following the activity. 4-Supervision or Touching Assistance-helper provides verbal cues and/or touching/steadying and/or contact guard assistance as patient completes activity. Assistance may be provided throughout the activity or intermittently. 3-Partial/Moderate Assistance-helper does LESS THAN HALF the effort. [place] lifts, holds or supports trunk or limbs, but provides less than half the effort. 2-Substantial/Maximal Assistance-helper does MORE THAN HALF the effort. [place] lifts or holds trunk or limbs and provides more than half the effort. 2-Kotztzpzg-anebtu does ALL the effort. Patient does none of the effort to complete the activity. Or, the assistance of 2 or more helpers is required for the patient to complete the activity. If activity was not attempted, code reason: 7-Patient Refused. 9-Not Applicable-not attempted and the patient did not perform the activity before the current illness, exacerbation or injury. 10-Not Attempted due to Environmental Limitations-(lack of equipment, weather restraints, etc.). 88-Not Attempted due to Medical Conditions or Safety Concerns. Sit to Stand (QC): 5 Weight Bearing Right Lower Extremity: Right Weight Bearing/Tolerated Gait Training Does the Patient Walk?: Yes Distance: 150' x2 Walk 10 feet (QC): 5 Walk 50 ft with 2 Turns(QC): 5 Walk 150 ft (QC): 5 Gait Persons Needed: 1 Gait Assistive Device: FWW VC to stand up tall and closer to FWW. RB frequent as pt fatigues. Exercises Seated Therapy Exercises: Ankle pumps, Long arc quads, Hip flexion, Glut set Seated Reps: 15 NuStep Minutes: 10 NuStep Workload: 2 Treatments TF to standing and amb. in hallway, taking RB after ~ 50'. Pt amb. another 100' then rests before using NuStep for 10m at WL 2. Pt takes RB then completes Seated EX. Pt amb. in hallway, taking RB before returning to room to rest in bed. All needs met, call light in hand. Assessment Current Status: Fair Progress Pt is limited by perceived fatigue and R knee pain/swelling. Per pt request, polar pack is applied at end of tx. PT Short Term Goals Short Term Goals Time Frame: Apr 24, 2021 Roll Left & Right: 6 Sit to lyin Lying to sitting on side of be: 3 Sit to stand: 4 Chair/kza-st-iallr transfer: 4 Walk 10 feet: 4 Walk 50 feet with two turns: 4 PT Skilled Nursing Goals Public Safety Telecommunicator Goals PT Skilled Nursing Goals Time Frame: May 08, 2021 Roll Left & Right (QC): 6 Sit to Lying (QC): 6 Lying-Sitting on Side/Bed(QC): 6 Sit to Stand (QC): 5 Chair/Isu-cp-Wdtqd Xfer(QC): 5 Toilet Transfer (QC): 5 Car Transfer (QC): 5 Does the Patient Walk: Yes Walk 10 feet (QC): 5 Walk 50ft with 2 Turns (QC): 5 Walk 150 ft (QC): 5 Walking 10ft on Uneven Surface: 4 1 Step (curb) (QC): 4 4 Steps (QC): 4 12 Steps (QC): 88 Picking up an Object (QC): 5 Wheel 50 feet with 2 turns (QC: 6 Wheel 150 feet: 6 PT Plan Problem List Problem List: Activity Tolerance, Functional Strength Treatment/Plan Treatment Plan: Continue Plan of Care Treatment Plan: Bed Mobility, Education, Functional Activity Suzanne, Functional Strength, Group Therapy, Gait, Safety, Therapeutic Exercise, Transfers Treatment Duration: May 08, 2021 Frequency: At least 5 of 7 days/Wk (IRF) Estimated Hrs Per Day: 1.5 hours per day Patient and/or Family Agrees t: Yes Safety Risks/Education Patient Education: Gait Training, Correct Positioning, Safety Issues Teaching Recipient: Patient Teaching Methods: Discussion Response to Teaching: Reinforcement Needed Time/GCodes Time In: 1000 Time Out: 1100 Total Billed Treatment Time: 60 Total Billed Treatment 1, EX x2 (25m), GT (20m) & FA (15m) FRIDA BOLDEN DIGITAL SALES MANAGER Apr 22, 2021 11:03
--- NOTE | 2021-04-22 12:07 | Occupational Ther Daily Note ---
OT Current Status-Daily Note Subjective Pt agreeable to treatment, c/o pain in R knee as 09/15. Polar pack applied at end of treatment Appearance Pt left supine in bed, all needs within reach. ADL-Treatment Therapy Code Descriptions/Definitions Functional [place] Measure: 0=Not Assessed/NA 4=Minimal Assistance 1=Total Assistance 5=Supervision or Setup 2=Maximal Assistance 6=Modified [place] 3=Moderate Assistance 7=Complete IndependenceSCALE: Activities may be completed with or without assistive devices. 1-Pfmyafnpyr-gelozbg completes the activity by him/herself with no assistance from a helper. 5-Set-up or Clean-up Assistance-helper sets up or cleans up; patient completes activity. [place] assists only prior to or following the activity. 4-Supervision or Touching Assistance-helper provides verbal cues and/or touching/steadying and/or contact guard assistance as patient completes activity. Assistance may be provided throughout the activity or intermittently. 3-Partial/Moderate Assistance-helper does LESS THAN HALF the effort. [place] lifts, holds or supports trunk or limbs, but provides less than half the effort. 2-Substantial/Maximal Assistance-helper does MORE THAN HALF the effort. [place] lifts or holds trunk or limbs and provides more than half the effort. 2-Mjjtcufwp-axcbtn does ALL the effort. Patient does none of the effort to complete the activity. Or, the assistance of 2 or more helpers is required for the patient to complete the activity. If activity was not attempted, code reason: 7-Patient Refused. 9-Not Applicable-not attempted and the patient did not perform the activity before the current illness, exacerbation or injury. 10-Not Attempted due to Environmental Limitations-(lack of equipment, weather restraints, etc.). 88-Not Attempted due to Medical Conditions or Safety Concerns. Toileting Hygiene (QC): 4 Toilet Transfer (QC): 4 Other Treatment Pt ambulated around room to gather 10 beans bags placed at random heights. Focus on improving endurance, safety, and balance needed during functional homemaking task such as organizing/cleaning. Close sba-cga throughout due to c/o severe knee pain. When presented with a perdomo bag placed on the floor, pt impulsively bends at waist to retrieve. She denies any increase in knee pain. CGA when bending. OT encouraged pt to utilize diver's tender for beans bags at low heights. Cues for safety with walker and side stepping closer to object vs trying to reach too far out of [place]RISTIAN[place]. 2 seated rest breaks needed before completion of activity. Education OT Patient Education: Correct positioning, Energy conservation, Purpose of tx/functional activities, Reviewed precautions, Safety issues, Transfer techniques, Use of adapted equipment Teaching Recipient: Patient Teaching Methods: Demonstration, Discussion Response to Teaching: Verbalize Understanding, Reinforcement Needed OT Short Term Goals Short Term Goals Time Frame: Apr 24, 2021 Eatin Oral hygiene: 5 Toileting hygiene: 4 Shower/bathe self: 4 Upper body dressin Lower body dressin Putting on/taking off footwear: 4 OT Group Home Goals Equipment Installer Goals Time Frame: May 01, 2021 Eating (QC): 6 Oral Hygiene (QC): 6 Toileting Hygiene (QC): 6 Shower/Bathe Self (QC): 5 Upper Body Dressing (QC): 6 Lower Body Dressing (QC): 6 On/Off Footwear (QC): 5 1=Demonstrate adherence to instructed precautions during ADL tasks. 2=Patient will verbalize/demonstrate understanding of assistive devices/modifications for ADL. 3=Patient will improve strength/tolerance for activity to enable patient to perform ADL's. OT Education/Plan Problem List/Assessment Assessment: Decreased Activ Tolerance, Decreased Safety Aware, Impaired Funct Balance, Impaired I ADL's, Impaired Self-Care Skills Discharge Recommendations Plan/Recommendations: Continue POC Treatment Plan/Plan of Care Treatment,Training & Education: Yes Patient would benefit from OT for education, treatment and training to promote independence in ADL's, mobility, safety and/or upper extremity function for ADL's. Plan of Care: ADL Retraining, Functional Mobility, Group Exercise/Act as Ind, UE Funct Exercise/Act, W/C Management Training Treatment Duration: May 01, 2021 Frequency: At least 5 of 7 days/Wk (IRF) Estimated Hrs Per Day: 1.5 hours per day Agreement: Yes Rehab Potential: Fair Time/GCodes Start Time: 11:35 Stop Time: 12:00 Total Time Billed (hr/min): 25 Billed Treatment Time 1, Heavenly Ha OT Apr 22, 2021 12:07
--- NOTE | 2021-04-22 14:51 | Physical Therapy Daily Note ---
PT Daily Note-Current Subjective Pt laying Supine in bed upon arrival. Pt agrees to PT and asks to use BR. Pain Numeric Pain Scale: 6 Location: Right Location Body Site: Knee Pain Description: Ache, Tightness Mental Status Patient Orientation: Person, Place, Situation Attachments: Polar Pack Transfers SCALE: Activities may be completed with or without assistive devices. 7-Skftbnzaob-fsoawrt completes the activity by him/herself with no assistance from a helper. 5-Set-up or Clean-up Assistance-helper sets up or cleans up; patient completes activity. [place] assists only prior to or following the activity. 4-Supervision or Touching Assistance-helper provides verbal cues and/or touching/steadying and/or contact guard assistance as patient completes activity. Assistance may be provided throughout the activity or intermittently. 3-Partial/Moderate Assistance-helper does LESS THAN HALF the effort. [place] lifts, holds or supports trunk or limbs, but provides less than half the effort. 2-Substantial/Maximal Assistance-helper does MORE THAN HALF the effort. [place] lifts or holds trunk or limbs and provides more than half the effort. 7-Tvjewkrwc-qhfmqa does ALL the effort. Patient does none of the effort to complete the activity. Or, the assistance of 2 or more helpers is required for the patient to complete the activity. If activity was not attempted, code reason: 7-Patient Refused. 9-Not Applicable-not attempted and the patient did not perform the activity before the current illness, exacerbation or injury. 10-Not Attempted due to Environmental Limitations-(lack of equipment, weather restraints, etc.). 88-Not Attempted due to Medical Conditions or Safety Concerns. Lying to Sitting/Side of Bed(Q: 4 Sit to Stand (QC): 4 Toilet Transfer (QC): 4 Weight Bearing Right Lower Extremity: Right Weight Bearing/Tolerated Gait Training Does the Patient Walk?: Yes Distance: 15' x2 Walk 10 feet (QC): 4 Gait Persons Needed: 1 Gait Assistive Device: FWW Treatments TF from Supine to EOB to Standing and amb. to BR. Pt returns to bed for use of polar pack as it needed more ice. INFANTRYMAN reviews written HEP with pt. All needs met, call light in hand. Assessment Current Status: Fair Progress Pt limits due to perceived fatigue. PT Short Term Goals Short Term Goals Time Frame: Apr 24, 2021 Roll Left & Right: 6 Sit to lyin Lying to sitting on side of be: 3 Sit to stand: 4 Chair/jfe-fs-ynvan transfer: 4 Walk 10 feet: 4 Walk 50 feet with two turns: 4 PT Supervisor [employer] Goals Supervisor Industrial Garment Goals PT Supervisor Industrial Garment Goals Time Frame: May 08, 2021 Roll Left & Right (QC): 6 Sit to Lying (QC): 6 Lying-Sitting on Side/Bed(QC): 6 Sit to Stand (QC): 5 Chair/Oad-pt-Clkzu Xfer(QC): 5 Toilet Transfer (QC): 5 Car Transfer (QC): 5 Does the Patient Walk: Yes Walk 10 feet (QC): 5 Walk 50ft with 2 Turns (QC): 5 Walk 150 ft (QC): 5 Walking 10ft on Uneven Surface: 4 1 Step (curb) (QC): 4 4 Steps (QC): 4 12 Steps (QC): 88 Picking up an Object (QC): 5 Wheel 50 feet with 2 turns (QC: 6 Wheel 150 feet: 6 PT Plan Problem List Problem List: Activity Tolerance, Functional Strength, ROM Treatment/Plan Treatment Plan: Continue Plan of Care Treatment Plan: Bed Mobility, Education, Functional Activity Suzanne, Functional Strength, Group Therapy, Gait, Safety, Therapeutic Exercise, Transfers Treatment Duration: May 08, 2021 Frequency: At least 5 of 7 days/Wk (IRF) Estimated Hrs Per Day: 1.5 hours per day Patient and/or Family Agrees t: Yes Safety Risks/Education Patient Education: Reviewed Use of Ice, Correct Positioning Teaching Recipient: Patient Teaching Methods: Discussion Response to Teaching: Verbalize Understanding Time/GCodes Time In: 1315 Time Out: 1345 Total Billed Treatment Time: 30 Total Billed Treatment 1, FA (15m) & EX (15m) FRIDA BOLDEN INFANTRYMAN Apr 22, 2021 14:51
--- NOTE | 2021-04-22 16:13 | CONSULTATION REPORT ---
DATE OF SERVICE: ADMITTING CARTON MACHINE OPERATOR: Shira Woods APRN ADMITTING PHYSICIAN: Marissa Roman DO INDICATIONS: The patient is an 80-year-old female, who is status post right total knee arthroplasty one week ago today. She states that she has required a longer time for rehabilitation after having orthopedic procedures done. She was transferred from her acute care facility to inpatient rehabilitation and is post-op day #4 right now. We were consulted for dysphagia as well as gastroesophageal reflux disease. She reports that she has had gastroesophageal reflux disease for several years; however, has developed dysphagia in the past few weeks. She was under a significant amount of stress to prepare before the total knee arthroplasty. She states that she does not take any nonsteroidal anti-inflammatories; however, tramadol regularly for her joint pain. She reports that she has had significant history of epigastric burning sensation, usually nocturnal. She then states that she has developed dysphagia and when she takes most type of solids that she would feel substernal pressure sensation with food boluses, which were either relieve over time or else she would have regurgitation. She also does have a first-degree family history of colon cancer with her mother having the disease, has a personal history of bilateral breast cancer, status post bilateral mastectomy. Her last colonoscopy was just two weeks ago. Due to her reflux and dysphagia, we will proceed with EGD as well as likely dilatation. PAST MEDICAL HISTORY: Degenerative joint disease, hypertension, hypercholesterolemia, gastroesophageal reflux disease, hypothyroid, and history of breast cancer. PAST SURGERIES: Left total knee arthroplasty 21, right total knee arthroplasty one week ago, lumbar open reduction and internal fixation laparoscopic cholecystectomy. ALLERGIES: STATINS, CODEINE. MEDICATIONS: Carvedilol 12.5 mg b.i.d., dicyclomine 10 mg q.i.d. p.r.n., furosemide 40 mg daily, gabapentin 300 mg daily, letrozole 2.5 mg daily, levothyroxine 125 mcg daily, losartan 50 mg daily, oxycodone 5 mg q.2 hours p.r.n. pain, Protonix 40 mg daily, spironolactone 25 mg daily, tramadol 50-100 mg q.6 hours p.r.n., Coumadin 2.5 mg 3 days a week and 5 mg and 4 days a week. SOCIAL HISTORY: Negative smoke, negative alcohol. FAMILY HISTORY: Mother, breast cancer, mother, colon cancer. VITAL SIGNS: Temperature 36.4, blood pressure 163/75, pulse 66, respirations 20, pulse ox 98% on room air. REVIEW OF SYSTEMS: Well-nourished female, currently in no acute distress. She is not experiencing any shortness of breath or difficulty breathing. No chest pain, palpitations, diaphoresis. She does have frequent episodes of epigastric burning sensation usually at night. She also has developed dysphagia for many different solids. No hematemesis, no coffee ground emesis. No significant diarrhea, constipation, no red blood per rectum, no dark tarry stools. No fever, chills, no recent inadvertent weight loss. All other review of systems negative. PHYSICAL EXAMINATION: CHEST: Clear. Good breath sounds bilaterally. HEART: Regular, no murmurs. EXTREMITIES: No lower extremity edema, negative Homans sign. HEENT: No scleral icterus, no cervical lymphadenopathy. ABDOMEN: Soft, nontender, nondistended. SKIN: Warm, dry. LABORATORY DATA: WBC 6.2, hemoglobin 9.5, hematocrit 30, platelets 195. BUN 27, creatinine 1.0, INR 2.0. ASSESSMENT AND PLAN: An 80-year-old female with history of gastroesophageal reflux disease and significant degenerative joint disease and status post right total knee arthroplasty one week ago. Due to her recent surgery as well as increasing stress and likely increased cortisol production, this has exacerbated her gastroesophageal reflux disease and also progressed to dysphagia and we will proceed with an EGD as well as biopsies and likely a balloon dilatation on this admission. Job ID: [id number] DocumentID: [id number] Dictated Date: 04/22/2021 15:40:25 Bow Machine Operator Date: 04/22/2021 16:12:41 Dictated By: TRINA STANLEY MD [facility]
[2021-04-22] MEDS: GABAPENTIN 300 MG (NEURONTIN) CAP PO SCH (17:05)
[2021-04-22] MEDS: warFARin 5 MG (COUMADIN) TAB PO SCH (17:16)
[2021-04-22 20:39] VITALS: BP 135/61
[2021-04-22] MEDS: MELATONIN 3 MG TABLET PO PRN (23:10)
[2021-04-23] MEDS: LEVOTHYROXINE 125 MCG (LEVOTHROID) TABLET PO SCH (05:03)
--- NOTE | 2021-04-23 06:06 | PM&R Progress Note ---
Subjective HPI/CC On Admission Date Seen by Provider: Apr 23, 2021 Time Seen by Provider: 09:00 Subjective/Events-last exam 04/23/2021: Pt really didn't sleep at all last night Dr. Stanley will likely perform EGD tomorrow Dysphasia continues 04/22/2021: Pt is doing okay Had an episode of emesis today Hemoglobin was 9.5 Had some nausea but Bentyl helped her Dr. Stanley will see her for EGD 04/21/21: Patient doing well We will speak to Dr. STANLEY tomorrow to evaluate possible EGD Only wants to drink liquid Ensure due to dysphagia No other issues 04/20/2021: Patient doing about the same Having difficulty swallowing and I reviewed the chart from last visit and I had arranged an EGD that day of the procedure she canceled She says she never has problems and with which I find that hard to believe she is on Protonix and Pepcid She says she is willing to have the EGD while hospitalized so will review who I consulted last time 04/19/2021: Patient doing very well Ambulating around really well with rehab protocol Supportive care continues Breathing treatments will be every 4 hours as needed No other changes needed 04/18/2021: Pt is doing pretty well Feels like she is wheezing so she would like breathing treatments. I didn't see that on her home medication list so I will restart those Took Tramadol then Percocet for the pain Has a lot of acid indigestion so I did order a Pepcid QID Discontinue the Losartan since she doesn't take that Review of Systems General: Fatigue, Malaise HEENT: Dysphasia Musculoskeletal: leg pain Objective Exam Vital Signs Vital Signs Date Time Temp Pulse Resp B/P (MAP) Pulse Ox O2 Delivery O2 Flow Rate FiO2 04/23/21 21:43 96 Nasal Cannula 2.00 04/23/21 20:00 36.9 63 20 132/60 (84) Capillary Refill : General Appearance: No Apparent Distress, WD/WN, Chronically ill HEENT: PERRL/EOMI, Normal ENT Inspection, Pharynx Normal Neck: Full Range of Motion, Normal Inspection, Non Tender, Supple, Carotid Bruit Respiratory: Chest Non Tender, Lungs Clear, Normal Breath Sounds, No Accessory Muscle Use, No Respiratory Distress Cardiovascular: Regular Rate, Rhythm, No Edema, No Gallop, No JVD, No Murmur, Normal Peripheral Pulses Gastrointestinal: Normal Bowel Sounds, No Organomegaly, No Pulsatile Mass, Non Tender, Soft Back: Normal Inspection, No CVA Tenderness, No Vertebral Tenderness Extremity: Normal Capillary Refill, Normal Inspection, Normal Range of Motion (except right leg), Non Tender, No Calf Tenderness, No Pedal Edema Neurologic/Psychiatric: Alert, Oriented x3, No Motor/Sensory Deficits, Normal Mood/Affect Skin: Normal Color, Warm/Dry Lymphatic: No Adenopathy Results/Procedures Lab Patient resulted labs reviewed. FIM Transfers Therapy Code Descriptions/Definitions Functional [place] Measure: 0=Not Assessed/NA 4=Minimal Assistance 1=Total Assistance 5=Supervision or Setup 2=Maximal Assistance 6=Modified [place] 3=Moderate Assistance 7=Complete IndependenceSCALE: Activities may be completed with or without assistive devices. 2-Wuhwroivfg-eqyhxob completes the activity by him/herself with no assistance from a helper. 5-Set-up or Clean-up Assistance-helper sets up or cleans up; patient completes activity. [place] assists only prior to or following the activity. 4-Supervision or Touching Assistance-helper provides verbal cues and/or touching/steadying and/or contact guard assistance as patient completes activity. Assistance may be provided throughout the activity or intermittently. 3-Partial/Moderate Assistance-helper does LESS THAN HALF the effort. [place] lifts, holds or supports trunk or limbs, but provides less than half the effort. 2-Substantial/Maximal Assistance-helper does MORE THAN HALF the effort. [place] lifts or holds trunk or limbs and provides more than half the effort. 1-Ywdtaxfse-ebmtoe does ALL the effort. Patient does none of the effort to complete the activity. Or, the assistance of 2 or more helpers is required for the patient to complete the activity. If activity was not attempted, code reason: 7-Patient Refused. 9-Not Applicable-not attempted and the patient did not perform the activity before the current illness, exacerbation or injury. 10-Not Attempted due to Environmental Limitations-(lack of equipment, weather restraints, etc.). 88-Not Attempted due to Medical Conditions or Safety Concerns. Roll Left to Right (QC): 6 Sit to Lying (QC): 4 Sit to Stand (QC): 4 Chair/Sep-ph-[place] Xfer(QC): 5 Car Transfer (QC): 88 Gait Training Does the Patient Walk?: Yes Distance: 15' x2 Walk 10 feet (QC): 4 Walk 50 ft with 2 Turns(QC): 5 Walk 150 ft (QC): 5 Walking 10ft/uneven surface-QC: 88 Gait Persons Needed: 1 Gait Assistive Device: FWW Wheelchair Training Does the Pt Use a Wheelchair?: Yes Distance: 120'x3 Wheel 50 ft with 2 turns (QC): 4 Wheel 150 ft (QC): 88 Type of Wheelchair: Manual Stair Training Stair Training: Handrails/: 2 handrails #of Steps: 4 1 Step (curb) (QC): 88 4 Steps (QC): 4 12 Steps (QC): 88 Stairs: Pattern: Step to Balance Picking up an Object (QC): 88 ADL-Treatment Eating (QC): 6 Oral Hygiene (QC): 5 Shower/Bathe Self (QC): 3 Upper Body Dressing (QC): 5 Lower Body Dressing (QC): 4 On/Off Footwear (QC): 4 Toileting Hygiene (QC): 4 Toilet Transfer (QC): 4 Assessment/Plan Assessment and Plan Assess & Plan/Chief Complaint Assessment: 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 STANLEY will perform it tomorrow GERD Postop constipation Wheezing Plan: Aggressive rehab Supportive care Pain control Bowel regimen 04/18/2021: Nebulizer treatments Supportive care 04/19/2021: Nebulizer treatments Pain control 04/20/2021: Needs EGD Supportive care 04/21/2021: EGD by Dr. STANLEY hopefully this week 04/22/2021: Appreciate Dr. STANLEY Monitor nausea 04/23/2021: Supportive care EGD tomorrow (1) Total knee replacement status (2) Obesity (3) GERD (gastroesophageal reflux disease) (4) Hypothyroidism (5) Atrial fibrillation (6) HX: breast cancer (7) Warfarin anticoagulation STEFF TORRES DO Apr 23, 2021 06:06
[2021-04-23] MEDS: RT-ALBUTEROL SULF 2.5 MG/3 ML PRE-MIX VIAL INH SCH ×3 (07:23→21:43)
[2021-04-23 07:40] VITALS: BP 172/68
[2021-04-23] MEDS: FAMOTIDINE 20 MG (PEPCID) TABLET PO SCH (08:12)
[2021-04-23] MEDS: SENNA W/DOCUSATE (SENOKOT S) TABLET PO SCH ×2 (08:12→20:46)
[2021-04-23] MEDS: DOCUSATE SODIUM 100 MG (COLACE) CAP PO SCH ×2 (08:12→20:46)
[2021-04-23] MEDS: PANTOPRAZOLE 40 MG (PROTONIX) TAB PO SCH (08:12)
[2021-04-23] MEDS: SPIRONOLACTONE 25 MG (ALDACTONE) TAB PO SCH (08:12)
[2021-04-23] MEDS: LETROZOLE 2.5 MG (FEMARA) TAB PO SCH (08:12)
[2021-04-23] MEDS: polyethylene glycoL POWDER 17 GM (MIRALAX) PACK PO SCH ×2 (08:12→19:40)
--- NOTE | 2021-04-23 09:59 | Occupational Ther Daily Note ---
OT Current Status-Daily Note Subjective Pt reports pain as 7-8/10 in R knee. She states pain meds given ~ 1 hour prior to OT arrival. Appearance Pt left sitting in recliner, all needs within reach. RN notified. Mental Status/Objective Patient Orientation: Person, Place, Situation ADL-Treatment Therapy Code Descriptions/Definitions Functional [place] Measure: 0=Not Assessed/NA 4=Minimal Assistance 1=Total Assistance 5=Supervision or Setup 2=Maximal Assistance 6=Modified [place] 3=Moderate Assistance 7=Complete IndependenceSCALE: Activities may be completed with or without assistive devices. 5-Wlhvtcincb-zzjuoun completes the activity by him/herself with no assistance from a helper. 5-Set-up or Clean-up Assistance-helper sets up or cleans up; patient completes activity. [place] assists only prior to or following the activity. 4-Supervision or Touching Assistance-helper provides verbal cues and/or touching/steadying and/or contact guard assistance as patient completes activity. Assistance may be provided throughout the activity or intermittently. 3-Partial/Moderate Assistance-helper does LESS THAN HALF the effort. [place] lifts, holds or supports trunk or limbs, but provides less than half the effort. 2-Substantial/Maximal Assistance-helper does MORE THAN HALF the effort. [place] lifts or holds trunk or limbs and provides more than half the effort. 3-Shohknuwe-cwqbvn does ALL the effort. Patient does none of the effort to complete the activity. Or, the assistance of 2 or more helpers is required for the patient to complete the activity. If activity was not attempted, code reason: 7-Patient Refused. 9-Not Applicable-not attempted and the patient did not perform the activity before the current illness, exacerbation or injury. 10-Not Attempted due to Environmental Limitations-(lack of equipment, weather restraints, etc.). 88-Not Attempted due to Medical Conditions or Safety Concerns. Oral Hygiene (QC): 6 Shower/Bathe Self (QC): 5 Upper Body Dressing (QC): 5 Lower Body Dressing (QC): 4 On/Off Footwear: 5 Toileting Hygiene (QC): 6 Toilet Transfer (QC): 4 Shower performed; majority completed in sitting. Pt stood briefly to wash yojana area/buttocks. Mild LOB posterior but patient able to recover independently with good righting reaction towards grab bar. OT recommends keeping at least one hand on grab bar at all times in standing. Pt able to wash all body parts without assist. Clothing donned seated in chair. Supervision as she stood to pull LB clothing up to waist, no LOB. Good recall on use of sock aid, set up only. She sat to brush teeth, blow dry, style, and comb hair, no assist required during grooming tasks. Other Treatment 2nd session: While seated, pt participated in UE exercises with 2# hand held weight. Consistent cues to keep proper form throughout set. Pt often gets distracted and requires reminders to finish set before expressing thoughts (due to poor multitasking). Shoulder flexion modified to 90 degrees with 2# and full range with zero resistance secondary to weakness. 15x1 in all planes. Short rest breaks needed throughout. Education OT Patient Education: Correct positioning, Exercise program, Modified ADL techniques, Purpose of tx/functional activities, Safety issues Teaching Recipient: Patient Teaching Methods: Discussion Response to Teaching: Verbalize Understanding, Reinforcement Needed OT Short Term Goals Short Term Goals Time Frame: Apr 24, 2021 Eatin Oral hygiene: 5 Toileting hygiene: 4 Shower/bathe self: 4 Upper body dressin Lower body dressin Putting on/taking off footwear: 4 OT Managing Member Goals Managing Member Goals Time Frame: May 01, 2021 Eating (QC): 6 Oral Hygiene (QC): 6 Toileting Hygiene (QC): 6 Shower/Bathe Self (QC): 5 Upper Body Dressing (QC): 6 Lower Body Dressing (QC): 6 On/Off Footwear (QC): 5 1=Demonstrate adherence to instructed precautions during ADL tasks. 2=Patient will verbalize/demonstrate understanding of assistive devices/modifications for ADL. 3=Patient will improve strength/tolerance for activity to enable patient to perform ADL's. OT Education/Plan Problem List/Assessment Assessment: Decreased Activ Tolerance, Decreased UE Strength, Impaired Funct Balance, Impaired I ADL's, Impaired Self-Care Skills Discharge Recommendations Plan/Recommendations: Continue POC Treatment Plan/Plan of Care Treatment,Training & Education: Yes Patient would benefit from OT for education, treatment and training to promote independence in ADL's, mobility, safety and/or upper extremity function for ADL's. Plan of Care: ADL Retraining, Functional Mobility, Group Exercise/Act as Ind, UE Funct Exercise/Act, W/C Management Training Treatment Duration: May 01, 2021 Frequency: At least 5 of 7 days/Wk (IRF) Estimated Hrs Per Day: 1.5 hours per day Agreement: Yes Rehab Potential: Fair Time/GCodes Start Time: 09:00 (1130) Stop Time: 10:08 (1200) Total Time Billed (hr/min): 98 Billed Treatment Time 2 visits ADL x5 (68 min) EX x2 (30 min) Heavenly Rice OT Apr 23, 2021 09:59
--- NOTE | 2021-04-23 10:50 | Physical Therapy Daily Note ---
PT Daily Note-Current Subjective Pt sitting in recliner upon arrival. Pt agrees to PT after BOOM hoses applied and pt uses BR. Mental Status Patient Orientation: Person, Place, Time, Situation Attachments: Oxygen (2L when laying down only), Polar Pack Transfers SCALE: Activities may be completed with or without assistive devices. 5-Ldkxoioprv-fipablm completes the activity by him/herself with no assistance from a helper. 5-Set-up or Clean-up Assistance-helper sets up or cleans up; patient completes activity. [place] assists only prior to or following the activity. 4-Supervision or Touching Assistance-helper provides verbal cues and/or touching/steadying and/or contact guard assistance as patient completes activity. Assistance may be provided throughout the activity or intermittently. 3-Partial/Moderate Assistance-helper does LESS THAN HALF the effort. [place] lifts, holds or supports trunk or limbs, but provides less than half the effort. 2-Substantial/Maximal Assistance-helper does MORE THAN HALF the effort. [place] lifts or holds trunk or limbs and provides more than half the effort. 7-Qubzvnqiw-dexhdy does ALL the effort. Patient does none of the effort to complete the activity. Or, the assistance of 2 or more helpers is required for the patient to complete the activity. If activity was not attempted, code reason: 7-Patient Refused. 9-Not Applicable-not attempted and the patient did not perform the activity before the current illness, exacerbation or injury. 10-Not Attempted due to Environmental Limitations-(lack of equipment, weather restraints, etc.). 88-Not Attempted due to Medical Conditions or Safety Concerns. Sit to Lying (QC): 4 Sit to Stand (QC): 4 Toilet Transfer (QC): 5 Weight Bearing Right Lower Extremity: Right Weight Bearing/Tolerated Gait Training Does the Patient Walk?: Yes Distance: 50', 100' x2, 50' Walk 10 feet (QC): 4 Walk 50 ft with 2 Turns(QC): 4 Walk 150 ft (QC): 4 Gait Persons Needed: 1 Gait Assistive Device: FWW Exercises Seated Therapy Exercises: Ankle pumps, Long arc quads, Hip flexion, Glut set Seated Reps: 15 NuStep Minutes: 10 NuStep Workload: 3 Treatments TF to standing and amb. to BR. Pt returns to recliner to rest and put on BOOM hoses. After RB, pt amb. in hallway, taking RB as needed. Pt uses NuStep for 10m at WL 3 with a few RBs. Pt amb. in hallway before returning to room to rest in bed. Ice pack applied to R knee and all needs met, call light in hand. Assessment Current Status: Fair Progress Frequent RB needed for fatigue. LINE TECHNICIAN encourages pt for motivation. PT Short Term Goals Short Term Goals Time Frame: Apr 24, 2021 Roll Left & Right: 6 Sit to lyin Lying to sitting on side of be: 3 Sit to stand: 4 Chair/zjv-tg-anxcb transfer: 4 Walk 10 feet: 4 Walk 50 feet with two turns: 4 PT Messenger Copy Goals Mcfp Goals PT Messenger Copy Goals Time Frame: May 08, 2021 Roll Left & Right (QC): 6 Sit to Lying (QC): 6 Lying-Sitting on Side/Bed(QC): 6 Sit to Stand (QC): 5 Chair/Jfl-zf-Qrrwy Xfer(QC): 5 Toilet Transfer (QC): 5 Car Transfer (QC): 5 Does the Patient Walk: Yes Walk 10 feet (QC): 5 Walk 50ft with 2 Turns (QC): 5 Walk 150 ft (QC): 5 Walking 10ft on Uneven Surface: 4 1 Step (curb) (QC): 4 4 Steps (QC): 4 12 Steps (QC): 88 Picking up an Object (QC): 5 Wheel 50 feet with 2 turns (QC: 6 Wheel 150 feet: 6 PT Plan Problem List Problem List: Activity Tolerance, Functional Strength, Gait Treatment/Plan Treatment Plan: Continue Plan of Care Treatment Plan: Bed Mobility, Education, Functional Activity Suzanne, Functional Strength, Group Therapy, Gait, Safety, Therapeutic Exercise, Transfers Treatment Duration: May 08, 2021 Frequency: At least 5 of 7 days/Wk (IRF) Estimated Hrs Per Day: 1.5 hours per day Patient and/or Family Agrees t: Yes Safety Risks/Education Patient Education: Gait Training, Correct Positioning, Safety Issues Teaching Recipient: Patient Teaching Methods: Discussion Response to Teaching: Reinforcement Needed Time/GCodes Time In: 1008 Time Out: 1100 Total Billed Treatment Time: 52 Total Billed Treatment 1, GT x2 (30m) & EX (22m) FRIDA BOLDEN LINE TECHNICIAN Apr 23, 2021 10:50
--- NOTE | 2021-04-23 11:44 | Progress Note ---
Subjective Date Seen by a Provider: Apr 23, 2021 Time Seen by a Provider: 12:00 Subjective/Events-last exam doing ok. still has dysphagia. diet as tolerated for now and will undergo EGD and dilatation tomorrow. Objective Exam Vital Signs Date Time Temp Pulse Resp B/P (MAP) Pulse Ox O2 Delivery O2 Flow Rate FiO2 04/23/21 09:02 Room Air 04/23/21 07:40 36.2 64 18 172/68 (102) 99 Nasal Cannula 2.00 04/23/21 07:23 98 Nasal Cannula 2.00 04/22/21 20:39 36.5 62 20 135/61 (85) 95 Room Air 04/22/21 20:20 Nasal Cannula 2.00 04/22/21 19:40 98 Room Air I & O 04/23/21 07:00 Intake Total 850 ml Output Total 1350 ml Balance -500 ml Capillary Refill : General Appearance: No Apparent Distress HEENT: PERRL/EOMI Neck: Full Range of Motion Respiratory: Chest Non Tender Cardiovascular: Regular Rate, Rhythm Gastrointestinal: normal bowel sounds, non tender, soft Extremity: Normal Capillary Refill Neurologic/Psychiatric: Alert, Oriented x3 Skin: Normal Color Lymphatic: No Adenopathy Assessment/Plan Assessment/Plan Assess & Plan/Chief Complaint dysphagia with hx GERD. EGD with bx and likely dilatation tomorrow. TRINA STANLEY MD Apr 23, 2021 11:44
--- NOTE | 2021-04-23 11:56 | Progress Note-Pre Operative ---
Pre-Operative Progress Note H&P Reviewed The H&P was reviewed, patient examined and no changes noted. Date Seen by Provider: Apr 23, 2021 Time Seen by Provider: 12:00 Date H&P Reviewed: Apr 23, 2021 Time H&P Reviewed: 12:00 Pre-Operative Diagnosis: GERD, dysphagia TRINA STANLEY MD Apr 23, 2021 11:56
--- NOTE | 2021-04-23 13:41 | Physical Therapy Daily Note ---
PT Daily Note-Current Subjective Pt laying Supine in bed upon arrival. Pt asks to use BR to start tx. Pain Numeric Pain Scale: 6 Location: Left Location Body Site: Knee Pain Description: Ache, Tightness Comment: Pt reports L knee and ankle pain and has rec. pain med. Mental Status Patient Orientation: Person, Place, Time, Situation Attachments: Oxygen (2L when laying only) Transfers SCALE: Activities may be completed with or without assistive devices. 8-Pkzuzvjwaq-ylxkwsa completes the activity by him/herself with no assistance from a helper. 5-Set-up or Clean-up Assistance-helper sets up or cleans up; patient completes activity. [place] assists only prior to or following the activity. 4-Supervision or Touching Assistance-helper provides verbal cues and/or touching/steadying and/or contact guard assistance as patient completes activity. Assistance may be provided throughout the activity or intermittently. 3-Partial/Moderate Assistance-helper does LESS THAN HALF the effort. [place] l ifts, holds or supports trunk or limbs, but provides less than half the effort. 2-Substantial/Maximal Assistance-helper does MORE THAN HALF the effort. [place] lifts or holds trunk or limbs and provides more than half the effort. 1-Wxwmilxml-jdywtb does ALL the effort. Patient does none of the effort to complete the activity. Or, the assistance of 2 or more helpers is required for t he patient to complete the activity. If activity was not attempted, code reason: 7-Patient Refused. 9-Not Applicable-not attempted and the patient did not perform the activity before the current illness, exacerbation or injury. 10-Not Attempted due to Environmental Limitations-(lack of equipment, weather restraints, etc.). 88-Not Attempted due to Medical Conditions or Safety Concerns. Sit to Lying (QC): 4 Sit to Stand (QC): 5 Toilet Transfer (QC): 5 Weight Bearing Right Lower Extremity: Right Weight Bearing/Tolerated Gait Training Does the Patient Walk?: Yes Distance: 15' x2 Walk 10 feet (QC): 5 Gait Persons Needed: 1 Gait Assistive Device: FWW Exercises Supine Ex: Ankle pumps, Quad Set, Glut sets, Heel Slides, Straight leg raise, Hip abd/add Supine Reps: 15 Treatments TF from Supine to EOB to Standing then uses BR. Pt returns to bed and completes Supine EX w/RB as needed. Pt resting in bed w/all needs met, call light in hand. Assessment Current Status: Fair Progress ORE MINER BLASTING given VC for encouragement and safety cuing. PT Short Term Goals Short Term Goals Time Frame: Apr 24, 2021 Roll Left & Right: 6 Sit to lyin Lying to sitting on side of be: 3 Sit to stand: 4 Chair/vyf-cd-imymc transfer: 4 Walk 10 feet: 4 Walk 50 feet with two turns: 4 PT Detention Goals Glass Cutter Helper Goals PT Detention Goals Time Frame: May 08, 2021 Roll Left & Right (QC): 6 Sit to Lying (QC): 6 Lying-Sitting on Side/Bed(QC): 6 Sit to Stand (QC): 5 Chair/Tww-su-Xfexw Xfer(QC): 5 Toilet Transfer (QC): 5 Car Transfer (QC): 5 Does the Patient Walk: Yes Walk 10 feet (QC): 5 Walk 50ft with 2 Turns (QC): 5 Walk 150 ft (QC): 5 Walking 10ft on Uneven Surface: 4 1 Step (curb) (QC): 4 4 Steps (QC): 4 12 Steps (QC): 88 Picking up an Object (QC): 5 Wheel 50 feet with 2 turns (QC: 6 Wheel 150 feet: 6 PT Plan Problem List Problem List: Activity Tolerance, Functional Strength Treatment/Plan Treatment Plan: Continue Plan of Care Treatment Plan: Bed Mobility, Education, Functional Activity Suzanne, Functional Strength, Group Therapy, Gait, Safety, Therapeutic Exercise, Transfers Treatment Duration: May 08, 2021 Frequency: At least 5 of 7 days/Wk (IRF) Estimated Hrs Per Day: 1.5 hours per day Patient and/or Family Agrees t: Yes Time/GCodes Time In: 1300 Time Out: 1330 Total Billed Treatment Time: 30 Total Billed Treatment 1, FA (15m) & EX (15m) FRIDA BOLDEN ORE MINER BLASTING Apr 23, 2021 13:41
[2021-04-23] MEDS: GABAPENTIN 300 MG (NEURONTIN) CAP PO SCH (17:05)
[2021-04-23] MEDS: warFARin 2.5 MG (COUMADIN) TAB PO SCH (17:05)
[2021-04-23 20:00] VITALS: BP 132/60
[2021-04-23] MEDS: MELATONIN 3 MG TABLET PO PRN (20:46)
[2021-04-24] MEDS: CALCIUM CARBONATE 500 MG (TUMS) TAB.CHEW PO PRN (01:27)
[2021-04-24] MEDS: LEVOTHYROXINE 125 MCG (LEVOTHROID) TABLET PO SCH (06:31)
[2021-04-24] MEDS: ALPRAZolam 0.25 MG (XANAX) TAB PO PRN ×3 (06:35→22:24)
[2021-04-24] MEDS: RT-ALBUTEROL SULF 2.5 MG/3 ML PRE-MIX VIAL INH SCH ×3 (06:52→20:54)
--- NOTE | 2021-04-24 06:57 | PM&R Progress Note ---
Subjective HPI/CC On Admission Date Seen by Provider: Apr 24, 2021 Time Seen by Provider: 09:00 Subjective/Events-last exam 04/24/2021: Pt is doing about the same Wants to go home EGD showed severe gastritis and they did dilate the esophagus Will discharge on Xanax given at times 04/23/2021: Pt really didn't sleep at all last night Dr. Stanley will likely perform EGD tomorrow Dysphasia continues 04/22/2021: Pt is doing okay Had an episode of emesis today Hemoglobin was 9.5 Had some nausea but Bentyl helped her Dr. Stanley will see her for EGD 04/21/21: Patient doing well We will speak to Dr. STANLEY tomorrow to evaluate possible EGD Only wants to drink liquid Ensure due to dysphagia No other issues 04/20/2021: Patient doing about the same Having difficulty swallowing and I reviewed the chart from last visit and I had arranged an EGD that day of the procedure she canceled She says she never has problems and with which I find that hard to believe she is on Protonix and Pepcid She says she is willing to have the EGD while hospitalized so will review who I consulted last time 04/19/2021: Patient doing very well Ambulating around really well with rehab protocol Supportive care continues Breathing treatments will be every 4 hours as needed No other changes needed 04/18/2021: Pt is doing pretty well Feels like she is wheezing so she would like breathing treatments. I didn't see that on her home medication list so I will restart those Took Tramadol then Percocet for the pain Has a lot of acid indigestion so I did order a Pepcid QID Discontinue the Losartan since she doesn't take that Review of Systems General: Fatigue, Malaise Objective Exam Vital Signs Vital Signs Date Time Temp Pulse Resp B/P (MAP) Pulse Ox O2 Delivery O2 Flow Rate FiO2 04/24/21 20:55 98 Nasal Cannula 2.00 04/24/21 18:56 36.8 60 18 140/62 (88) Capillary Refill : General Appearance: No Apparent Distress, WD/WN, Chronically ill HEENT: PERRL/EOMI, Normal ENT Inspection, Pharynx Normal Neck: Full Range of Motion, Normal Inspection, Non Tender, Supple, Carotid Bruit Respiratory: Chest Non Tender, Lungs Clear, Normal Breath Sounds, No Accessory Muscle Use, No Respiratory Distress Cardiovascular: Regular Rate, Rhythm, No Edema, No Gallop, No JVD, No Murmur, Normal Peripheral Pulses Gastrointestinal: Normal Bowel Sounds, No Organomegaly, No Pulsatile Mass, Non Tender, Soft Back: Normal Inspection, No CVA Tenderness, No Vertebral Tenderness Extremity: Normal Capillary Refill, Normal Inspection, Normal Range of Motion (except right leg), Non Tender, No Calf Tenderness, No Pedal Edema Neurologic/Psychiatric: Alert, Oriented x3, No Motor/Sensory Deficits, Normal Mood/Affect Skin: Normal Color, Warm/Dry Lymphatic: No Adenopathy Results/Procedures Lab Patient resulted labs reviewed. [facility] Transfers Therapy Code Descriptions/Definitions Functional [place] Measure: 0=Not Assessed/NA 4=Minimal Assistance 1=Total Assistance 5=Supervision or Setup 2=Maximal Assistance 6=Modified [place] 3=Moderate Assistance 7=Complete IndependenceSCALE: Activities may be completed with or without assistive devices. 4-Ftziapqzqe-didlxhn completes the activity by him/herself with no assistance from a helper. 5-Set-up or Clean-up Assistance-helper sets up or cleans up; patient completes activity. [place] assists only prior to or following the activity. 4-Supervision or Touching Assistance-helper provides verbal cues and/or touching/steadying and/or contact guard assistance as patient completes activity. Assistance may be provided throughout the activity or intermittently. 3-Partial/Moderate Assistance-helper does LESS THAN HALF the effort. [place] lifts, holds or supports trunk or limbs, but provides less than half the effort. 2-Substantial/Maximal Assistance-helper does MORE THAN HALF the effort. [place] lifts or holds trunk or limbs and provides more than half the effort. 2-Hhyykzobj-dblmmd does ALL the effort. Patient does none of the effort to complete the activity. Or, the assistance of 2 or more helpers is required for the patient to complete the activity. If activity was not attempted, code reason: 7-Patient Refused. 9-Not Applicable-not attempted and the patient did not perform the activity before the current illness, exacerbation or injury. 10-Not Attempted due to Environmental Limitations-(lack of equipment, weather restraints, etc.). 88-Not Attempted due to Medical Conditions or Safety Concerns. Roll Left to Right (QC): 6 Sit to Lying (QC): 4 Sit to Stand (QC): 5 Chair/Aqz-ak-Zxtli Xfer(QC): 5 Car Transfer (QC): 88 Gait Training Does the Patient Walk?: Yes Distance: 15' x2 Walk 10 feet (QC): 5 Walk 50 ft with 2 Turns(QC): 4 Walk 150 ft (QC): 4 Walking 10ft/uneven surface-QC: 88 Gait Persons Needed: 1 Gait Assistive Device: FWW Wheelchair Training Does the Pt Use a Wheelchair?: Yes Distance: 120'x3 Wheel 50 ft with 2 turns (QC): 4 Wheel 150 ft (QC): 88 Type of Wheelchair: Manual Stair Training Stair Training: Handrails/: 2 handrails #of Steps: 4 1 Step (curb) (QC): 88 4 Steps (QC): 4 12 Steps (QC): 88 Stairs: Pattern: Step to Balance Picking up an Object (QC): 88 ADL-Treatment Eating (QC): 6 Oral Hygiene (QC): 6 Shower/Bathe Self (QC): 5 Upper Body Dressing (QC): 5 Lower Body Dressing (QC): 4 On/Off Footwear (QC): 5 Toileting Hygiene (QC): 6 Toilet Transfer (QC): 4 Assessment/Plan Assessment and Plan Assess & Plan/Chief Complaint Assessment: 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 STANLEY who performed today showing gastritis and dilated esophagus GERD Postop constipation Wheezing Plan: Aggressive rehab Supportive care Pain control Bowel regimen 04/18/2021: Nebulizer treatments Supportive care 04/19/2021: Nebulizer treatments Pain control 04/20/2021: Needs EGD Supportive care 04/21/2021: EGD by Dr. STANLEY hopefully this week 04/22/2021: Appreciate Dr. STANLEY Monitor nausea 04/23/2021: Supportive care EGD tomorrow 04/24/2021: Supportive care Discharge home tomorrow (1) Total knee replacement status (2) Obesity (3) GERD (gastroesophageal reflux disease) (4) Hypothyroidism (5) Atrial fibrillation (6) HX: breast cancer (7) Warfarin anticoagulation STEFF TORRES DO Apr 24, 2021 06:57
[2021-04-24 07:16] VITALS: BP 148/66
[2021-04-24] MEDS: LETROZOLE 2.5 MG (FEMARA) TAB PO SCH (08:00)
[2021-04-24] MEDS: DOCUSATE SODIUM 100 MG (COLACE) CAP PO SCH ×2 (08:01→20:24)
[2021-04-24] MEDS: FUROSEMIDE 40 MG (LASIX) TAB PO SCH (08:01)
[2021-04-24] MEDS: SENNA W/DOCUSATE (SENOKOT S) TABLET PO SCH ×2 (08:01→20:24)
[2021-04-24] MEDS: FAMOTIDINE 20 MG (PEPCID) TABLET PO SCH (08:02)
[2021-04-24] MEDS: PANTOPRAZOLE 40 MG (PROTONIX) TAB PO SCH ×2 (08:02→20:24)
[2021-04-24] MEDS: SPIRONOLACTONE 25 MG (ALDACTONE) TAB PO SCH (08:03)
[2021-04-24] MEDS: polyethylene glycoL POWDER 17 GM (MIRALAX) PACK PO SCH ×2 (08:08→19:42)
--- NOTE | 2021-04-24 08:58 | Physical Therapy Daily Note ---
PT Daily Note-Current Subjective Pt. agreeable to Tx, states she wants to go home tomorrow. Rates pain in right knee at 5/10. Pain Numeric Pain Scale: 5-Moderate Pain Location: Right Location Body Site: Knee Pain Description: Ache Mental Status Patient Orientation: Normal For Age polar pack after Tx. Transfers SCALE: Activities may be completed with or without assistive devices. 7-[place]-ctrzosz completes the activity by him/herself with no assistance from a helper. 5-Set-up or Clean-up Assistance-helper sets up or cleans up; patient completes activity. [place] assists only prior to or following the activity. 4-Supervision or Touching Assistance-helper provides verbal cues and/or touching/steadying and/or contact guard assistance as patient completes activity. Assistance may be provided throughout the activity or intermittently. 3-Partial/Moderate Assistance-helper does LESS THAN HALF the effort. [place] lifts, holds or supports trunk or limbs, but provides less than half the effort. 2-Substantial/Maximal Assistance-helper does MORE THAN HALF the effort. [place] lifts or holds trunk or limbs and provides more than half the effort. 7-Iuvsxeylv-bmnttg does ALL the effort. Patient does none of the effort to complete the activity. Or, the assistance of 2 or more helpers is required for the patient to complete the activity. If activity was not attempted, code reason: 7-Patient Refused. 9-Not Applicable-not attempted and the patient did not perform the activity before the current illness, exacerbation or injury. 10-Not Attempted due to Environmental Limitations-(lack of equipment, weather restraints, etc.). 88-Not Attempted due to Medical Conditions or Safety Concerns. Roll Left & Right (QC): 6 Sit to Lying (QC): 6 Lying to Sitting/Side of Bed(Q: 6 Sit to Stand (QC): 6 Chair/Hum-vq-Gzfrm Xfer(QC): 6 Toilet Transfer (QC): 6 Car Transfer (QC): 6 Weight Bearing Right Lower Extremity: Right Weight Bearing/Tolerated Gait Training Does the Patient Walk?: Yes Walk 10 feet (QC): 6 Walk 50 ft with 2 Turns(QC): 6 Walk 150 ft (QC): 6 Walking 10ft/uneven surface-QC: 6 Gait Persons Needed: 0 Gait Assistive Device: FWW improved gait pattern of step through , better heel strike, better right knee ex tension. still heavy wt on FWW Stair Training Stair Training: Handrails/: 2 handrails #of Steps: 8 1 Step (curb) (QC): 5 4 Steps (QC): 4 12 Steps (QC): 7 Stairs: Pattern: Step to pt. states she has 7 steps at home and is fatigued after 4 and declines further steps Balance Picking up an Object (QC): 88 Exercises Supine Ex: Ankle pumps, Quad Set, Heel Slides, Short Arc Quads, Straight leg raise Supine Reps: 15 Seated Therapy Exercises: Ankle pumps, Sit to stand, Long arc quads Seated Reps: 12 Assessment Current Status: Good Progress meets goals PT Short Term Goals Short Term Goals Time Frame: Apr 24, 2021 Roll Left & Right: 6 Sit to lyin Lying to sitting on side of be: 3 Sit to stand: 4 Chair/gux-uq-bvnvu transfer: 4 Walk 10 feet: 4 Walk 50 feet with two turns: 4 PT Longterm Goals Longterm Goals PT Permaculture Contractor Goals Time Frame: May 08, 2021 Roll Left & Right (QC): 6 Sit to Lying (QC): 6 Lying-Sitting on Side/Bed(QC): 6 Sit to Stand (QC): 5 Chair/Hdq-cs-Ymppe Xfer(QC): 5 Toilet Transfer (QC): 5 Car Transfer (QC): 5 Does the Patient Walk: Yes Walk 10 feet (QC): 5 Walk 50ft with 2 Turns (QC): 5 Walk 150 ft (QC): 5 Walking 10ft on Uneven Surface: 4 1 Step (curb) (QC): 4 4 Steps (QC): 4 12 Steps (QC): 88 Picking up an Object (QC): 5 Wheel 50 feet with 2 turns (QC: 6 Wheel 150 feet: 6 PT Plan Treatment/Plan Treatment Plan: Continue Plan of Care Treatment Plan: Bed Mobility, Education, Functional Activity Suzanne, Functional Strength, Group Therapy, Gait, Safety, Therapeutic Exercise, Transfers Treatment Duration: May 08, 2021 Frequency: At least 5 of 7 days/Wk (IRF) Estimated Hrs Per Day: 1.5 hours per day Patient and/or Family Agrees t: Yes Safety Risks/Education Patient Education: Gait Training, Transfer Techniques, Steps, Correct Positioning, Disease Process, Safety Issues Teaching Recipient: Patient Teaching Methods: Demonstration, Discussion Response to Teaching: Verbalize Understanding, Return Demonstration, Reinforcement Needed Time/GCodes Time In: 755 Time Out: 855 Total Billed Treatment Time: 60 Total Billed Treatment 1,FA35m,GT15m,EX10m ELENA BRYAN RIFLE CASE REPAIRER Apr 24, 2021 08:58
--- NOTE | 2021-04-24 09:07 | Occupational Ther Daily Note ---
OT Current Status-Daily Note Subjective Pt reports anxiety this date regarding upcoming EGD. Appearance Left sitting in recliner, all needs within reach. Mental Status/Objective Patient Orientation: Person, Place, Situation ADL-Treatment Therapy Code Descriptions/Definitions Functional [place] Measure: 0=Not Assessed/NA 4=Minimal Assistance 1=Total Assistance 5=Supervision or Setup 2=Maximal Assistance 6=Modified [place] 3=Moderate Assistance 7=Complete IndependenceSCALE: Activities may be completed with or without assistive devices. 1-Xzimditwil-uxvfaks completes the activity by him/herself with no assistance from a helper. 5-Set-up or Clean-up Assistance-helper sets up or cleans up; patient completes activity. [place] assists only prior to or following the activity. 4-Supervision or Touching Assistance-helper provides verbal cues and/or touching/steadying and/or contact guard assistance as patient completes activity. Assistance may be provided throughout the activity or intermittently. 3-Partial/Moderate Assistance-helper does LESS THAN HALF the effort. [place] lifts, holds or supports trunk or limbs, but provides less than half the effort. 2-Substantial/Maximal Assistance-helper does MORE THAN HALF the effort. [place] lifts or holds trunk or limbs and provides more than half the effort. 0-Zepekuknr-jwxvam does ALL the effort. Patient does none of the effort to complete the activity. Or, the assistance of 2 or more helpers is required for the patient to complete the activity. If activity was not attempted, code reason: 7-Patient Refused. 9-Not Applicable-not attempted and the patient did not perform the activity before the current illness, exacerbation or injury. 10-Not Attempted due to Environmental Limitations-(lack of equipment, weather restraints, etc.). 88-Not Attempted due to Medical Conditions or Safety Concerns. Oral Hygiene (QC): 6 Upper Body Dressing (QC): 6 Lower Body Dressing (QC): 5 On/Off Footwear: 6 Toileting Hygiene (QC): 6 Toilet Transfer (QC): 4 Dressing tasks performed seated EOB. No LOB or unsteadiness when standing this date. Improved speed of tasks. Pt sat at sink for grooming tasks, no assist. Education OT Patient Education: Correct positioning, Energy conservation, Modified ADL techniques, Progress toward Goal/Update tx plan, Purpose of tx/functional activities, Reviewed precautions Teaching Recipient: Patient Teaching Methods: Discussion Response to Teaching: Verbalize Understanding, Return Demonstration OT Short Term Goals Short Term Goals Time Frame: Apr 24, 2021 Eatin Oral hygiene: 5 Toileting hygiene: 4 Shower/bathe self: 4 Upper body dressin Lower body dressin Putting on/taking off footwear: 4 OT Memory Care Program Resident Goals [facility] Goals Time Frame: May 01, 2021 Eating (QC): 6 Oral Hygiene (QC): 6 Toileting Hygiene (QC): 6 Shower/Bathe Self (QC): 5 Upper Body Dressing (QC): 6 Lower Body Dressing (QC): 6 On/Off Footwear (QC): 5 1=Demonstrate adherence to instructed precautions during ADL tasks. 2=Patient will verbalize/demonstrate understanding of assistive devices/modifications for ADL. 3=Patient will improve strength/tolerance for activity to enable patient to perform ADL's. OT Education/Plan Problem List/Assessment Assessment: Decreased Activ Tolerance, Impaired Funct Balance, Impaired I ADL's Discharge Recommendations Plan/Recommendations: Continue POC Therapy Discharge Recommendati: Home & Family, Post Acute OT (home health) Treatment Plan/Plan of Care Treatment,Training & Education: Yes Patient would benefit from OT for education, treatment and training to promote independence in ADL's, mobility, safety and/or upper extremity function for ADL's. Plan of Care: ADL Retraining, Functional Mobility, Group Exercise/Act as Ind, UE Funct Exercise/Act, W/C Management Training Treatment Duration: May 01, 2021 Frequency: At least 5 of 7 days/Wk (IRF) Estimated Hrs Per Day: 1.5 hours per day Agreement: Yes Rehab Potential: Fair Time/GCodes Start Time: 07:33 Stop Time: 08:00 Total Time Billed (hr/min): 27 Billed Treatment Time 1, ADL x2 ArelymirlandeHeavenly OT Apr 24, 2021 09:07
--- NOTE | 2021-04-24 10:38 | Progress Note-Post Operative ---
Post-Operative Progess Note Surgeon (s)/Bilingual Speech Language Pathologist (s) Surgeon TRINA STANLEY MD Bilingual Speech Language Pathologist: none Pre-Operative Diagnosis GERD, dysphagia Post-Operative Diagnosis reflux esophagitis with distal esophageal stricture vs. achalasia(LA grade C), moderate-severe gastritis. Procedure & Operative Findings Date of Procedure 04/24/21 Procedure Performed/Findings EGD with bx and balloon dilatation. Anesthesia Type mac Estimated Blood Loss Estimated blood loss (mL): minimal Specimens/Packing Specimens Removed ge jxn, antrum TRINA STANLEY MD Apr 24, 2021 10:38
--- NOTE | 2021-04-24 11:50 | Occupational Ther Daily Note ---
OT Current Status-Daily Note Subjective Pt reports just returning back to room from EGD. Agreeable to exercises at bed level. Appearance Left supine in bed, all needs within reach. Mental Status/Objective Attachments: IV ADL-Treatment Therapy Code Descriptions/Definitions Functional Tucker Measure: 0=Not Assessed/NA 4=Minimal Assistance 1=Total Assistance 5=Supervision or Setup 2=Maximal Assistance 6=Modified Tucker 3=Moderate Assistance 7=Complete IndependenceSCALE: Activities may be completed with or without assistive devices. 9-Dvlghqdafs-rgavoye completes the activity by him/herself with no assistance from a helper. 5-Set-up or Clean-up Assistance-helper sets up or cleans up; patient completes activity. Trumann assists only prior to or following the activity. 4-Supervision or Touching Assistance-helper provides verbal cues and/or touching/steadying and/or contact guard assistance as patient completes activity. Assistance may be provided throughout the activity or intermittently. 3-Partial/Moderate Assistance-helper does LESS THAN HALF the effort. Trumann lifts, holds or supports trunk or limbs, but provides less than half the effort. 2-Substantial/Maximal Assistance-helper does MORE THAN HALF the effort. Trumann lifts or holds trunk or limbs and provides more than half the effort. 3-Sjmjjajsl-uupwli does ALL the effort. Patient does none of the effort to complete the activity. Or, the assistance of 2 or more helpers is required for the patient to complete the activity. If activity was not attempted, code reason: 7-Patient Refused. 9-Not Applicable-not attempted and the patient did not perform the activity before the current illness, exacerbation or injury. 10-Not Attempted due to Environmental Limitations-(lack of equipment, weather restraints, etc.). 88-Not Attempted due to Medical Conditions or Safety Concerns. Toileting Hygiene (QC): 6 Toilet Transfer (QC): 4 Other Treatment Pt reports fatigue, requests to perform UE exercises at bed level. Dowel crista utilized with 3# resistance. Pt able to perform all movements through full range. Good tolerance with rest break after 2 sets. 15 x2 in all planes. Min cues for proper technique. Education OT Patient Education: Correct positioning, Exercise program Teaching Recipient: Patient Teaching Methods: Discussion Response to Teaching: Verbalize Understanding, Return Demonstration, Reinforcement Needed OT Short Term Goals Short Term Goals Time Frame: Apr 24, 2021 Eatin Oral hygiene: 5 Toileting hygiene: 4 Shower/bathe self: 4 Upper body dressin Lower body dressin Putting on/taking off footwear: 4 OT Flight Control Manager Goals Fdc Goals Time Frame: May 01, 2021 Eating (QC): 6 Oral Hygiene (QC): 6 Toileting Hygiene (QC): 6 Shower/Bathe Self (QC): 5 Upper Body Dressing (QC): 6 Lower Body Dressing (QC): 6 On/Off Footwear (QC): 5 1=Demonstrate adherence to instructed precautions during ADL tasks. 2=Patient will verbalize/demonstrate understanding of assistive devices/modifications for ADL. 3=Patient will improve strength/tolerance for activity to enable patient to perform ADL's. OT Education/Plan Problem List/Assessment Assessment: Decreased Activ Tolerance, Decreased UE Strength, Impaired Funct Balance, Impaired I ADL's, Impaired Self-Care Skills Discharge Recommendations Plan/Recommendations: Continue POC Treatment Plan/Plan of Care Treatment,Training & Education: Yes Patient would benefit from OT for education, treatment and training to promote independence in ADL's, mobility, safety and/or upper extremity function for ADL's. Plan of Care: ADL Retraining, Functional Mobility, Group Exercise/Act as Ind, UE Funct Exercise/Act, W/C Management Training Treatment Duration: May 01, 2021 Frequency: At least 5 of 7 days/Wk (IRF) Estimated Hrs Per Day: 1.5 hours per day Agreement: Yes Rehab Potential: Fair Time/GCodes Start Time: 11:16 Stop Time: 11:50 Total Time Billed (hr/min): 34 Billed Treatment Time 1 visit EX Heavenly Mayer OT Apr 24, 2021 11:50
[2021-04-24] MEDS ORDERED: OXC5T PO (12:27)
[2021-04-24] MEDS ORDERED: PANT40TA52 PO (12:27)
[2021-04-24] MEDS ORDERED: FAMO20TA5 PO (12:27)
[2021-04-24] MEDS ORDERED: SUCR1TAB36 PO (12:27)
[2021-04-24] MEDS ORDERED: TRAM50TA3 PO (12:27)
--- NOTE | 2021-04-24 12:30 | D/C HH Face to Face Order ---
D/C HH Face to Face Orders Reconcile Patient Problems Problems Reviewed?: Yes Instructions for Patient HH Patient Instructions/FollowUp: Debility Right knee replacement Physician to follow Patient: PCP Discharge Diet for Home: No Restrictions Patient Problems: Right knee replacement Patient Data-Allergies,Ht & Wt Patient Allergies: Coded Allergies: Hvhldwb-GOB-RiI Reductase Inhibitor (Unverified Allergy, Intermediate, "MAKES MY LEGS HURT", 04/18/21) adhesive tape (Verified Allergy, Intermediate, BLISTERS, 09/07/20) codeine (Verified Allergy, Intermediate, "MAKES ME FEEL WEIRD", 09/07/20) Home Health Need/Face to Face Date of Face to Face: Apr 24, 2021 Clinical Findings: Generalized weakness and fatigue, Instability, Muscle weakness, Pain with ambulation, Unsteady gait I have seen Pt konh-eh-[id number]: Yes Discharged To: Home Diagnosis/Conditions: Debility Patient is Homebound due to: CognItive deficits, Muscle weakness, Shortness of breath/distress Homebound Status Due to the above stated illness, injury or surgical procedure (medical condition or diagnosis) and associated clinical findings, the patient is homebound because of his/her inability to leave home except with aid of a supportive device and/or person AND leaving the home requires a considerable and taxing effort or is medically contraindicated. Pt req the following assistanc: [facility] Nursing Orders Home Health Services Order: Nursing Services, Financial Officer-Evaluate & Veronica t, Physical Therapy-Evaluate & Treat Certify Stmt I certify that this patient is under my care and that I, a nurse practitioner or a physician; a executive personal assistant working with me, had a face to face encounter that - meets the physician face to face encounter requirements with this patient as dated. STEFF TORRES DO Apr 24, 2021 12:30
--- NOTE | 2021-04-24 13:51 | Anesthesia-General Post-Op ---
MAC Patient Condition Mental Status/LOC: Same as Preop Cardiovascular: Satisfactory Nausea/Vomiting: Absent Respiratory: Satisfactory Pain: Controlled Complications: Absent Post Op Complications Complications None Follow Up Care/Instructions Patient Instructions None needed. Anesthesiology Discharge Order Discharge Order Patient is doing well, no complaints, stable vital signs, no apparent adverse anesthesia problems. No complications reported per nursing. KURTIS STAPLES CRNA Apr 24, 2021 13:51
--- NOTE | 2021-04-24 14:45 | Therapy Group Daily Note ---
Therapy Daily Group Note Patient Education Topic Other List Below (ARU Expectations, Environmental Safety & UE/LE Strengthening) Exercises LE Seated Exercise, UE Exercise Session Ratio (pt:therapist): 3:1 Goal of Session: Education on ARU Expectations, Home Safety Strategies, UE/LE Strengthing Goal Met for this Session: Yes Pt Benefit of Group: Contributions to Others, F/U Use of Strategies @Home, Increased Functional Safety, Increased Functional Strength, Improved Cognition, Recognition of Peers, Socialization Other/Notes Pt ambulated using FWW to ARU commons areas for OT/PT group. Group consisted of introductions (name,place living, positive things that came from COVID pandemic), socialization, B UE/LE seated exercise and educational topics about ARU, environmental/home safety. Pt able to introduce self appropriately and actively listening to peers. Discussion about grocery tack picker or delivery in community. Environmental safety Bingo completed with word scramble to work on cognition and problem solving skills. Pt using good dynamic sitting balance during reaching and grasping throughout activities. After session, pt laying Supine in bed with polar pack on & with call light/phone in reach. All needs met in room. Start Time: 13:00 Stop Time: 14:00 Total Billed Treatment Time: 60 Total Billed Treatment 1, GRP (60m) FRIDA BOLDEN PTA Apr 24, 2021 14:45
[2021-04-24] MEDS: GABAPENTIN 300 MG (NEURONTIN) CAP PO SCH (16:41)
[2021-04-24] MEDS: warFARin 5 MG (COUMADIN) TAB PO SCH (18:42)
[2021-04-24 18:56] VITALS: BP 140/62
[2021-04-24] MEDS: MELATONIN 3 MG TABLET PO PRN (20:24)
--- NOTE | 2021-04-25 05:54 | Discharge Summary ---
Diagnosis/Chief Complaint Date of Admission Apr 17, 2021 at 14:25 Date of Discharge Discharge Diagnosis Assessment: 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 STANLEY who performed today showing gastritis and dilated esophagus GERD Postop constipation Wheezing Plan: Aggressive rehab Supportive care Pain control Bowel regimen 04/18/2021: Nebulizer treatments Supportive care 04/19/2021: Nebulizer treatments Pain control 04/20/2021: Needs EGD Supportive care 04/21/2021: EGD by Dr. STANLEY hopefully this week 04/22/2021: Appreciate Dr. STANLEY Monitor nausea 04/23/2021: Supportive care EGD tomorrow 04/24/2021: Supportive care Discharge home tomorrow (1) Total knee replacement status (2) Obesity (3) GERD (gastroesophageal reflux disease) (4) Hypothyroidism (5) Atrial fibrillation (6) HX: breast cancer (7) Warfarin anticoagulation Discharge Summary Discharge Physical Examination Allergies: Coded Allergies: Pooneid-LMQ-YnO Reductase Inhibitor (Unverified Allergy, Intermediate, "MAKES MY LEGS HURT", 04/18/21) adhesive tape (Verified Allergy, Intermediate, BLISTERS, 09/07/20) codeine (Verified Allergy, Intermediate, "MAKES ME FEEL WEIRD", 09/07/20) Vitals & I&Os Vital Signs Date Time Temp Pulse Resp B/P (MAP) Pulse Ox O2 Delivery O2 Flow Rate FiO2 04/25/21 12:10 36.5 73 20 158/70 98 Room Air 04/25/21 07:32 2.00 General Appearance: Alert, Oriented X3, Cooperative Respiratory: Clear to Auscultation Cardiovascular: Regular Rate Neuro: Normal Gait, Normal Speech, Strength at 5/5 X4 Ext Psych/Mental Status: Mental Status NL Hospital Course Was the Problem List Reviewed?: Yes Pt had an uneventful hospital course for 9 days. She was admitted following a right total knee replacement. She was doing very well. She had some issues with dysphasia. EGD was performed by Dr. Stanley. She had Protonix and Carafate and dil ated her esophagus. Overall she did very well and was deemed stable for discharge. Labs (last 24 hrs) Laboratory Tests 04/18/21 05:32: White Blood Count 7.5, Red Blood Count 3.10L, Hemoglobin 10.0L, Hematocrit 30L, Mean Corpuscular Volume 98, Mean Corpuscular Hemoglobin 32, Mean Corpuscular Hemoglobin Concent 33, Red Cell Distribution Width 13.3, Platelet Count 158, Mean Platelet Volume 11.3, Immature Granulocyte % (Auto) 0, Neutrophils (%) (Auto) 73, Lymphocytes (%) (Auto) 12, Monocytes (%) (Auto) 12, Eosinophils (%) (Auto) 2, Basophils (%) (Auto) 1, Neutrophils # (Auto) 5.5, Lymphocytes # (Auto) 0.9L, Monocytes # (Auto) 0.9, Eosinophils # (Auto) 0.1, Basophils # (Auto) 0.0, Immature Granulocyte # (Auto) 0.0, Prothrombin Time 18.0H, INR Comment 1.4, Sodium Level 133L, Potassium Level 4.6, Chloride Level 100, Carbon Dioxide Level 21, Anion Gap 12, Blood Urea Nitrogen 31H, Creatinine 1.37H, Estimat Glomerular Filtration Rate 39, BUN/Creatinine Ratio 23, Glucose Level 111H, Calcium Level 8.6, Corrected Calcium 8.9, Total Bilirubin 0.5, Aspartate Amino Transf (AST/SGOT) 22, Alanine Aminotransferase (ALT/SGPT) < 6, Alkaline Phosphatase 51, Total Protein 6.6, Albumin 3.6 04/20/21 05:55: Prothrombin Time 23.5H, INR Comment 2.0H 04/22/21 06:12: White Blood Count 6.2, Red Blood Count 3.00L, Hemoglobin 9.5L, Hematocrit 30L, M roseanna Corpuscular Volume 100H, Mean Corpuscular Hemoglobin 32, Mean Corpuscular Hemoglobin Concent 32, Red Cell Distribution Width 13.3, Platelet Count 195, Mean Platelet Volume 10.6, Immature Granulocyte % (Auto) 0, Neutrophils (%) (Auto) 73, Lymphocytes (%) (Auto) 10L, Monocytes (%) (Auto) 13H, Eosinophils (%) (Auto) 3, Basophils (%) (Auto) 1, Neutrophils # (Auto) 4.6, Lymphocytes # (Auto) 0.6L, Monocytes # (Auto) 0.8, Eosinophils # (Auto) 0.2, Basophils # (Auto) 0.0, Immature Granulocyte # (Auto) 0.0, Sodium Level 137, Potassium Level 4.6, Chloride Level 104, Carbon Dioxide Level 23, Anion Gap 10, Blood Urea Nitrogen 27H, Creatinine 1.00, Estimat Glomerular Filtration Rate 57, BUN/Creatinine Ratio 27, Glucose Level 123H, Calcium Level 8.5, Corrected Calcium 9.1, Total B ilirubin 0.6, Aspartate Amino Transf (AST/SGOT) 15, Alanine Aminotransferase (ALT/SGPT) < 6, Alkaline Phosphatase 45, Total Protein 6.2L, Albumin 3.2 04/23/21 15:41: SARS-CoV-2 RNA (RT-PCR) Not Detected Microbiology 04/23/21 MRSA Screen - Final, Complete MRSA not isolated Pending Labs Microbiology Date/Time Source Procedure Growth Status 04/23/21 15:41 Nasal MRSA Screen - Final MRSA not isolated Complete Laboratory Tests 04/18/21 05:32: White Blood Count 7.5, Red Blood Count 3.10, Hemoglobin 10.0, Hematocrit 30, Mean Corpuscular Volume 98, Mean Corpuscular Hemoglobin 32, Mean Corpuscular Hemoglobin Concent 33, Red Cell Distribution Width 13.3, Platelet Count 158, Mean Platelet Volume 11.3, Immature Granulocyte % (Auto) 0, Neutrophils (%) (Aut o) 73, Lymphocytes (%) (Auto) 12, Monocytes (%) (Auto) 12, Eosinophils (%) (Auto) 2, Basophils (%) (Auto) 1, Neutrophils # (Auto) 5.5, Lymphocytes # (Auto) 0.9, Monocytes # (Auto) 0.9, Eosinophils # (Auto) 0.1, Basophils # (Auto) 0.0, Immature Granulocyte # (Auto) 0.0, Prothrombin Time 18.0, INR Comment 1.4, Sodium Level 133, Potassium Level 4.6, Chloride Level 100, Carbon Dioxide Level 21, Anion Gap 12, Blood Urea Nitrogen 31, Creatinine 1.37, Estimat Glomerular Filtration Rate 39, BUN/Creatinine Ratio 23, Glucose Level 111, Calcium Level 8.6, Corrected Calcium 8.9, Total Bilirubin 0.5, Aspartate Amino Transf (AST/SGOT) 22, Alanine Aminotransferase (ALT/SGPT) < 6, Alkaline Phosphatase 51, Total Protein 6.6, Albumin 3.6 04/20/21 05:55: Prothrombin Time 23.5, INR Comment 2.0 04/22/21 06:12: White Blood Count 6.2, Red Blood Count 3.00, Hemoglobin 9.5, Hematocrit 30, Mean Corpuscular Volume 100, Mean Corpuscular Hemoglobin 32, Mean Corpuscular Hemoglobin Concent 32, Red Cell Distribution Width 13.3, Platelet Count 195, Mean Platelet Volume 10.6, Immature Granulocyte % (Auto) 0, Neutrophils (%) (A uto) 73, Lymphocytes (%) (Auto) 10, Monocytes (%) (Auto) 13, Eosinophils (%) (Auto) 3, Basophils (%) (Auto) 1, Neutrophils # (Auto) 4.6, Lymphocytes # (Auto) 0.6, Monocytes # (Auto) 0.8, Eosinophils # (Auto) 0.2, Basophils # (Auto) 0.0, Immature Granulocyte # (Auto) 0.0, Sodium Level 137, Potassium Level 4.6, Chloride Level 104, Carbon Dioxide Level 23, Anion Gap 10, Blood Urea Nitrogen 27, Creatinine 1.00, Estimat Glomerular Filtration Rate 57, BUN/Creatinine Ratio 27, Glucose Level 123, Calcium Level 8.5, Corrected Calcium 9.1, Total Bilirubin 0.6, Aspartate Amino Transf (AST/SGOT) 15, Alanine Aminotransferase (ALT/SGPT) < 6, Alkaline Phosphatase 45, Total Protein 6.2, Albumin 3.2 04/23/21 15:41: SARS-CoV-2 RNA (RT-PCR) Not Detected Discharge Home Medications: Active Scripts Active Carafate (Sucralfate) 1 Gm Tablet 1 Gm PO ACHS Pantoprazole Sodium 40 Mg Tablet.dr 40 Mg PO BID Famotidine 20 Mg Tablet 20 Mg PO DAILY Tramadol HCl 50 Mg Tablet 50-100 Mg PO Q6H PRN Oxyir Tablet (Oxycodone HCl) 5 Mg Tab 5-10 Mg PO EVERY 2 HOURS PRN Reported Coreg (Carvedilol) 12.5 Mg Tablet 12.5 Mg PO BID Dicyclomine HCl 10 Mg Capsule 10 Mg PO QID PRN Losartan Potassium 50 Mg Tablet 50 Mg PO BID Tylenol Extra Strength (Acetaminophen) 500 Mg Tablet 1,000 Mg PO Q8H Warfarin Sodium 5 Mg Tablet 5 Mg PO MO,WE,TH,FR Levothyroxine Sodium 125 Mcg Tablet 125 Mcg PO DAILY Warfarin Sodium 2.5 Mg Tablet 2.5 Mg PO THU,THU,THU Letrozole 2.5 Mg Tablet 2.5 Mg PO DAILY Furosemide 40 Mg Tablet 40 Mg PO , Spironolactone 25 Mg Tablet 25 Mg PO DAILY Neurontin (Gabapentin) 300 Mg Capsule 300 Mg PO HS Instructions to patient/family Please see electronic discharge instructions given to patient. Diagnosis/Problems Diagnosis/Problems (1) Total knee replacement status (2) Obesity (3) GERD (gastroesophageal reflux disease) (4) Hypothyroidism (5) Atrial fibrillation (6) HX: breast cancer (7) Warfarin anticoagulation STEFF TORRES DO Apr 25, 2021 05:54
[2021-04-25] MEDS: DICYCLOMINE 10 MG (BENTYL) CAP PO PRN (06:03)
[2021-04-25] MEDS: LEVOTHYROXINE 125 MCG (LEVOTHROID) TABLET PO SCH (06:03)
[2021-04-25] MEDS: RT-ALBUTEROL SULF 2.5 MG/3 ML PRE-MIX VIAL INH SCH (07:07)
[2021-04-25] MEDS: PANTOPRAZOLE 40 MG (PROTONIX) TAB PO SCH (07:18)
[2021-04-25] MEDS: DOCUSATE SODIUM 100 MG (COLACE) CAP PO SCH (07:19)
[2021-04-25] MEDS: LETROZOLE 2.5 MG (FEMARA) TAB PO SCH (07:19)
[2021-04-25] MEDS: SENNA W/DOCUSATE (SENOKOT S) TABLET PO SCH (07:19)
[2021-04-25] MEDS: SPIRONOLACTONE 25 MG (ALDACTONE) TAB PO SCH (07:19)
[2021-04-25] MEDS: FAMOTIDINE 20 MG (PEPCID) TABLET PO SCH (07:19)
[2021-04-25 07:32] VITALS: BP 170/71
[2021-04-25 09:20] VITALS: BP 158/70
[2021-04-25] MEDS: polyethylene glycoL POWDER 17 GM (MIRALAX) PACK PO SCH (09:24)
--- NOTE | 2021-04-25 10:25 | Therapy Team Discharge Summary ---
Therapy Discharge Summary Discharge Recommendations Date of Discharge Physical Therapy Roll Left to Right (QC): 6 Sit to Lying (QC): 6 Lying to Sitting/Side of Bed(Q: 6 Sit to Stand (QC): 6 Chair/Bgm-cs-Pzvxi Xfer(QC): 6 Toilet Transfer (QC): 5 Car Transfer (QC): 6 Does the Patient Walk: Yes Mode of Locomotion: Walk Anticipated Mode of Locomotion: Walk Walk 10 feet (QC): 6 Walk 50 ft with 2 Turns(QC): 6 Walk 150 ft (QC): 6 Walking 10ft on uneven surface: 6 Distance: 150 Gait Assistive Device: FWW Does the Pt Use a Wheelchair: Yes Wheelchair Distance: 120'x3 Wheel 50 ft with 2 turns (QC): 4 Wheel 150 ft (QC): 88 Type of Wheelchair: Manual #of Steps: 8 1 Step (curb) (QC): 5 4 Steps (QC): 4 12 Steps (QC): 7 Balance Sitting Static: Normal Balance Sitting Dynamic: Normal Balance-Standing Static: Fair Picking up an Object (QC): 6 Occupational Therapy Decreased Activ Tolerance, Decreased UE Strength, Impaired Funct Balance, Impaired I ADL's, Impaired Self-Care Skills Eating (QC): 6 Oral Hygiene (QC): 6 Shower/Bathe Self (QC): 5 Upper Body Dressing (QC): 6 Lower Body Dressing (QC): 5 On/Off Footwear (QC): 6 Toileting Hygiene (QC): 6 PT Snf Goals Student Counselor Goals PT Student Counselor Goals Time Frame: May 08, 2021 Roll Left to Right (QC): 6 Sit to Lying (QC): 6 Lying-Sitting on Side/Bed(QC): 6 Sit to Stand (QC): 5 Chair/Izx-vx-Dtcoq Xfer(QC): 5 Car Transfer (QC): 5 Does the Patient Walk: Yes Walk 10 feet (QC): 5 Walk 10ft-Uneven Surface(QC): 4 Walk 50ft with 2 Turns (QC): 5 Walk 150 ft (QC): 5 Wheel 50 feet with 2 turns (QC: 6 1 Step (curb) (QC): 4 4 Steps (QC): 4 12 Steps (QC): 88 Picking up an Object (QC): 5 OT Snf Goals Student Counselor Goals Time Frame: May 01, 2021 Eating (FIM): 6 Eating (QC): 6 Oral Hygiene (QC): 6 Shower/Bathe Self (QC): 5 Upper Body Dressing (QC): 6 Lower Body Dressing (QC): 6 On/Off Footwear (QC): 5 Toileting(FIM): 6 Toileting Hygiene (QC): 6 Toilet/Commode Transfer (QC): 5 1=Demonstrate adherence to instructed precautions during ADL tasks. 2=Patient will verbalize/demonstrate understanding of assistive devices/modifications for ADL. 3=Patient will improve strength/tolerance for activity to enable patient to perform ADL's. NENO CÁRDENAS PT Apr 25, 2021 10:24
[2021-04-25 12:10] VITALS: BP 158/70
--- NOTE | 2021-04-25 13:53 | Therapy Team Discharge Summary ---
Therapy Discharge Summary Discharge Recommendations Date of Discharge Apr 25, 2021 at 12:10 Therapy D/C Recommendations: Occupational Therapy Home Care, Homemaker Support Physical Therapy Roll Left to Right (QC): 6 Sit to Lying (QC): 6 Lying to Sitting/Side of Bed(Q: 6 Sit to Stand (QC): 6 Chair/[id number]-[id number] Xfer(QC): 6 Toilet Transfer (QC): 5 Car Transfer (QC): 6 Does the Patient Walk: Yes Mode of Locomotion: Walk Anticipated Mode of Locomotion: Walk Walk 10 feet (QC): 6 Walk 50 ft with 2 Turns(QC): 6 Walk 150 ft (QC): 6 Walking 10ft on uneven surface: 6 Distance: 150 Gait Assistive Device: FWW Does the Pt Use a Wheelchair: Yes Wheelchair Distance: 120'x3 Wheel 50 ft with 2 turns (QC): 4 Wheel 150 ft (QC): 88 Type of Wheelchair: Manual #of Steps: 8 1 Step (curb) (QC): 5 4 Steps (QC): 4 12 Steps (QC): 7 Balance Sitting Static: Normal Balance Sitting Dynamic: Normal Balance-Standing Static: Fair Picking up an Object (QC): 6 Occupational Therapy Pt arrived to [facility] s/p R TKA. On day of admission, pt was min-mod a for oral care, bathing, lower body dressing, and toileting, max a for footwear, and indep with eating. During her rehab stay, OT focused on safety, balance, endurance, UE strengthening, adaptive equipment, compensatory strategies and energy conservation in order to increase performance and safety with adls and functional transfers. Pt made good progress and met all but one of her buttermaker goals. Pt is now indep with oral care, upper body dressing, footwear, and toileting hygiene. She is set up for lower body dressing and bathing and r equires supervision for toilet transfers. Pt is now discharged from this facility and will be discharged from OT services. Decreased Activ Tolerance, Decreased UE Strength, Impaired Funct Balance, Impaired I ADL's, Impaired Self-Care Skills Eating (QC): 6 Oral Hygiene (QC): 6 Shower/Bathe Self (QC): 5 Upper Body Dressing (QC): 6 Lower Body Dressing (QC): 5 On/Off Footwear (QC): 6 Toileting Hygiene (QC): 6 PT Crossing Watchman Goals Crossing Watchman Goals PT Retirement Goals Time Frame: May 08, 2021 Roll Left to Right (QC): 6 Sit to Lying (QC): 6 Lying-Sitting on Side/Bed(QC): 6 Sit to Stand (QC): 5 Chair/Iij-ml-Dtpgl Xfer(QC): 5 Car Transfer (QC): 5 Does the Patient Walk: Yes Walk 10 feet (QC): 5 Walk 10ft-Uneven Surface(QC): 4 Walk 50ft with 2 Turns (QC): 5 Walk 150 ft (QC): 5 Wheel 50 feet with 2 turns (QC: 6 1 Step (curb) (QC): 4 4 Steps (QC): 4 12 Steps (QC): 88 Picking up an Object (QC): 5 OT Crossing Watchman Goals Crossing Watchman Goals Time Frame: May 01, 2021 Eating (FIM): 6 (met) Eating (QC): 6 (met) Oral Hygiene (QC): 6 (met) Shower/Bathe Self (QC): 5 (met) Upper Body Dressing (QC): 6 (met) Lower Body Dressing (QC): 6 (set up) On/Off Footwear (QC): 5 (met) Toileting(FIM): 6 Toileting Hygiene (QC): 6 (met) Toilet/Commode Transfer (QC): 5 (not met, sup) 1=Demonstrate adherence to instructed precautions during ADL tasks. 2=Patient will verbalize/demonstrate understanding of assistive devices/modifications for ADL. 3=Patient will improve strength/tolerance for activity to enable patient to perform ADL's. Heavenly Rice OT Apr 25, 2021 13:53
== END 2021-04-25 12:10 | disposition home health service (06) | DRG 561 ==
PROVIDERS: ADMIT Internal Medicine; ATTEND Internal Medicine
DX: Z47.1 Aftercare following joint replacement surgery (principal); Z96.651 Presence of right artificial knee joint; I48.0 Paroxysmal atrial fibrillation; E78.00 Pure hypercholesterolemia, unspecified; I12.9 Hypertensive chronic kidney disease with stage 1 through stage 4 chronic kidney disease, or unspecified chronic kidney disease; N18.9 Chronic kidney disease, unspecified; G62.9 Polyneuropathy, unspecified; Z66 Do not resuscitate; Z20.822 Contact with and (suspected) exposure to COVID-19; E03.9 Hypothyroidism, unspecified; K22.4 Dyskinesia of esophagus; K22.2 Esophageal obstruction; R13.10 Dysphagia, unspecified; K29.70 Gastritis, unspecified, without bleeding; K21.00 Gastro-esophageal reflux disease with esophagitis, without bleeding; E66.9 Obesity, unspecified; G47.33 Obstructive sleep apnea (adult) (pediatric); K59.09 Other constipation; E78.5 Hyperlipidemia, unspecified; Z68.38 Body mass index [BMI] 38.0-38.9, adult; Z85.3 Personal history of malignant neoplasm of breast; Z79.01 Long term (current) use of anticoagulants; Z88.5 Allergy status to narcotic agent; Z95.0 Presence of cardiac pacemaker
CPT/HCPCS: 36415; 80053; 85025; 85610; 87081; 87636; 94640; 94760

== ENCOUNTER 2021-04-24 08:54 | Day surgery (SDC) | payer MEDICARE, BC ==
[~2021-04-24 08:54] MED LIST changes: +CARV12.52 PO; +DICY10CA12 PO
[2021-04-24] MEDS ORDERED: LACTATED RINGERS 1,000 ML IV STA (08:57)
[2021-04-24] MEDS ORDERED: LIDOCAINE JELLY 2% 6 ML SYRINGE MM PRN (09:00)
[2021-04-24] MEDS ORDERED: HURRICAINE EXT TUBE (BENZOCAINE) XX PRN (09:00)
[2021-04-24] MEDS ORDERED: LACTATED RINGERS 1,000 ML IV ONE (09:01)
[2021-04-24] MEDS ORDERED: proPOfol 200 MG/20 ML (DIPRIVAN) VIAL IV ONE (09:41)
[2021-04-24 10:27] VITALS: BP 126/60
[2021-04-24 10:32] VITALS: BP 126/63
[2021-04-24] MEDS ORDERED: SUCR1TAB36 PO (12:27)
[2021-04-24] MEDS ORDERED: FAMO20TA5 PO (12:27)
[2021-04-24] MEDS ORDERED: TRAM50TA3 PO (12:27)
[2021-04-24] MEDS ORDERED: OXC5T PO (12:27)
[2021-04-24] MEDS ORDERED: PANT40TA52 PO (12:27)
--- NOTE | 2021-04-24 12:49 | OPERATIVE REPORT ---
DATE OF SERVICE: 04/24/2021 ATTENDING BARNWORKER GROOM: Dr. Shira Lopes PREOPERATIVE DIAGNOSES: Dysphagia, gastroesophageal reflux disease. POSTOPERATIVE DIAGNOSES: Reflux esophagitis between Marbury grade III with a mild distal esophageal stricture versus achalasia, small hiatal hernia approximately 2 cm in size, moderate to severe gastritis. No distal obstructions. PROCEDURE: EGD with biopsy and balloon dilatation. SURGEON: Trina Stanley MD. ANESTHESIA: Monitored anesthesia care. ESTIMATED BLOOD LOSS: Minimal. FINDINGS: Reflux esophagitis between Marbury grade III with a mild distal esophageal stricture versus achalasia, small hiatal hernia approximately 2 cm in size, moderate to severe gastritis. No distal obstructions. DISPOSITION: The patient tolerated the procedure well. INDICATIONS: The patient is an 80-year-old female who underwent a right total knee arthroplasty approximately 1 week ago. This was done in [place], [place] and she is now here for inpatient rehabilitation. She had her contralateral knee done approximately one year ago and also required inpatient rehabilitation. She states that several weeks before this recent surgery, she did have an increased amount of stress to get personal things arranged and she did develop some issues with dysphagia as well as gastroesophageal reflux disease. Since surgery, she has had significant episodes of dysphagia and can only take in very soft foods and liquids. DESCRIPTION OF PROCEDURE: The patient was brought to the endoscopy suite, laid in the left lateral decubitus position. After adequate IV pain and sedative medications and monitored anesthesia care, the mouthpiece was applied. The endoscope was placed in the mouth, visualizing the pharynx and hypopharyngeal region. Vocal cords, epiglottis and vallecula identified and appeared to be normal. The endoscope was gently intubated. Esophageal opening and esophagus insufflated. The endoscope was then advanced through the first, second and third portion of esophagus. At the level of the GE junction, there was a certain level of tightness; however, it was hard to discern if this was related to hypertonic lower esophageal sphincter and achalasia versus a Schatzki's ring and a mild distal esophageal stricture. Marbury between grade B and C, reflux esophagitis identified. A biopsy was taken with forceps with visualization. The endoscope was then advanced in the stomach and endoscope retroflexed, visualizing a small hiatal hernia approximately 2 cm in size. There was a moderate to severe gastritis throughout the stomach. No formal ulcerations, polyps, or any neoplasms. A biopsy was taken of the antrum to rule out H. pylori with visualization of good hemostasis. The endoscope was then advanced to the pylorus and the first and second portion of the duodenum, which appeared normal with no distal obstructions. The endoscope was then advanced through the pylorus and the first and second portion of the duodenum, which appeared normal with no distal obstructions. The balloon was then placed in the stomach and pulled back to the area of the stricture and then we proceeded in a gradual stepwise fashion from 2, 4, then eventually 6 atmospheres of pressure or 20 mm in luminal diameter with moderate resistance and left this in place for approximately 60 seconds. The balloon was then desufflated and removed with visualization of good hemostasis as well as no mucosal tears. The endoscope was then slowly withdrawn while taking a second look and suctioning of residual air with no additional findings. The patient tolerated the procedure well. She is currently on Protonix; however, we will also start her on a medication regimen of PPI on a b.i.d. basis. We will also recommend that she chews thoroughly and eat slowly initially. If she is less symptomatic, this was likely a stricture; however, she does have recurrent episodes of dysphagia, this might be achalasia and we would proceed with medical management with low dose calcium channel bishnu or nitrates initially. Job ID: [id number] DocumentID: [id number] Dictated Date: 04/24/2021 10:33:34 Machine Driller Date: 04/24/2021 12:48:45 Dictated By: TRINA STANLEY MD
--- NOTE | 2021-04-26 07:19 | Anesthesia-General Post-Op ---
MAC Patient Condition Mental Status/LOC: Same as Preop Cardiovascular: Satisfactory Nausea/Vomiting: Absent Respiratory: Satisfactory Pain: Controlled Complications: Absent Post Op Complications Complications None Follow Up Care/Instructions Patient Instructions None needed. Anesthesiology Discharge Order Discharge Order Patient was seen after the procedure and she was doing well, no complaints, stable vital signs, no apparent adverse anesthesia problems. MADDIE LOJA DO Apr 26, 2021 07:19
== END 2021-04-24 10:45 ==
LOC: ENDO 08:54
PROVIDERS: ATTEND Surgery
DX: K21.00 Gastro-esophageal reflux disease with esophagitis, without bleeding (principal); K44.9 Diaphragmatic hernia without obstruction or gangrene; K29.50 Unspecified chronic gastritis without bleeding; I10 Essential (primary) hypertension; E03.9 Hypothyroidism, unspecified; K21.9 Gastro-esophageal reflux disease without esophagitis; M19.90 Unspecified osteoarthritis, unspecified site; E78.00 Pure hypercholesterolemia, unspecified; Z79.899 Other long term (current) drug therapy; Z79.890 Hormone replacement therapy; Z85.3 Personal history of malignant neoplasm of breast; Z80.0 Family history of malignant neoplasm of digestive organs